=== PATIENT | female | born 2000 | race Caucasian/White ===

== ENCOUNTER 2022-03-08 14:44 | Outpatient (REF) | payer MEDICAID, SELFPAY ==
[2022-03-09 09:47] LABS: BV Int Neg Control Negative (Negative); BV Int Pos Control Positive (Positive)
== END 2022-03-08 14:45 | disposition home or self-care (01) ==
LOC: HO.LNP 14:44
PROVIDERS: Visit Provider Advanced Practice Midwife
DX: N89.8 Other specified noninflammatory disorders of vagina (principal)
CPT/HCPCS: 87480; 87510; 87660; 99212

== ENCOUNTER 2023-09-11 14:01 | Outpatient (REF) | payer OTHER, SELFPAY ==
--- NOTE | ~2023-09-11 | US_ITS ---
EXAMINATION: US THYROID CLINICAL INFORMATION: Incidental thyroid nodule. COMPARISON: None available. TECHNIQUE: Linear transducer casanova-scale and color Doppler examination with attention to the region of the thyroid. FINDINGS: SIZE: Measurements of the thyroid lobes and nodules are given in sagittal, anteroposterior and transverse dimensions respectively. Right Thyroid Lobe: 3.8 x 1.3 x 1.3 cm, volume 3.1 mL. Parenchyma: The gland echotexture is homogeneous. Thyroid vascularity is normal. Left Thyroid Lobe: 4.9 x 2.4 x 2.7 cm, volume 15.5 mL. Parenchyma: The gland echotexture is heterogeneous. Thyroid vascularity is normal. Isthmus: 0.3 cm in maximum AP dimension. Estimated total number of nodules greater than or equal to 1 cm: 1. 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 Location: Left mid. Size: 3.2 x 2.3 x 2.7 cm, volume 10.4 mL. Nodule characteristics: Composition: Solid (2). Echogenicity: Hypoechoic (2). Shape: Not taller than wide (0). Margins: Smooth (0). Echogenic Foci: None (0). ACR TI-RADS total points: 4. ACR TI-RADS category: 4. NODES: 1.0 x 0.2 x 0.7 cm right cervical node with echogenic hilum. 1.6 x 0.3 x 0.6 cm left cervical node with echogenic hilum and mild prominence of the cortex. US/US thyroid IMPRESSION: 3.2 cm left TR4 thyroid nodule meets criteria for biopsy. Fine-needle aspiration recommended. This study was presented today 09/16/2023 for interpretation. PSA staff will provide results to referring provider at this time. ACR TI-RADS RECOMMENDATION REFERENCE: Ultrasound-guided fine-needle aspiration, followup ultrasound, no further follow up. * TR1 (0 point) and TR2 (2 points): No FNA or follow up. * TR3 (3 points): FNA if more than or equal to 2.5 cm in maximum dimension, followup ultrasound in 1, 3 and 5 years if 1.5 to 2.4 cm in maximum dimension. * TR4 (4-6 points): FNA if more than or equal to 1.5 cm in maximum dimension, followup ultrasound in 1, 2, 3 and 5 years if 1 to 1.4 cm in maximum dimension. * TR5 (more than or equal to 7 points): FNA if more than or equal to 1 cm in maximum dimension, followup ultrasound every year for 5 years if 0.5 to 0.9 cm in maximum dimension. * TR3, TR4 or TR5 nodules that are below the size threshold for followup receive no follow up.
== END 2023-09-11 14:02 | disposition home or self-care (01) ==
LOC: HO.US 14:01
PROVIDERS: PCP Pediatrics; Visit Provider Pediatrics
DX: E04.1 Nontoxic single thyroid nodule (principal)
CPT/HCPCS: 76536

== ENCOUNTER 2023-09-24 13:27 | Outpatient (REF) | payer OTHER, SELFPAY ==
--- NOTE | ~2023-09-24 | US_ITS ---
Ultrasound-guided thyroid nodule fine needle aspiration Indication: Left lobe thyroid nodule Procedure: Informed consent was obtained from the patient prior to the procedure. During this process, the procedure and potential alternatives were explained, along with the intended outcome and benefits. The risks of the procedure, as well as the risks of not doing the procedure, were discussed. The patient was given the opportunity to ask questions regarding the procedure and appeared competent to make medical decisions. A signed consent form which documents this discussion was placed in the medical record. A timeout was performed in the room. The patient was placed in a supine position with the neck extended. The left side of the neck and chest was prepped and draped in routine sterile fashion. 1% lidocaine was used as anesthetic. Under real-time ultrasound guidance, a 25-gauge needle was placed into the nodule and aspiration was performed. A total of 3 aspirations were performed. The specimens were placed in CytoLyt and and the Affirma bottle. Postprocedure images showed no hematoma. A Band-Aid was applied to the access site. The patient tolerated the procedure well with no immediate complications. Permanent ultrasound images were archived to the procedure. US/US guided fine needle asp Impression: Left thyroid nodule fine-needle aspiration This procedure was performed by Elvin Santana PA-C, and directly supervised by Dr. Vanessa
[2023-09-24] MEDS: Lidocaine HCl 1 % MPF 5 ML VIAL SUBCUT (14:28)
== END 2023-09-24 13:28 | disposition home or self-care (01) ==
LOC: HO.US 13:27
PROVIDERS: PCP Pediatrics; Visit Provider Pediatrics
DX: E04.1 Nontoxic single thyroid nodule (principal)
CPT/HCPCS: 10005; 88173; 88305; 88341; 88342

== ENCOUNTER → 2023-09-24 13:30 | Outpatient (BNV) | payer OTHER, SELFPAY | PROVIDERS: PCP Pediatrics; Visit Provider Physician Assistant Surgical | DX: E04.1 Nontoxic single thyroid nodule (principal) | CPT/HCPCS: 10005 ==

== ENCOUNTER 2023-11-06 09:35 | Outpatient (AMB) | payer OTHER, SELFPAY ==
--- NOTE | 2023-11-06 09:36 | A.OFFVIS_ITS ---
Vital Signs 11/06/23 09:37 Height 5 ft 3 in Weight 191 lb 5.78 oz BMI 33.9 BP 96/60 Blood Pressure Location Lt brachial Position Sitting Pulse 62 Pulse Source Pulse Oximeter Intake Visit Reasons: Thyroid Nodule-lvm Intake Note: Patient present today for Thyroid nodule follow up visit Handle Maker Required: No Accompanied by: Mother Allergies No Known Allergies Allergy (Verified 11/06/23 09:41) HPI Comments Details: 22 YO F with PMHx [] who is seen in consultation for thyroid nodule at the request of PCP. Was initially diagnosed with nodule thyroid in [] with thyroid US revealing Right Thyroid Lobe: 3.8 x 1.3 x 1.3 cm, volume 3.1 mL. Parenchyma: The gland echotexture is homogeneous. Thyroid vascularity. Incidental finding on CT brain is normal. Left Thyroid Lobe: 4.9 x 2.4 x 2.7 cm, volume 15.5 mL. Parenchyma: The gland echotexture is heterogeneous. Thyroid vascularity is normal. Isthmus: 0.3 cm in maximum AP dimension. Estimated total number of nodules greater than or equal to 1 cm: 1. 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 Location: Left mid. Size: 3.2 x 2.3 x 2.7 cm, volume 10.4 mL. Nodule characteristics: Composition: Solid (2). Echogenicity: Hypoechoic (2). Shape: Not taller than wide (0). Margins: Smooth (0). Echogenic Foci: None (0). ACR TI-RADS total points: 4. ACR TI-RADS category: 4. NODES: 1.0 x 0.2 x 0.7 cm right cervical node with echogenic hilum. 1.6 x 0.3 x 0.6 cm left cervical node with echogenic hilum and mild prominence of the cortex. She underwent an FNA of the nodule which showed AUS. Affirma was suspicious Currently [denies] any dysphagia or hoarseness of voice. [Denies] sensation of swelling in the neck or difficulty breathing while lying flat. [Denies] any tenderness in the neck. Denies any palpitations, tremors, weight loss, frequent bowel movements. Denies any ocular complaints, blurred or double vision. Denies hair loss, dry skin, heat or cold intolerance, weight gain, confusion. Denies any history of head or neck irradiation. Denies any family history of thyroid cancer. [ Thyroid US: Labs: COUNT INCLUDES THE [facility] Medical History (Updated 11/06/23 @ 09:43 by Ebenezer Alonso MD) Thyroid nodule Surgical History (Updated 03/08/22 @ 14:11 by MARINA Sánchez) H/O bilateral breast reduction surgery Family History Paternal Aunt Breast cancer Social History (Updated 03/08/22 @ 14:13 by MARINA Sánchez) Alcohol intake: current Alcohol intake frequency: holidays/special occasions only Female Reproductive History Menstrual Age of Menarche: 13 Physical Exam HEENT reveals absence of lid lag , stare or proptosis or eyebrow loss. Thyroid gland measure gms . No nodules or tenderness palpated. There is no cervical adenopathy palpated. Lungs CTA. Heart S1, S2 Reg R/R -M/R/G. Abdominal exam benign. Skin exam reveals absence of dryness or thyroid dermopathy or vitiligo. Nail exam reveals absence of thyroid acropachy or oncholysis. Neurologic exam reveals 2+ reflexes . Muscle Strength is 5/5 proximally. There are no tremors in upper extremities. Assessment & Plan Assessment & Plan (1) Thyroid nodule: Code(s): E04.1 - Nontoxic single thyroid nodule Category: Medical Plan: This is a 22-year-old white female with a history of left mid thyroid nodule with FNA with cytology of AUS and Affirma suspicious. She appears to be clinically euthyroid Plan is to check a TSH and free T4 as well as a thyroglobulin. Will send to Dr. Mendoza for possible total thyroidectomy. Orders: Orders Free T4 (Free Thyroxine) Today E04.1 - Nontoxic single thyroid nodule Thyroid Stimulating Hormone Today E04.1 - Nontoxic single thyroid nodule Thyroglobulin Tumor Marker Today E04.1 - Nontoxic single thyroid nodule Referrals General Surgery Referral E04.1 - Nontoxic single thyroid nodule Coding Level of Care Code New Pt Level 4 (18074) Diagnoses Thyroid nodule E04.1
[2023-11-06 09:37] VITALS: BP 96/60; PULSE 62; BMI 33.9
== END 2023-11-06 10:22 | disposition home or self-care (01) ==
PROVIDERS: PCP Pediatrics; Visit Provider Internal Medicine Endocrinology, Diabetes & Metabolism
DX: E04.1 Nontoxic single thyroid nodule (principal)
CPT/HCPCS: 99204

== ENCOUNTER → 2023-11-06 09:35 | Outpatient (BNVA) | payer OTHER, SELFPAY | PROVIDERS: PCP Pediatrics; Visit Provider Internal Medicine Endocrinology, Diabetes & Metabolism ==

== ENCOUNTER 2023-11-06 10:25 | Outpatient (REF) | payer OTHER, SELFPAY ==
[2023-11-06 11:52] LABS: Free T4 (Free Thyroxine) 0.99 ng/dL (0.71-1.85)
[2023-11-09 05:04] LABS: Thyroglobulin Antibody <1 IU/mL (<=1); Thyroglobulin Level 68.9 ng/mL
== END 2023-11-06 10:26 | disposition home or self-care (01) ==
LOC: HO.10HDL 10:25
PROVIDERS: Visit Provider Internal Medicine Endocrinology, Diabetes & Metabolism
DX: E04.1 Nontoxic single thyroid nodule (principal)
CPT/HCPCS: 36415; 84432; 84439; 84443; 86800

== ENCOUNTER → 2024-01-21 15:09 | Outpatient (BNVA) | payer MEDICAID, SELFPAY | PROVIDERS: PCP Pediatrics; Visit Provider Internal Medicine Endocrinology, Diabetes & Metabolism | DX: C73 Malignant neoplasm of thyroid gland (principal); E89.0 Postprocedural hypothyroidism | CPT/HCPCS: 99212 ==

== ENCOUNTER 2024-01-28 13:01 | Outpatient (AMB) | payer MEDICAID, SELFPAY ==
[2024-01-28 13:05] VITALS: BP 102/54; PULSE 77; BMI 34.3
--- NOTE | 2024-01-28 13:05 | A.OFFVIS_ITS ---
Vital Signs 3 01/28/24 13:05 Height 5 ft 3 in Weight 193 lb 9.054 oz BMI 34.3 BP 102/54 L Blood Pressure Location Lt brachial Position Sitting Pulse 77 Pulse Source Pulse Oximeter Intake Visit Reasons: Papillary thyroid cancer, Thyroid nodule/CONFIRMED Intake Note: Patient present today for Thyroid nodule office visit. 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 Accompanied by: Mother Allergies No Known Allergies Allergy (Verified 01/28/24 13:10) Medication List - Last Reconciled 01/28/24 by Marva Jurado MD levothyroxine 100 mcg PO DAILY sertraline 25 mg PO DAILY HPI Comments Details: 23 YO F with PMHx of anxiety and depression who is status post left lobectomy and prelaryngeal lymph node excision 12/17/23 with diagnosis of papillary thyroid cancer with follicular features , AJCC stage 1 ([id number]), with pathology showing high-grade features with high Ki67 index of 20 % and angioinvasion, concerning for KETTY high-risk for recurrence PTC, who is coming in today to establish care with me. Patient was previously being seen by Dr. Alonso. First visit with me today. HPI Initially diagnosed with thyroid nodule in August of 2023 a thyroid ultrasound revealing Estimated total number of nodules greater than or equal to 1 cm: 1. 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 Location: Left mid. Size: 3.2 x 2.3 x 2.7 cm, volume 10.4 mL. Nodule characteristics: Composition: Solid (2). Echogenicity: Hypoechoic (2). Shape: Not taller than wide (0). Margins: Smooth (0). Echogenic Foci: None (0). ACR TI-RADS total points: 4. ACR TI-RADS category: 4. NODES: 1.0 x 0.2 x 0.7 cm right cervical node with echogenic hilum. 1.6 x 0.3 x 0.6 cm left cervical node with echogenic hilum and mild prominence of the cortex. FNA of the nodule 09/25/2023 which showed AUS. Affirma was suspicious Subsequently underwent left thyroid lobectomy in prelaryngeal lymph node excision on 12/17/[address] Javid Mendoza Pathology : Subsequently patient was tried on levothyroxine 100 mcg daily from 01/16/2024. Patient endorses this was started in the hospital. Currently denies any symptoms of palpitations, tremors, increased anxiety. She feels she is putting on weight. Especially after the surgery. She is complaining of excessive tiredness. No recent labs. Denies any history of head or neck irradiation. Maternal aunts both had thyroid surgery with benign results Maternal uncle had thyroid cancer Paternal aunts x2 have throid disease PFSH Medical History (Updated 01/28/24 @ 17:00 by Marva Jurado MD) Thyroid cancer Thyroid nodule Surgical History H/O bilateral breast reduction surgery Family History Paternal Aunt Breast cancer Social History Alcohol intake: current Alcohol intake frequency: holidays/special occasions only Female Reproductive History Menstrual Age of Menarche: 13 Review of Systems Const Details: Constitutional: sleep disturbed and brain fog HEENT: no changes in vision Cardiac: No chest pain, discomfort or palpitations. Pulmonary: No SOB GI:No abdominal pain, no nausea or vomiting, no anorexia, no blood in stool : no burning micturition, dysuria or increase in urinary frequency Neurologic: No dizziness, no weakness in extremities MSK: no back pain or joint stiffness Eyes Details: General: sitting comfortably in bed in no acute distress HEENT: normocephalic/atraumatic, EOM intact, moist oral mucosa Neck: supple, symmetrical, no thyromegaly , no dorsocervical or supraclavicular fat pads Cardiac: normal heart sounds Pulm: normal breath sounds B/L, no added breath sounds Abd: not distended, no tenderness Extremities: no edema, no signs of myxedema Neuro: AAO x3, Speech: normal, no facial droop, moving all 4 extremities Skin: no rash Physical Exam Vital Signs: Last Vital Signs Pulse 77 01/28/24 13:05 BP 102/54 L 01/28/24 13:05 BMI result Body Mass Index 34.3 Const Other: General: sitting comfortably in bed in no acute distress HEENT: normocephalic/atraumatic, EOM intact, moist oral mucosa Neck: Lobectomy scar healing well, no palpable masses Cardiac: normal heart sounds Pulm: normal breath sounds B/L, no added breath sounds Abd: not distended, no tenderness Extremities: no edema, no signs of myxedema Neuro: AAO x3, Speech: normal, no facial droop, moving all 4 extremities Skin: no rash Results Reviewed Results Reviewed: Laboratory Tests 11/06/23 10:27 TSH 2.70 Free T4 0.99 Thyroglobulin 68.9 H Assessment & Plan Assessment & Plan (1) Thyroid cancer: Comment: 23 YO F who was recently diagnosed with left sided thyroid nodule on thyroid ultrasound in August 2023, but subsequent FNA in 10/05/2023 showing AUS with suspicious Afirma, status post left lobectomy and prelaryngeal lymph node excision 12/17/23 with diagnosis of papillary thyroid cancer with follicular features , AJCC stage 1 ([id number]), with pathology showing high-grade features with high Ki67 index of 20 % and angioinvasion, concerning for KETTY intermediate to high-risk for recurrence PTC with no recurrence risk of around 15-30%. Discussed with the patient not agree with plan for a completion thyroidectomy which she is being planned for in about 8-10 weeks from her initial lobectomy to allow for inflammation to settle down in the thyroid bed. She does not have a date for surgery right now. I have asked patient to get in touch with the surgical team and let us know about the date. I will also get in touch with Dr. Mendoza. Discussed with her that once we have the results final pathology and then based on thyroglobulin levels 6 weeks after her completion thyroidectomy we can determine the dose of radioactive iodine ablation, however given her intermediate to high risk of reoccurrence, she definitely would need radioactive iodine ablation. Explained to the patient not radioactive iodine scan is administered in 2 ways. Most commonly we use Thyrogen-stimulated TSH. Thyrogen injections are given on Saturday and Saturday followed by labs and radioactive iodine pill on Saturday. Then sometime around next week usually on Saturday of the following week the patient returns for a skin. Explained to patient that there will be need for test during this treatment as well. Also discussed need of isolation during treatment. Discussed that sometimes we use thyroid hormone withdrawal method for every hold levothyroxine for about 3-4 weeks before treatment instead of injecting Thyrogen. Discussed side effects of sialadenitis, excess risk of secondary malignancies (however data is heterogenous inequality of evidence is generally low, the magnitude of risk of secondary malignancies that is absolute risk appears to be small. In an analysis of 36,000 patient has been well differentiated thyroid cancer the 20 year cumulative incidence of a 2nd solid malignancy was 5.6% for radioiodine treated patients compared with 5% for those not treated with radioiodine and at 30 years increased to 12.5 versus 10.2%. The 5 year cumulative incidence rate of 2nd hematologic malignancies was 0.1% for radioiodine treated patient's versus 0.05% for the was not treated with radioiodine in 20 years increased to 0.6% versus 0.37%.), transient decrease in ovarian function. She started levothyroxine 100 mcg daily just about 2 weeks ago, she does not have any recent TFTs. While she is waiting for completion thyroidectomy, we will repeat her TSH and free T4 next week so it has at least been 3 weeks since she has been on the medicine. Nightly levothyroxine was started in the goal of TSH suppression. Given intermediate to high risk of recurrence our goal TSH would be less than 0.1. She is tolerating it well. Times we have the results of her testing we will see if she needs dose adjustment. I will see her back after her surgery when we will obtain postoperative thyroglobulin levels and discuss pathology results to decide on RA does and further steps. Patient verbalized understanding and agreeable with the plan. Code(s): C73 - Malignant neoplasm of thyroid gland Category: Medical Plan: See below Plan -Repeat TSH and free T4 in 1 week -completion thyroidectomy with Dr. Javid Mendoza -postoperative follow up in the at which time we will obtain thyroglobulin levels 6 week post surgery and discuss pathology to decide on MCQUEEN does. Orders: Orders 2 TSH reflex Free T4 Today C73 - Malignant neoplasm of thyroid gland Free T4 (Free Thyroxine) Today C73 - Malignant neoplasm of thyroid gland Patient Instructions: Please do labs in 1-2 weeks No fasting needed Call Dr. Mendoza's office to confirm surgery date My next appointment with you should be after your surgery within 3 to 4 weeks or so Continue levothyroxine as it is for now We might adjust the dose based on your lab results Coding Level of Care Code Est Pt Level 4 (03970) Diagnoses Thyroid cancer C73
== END 2024-01-28 14:00 | disposition home or self-care (01) ==
PROVIDERS: PCP Pediatrics; Visit Provider Student in an Organized Health Care Education/Training Program
DX: C73 Malignant neoplasm of thyroid gland (principal)
CPT/HCPCS: 99215

== ENCOUNTER → 2024-01-28 13:01 | Outpatient (BNVA) | payer MEDICAID, SELFPAY | PROVIDERS: PCP Pediatrics; Visit Provider Student in an Organized Health Care Education/Training Program | DX: C73 Malignant neoplasm of thyroid gland (principal) | CPT/HCPCS: 99212 ==

== ENCOUNTER 2024-03-23 13:56 | Outpatient (REF) | payer MEDICAID, SELFPAY ==
[2024-03-23 15:34] LABS: Free T4 (Free Thyroxine) 1.21 ng/dL (0.71-1.85)
== END 2024-03-23 13:57 | disposition home or self-care (01) ==
LOC: HO.LAB 13:56
PROVIDERS: PCP Pediatrics; Visit Provider Student in an Organized Health Care Education/Training Program
DX: C73 Malignant neoplasm of thyroid gland (principal)
CPT/HCPCS: 36415; 84439; 84443

== ENCOUNTER 2024-03-26 12:59 | Outpatient (AMB) | payer MEDICAID, SELFPAY ==
[2024-03-26 13:02] VITALS: BP 110/62; PULSE 72
--- NOTE | 2024-03-26 13:02 | A.OFFVIS_ITS ---
Vital Signs 3 03/26/24 13:02 Height 5 ft 3 in BP 110/62 Blood Pressure Location Lt brachial Position Sitting Pulse 72 Pulse Source Pulse Oximeter Intake Visit Reasons: Thyroid Nod-lvm Intake Note: Patient present today for Thyroid Nodule follow up visit. Director Of Retail Analytics Required: No Accompanied by: Self / Same As Patient Allergies No Known Allergies Allergy (Verified 03/26/24 13:06) HPI Comments Details: 23 YO F with PMHx of anxiety and depression who is status post left lobectomy and prelaryngeal lymph node excision 12/17/23 with diagnosis of papillary thyroid cancer with follicular features , AJCC stage 1 ([id number]), with pathology showing high-grade features with high Ki67 index of 20 % and angioinvasion, concerning for KETTY high-risk for recurrence PTC, who is here for follow up . HPI Initially diagnosed with thyroid nodule in August of 2023 a thyroid ultrasound revealing Estimated total number of nodules greater than or equal to 1 cm: 1. Residential Substance Abuse Counselor nodules are described as follows: 1. Location: Left mid. Size: 3.2 x 2.3 x 2.7 cm, volume 10.4 mL. Nodule characteristics: Composition: Solid (2). Echogenicity: Hypoechoic (2). Shape: Not taller than wide (0). Margins: Smooth (0). Echogenic Foci: None (0). ACR TI-RADS total points: 4. ACR TI-RADS category: 4. NODES: 1.0 x 0.2 x 0.7 cm right cervical node with echogenic hilum. 1.6 x 0.3 x 0.6 cm left cervical node with echogenic hilum and mild prominence of the cortex. FNA of the nodule 09/25/2023 which showed AUS. Affirma was suspicious Subsequently underwent left thyroid lobectomy in prelaryngeal lymph node excision on 12/17/[address] Javid Mendoza Pathology : Subsequently patient was tried on levothyroxine 100 mcg daily from 01/16/2024. Patient endorses this was started in the hospital. Scheduled for completion thyroidectomy surgery 03/31. Reports cold intolerance and brain fog. Currently denies any symptoms of palpitations, tremors, increased anxiety. She feels she is putting on weight. Especially after the surgery. She is complaining of excessive tiredness. Denies any history of head or neck irradiation. Laboratory Tests 03/23/24 14:11 TSH 1.10 Free T4 1.21 Maternal aunts both had thyroid surgery with benign results Maternal uncle had thyroid cancer Paternal aunts x2 have throid disease Physical exam General: sitting comfortably in no acute distress HEENT: normocephalic/atraumatic, moist oral mucosa Neck: supple, well-healed surgical scar, no dorsocervical or supraclavicular fat pads Cardiac: normal heart sounds Pulm: normal breath sounds B/L, no added breath sounds Abd: not distended, no tenderness Extremities: no edema, no signs of myxedema PFSH Medical History (Updated 03/26/24 @ 13:48 by Marva Jurado MD) Thyroid cancer Thyroid nodule Surgical History (Updated 03/26/24 @ 13:08 by MARINA Zimmerman) History of thyroid surgery H/O bilateral breast reduction surgery Family History Paternal Aunt Breast cancer Social History Alcohol intake: current Alcohol intake frequency: holidays/special occasions only Female Reproductive History Menstrual Age of Menarche: 13 Physical Exam Vital Signs: Last Vital Signs Pulse 72 03/26/24 13:02 BP 110/62 03/26/24 13:02 Results Reviewed Results Reviewed: Laboratory Tests 11/06/23 03/23/24 10:27 14:11 TSH 2.70 1.10 Free T4 0.99 1.21 Thyroglobulin 68.9 H Thyroglobulin Antibody <1 Assessment & Plan Assessment & Plan (1) Thyroid cancer: Code(s): C73 - Malignant neoplasm of thyroid gland Category: Medical Plan: 23 YO F who was recently diagnosed with left sided thyroid nodule on thyroid ultrasound in August 2023, but subsequent FNA in 10/05/2023 showing AUS with suspicious Afirma, status post left lobectomy and prelaryngeal lymph node excision 12/17/23 with diagnosis of papillary thyroid cancer with follicular features , AJCC stage 1 ([id number]), with pathology showing high-grade features with high Ki67 index of 20 % and angioinvasion, concerning for KETTY intermediate to high-risk for recurrence PTC with recurrence risk of around 15-30%. Discussed with the patient not agree with plan for a completion thyroidectomy which she is being planned for 03/31/[address] Mendoza. Discussed with her that once we have the results final pathology and then based on thyroglobulin levels 6 weeks after her completion thyroidectomy we can determine the dose of radioactive iodine ablation, however given her intermediate to high risk of reoccurrence, she definitely would need radioactive iodine ablation. Explained to the patient not radioactive iodine scan is administered in 2 ways. Most commonly we use Thyrogen-stimulated TSH. Thyrogen injections are given on Saturday and Saturday followed by labs and radioactive iodine pill on Saturday. Then sometime around next week usually on Saturday of the following week the patient returns for a skin. Explained to patient that there will be need for test during this treatment as well. Also discussed need of isolation during treatment. Discussed that sometimes we use thyroid hormone withdrawal method for every hold levothyroxine for about 3-4 weeks before treatment instead of injecting Thyrogen. Discussed side effects of sialadenitis, excess risk of secondary malignancies (however data is heterogenous inequality of evidence is generally low, the magnitude of risk of secondary malignancies that is absolute risk appears to be small. In an analysis of 36,000 patient has been well differentiated thyroid cancer the 20 year cumulative incidence of a 2nd solid malignancy was 5.6% for radioiodine treated patients compared with 5% for those not treated with radioiodine and at 30 years increased to 12.5 versus 10.2%. The 5 year cumulative incidence rate of 2nd hematologic malignancies was 0.1% for radioiodine treated patient's versus 0.05% for the was not treated with radioiodine in 20 years increased to 0.6% versus 0.37%.), transient decrease in ovarian function. She started levothyroxine 100 mcg daily in december 2023. levothyroxine was started in the goal of TSH suppression. Given intermediate to high risk of recurrence our goal TSH would be less than 0.1. While the role of TSH suppression is mostly postoperatively, and her dose will need to be adjusted once she is done with her completion thyroidectomy, for now her TSH is 1.10, in recent we would like to keep TSH suppressed I will increase her levothyroxine to 112 mcg daily. I will see her back after her surgery when we will obtain postoperative thyroglobulin levels and discuss pathology results to decide on MCQUEEN dose and further steps. Patient verbalized understanding and agreeable with the plan. Plan: -completion thyroidectomy on 03/31/[address] Javid Mendoza -postoperative visit with me 4 weeks after surgery with repeat labs with TSH, free T4, thyroglobulin tumor markers -increase levothyroxine to 112 mcg for now, however have discussed with her that she will need dose adjustment post surgery to keep her TSH suppressed Plan I spent 30 minutes in reviewing the record, seeing the patient and documenting in the medical record. Orders: Orders 2 Free T4 (Free Thyroxine) 4 Weeks C73 - Malignant neoplasm of thyroid gland Thyroglobulin Tumor Marker 4 Weeks C73 - Malignant neoplasm of thyroid gland Thyroid Stimulating Hormone 4 Weeks C73 - Malignant neoplasm of thyroid gland Thyroglobulin Antibodies 4 Weeks C73 - Malignant neoplasm of thyroid gland Thyroglobulin 4 Weeks C73 - Malignant neoplasm of thyroid gland Medications: New 2 levothyroxine 112 mcg PO DAILY 30 caps 3RF Patient Instructions: Do blood work 3 to 4 days prior to your next appointment with me which would be in 4 weeks post op Please sign up on the portal for quick communication Increase levothyroxine to 112 mcg daily , your dose will be adjusted after your surgery in the hospital Coding Level of Care Code Est Pt Level 4 (61757) Complex EM visit Add On G2211 Diagnoses Thyroid cancer C73 Time Spent (min) 30
== END 2024-03-26 13:39 | disposition home or self-care (01) ==
PROVIDERS: PCP Pediatrics; Visit Provider Student in an Organized Health Care Education/Training Program
DX: C73 Malignant neoplasm of thyroid gland (principal)
CPT/HCPCS: 99214

== ENCOUNTER → 2024-03-26 12:59 | Outpatient (BNVA) | payer MEDICAID, SELFPAY | PROVIDERS: PCP Pediatrics; Visit Provider Student in an Organized Health Care Education/Training Program | DX: C73 Malignant neoplasm of thyroid gland (principal) | CPT/HCPCS: 99212 ==

== ENCOUNTER 2024-04-22 11:56 | Outpatient (REF) | payer MEDICAID, SELFPAY ==
[2024-04-22 14:46] LABS: Free T4 (Free Thyroxine) 1.52 ng/dL (0.71-1.85); Thyroid Stimulating Hormone 0.24 uIU/mL (0.32-4.0)
[2024-04-23 11:29] LABS: Thyroglobulin 0.3 ng/mL; Thyroglobulin Antibodies <1 IU/mL (< or = 1)
[2024-04-26 04:54] LABS: Thyroglobulin Antibody <1 IU/mL (<=1); Thyroglobulin Level 0.3 ng/mL
== END 2024-04-22 11:57 | disposition home or self-care (01) ==
LOC: HO.LAB 11:56
PROVIDERS: PCP Pediatrics; Visit Provider Student in an Organized Health Care Education/Training Program
DX: C73 Malignant neoplasm of thyroid gland (principal)
CPT/HCPCS: 36415; 84432; 84439; 84443; 86800

== ENCOUNTER 2024-04-28 13:36 | Outpatient (AMB) | payer MEDICAID, SELFPAY ==
--- NOTE | 2024-04-28 13:40 | MHC.OFFVIS ---
Vital Signs 04/28/24 13:41 Height 5 ft 3 in Weight 182 lb 15.739 oz BMI 32.4 BP 114/76 Blood Pressure Location Rt brachial Position Sitting Pulse 90 Pulse Source Pulse Oximeter Intake Visit Reasons: Thyroid nod-lvm Intake Note: Patient present today for a follow-up on post-op Thyroidectomy: Crop Nutrition Scientist Required: No Accompanied by: Mother Allergies No Known Allergies Allergy (Verified 03/26/24 13:06) HPI Comments Details: 23 YO F with PMHx of anxiety and depression who is status post left lobectomy and prelaryngeal lymph node excision 12/17/23 with diagnosis of papillary thyroid cancer with follicular features , AJCC stage 1 ([id number]), with pathology showing high-grade features with high Ki67 index of 20 % and angioinvasion, concerning for KETTY high-risk for recurrence PTC, who is here for follow up . HPI Initially diagnosed with thyroid nodule in August of 2023 a thyroid ultrasound revealing Estimated total number of nodules greater than or equal to 1 cm: 1. Market Intelligence Consultant nodules are described as follows: 1. Location: Left mid. Size: 3.2 x 2.3 x 2.7 cm, volume 10.4 mL. Nodule characteristics: Composition: Solid (2). Echogenicity: Hypoechoic (2). Shape: Not taller than wide (0). Margins: Smooth (0). Echogenic Foci: None (0). ACR TI-RADS total points: 4. ACR TI-RADS category: 4. NODES: 1.0 x 0.2 x 0.7 cm right cervical node with echogenic hilum. 1.6 x 0.3 x 0.6 cm left cervical node with echogenic hilum and mild prominence of the cortex. FNA of the nodule 09/25/2023 which showed AUS. Affirma was suspicious Subsequently underwent left thyroid lobectomy in prelaryngeal lymph node excision on 12/17/[address] Javid Mendoza Pathology : Subsequently patient was tried on levothyroxine 100 mcg daily from 01/16/2024. Patient endorses this was started in the hospital. Laboratory Tests 03/23/24 14:11 TSH 1.10 Free T4 1.21 Interval history Underwent completion thyroidectomy 03/31/24, with benign right thyroid lobe pathology Still reporting excessive fatigue Currenlty on levothyroxine 150 mcg daily started postoperatively , taking it appropriately Reports cold intolerance and brain fog. Currently denies any symptoms of palpitations, tremors, increased anxiety. She feels she is putting on weight. Especially after the surgery. She is complaining of excessive tiredness. Denies any history of head or neck irradiation. no recent contrast exposure Laboratory Tests 04/22/24 13:06 TSH 0.24 L Free T4 1.52 Thyroglobulin 0.3 H Thyroglobulin Antibody <1 Maternal aunts both had thyroid surgery with benign results Maternal uncle had thyroid cancer Paternal aunts x2 have throid disease 2 maternal grandmothers (grandmothers isters) have breats Ca 3 paternal aunts have breast Cancer Physical exam General: sitting comfortably in no acute distress HEENT: normocephalic/atraumatic, moist oral mucosa Neck: supple, well-healed surgical scar, no dorsocervical or supraclavicular fat pads Cardiac: normal heart sounds Pulm: normal breath sounds B/L, no added breath sounds Abd: not distended, no tenderness Extremities: no edema, no signs of myxedema Labs Laboratory Tests 11/06/23 03/23/24 04/22/24 10:27 14:11 13:06 TSH 2.70 1.10 0.24 L Free T4 0.99 1.21 1.52 Thyroglobulin 68.9 H 0.3 H Thyroglobulin Antibody <1 <1 [facility] Medical History (Updated 04/28/24 @ 14:51 by Marva Jurado MD) Hypothyroidism Thyroid cancer Thyroid nodule Surgical History (Updated 04/28/24 @ 13:51 by MARINA Stringer) History of lobectomy of thyroid Hx of total thyroidectomy H/O bilateral breast reduction surgery Family History Paternal Aunt Breast cancer Mother No problems noted. Father No problems noted. Social History Alcohol intake: current Alcohol intake frequency: holidays/special occasions only Female Reproductive History Menstrual Age of Menarche: 13 Physical Exam Vital Signs: Last Vital Signs Pulse 90 04/28/24 13:41 BP 114/76 04/28/24 13:41 BMI result Body Mass Index 32.4 Assessment & Plan Assessment & Plan (1) Thyroid cancer: Code(s): C73 - Malignant neoplasm of thyroid gland Category: Medical Plan: 23 YO F who was recently diagnosed with left sided thyroid nodule on thyroid ultrasound in August 2023, but subsequent FNA in 10/05/2023 showing AUS with suspicious Afirma, status post left lobectomy and prelaryngeal lymph node excision 12/17/23 with diagnosis of papillary thyroid cancer with follicular features , AJCC stage 1 ([id number]), with pathology showing high-grade features with high Ki67 index of 20 % and angioinvasion (>4 vessels), concerning for KETTY high-risk for recurrence with recurrence risk of around 15-30%. s/p completion thyroidectomy 03/31/[address] Mendoza with benign right lobe pathology. Three weeks postoperative labs from 04/22/24 show TSH of 0.24, TG 0.3, TG antibody undetectable. He usually takes about 4-6 weeks for thyroglobulin reach its alexis level will have her repeat labs in 2 weeks. Given low levels of TG postoperatively, this is a favorable factor in her prognosis. I will plan to give her adjuvant treatment with 100 mCi of I 131 radioactive iodine. Explained to the patient radioactive iodine scan is administered in 2 ways. Most commonly we use Thyrogen-stimulated TSH. And we will be using Thyrogen protocol with her. Thyrogen injections are given on Saturday and Saturday followed by labs and radioactive iodine pill on Saturday. Then sometime around next week usually on Saturday or Saturday of the following week the patient returns for a scan. Explained to patient that there will be need for test during this treatment as well. LMP: 2 weeks ago, she is not sexullay active, not on contraceptives. Also discussed need of isolation during treatment. Discussed side effects of sialadenitis, excess risk of secondary malignancies (however data is heterogenous inequality of evidence is generally low, the magnitude of risk of secondary malignancies that is absolute risk appears to be small. In an analysis of 36,000 patient has been well differentiated thyroid cancer the 20 year cumulative incidence of a 2nd solid malignancy was 5.6% for radioiodine treated patients compared with 5% for those not treated with radioiodine and at 30 years increased to 12.5 versus 10.2%. The 5 year cumulative incidence rate of 2nd hematologic malignancies was 0.1% for radioiodine treated patient's versus 0.05% for the was not treated with radioiodine in 20 years increased to 0.6% versus 0.37%.), transient decrease in ovarian function. Discussed with patient that we wait at least 2 months post surgery before administrating radioactive iodine to allow for adequate healing. Discussed low iodine diet that needs to be started 2 weeks prior to radioactive iodine treatment and continuing until 3-4 days after her scan. Gave her resources in print for low iodine diet. She is on levothyroxine 150 mcg daily started on 03/31/24. TSH from 04/22/2024 at 0.24. . Given high risk of recurrence our goal TSH would be less than 0.1. We will increase levothyroxine to 175 mcg daily. Patient verbalized understanding and agreeable with the plan. Plan: -initiate process for radioactive iodine administration for 100 mci I 131 adjuvant treatment with Thyrogen -increase levothyroxine to 175 mcg daily, goal TSH <0.1 -repeat labs ordered for 2 weeks for TG tumor markers, TSH, free T4, we will plan to repeat another set of labs in 6 weeks -Education provided on low iodine diet, radiation safety considerations, thyrogen protocol -Fup in 2 months (2) Hypothyroidism: Code(s): E03.9 - Hypothyroidism, unspecified Category: Medical Qualifiers: Hypothyroidism type: postoperative Qualified Code(s): E89.0 - Postprocedural hypothyroidism Plan: She is on levothyroxine 150 mcg daily started on 03/31/24. TSH from 04/22/2024 at 0.24. . Given high risk of recurrence our goal TSH would be less than 0.1. We will increase levothyroxine to 175 mcg daily. Plan: -increase levothyroxine to 175 mcg daily -repeat labs ordered for 2 weeks for TG tumor markers, TSH, free T4, we will plan to repeat another set of labs in 6 weeks Plan I spent 60 minutes in reviewing the record, seeing the patient and documenting in the medical record. Orders: Orders Thyroid Stimulating Hormone 2 Weeks C73 - Malignant neoplasm of thyroid gland Thyroglobulin 2 Weeks C73 - Malignant neoplasm of thyroid gland Free T4 (Free Thyroxine) 2 Weeks C73 - Malignant neoplasm of thyroid gland NM bone scan whole body 4 Weeks C73 - Malignant neoplasm of thyroid gland Thyroglobulin Antibodies 2 Weeks C73 - Malignant neoplasm of thyroid gland Thyroglobulin Tumor Marker 2 Weeks C73 - Malignant neoplasm of thyroid gland Medications: New levothyroxine 175 mcg PO DAILY 30 tabs 5RF Discontinued levothyroxine Discontinued Reason: Patient Completed Course 112 mcg PO DAILY 30 caps 3RF Patient Instructions: Increase levothyroxine to 175 mcg daily Do blood work in 2 weeks We are initiating the process of radioactive iodine treatment Roughly your process will look like this Saturday: Thyrogen injection at [facility] Saturday: Thyrogen injection at [facility] plus labs Saturday: Labs in gun number at [facility] and then radioactive iodine pill at [facility] Saturday: Labs at [facility] The week after usually 4-7 days after the radioactive pill you get a scan at [facility] Radiation safety instructions: ? Your therapeutic procedure poses no significant safety hazard to anyone in your vicinity, but as a prudent precaution, the following [facility] radiation safety measures should be followed. ?It should particularly minimize close personal contact (i.e. hugging, kissing except) and avoid contract with individuals. ? Avoid prolonged intimate contact including sex for minimum of 21 days Avoid crowded public modes of transportation for extended periods for at least 5 days Avoid close and/or prolonged contact with toddlers and small children for at least 3 days Avoid hot tubs/pools or any common water gathering for a minimum of 3 days If you are in close proximity to other persons, delay returning to work or school for at least 3 days ? Do not allow others to drink from your drink container or use your eating utensils without washing them first. ? If possible, use a separate toilet. ?Male patient should sit on the toilet. ?There is avoid splashing of urine onto the season bathroom floor. ?Wipe up any spill urine with a tissue in place it inside the toilet. ? If you use a urine collection device, take advised on its use from your doctor. ?Be aware of avoiding spills and accidental drips of urine onto floor, bed etc. ?Grams collection device if reusable twice, putting insulation carefully without splashing into the toilet. ? Wash your hands thoroughly after visiting the bathroom. ? Immediately wash any linen on clothes, which you suspect may have become soiled with your urine, feces or blood. ?These items should be segregated and wash separately from other items, wash twice and rinsed well. ?Standard automatic washer will do nicely for cleansing the soiled items ? You should not have any blood taken for lab work until 3 days have passed from today. ? If you should cut yourself, wash away any spilled blood with tissue. ?Apply a dressing. ?Place tissue and toilet and flush twice. ?Wash hands thoroughly with warm water and mild soap. ? Significant potentially contaminated trash, placed in separate bag and dispose and regular trash container. Safety for the general public and household members???Treated patients should be given patient-specific advice on the necessary precautions to reduce radiation exposure . The treated patient should remain >=.8 m (6 feet) away from family members, caregivers, and the general public as much as possible for approximately 24 hours after treatment. Adult caregivers may be closer than 1 m (3 feet) for brief intervals. In general, the treated patient should be instructed to avoid public transportation and extended time in public places and should not stay overnight in a hotel or motel within 24 hours of 131-I treatment. To protect household members from radiation exposure, the treated patient should avoid the following during the restricted period: ?Sleeping in the same bed with another adult, woman, , or child ?Sexual contact ?Kissing ?Sharing cups, utensils, towels, razors, toothbrushes The duration of the restricted period depends upon the dose received, amount of thyroid tissue, and rate of clearance. The restricted period is calculated individually for each treated patient Personal hygiene???131-I is renally excreted, and excretion is maximal during the first 48 hours after treatment. Patients should stay well hydrated (3 to 4 L of fluid daily) and void frequently. To avoid personal or caregiver contamination, patients should be meticulous in their personal hygiene, wiping any surfaces that may become contaminated with urine, stool, vomitus, blood, or perspiration for 48 hours after treatment . For 48 hours after therapy, men should sit when urinating. Exercise equipment should be wiped with flushable or disposable wipes. Exercise and bed clothes can be laundered in a washing machine. Dishes and utensils can be washed by hand or in a invasive cardiovascular technologist. Flushable waste can be flushed down the toilet. Non-flushable waste (ie, incontinence pads) should be disposed of in a plastic trash bag devoted to radiation waste. Caregivers should wear disposable plastic gloves during clean-up. Radiation waste bags can be returned to the nuclear medicine facility one to two weeks after treatment or stored in the household (6 feet away from people or animals) for 80 days. After 80 days, radiation-related trash can be disposed of with regular household trash. International travel???Low levels of 131-I activity )can be picked up by radiation detection systems at airports or international borders. Treated patients may trigger alarms for as long as 95 days posttherapy Future ???, should generally be delayed for at least six months after radioiodine therapy Coding Level of Care Code Est Pt Level 5 (28594) Complex EM visit Add On G2211 Diagnoses Thyroid cancer C73 Postoperative hypothyroidism E89.0 Hypothyroidism type: postoperative Time Spent (min) 60
[2024-04-28 13:41] VITALS: BP 114/76; PULSE 90; BMI 32.4
== END 2024-04-28 14:30 | disposition home or self-care (01) ==
PROVIDERS: PCP Pediatrics; Visit Provider Student in an Organized Health Care Education/Training Program
DX: C73 Malignant neoplasm of thyroid gland (principal); E89.0 Postprocedural hypothyroidism
CPT/HCPCS: 99215

== ENCOUNTER → 2024-04-28 13:36 | Outpatient (BNVA) | payer MEDICAID, SELFPAY | PROVIDERS: PCP Pediatrics; Visit Provider Student in an Organized Health Care Education/Training Program | DX: C73 Malignant neoplasm of thyroid gland (principal); E89.0 Postprocedural hypothyroidism | CPT/HCPCS: 99212 ==

== ENCOUNTER 2024-05-19 13:38 | Outpatient (REF) | payer MEDICAID, SELFPAY ==
[2024-05-19 18:19] LABS: Thyroid Stimulating Hormone 0.01 uIU/mL (0.32-4.0)
[2024-05-19 20:07] LABS: Free T4 (Free Thyroxine) 1.83 ng/dL (0.71-1.85); HCG Quantitative < 2 mIU/mL
[2024-05-20 18:17] LABS: Thyroglobulin Antibodies <1 IU/mL (< or = 1)
[2024-05-21 01:43] LABS: Thyroglobulin <0.1 ng/mL
[2024-05-22 22:44] LABS: Thyroglobulin Antibody <1 IU/mL (<=1); Thyroglobulin Level <0.1 ng/mL
== END 2024-05-19 13:39 | disposition home or self-care (01) ==
LOC: HO.LAB 13:38
PROVIDERS: Internal Medicine Endocrinology, Diabetes & Metabolism; Visit Provider Student in an Organized Health Care Education/Training Program
DX: E89.0 Postprocedural hypothyroidism (principal); C73 Malignant neoplasm of thyroid gland
CPT/HCPCS: 36415; 84432; 84439; 84443; 84702; 86800

== ENCOUNTER 2024-06-01 09:02 | Outpatient (AMB) | payer MEDICAID, SELFPAY ==
--- NOTE | 2024-06-01 10:25 | AM.OFFVISNUR ---
Intake Visit Reasons: Thyrogen injection 1 out of 2 Allergies No Known Allergies Allergy (Verified 03/26/24 13:06) Nursing Note Consent form signed by patient. Thyrogen 0.9mg/vial (lot: [id number] exp: 06/15/2026) reconstituted with 1.2ml of sterile water (Lot: [id number] exp: 02/15/2026) and given in right buttock. Pt observed 20 minutes following injection without any signs of symptoms of adverse reaction. Pt tolerated injection well. Hand out given to patient for scheduled this week. Pt advised to continue low iodine diet until after whole body scan. Pt portal set up with patient. All questions were answered and pt is aware to come tomorrow for second injection of Thyrogen.
== END 2024-06-01 10:00 | disposition home or self-care (01) ==
PROVIDERS: PCP Pediatrics
DX: C73 Malignant neoplasm of thyroid gland (principal)

== ENCOUNTER → 2024-06-01 09:02 | Outpatient (BNVA) | payer MEDICAID, SELFPAY | PROVIDERS: PCP Pediatrics | DX: C73 Malignant neoplasm of thyroid gland (principal) | CPT/HCPCS: 96372; J3240 ==

== ENCOUNTER 2024-06-02 09:01 | Outpatient (AMB) | payer MEDICAID, SELFPAY ==
--- NOTE | 2024-06-02 09:21 | AM.OFFVISNUR ---
Intake Visit Reasons: Thyrogen injection 2 out of 2 Allergies No Known Allergies Allergy (Verified 03/26/24 13:06) Office Meds thyrotropin juancho 0.9 mg intramuscular solution Performing Provider: Marva Jurado MD Performing Location: [facility] [place] Endocrinology Administered by: Vanna Carmichael RN on 06/02/24 09:21 Dose Route Admin Location Dispensed Lot Number Expiration Date [facility] Oil Expeller Operator 0.9 mg IM left buttock 1 mL [id number] 06/15/26 [address]-6 [facility] Comments: Diluted with 1.2ml of Sterile Water Lot: [id number] Exp: 02/15/2026. Pt tolerated injection well and denies any adverse reactions from injection yesterday besides feeling more tired. Discussed with Dr. Jurado. Pt walked to lab in [address] for blood work that is needed. Assessment & Plan Assessment & Plan Orders: Orders AMB Thyrotropin Juancho Injection Patient Supplied Today C73 - Malignant neoplasm of thyroid gland Medications: New thyrotropin juancho 0.9 mg IM ONCE 1 mL 0RF C73 - Malignant neoplasm of thyroid gland
== END 2024-06-02 09:20 | disposition home or self-care (01) ==
PROVIDERS: PCP Pediatrics
DX: C73 Malignant neoplasm of thyroid gland (principal)

== ENCOUNTER → 2024-06-02 09:01 | Outpatient (BNVA) | payer MEDICAID, SELFPAY | PROVIDERS: PCP Pediatrics | DX: C73 Malignant neoplasm of thyroid gland (principal) | CPT/HCPCS: 96372 ==

== ENCOUNTER 2024-06-02 09:31 | Outpatient (REF) | payer MEDICAID, SELFPAY ==
[2024-06-02 11:17] LABS: HCG Quantitative < 2 mIU/mL
== END 2024-06-02 09:32 | disposition home or self-care (01) ==
LOC: HO.10HDL 09:31
PROVIDERS: Visit Provider Student in an Organized Health Care Education/Training Program
DX: C73 Malignant neoplasm of thyroid gland (principal)
CPT/HCPCS: 36415; 84702

== ENCOUNTER 2024-06-03 09:45 | Outpatient (REF) | payer MEDICAID, SELFPAY ==
[2024-06-03 11:11] LABS: Free T4 (Free Thyroxine) 1.46 ng/dL (0.71-1.85); Thyroid Stimulating Hormone 61.24 uIU/mL (0.32-4.0)
[2024-06-05 03:44] LABS: Thyroglobulin Antibodies <1 IU/mL (< or = 1)
[2024-06-05 08:43] LABS: Thyroglobulin 0.2 ng/mL
[2024-06-11 22:19] LABS: Thyroglobulin Antibody <1 IU/mL (<=1); Thyroglobulin Level 0.2 ng/mL
== END 2024-06-03 09:46 | disposition home or self-care (01) ==
LOC: HO.10HDL 09:45
PROVIDERS: Visit Provider Student in an Organized Health Care Education/Training Program
DX: E89.0 Postprocedural hypothyroidism (principal); C73 Malignant neoplasm of thyroid gland
CPT/HCPCS: 36415; 84432; 84439; 84443; 86800

== ENCOUNTER 2024-06-05 09:54 | Outpatient (REF) | payer MEDICAID, SELFPAY ==
[2024-06-05 12:13] LABS: Free T4 (Free Thyroxine) 1.74 ng/dL (0.71-1.85); Thyroid Stimulating Hormone 8.61 uIU/mL (0.32-4.0)
[2024-06-08 13:04] LABS: Thyroglobulin 0.6 ng/mL; Thyroglobulin Antibodies <1 IU/mL (< or = 1)
[2024-06-11 22:19] LABS: Thyroglobulin Antibody <1 IU/mL (<=1); Thyroglobulin Level 0.6 ng/mL
== END 2024-06-05 09:55 | disposition home or self-care (01) ==
LOC: HO.LAB 09:54
PROVIDERS: PCP Pediatrics; Visit Provider Student in an Organized Health Care Education/Training Program
DX: C73 Malignant neoplasm of thyroid gland (principal)
CPT/HCPCS: 36415; 84432; 84439; 84443; 86800

== ENCOUNTER 2024-06-29 14:55 | Outpatient (AMB) | payer MEDICAID, SELFPAY ==
--- NOTE | 2024-06-29 15:00 | A.OFFVIS_ITS ---
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: No Accompanied by: Mother Allergies No Known Allergies Allergy (Verified 06/29/24 15:01) Medication List - Last Reconciled 06/29/24 by Marva Jurado MD bupropion HCl XL 300 mg PO QAM clonidine HCl 0.1 mg PO BID levothyroxine 175 mcg PO DAILY melatonin 5 mg PO BEDTIME HPI Comments Details: 23 YO F with PMHx of anxiety and depression who is status post left lobectomy and prelaryngeal lymph node excision 12/17/23 with diagnosis of papillary thyroid cancer with follicular features , AJCC stage 1 ([id number]), with pathology showing high-grade features with high Ki67 index of 20 % and angioinvasion, concerning for KETTY high-risk for recurrence PTC,Underwent completion thyroidectomy 03/31/24, with benign right thyroid lobe pathology , status post radioactive iodine treatment on 06/03/2024 with 101 mCi I 131 who is here for follow up HPI Initially diagnosed with thyroid nodule in August of 2023 a thyroid ultrasound revealing Estimated total number of nodules greater than or equal to 1 cm: 1. Liberal Arts Dean nodules are described as follows: 1. Location: Left mid. Size: 3.2 x 2.3 x 2.7 cm, volume 10.4 mL. Nodule characteristics: Composition: Solid (2). Echogenicity: Hypoechoic (2). Shape: Not taller than wide (0). Margins: Smooth (0). Echogenic Foci: None (0). ACR TI-RADS total points: 4. ACR TI-RADS category: 4. NODES: 1.0 x 0.2 x 0.7 cm right cervical node with echogenic hilum. 1.6 x 0.3 x 0.6 cm left cervical node with echogenic hilum and mild prominence of the cortex. FNA of the nodule 09/25/2023 which showed AUS. Affirma was suspicious Subsequently underwent left thyroid lobectomy in prelaryngeal lymph node excision on 12/17/[address] Javid Mendoza Pathology : Showed a unifocal left lobe 3 cm high-grade differentiated thyroid carcinoma with a 20% Ki-67 index, angioinvasion with greater than 4 vessels, no lymphatic invasion or perineural invasion. No extrathyroidal extension. 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 AJCC stage I (pT2 N0 a) Underwent completion thyroidectomy 03/31/24, with benign right thyroid lobe pathology on levothyroxine 150 mcg daily started postoperatively , 04/22/2024: Labs showed TSH of 0.24, free T4 of 1.52, TG 0.3, TG antibody less than 1 Interval history 04/28/24: levotyorxine increased to 175 mcg daily , taking it with proper administration 06/03/2024: Underwent radioactive iodine treatment with 101 mCi of I 131. 06/03/2024: Labs showed TSH of 61.24, free T4 1.46, TG 0.2, TG antibody less than 1 06/12/2024: Whole-body scan shows expected uptake in the thyroid bed with no metastatic uptake. Still reporting tiredness, brain fog Currently denies any symptoms of palpitations, tremors, . She feels she is putting on weight. Especially after the surgery. She is complaining of excessive tiredness. Reports increased anxiety, very overwhleed with overall diagnosis and seeing therapist GAined 14 lbs since Apr 2024 Laboratory Tests 04/22/24 13:06 TSH 0.24 L Free T4 1.52 Thyroglobulin 0.3 H Thyroglobulin Antibody <1 Maternal aunts both had thyroid surgery with benign results Maternal uncle had thyroid cancer Paternal aunts x2 have throid disease 2 maternal grandmothers (grandmothers isters) have breats Ca 3 paternal aunts have breast Cancer Physical exam General: sitting comfortably in no acute distress HEENT: normocephalic/atraumatic, moist oral mucosa Neck: supple, well-healed surgical scar, palpable 1.5 cm firm lymph node in the left submandibular region Cardiac: normal heart sounds Pulm: normal breath sounds B/L, no added breath sounds Abd: not distended, no tenderness Extremities: no edema, no signs of myxedema Labs Laboratory Tests 11/06/23 03/23/24 04/22/24 10:27 14:11 13:06 TSH 2.70 1.10 0.24 L Free T4 0.99 1.21 1.52 Thyroglobulin 68.9 H 0.3 H Thyroglobulin Antibody <1 <1 Laboratory Tests 04/22/24 05/19/24 06/02/24 13:06 13:52 09:39 TSH 0.24 L 0.01 L Free T4 1.52 1.83 Thyroglobulin 0.3 H <0.1 Beta HCG, Quant < 2 < 2 Thyroglobulin Antibody <1 06/03/24 06/05/24 09:50 10:03 TSH 61.24 H 8.61 H Free T4 1.46 1.74 Thyroglobulin 0.2 H 0.6 H Beta HCG, Quant Thyroglobulin Antibody <1 <1 PFSH Medical History (Updated 04/28/24 @ 14:51 by Marva Jurado MD) Hypothyroidism Thyroid cancer Thyroid nodule Surgical History (Updated 04/28/24 @ 13:51 by MARINA Stringer) History of lobectomy of thyroid Hx of total thyroidectomy H/O bilateral breast reduction surgery Family History (Updated 04/28/24 @ 13:51 by MARINA tSringer) Paternal Aunt Breast cancer Mother No problems noted. Father No problems noted. Social History Alcohol intake: current Alcohol intake frequency: holidays/special occasions only Female Reproductive History Menstrual Age of Menarche: 13 Physical Exam Vital Signs: Last Vital Signs Pulse 93 06/29/24 15:01 BP 120/66 06/29/24 15:01 BMI result Body Mass Index 34.8 Assessment & Plan Assessment & Plan (1) Thyroid cancer: Code(s): C73 - Malignant neoplasm of thyroid gland Category: Medical Plan: 23 YO F who was recently diagnosed with left sided thyroid nodule on thyroid ultrasound in August 2023, but subsequent FNA in 10/05/2023 showing AUS with suspicious Afirma, status post left lobectomy and prelaryngeal lymph node excision 12/17/23 with diagnosis of papillary thyroid cancer with follicular features , AJCC stage 1 ([id number]), with pathology showing high-grade features with high Ki67 index of 20 % and angioinvasion (>4 vessels), concerning for KETTY high-risk for recurrence with recurrence risk of around 15-30%. s/p completion thyroidectomy 03/31/[address] Mendoza with benign right lobe pathology. status post radioactive iodine treatment on 06/03/2024 with 101 mCi I 131 who is here for follow up Three weeks postoperative labs from 04/22/24 show TSH of 0.24, TG 0.3, TG antibody undetectable. He usually takes about 4-6 weeks for thyroglobulin reach its alexis level will have her repeat labs in 2 weeks. Given low levels of TG postoperatively, this is a favorable factor in her prognosis. Status post 101 mCi of I 131 on 06/03/2024 with a whole-body scan on showing in no metastatic disease, only expected uptake in the thyroid bed. She did have some soreness in her neck and throbbing in her lymph nodes. On my exam today I do feel a 1.5 cm palpable firm submandibular gland, however she is only about 3 weeks out her radioactive iodine treatment. We will keep an eye on this. Her stimulated TG levels TG 0.2, TG antibody less than 1 from 06/03/2024 also reassuring. Plan: - continue levothyroxine to 175 mcg daily, goal TSH <0.1 -repeat labs ordered for 2 weeks for TSH, free T4, we will plan to repeat another set of labs in 3 months prior to her next visit -ultrasound neck in 3 months around September 2024 which would be 6 months from her surgery in March 2024. -Fup in 3 months in October 2024 (2) Hypothyroidism: Code(s): E03.9 - Hypothyroidism, unspecified Category: Medical Qualifiers: Hypothyroidism type: postoperative Qualified Code(s): E89.0 - Postprocedural hypothyroidism Plan: She is on levothyroxine 175 mcg daily . TSH from 04/22/2024 at 0.24. . Labs from 05/19/2024 prior to treatment with Thyrogen and radioactive iodine showed TSH of 0.01 with free T4 of 1.83, TG level less than 0.1, TG antibody less than 1. Given high risk of recurrence our goal TSH would be less than 0.1. Plan: -continue levothyroxine to 175 mcg daily -repeat another set of TSH and free T4 in 2 weeks which would be end of June 2024. Plan I spent 30 minutes in reviewing the record, seeing the patient and documenting in the medical record. Orders: Orders 2 Thyroid Stimulating Hormone 2 Weeks C73 - Malignant neoplasm of thyroid gland, E89.0 - Postprocedural hypothyroidism Free T4 (Free Thyroxine) 2 Weeks C73 - Malignant neoplasm of thyroid gland, E89.0 - Postprocedural hypothyroidism US soft tiss head and/or neck 3 Months C73 - Malignant neoplasm of thyroid gland, E89.0 - Postprocedural hypothyroidism Patient Instructions: Do blood work end of June 2024 Continue levothyroxine 175 mcg daily We will reach out with results on the portal to let you know if dose needs adjustment after your blood work Do US neck in 3 months , someone will call you to schedule this Coding Level of Care Code Est Pt Level 4 (00248) Complex EM visit Add On G2211 Diagnoses Thyroid cancer C73 Postoperative hypothyroidism E89.0 Hypothyroidism type: postoperative Time Spent (min) 30
[2024-06-29 15:01] VITALS: BP 120/66; PULSE 93; BMI 34.8
== END 2024-06-29 15:49 | disposition home or self-care (01) ==
PROVIDERS: PCP Pediatrics; Visit Provider Student in an Organized Health Care Education/Training Program
DX: C73 Malignant neoplasm of thyroid gland (principal); E89.0 Postprocedural hypothyroidism
CPT/HCPCS: 99214

== ENCOUNTER → 2024-06-29 14:55 | Outpatient (BNVA) | payer MEDICAID, SELFPAY | PROVIDERS: PCP Pediatrics; Visit Provider Student in an Organized Health Care Education/Training Program | DX: C73 Malignant neoplasm of thyroid gland (principal); E89.0 Postprocedural hypothyroidism | CPT/HCPCS: 99212 ==

== ENCOUNTER 2024-07-13 12:35 | Outpatient (AMB) | payer MEDICAID, SELFPAY ==
[2024-07-13 12:38] VITALS: BP 82/48; PULSE 63; BMI 34.0
--- NOTE | 2024-07-13 12:38 | MHC.OFFVIS ---
Vital Signs 07/13/24 12:38 Height 5 ft 3 in Weight 191 lb 12.835 oz BMI 34.0 BP 82/48 L Blood Pressure Location Lt brachial Position Sitting Pulse 63 Pulse Source Pulse Oximeter Intake Visit Reasons: Lump eval Intake Note: Patient present today for lump evaluation. 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: No Accompanied by: Mother Allergies No Known Allergies Allergy (Verified 07/13/24 12:41) HPI Comments Details: 23 YO F with PMHx of anxiety and depression who is status post left lobectomy and prelaryngeal lymph node excision 12/17/23 with diagnosis of papillary thyroid cancer with follicular features , AJCC stage 1 ([id number]), with pathology showing high-grade features with high Ki67 index of 20 % and angioinvasion, concerning for KETTY high-risk for recurrence PTC,Underwent completion thyroidectomy 03/31/24, with benign right thyroid lobe pathology , status post radioactive iodine treatment on 06/03/2024 with 101 mCi I 131 who is here for follow up HPI Initially diagnosed with thyroid nodule in August of 2023 a thyroid ultrasound revealing Estimated total number of nodules greater than or equal to 1 cm: 1. 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 Location: Left mid. Size: 3.2 x 2.3 x 2.7 cm, volume 10.4 mL. Nodule characteristics: Composition: Solid (2). Echogenicity: Hypoechoic (2). Shape: Not taller than wide (0). Margins: Smooth (0). Echogenic Foci: None (0). ACR TI-RADS total points: 4. ACR TI-RADS category: 4. NODES: 1.0 x 0.2 x 0.7 cm right cervical node with echogenic hilum. 1.6 x 0.3 x 0.6 cm left cervical node with echogenic hilum and mild prominence of the cortex. FNA of the nodule 09/25/2023 which showed AUS. Affirma was suspicious Subsequently underwent left thyroid lobectomy in prelaryngeal lymph node excision on 12/17/[address] Javid Mendoza Pathology : Showed a unifocal left lobe 3 cm high-grade differentiated thyroid carcinoma with a 20% Ki-67 index, angioinvasion with greater than 4 vessels, no lymphatic invasion or perineural invasion. No extrathyroidal extension. 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 AJCC stage I (pT2 N0 a) Underwent completion thyroidectomy 03/31/24, with benign right thyroid lobe pathology on levothyroxine 150 mcg daily started postoperatively , 04/22/2024: Labs showed TSH of 0.24, free T4 of 1.52, TG 0.3, TG antibody less than 1 04/28/24: levotyorxine increased to 175 mcg daily 06/03/2024: Underwent radioactive iodine treatment with 101 mCi of I 131. 06/03/2024: Labs showed TSH of 61.24, free T4 1.46, TG 0.2, TG antibody less than 1 06/12/2024: Whole-body scan shows expected uptake in the thyroid bed with no metastatic uptake. Interval history Last visit 06/29/2024 I had palpated a left submandibular swelling, patient subsequently reported some tenderness in the swelling and we did 3 days' course of ibuprofen b.i.d. followed by 3 days course of dexamethasone 4 mg, Still reporting tiredness, brain fog, depression is worse. Currently denies any symptoms of palpitations, tremors, . She feels she is putting on weight. Especially after the surgery. She is complaining of excessive tiredness. Reports increased anxiety, very overwhleed with overall diagnosis and seeing therapist Gained 14 lbs since Apr 2024 Laboratory Tests 04/22/24 13:06 TSH 0.24 L Free T4 1.52 Thyroglobulin 0.3 H Thyroglobulin Antibody <1 Maternal aunts both had thyroid surgery with benign results Maternal uncle had thyroid cancer Paternal aunts x2 have throid disease 2 maternal grandmothers (grandmothers isters) have breats Ca 3 paternal aunts have breast Cancer Physical exam General: sitting comfortably in no acute distress HEENT: normocephalic/atraumatic, moist oral mucosa Neck: supple, well-healed surgical scar, submandibular lymph node not palpable anymore, Cardiac: normal heart sounds Pulm: normal breath sounds B/L, no added breath sounds Abd: not distended, no tenderness Extremities: no edema, no signs of myxedema Labs Laboratory Tests 11/06/23 03/23/24 04/22/24 10:27 14:11 13:06 TSH 2.70 1.10 0.24 L Free T4 0.99 1.21 1.52 Thyroglobulin 68.9 H 0.3 H Thyroglobulin Antibody <1 <1 Laboratory Tests 04/22/24 05/19/24 06/02/24 13:06 13:52 09:39 TSH 0.24 L 0.01 L Free T4 1.52 1.83 Thyroglobulin 0.3 H <0.1 Beta HCG, Quant < 2 < 2 Thyroglobulin Antibody <1 06/03/24 06/05/24 09:50 10:03 TSH 61.24 H 8.61 H Free T4 1.46 1.74 Thyroglobulin 0.2 H 0.6 H Beta HCG, Quant Thyroglobulin Antibody <1 <1 PFSH Medical History (Updated 04/28/24 @ 14:51 by Marva Jurado MD) Hypothyroidism Thyroid cancer Thyroid nodule Surgical History (Updated 04/28/24 @ 13:51 by MARINA Stringer) History of lobectomy of thyroid Hx of total thyroidectomy H/O bilateral breast reduction surgery Family History (Updated 04/28/24 @ 13:51 by MARINA Stringer) Paternal Aunt Breast cancer Mother No problems noted. Father No problems noted. Social History Alcohol intake: current Alcohol intake frequency: holidays/special occasions only Female Reproductive History Menstrual Age of Menarche: 13 Assessment & Plan Assessment & Plan (1) Thyroid cancer: Code(s): C73 - Malignant neoplasm of thyroid gland Category: Medical Plan: 23 YO F who was recently diagnosed with left sided thyroid nodule on thyroid ultrasound in August 2023, but subsequent FNA in 10/05/2023 showing AUS with suspicious Afirma, status post left lobectomy and prelaryngeal lymph node excision 12/17/23 with diagnosis of papillary thyroid cancer with follicular features , AJCC stage 1 ([id number]), with pathology showing high-grade features with high Ki67 index of 20 % and angioinvasion (>4 vessels), concerning for KETTY high-risk for recurrence with recurrence risk of around 15-30%. s/p completion thyroidectomy 03/31/[address] Mendoza with benign right lobe pathology. status post radioactive iodine treatment on 06/03/2024 with 101 mCi I 131 who is here for follow up Three weeks postoperative labs from 04/22/24 show TSH of 0.24, TG 0.3, TG antibody undetectable. usually takes about 4-6 weeks for thyroglobulin reach its alexis level will have her repeat labs in 2 weeks. Given low levels of TG postoperatively, this is a favorable factor in her prognosis. Status post 101 mCi of I 131 on 06/03/2024 with a whole-body scan on showing in no metastatic disease, only expected uptake in the thyroid bed. She did have some soreness in her neck and throbbing in her lymph nodes. On my exam today I do feel a 1.5 cm palpable firm submandibular gland, however she is only about 3 weeks out her radioactive iodine treatment. We will keep an eye on this. Her stimulated TG levels TG 0.2, TG antibody less than 1 from 06/03/2024 also reassuring. Last visit 06/29/2024 I had palpated a left submandibular swelling, patient subsequently reported some tenderness in the swelling and we did 3 days' course of ibuprofen b.i.d. followed by 3 days course of dexamethasone 4 mg, we brought her in today to re-examine her. While I do not feel the submandibular lymph node anymore, we will repeat an ultrasound sooner. Plan: - continue levothyroxine to 175 mcg daily, goal TSH <0.1 -repeat labs ordered today s for TSH, free T4, we will plan to repeat another set of labs in 3 months prior to her next visit -ultrasound neck ordered now which would be 4 months from her surgery in March 2024 -Fup in October 2024 (2) Hypothyroidism: Code(s): E03.9 - Hypothyroidism, unspecified Category: Medical Qualifiers: Hypothyroidism type: postoperative Qualified Code(s): E89.0 - Postprocedural hypothyroidism Plan: She is on levothyroxine 175 mcg daily . TSH from 04/22/2024 at 0.24. . Labs from 05/19/2024 prior to treatment with Thyrogen and radioactive iodine showed TSH of 0.01 with free T4 of 1.83, TG level less than 0.1, TG antibody less than 1. Given high risk of recurrence our goal TSH would be less than 0.1. Plan: -continue levothyroxine to 175 mcg daily -repeat another set of TSH and free T4 today. Plan see above Orders: Orders US soft tiss head and/or neck Today C73 - Malignant neoplasm of thyroid gland, E89.0 - Postprocedural hypothyroidism Coding Level of Care Code Est Pt Level 3 (17665) Diagnoses Thyroid cancer C73 Postoperative hypothyroidism E89.0 Hypothyroidism type: postoperative
--- OUTSIDE RECORDS SUMMARY | 2024-07-13 17:18 | XMS_ITS | Encounter Summary ---
Author Organization [employer] Address [address] [place] [address] Care Team Providers Care Cigarette Machine Filler Name Role Phone Shonda Greer MD Primary Care Provider [phone] Shonda Greer MD Primary Care Provider [phone] Reason for Visit * Reason Onset Date Comments Call Back Request 11/25/2023 Encounter Details Date Type Department Care Team ([facility] st Contact Info) Description 11/25/2023 Telephone [facility] [address] [place] [address] Shonda Greer MD [address] [place] [address] Call Back Request Social History Tobacco Use Types Packs/Day Years Used Date Smoking Tobacco: Never Passive Smoke Exposure: Never Smokeless Tobacco: Never Alcohol Use Standard Drinks/Week Comments Defer 0 (1 standard drink = 0.6 oz pur e alcohol) Depression Answer Date Recorded Patient Health Questionnaire-9 Score 20 11/02/2022 Depression Answer Date Recorded Patient Health Questionnaire-2 Score 6 11/02/2022 Comments Unknown Sex and Gender Information Value Date Recorded Sex Assigned at Female 04/16/2022 10:17 AM EDT Legal Sex Female 10:17 AM EDT Gender Identity Female 04/16/2022 10:17 AM EDT Sexual Orientation Straight 04/16/2022 10 :17 AM EDT documented as of this encounter Miscellaneous Notes * Telephone Encounter - Xiomy Cadena RN - 11/26/2023 8:46 AM EDT FYI, XR confirmed fifth metatarsal fx. call center specialist provider spoke with pt and informed and verified Ortho referral was placed during last visit. * Telephone Encounter - Jonel Gaspar - 11/25/2023 4:16 PM EDT Tc from [place] with [facility] requesting call back to discuss positive xray results. Kenzie also informed she faxed results over. Please contact Kenzie at [phone]. documented in this encounter Plan of Treatment Not on file documented as of this encounter Visit Diagnoses Not on filedocumented in this encounter Additional Health Concerns Assessment Noted Time PHQ-9 Depression Total Score: 20 023 2:07 PM EDT documented as of this encounter Care Teams Cigarette Machine Filler Relationship Specialty Start Date End Date Shonda Greer MD [address] [place] [address] PCP - General Family Medicine 07/16/13 01/09/24 Shonda Greer MD [address] [place] [address] PCP - General Internal Medicine 01/10/24 Radha Garza Apartment Property Manager 02/07/24 05/11/24 documented as of this encounter
--- OUTSIDE RECORDS SUMMARY | 2024-07-13 17:18 | XMS_ITS | Clinical Summary ---
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 ibuprofen 600 MG tablet Take 1 tablet by mouth every 8 (eight) hours. 2 Active butalbital-acetam inophen-caffeine (Fioricet) 50-300-40 MG capsule TAKE 1 CAPSULE BY MOUTH EVERY 6 HOURS NEEDED FOR HEADACHE 4 Active amoxicillin (Amoxil) 500 MG capsule TAKE 1 CAPSULE (500 MG) BY MOUTH EVERY 8 HOURS FOR 7 DAYS 21 capsule 4 Active clindamycin (Cleocin T) 1 % lotion 1 applic by topical route daily 9 Active celecoxib (CeleBREX) 200 MG capsule Take 1 capsule (200 mg) by mouth 2 times daily. 60 capsule 4 Active acetaminophen-cod eine (Tylenol w/ Codeine #4) 300-60 MG tabletIndications :Closed nondisplaced fracture of fifth metatarsal bone of right foot, initial encounter Take 1 tablet by mouth every 8 (eight) hours if needed for moderate pain. 10 tablet 4 Active sertraline (Zoloft) 50 MG tablet Take half tablet of sertraline daily for 1 week, then 1 full tablet daily 30 tablet 2 4 Active busPIRone (Buspar) 10 MG tablet Take 1 tab orally bid prn anxiety 60 tablet 3 4 Active Active Problems Problem Noted Date Diagnosed Date Adjustment disorder with mixed anxiety and depre ssed mood 01/14/2024 Assessment & Plan (03/18/2024 1:48 PM EDT): During IBH Consult Arnulfo presenting with depressed mood, Tearful, crying spells , hopelessness, irritable mood, sense of isolation/loneliness , isolating, change in appetite or weight reduce appetite, changes in sleep sleeping too much, psychomotor retardation, fatigue/loss of energy, worthlessness, difficulty concentrating, indecisiveness and excessive worry/anxiety, difficulty controlling worry, and anxiety/worry associated to restlessness and/or feeling keyed-up/On edge , easily fatigued , difficulty concentrating and/or mind going blank , and sleep disturbance sleeping too much; for a period of 6-12 mo, for most or all symptoms in the context of illness or family illness. During today's consult Arnulfo endorsed depressive and anxiety sxs associated with her medical conditions. She felt overwhelmed today due to being late and missing appointment with PCP. This triggered underneath symptoms. Arnulfo reached out to [facility] in [place]. She was told that agency has internal wait list and her status was pending. clinician recommended pt to contact [facility] in [facility] for same-day appointment. Arnulfo said she will try to go today and request intake session. Arnulfo was engaged with active, reflective listening and validation of emotions. She was provided with a safe space to share concerns and express her feelings. Reviewed and assessed for risk factors, current stressors and protective factors using open-ended questions. Provided [facility] number in a need of crisis intervention. clinician will provide follow-up per patient's request. Assessment & Plan (03/12/2024 10:10 AM EDT): During IBH Consult Arnulfo presenting with depressed mood, crying spells , hopelessness, loss of interests/pleasure , sense of isolation/loneliness , isolating, changes in sleep difficulty falling asleep, psychomotor agitation, fatigue/loss of energy, inappropriate/excessive guilt , difficulty concentrating, indecisiveness and excessive worry/anxiety, difficulty controlling worry, and anxiety/worry associated to restlessness and/or feeling keyed-up/On edge , easily fatigued , difficulty concentrating and/or mind going blank , and sleep disturbance difficulty falling asleep; for a period of 0-6 mo, for most or all symptoms in the context of illness or family illness. Anrulfo has been recently diagnosed with abnormal thyroid nodule and she's going through different medical procedures. This unexpected event is leading to a significant increase of anxiety and depression. Not having control around this outcome and the unknown uncertainty is becoming difficult to manage for Arnulfo. PCP prescribed meds to manage symptoms. Pt reports strong side effect with medication and not currently taking them. Arnulfo receives positive support from her family and friends, however, it's difficult for her to share emotions. Pt will discuss with PCP regarding FMLA due to having a surgery coming up and needing time for her recovery process. Assessment & Plan (01/20/2024 10:43 AM EDT): During IBH Consult Arnulfo presenting with depressed mood, loss of interests/pleasure , changes in sleep difficulty falling asleep, change in appetite or weight overeating, psychomotor retardation, trouble concentrating, thoughts of worthlessness or guilt, fatigue/loss of energy, inappropriate guilt , hopelessness, worthlessness , difficulty concentrating and excessive worry/anxiety, difficulty controlling worry, restless/keyed up/On edge, easily fatigued, difficulty concentrating/Mind going blank , irritability, and sleep disturbance difficulty falling asleep; for a period of 0-6 mo, for all symptoms in the context of illness or family illness. Arnulfo has been recently diagnosed with abnormal thyroid nodule and she's going through different medical procedures. This unexpected event is leading to a significant increase of anxiety and depression. Not having control around this outcome and the unknown uncertainty is becoming difficult to manage for Arnulfo. PCP prescribed meds to manage symptoms. Arnulfo receives positive support from her family and friends, however, it's difficult for her to share emotions. Arnulfo was engaged with active, reflective listening and validation of emotions. She was provided with a safe space to share concerns and express her feelings. Reviewed and assessed for risk factors, current stressors and protective factors using open-ended questions. Provided [facility] number in a need of crisis intervention. Pt prefers to wait for external referrals and follow-up with clinician in the meantime. PLAN: (check all that apply) New/Additional Services needed On-site non-integrated services Off-site services for Behavioral Health Integration Plan Internal Follow up with I External OP therapy referral Patient Self Plan Patient to utilize skills provided in intervention , Patient to reach out to [facility] team as needed, Comply with medication , Patient to engage in OP therapy , and Patient to reach out to [facility] as needed Thyroid carcinoma 01/10/2024 Overview (01/10/2024): Recent dx,needs more surgery.Has Endo with on 01/20.Not on replacement thyroid hormones yet. Closed nondisplaced fracture of fifth right meta tarsal bone 11/25/2023 Assessment & Plan (11/25/2023 2:36 PM EDT): Discussed current medication and refills as needed. Referral to Orthopaedic Surgery for further treatment. Ordering XR of the right foot for continued monitoring of fracture. Relevant Medication Celecoxib (Celebrex) 200 MG Capsule History of tooth extraction 10/29/2023 Class 1 obesity without seri ous comorbidity with body mass index (BMI) of 34.0 to 34.9 in adult 09/04/2023 Anxiety 09/04/2023 Overview (09/04/2023): [facility] Encounters Date Type Department Care Team Description 07/13/2024 Orders Only GENERIC EXTERNAL DATA DEPARTMENT Provider, Generic External Data 06/05/2024 Orders Only GENERIC EXTERNAL DATA DEPARTMENT Provider, Generic External Data 06/05/2024 Telephone [facility] [address] [place] [phone] Radha Garza, RN Care Management ([facility] Graduation) 05/26/2024 Telephone [facility] [address] [place] [address] Radha Garza, CHRIS Care Management ([facility] TC #3-lvm) 05/21/2024 Telephone [facility] [address] [place] [address] Shonda Greer MD No Show 05/12/[address] [address] Radha Garza, RN Care Management (C3 TC #2-unable to lvm) 05/11/2024 Patient Outreach [facility] [address] [place] [address] Shonda Greer MD Care Coordination (Outreach) 05/07/2024 Patient Outreach [facility] [address] [place] [address] Shonda Greer MD Pre-visit Planning (SDOH unable to reach LVM) 04/29/2024 Patient Outreach [facility] [address] [place] [address] Shonda Greer MD Care Coordination (Outreach) 04/29/2024 Telephone [facility] [address] [place] [address] Radha Garza, CHRIS Care Management (C3 TC #1-lvm) 04/22/2024 Orders Only GENERIC EXTERNAL DATA DEPARTMENT Provider, Generic External Data 04/21/2024 Patient Outreach [facility] [address] [place] [address] Shonda Greer MD Care Coordination (Outreach) from Last 3 Months Immunizations Name Administration Dates Next Due DTaP 01/29/2008, 4,07/16/2003,06/09,02/25/2003 HPV 9-Valent 03/09/2016,11/10/2015,09/07/2015 Hep A, ped/adol, 2 dose 09/07/2015,12/30/2012 Hep B, Adolescent or Pediatric 12/22/2003,2002,2002 Hib (HbOC) 03/08/2004, 4,06/09/2003,03/04 IPV 02/02/2008, 4,06/09/2003,02/25 Influenza injectable quadriv alent IIV4 with preservative 09/07/2015 Influenza injectable quadriv alent preservative free 07/23/2014 MMR 01/29/2008,01/10/2004 Meningococcal MCV4P [id number]-135 02/16/2020,07/23/19 15 Pfizer Covid-19 Vaccine 12+ 12/12/2020, Pneumococcal Conjugate PCV 7 03/08/2004, 07/16/2003,06/09/2003,03/04 Tdap 07/23/2014 Varicella 01/29/2008,01/10/2004 Social History Tobacco Use Types Packs/Day Years Used Date Smoking Tobacco: Never Passive Smoke Exposure: Never Smokeless Tobacco: Never Tobacco Cessation:Counseling Given: Not Answered Alcohol Use Standard Drinks/Week Comments Defer 0 (1 standard drink = 0.6 oz pur e alcohol) Depression Answer Date Recorded Patient Health Questionnaire-9 Score 20 03/18/2024 Patient Health Questionnaire-9 Score 20 03/18/2024 Last PHQ-9: Questionnaire Data Not on file 1 Housing Stability Answer Date Recorded What is your housing situation today? I have arya kilpatrick 01/31/[address] you li ve. Do you have problems with any of the following? None of the above 01/31/2024 Food Insecurity Answer Date Recorded Within the past 12 months, y ou worried that your food would run out before you got money to buy more: Never True 01/31/2024 Within the past 12 months,th e food you bought just didn't last and you didn't have enough money to get more: Never True Transportation Answer Date Recorded In the past 12 months, has l ack of transportation kept you from medical appts, meetings, work or from getting things needed for daily living? No 01/31/2024 Utilities Answer Date Recorded In the past 12 months, has t he electric, gas, oil or water company threatened to shut off services in your home? No 01/31/2024 Depression Answer Date Recorded Patient Health Questionnaire-2 Score 6 03/18/2024 Comments Unknown Sex and Gender Information Value Date Recorded Sex Assigned at Female 04/16/2022 10:17 AM EDT Legal Sex Female 10:17 AM EDT Gender Identity Female 04/16/2022 10:17 AM EDT Sexual Orientation Straight 04/16/2022 10 :17 AM EDT Last Filed Vital Signs Vital Sign Reading Time Taken Comments Blood Pressure 124/76 12/13/2023 11:40 AM EDT Pulse 70 12/13/2023 11:40 AM EDT Temperature 36.2 ??C (97.1 ??F) 12/13/2023 11:40 AM E DT Respiratory Rate 20 12/13/2023 11:40 AM EDT Oxygen Saturation 99% 12/13/2023 11:40 AM EDT Inhaled Oxygen Concentration - - Weight 85.3 kg (188 lb) 12/13/2023 11:40 AM EDT Height 160 cm (5' 3 ) 12/13/2023 11:40 AM EDT Body Mass Index 33.3 12/13/2023 11:40 AM EDT Plan of Treatment Health Maintenance Due Date Last Done Comments Dental Oral Exam 2002 Dental Prophylaxis 2002 Dental X-Ray: Bitewings 2002 Lipid Panel 2002 SDOH Screening 2002 Alcohol/Substance Use Screening 2014 Family Planning (PISQ) 2017 Chlamydia and Gonorrhea Screening 12/23/2021 12/23/2020 Pap Smear 12/04/2023 COVID-19 Vaccine ( season) 2024 12/12/2020, 11/07/2020 Influenza Vaccine (#1) 2024 09/07/2015, 2014 DTaP/Tdap/Td Vaccines (7 - Td or Tdap) 07/23/2024 07/23/2014, 01/29/2008, 03/08/2004, Additional history exists Depression Monitoring (PHQ-9) 09/16/2024 03/18/2024, 03/18/2024 Tobacco Screening 11/24/2024 11/25/2023 Depression Screening 03/18/2025 03/18/2024, 03/18/20 Dental X-Ray: Full Mouth 10/29/2026 10/29/2023, 08/15 Zoster Vaccines (1 of 2) 2052 RSV Patients and Patients Aged 60 years or older (1 - 1-dose 75+ series) 2077 Hepatitis B Vaccines Completed 12/22/2003, 01/02/2003, 2002 HIB Vaccines Completed 03/08/2004, 02/2004, 06/09/2003, Additional history exists Pneumococcal Vaccine: Pediatrics (0 to 5 Years) and At-Risk Patients (6 to 64 Years) Aged Out 03/08/2004, 07/16/2003, 06/09/2003, Additional history exists No longer eligible based on patient's age to complete this topic IPV Vaccines Completed 02/02/2008, 12/16, 06/09/2003, Additional history exists Hepatitis A Vaccines Completed 09/07/2015, 12/31/19 13 HPV Vaccines Completed 03/09/2016, 10/16, 09/07/2015 Meningococcal Vaccine Completed 02/16/2020, 015 HIV Screening Completed 12/30/2020 Hepatitis C Screening Completed 12/30/2020 RSV under 20 months Aged Out No longe r eligible based on patient's age to complete this topic Rotavirus Vaccines Aged Out No longer eligible based on patient's age to complete this topic Procedures Procedure Name Priority Date/Time Associated Diagnosis Comments TSH Routine 07/13/2024 1:10 PM EST T4, FREE Routine 07/13/2024 1:10 PM EST THYROGLOBULIN, TUMOR MARKER W/REFLEX Routine 06/05/2024 10:03 AM EST THYROGLOBULIN ANTIBODIES Routine 06/05/2024 10:03 AM EST THYROGLOBULIN, LC/MS/MS Routine 06/05/2024 10:03 AM EST TSH Routine 06/05/2024 10:03 AM EST T4, FREE Routine 06/05/2024 10:03 AM EST THYROGLOBULIN, TUMOR MARKER W/REFLEX Routine 04/22/2024 1:06 PM EST THYROID PEROXIDASE AND THYROGLOBULIN ANTIBODIES Routine 04/22/2024 1:06 PM EST THYROGLOBULIN, LC/MS/MS Routine 04/22/2024 1:06 PM EST TSH Routine 04/22/2024 1:06 PM EST T4, FREE Routine 04/22/2024 1:06 PM EST PANORAMIC RADIOGRAPHIC IMAGE Routine 10/29/2023 11:30 AM EDT ZZZ HISTORICAL HEPATITIS PANEL, ACUTE W/REFLEX TO CONFIRMATION Routine 12/30/2020 1:31 PM EDT HIV 1/2 ANTIGEN/ANTIBODY, FOURTH GENERATION W/RFL Routine 12/30/2020 1:31 PM EDT ZZZ HISTORICAL SURESWAB(R), VAGINOSIS/VAGINITIS PLUS Routine 12/23/2020 11:06 AM EDT from Last 3 Months or Most Recently Relevant to Health Maintenance Results * (ABNORMAL) TSH (07/13/2024 1:10 PM EST) Only the most recent of3 resultswithin the time period is included. Thyroid Stimulating Hormone 0.04(L) 0.32 - 4.0 uIU/mL [facility] Comment:TSH 3rd Generation ( [facility]) 07/13/2024 1:10 PM EST 07/13/2024 1:14 PM EST us Generic External Data Provider LAB BLOOD ORDERAB LES Final Result Performing Organization Address [facility] Co de Phone Number [facility] [address] [place] [address] [phone] * T4, Free (07/13/2024 1:10 PM EST) Only the most recent of3 resultswithin the time period is included. Free T4 (Free Thyroxine) 1.76 0.71 - 1.85 ng/dL [facility] 07/13/2024 1:10 PM EST 07/13/2024 1:14 PM EST Generic External Data Provider LAB BLOOD ORDERAB LES Final Result Performing Organization Address City/[facility]/ZIP Co de Phone Number [facility] [address] [place] [address] [phone] * (ABNORMAL) Thyroglobulin, LC/MS/MS (06/05/2024 10:03 AM EST) Only the most recent of2 resultswithin the time period is included. Thyroglobulin, LC/MS/MS 0.6(A) ng/mL [facility] Comment:Reference Range: Int act Thyroid 2.8-40.9 Athyrotic <0.1 Note: Abnormal flagging is based on the reference interval for patients with intact thyroid.This test was performed using the CMP Therapeuticschemiluminescent method. Values obtained fromdifferent assay methods cannot be usedinterchangeably. Thyroglobulin levels, regardlessof value, should not be interpreted as absoluteevidence of the presence or absence of disease. Thyroglobulin Comment See Below [facility] Comment:Thyroglobulin antibo dies (TGAB) interfere withthyroglobulin (TG) assays; therefore, TGAB assayshould always be performed in conjunction with aTG assay.For additional information, please refer tohttp://education.[employer]/faq/LQE509(This link is being provided for informational/educational purposes only.)THIS TEST WAS PERFORMED AT:[facility] [place] [id number] SMITH MD 06/05/2024 10:0 3 AM EST 06/05/2024 10:03 AM EST us Generic External Data Provider LAB BLOOD ORDERAB LES Final Result Performing Organization Address [facility]/ZIP Co de Phone Number [facility] [address] [place] [address] [phone] * (ABNORMAL) Thyroblobulin, Tumor Marker w/Reflex (06/05/2024 10:03 AM EST) Only the most recent of2 resultswithin the time period is included. Thyroglobulin Antibody <1 <=1 IU/mL [facility] Comment:This Thyroglobulin a ntibody test was performedusing the [employer] Chemiluminescent method.Values obtained from different assay methods cannot beused interchangeably. Thyroglobulin antibody levels,regardless of value, should not be interpreted asabsolute evidence of the presence or absence ofdisease. Thyroglobulin, LC/MS/MS TNP [facility] Thyroglobulin Level 0.6(A) ng/mL [facility] Comment:Reference Range: Ath yrotic: <0.1 ng/mLReference range applies to differentiated thyroidcancer patients following treatment. The presence ofmeasurable thyroglobulin indicates the presence ofthyroglobulin-producing thyroid tissue. Clinicalcorrelation is advised.This Thyroglobulin test was performed using theC[employer]rapeutics Chemiluminescent method. Valuesobtained from different assay methods cannot beused interchangeably. Thyroglobulin levels, regardlessof value, should not be interpreted as absoluteevidence of the presence or absence of disease.THIS TEST WAS PERFORMED AT:[id number] [place] [id number] BRENNAN MD,PHD 06/05/2024 10:0 3 AM EST 06/05/2024 10:03 AM EST Generic External Data Provider LAB BLOOD ORDERAB LES Final Result Performing Organization Address [facility] de Phone Number [facility] [address] [place] [phone] * Thyroglobulin Antibodies (06/05/2024 10:03 AM EST) Thyroglobulin Antibodies <1 < or = 1 IU/mL [facility] Comment:THIS TEST WAS PERFOR MED AT:[facility] [address] [id number] SMITH MD 06/05/2024 10:0 3 AM EST 06/05/2024 10:03 AM EST Generic External Data Provider LAB BLOOD ORDERAB LES Final Result Performing Organization Address [facility]/ZIP Co de Phone Number [facility] [address] [place] [phone] * Thyroid Peroxidase And Thyroglobulin Antibodies (04/22/2024 1:06 PM EST) Thyroglobulin Antibodies <1 < or = 1 IU/mL [facility] Comment:THIS TEST WAS PERFOR MED AT:[facility] [place] [id number] SMITH MD 04/22/2024 1:06 PM EST 04/22/2024 1:06 PM EST us Generic External Data Provider LAB BLOOD ORDERAB LES Final Result [facility] [address] [place] [phone] * HEPATITIS PANEL, ACUTE W/REFLEX TO CONFIRMATION (12/30/2020 1:31 PM EDT) Pathologist [facility] HEPATITIS A IGM NON-REACT [facility] NON-REACT [facility] Comment: ?? For additional information, please refer to ?? http://[employer]/faq/NHD461 ?? (This link is being provided for informational/ educational purposes only.) ?? HEPATITIS B CORE ANTIBODY (IGM) NON-REACT [facility] NON-REACT [facility] HEPATITIS B SURFACE ANTIGEN NON-REACT [facility] NON-REACT [facility] HEPATITIS C ANTIBODY NON-REACT [facility] NON-REACT [facility] INDEX 0.01 <1.00 [facility] Comment: ?? HCV antibody was non-reactive. There is no laboratory ?? evidence of HCV infection. ?? In most cases, no further action is required. However, if recent HCV exposure is suspected, a test for HCV RNA (test code 22482) is suggested. ?? For additional information please refer to http://[employer]/faq/ZHF30a4 (This link is being provided for informational/ educational purposes only.) ?? 12/30/2020 1:31 PM EDT us Keiko Garza MD HISTORICAL/NON ORDERABLE LABS Final Result Performing Organization Address [facility] Co de Phone Number [facility] [address] [place] [address], * HIV 1/2 ANTIGEN/ANTIBODY,FOURTH GENERATION W/RFL (12/30/2020 1:31 PM EDT) HIV-1/2 ANTIGEN AND ANTIBODIES, 4TH GENERATION W/ REFLEX NON-REACT [facility] NON-REACT [facility] Comment: HIV-1 antigen and HIV-1/HIV-2 antibodies were not detected. There is no laboratory evidence of HIV infection. ?? PLEASE NOTE: This information has been disclosed to you from records whose confidentiality may be protected by state law. ??If your state requires such protection, then the state law prohibits you from making any further disclosure of the information without the specific written consent of the person to whom it pertains, or as otherwise permitted by law. A general authorization for the release of medical or other information is NOT sufficient for this purpose. ? For additional information please refer to http://education.[employer]/faq/ICM949 (This link is being provided for informational/ educational purposes only.) ? The performance of this assay has not been clinically validated in patients less than 2 years old. ?? 12/30/2020 1:31 PM EDT Keiko Garza MD LAB BLOOD ORDERABLES Final Re sult Performing Organization Address [facility] Co de Phone Number [facility] [address] [place] [address], * SURESWAB(R), VAGINOSIS/VAGINITIS PLUS (12/23/2020 11:06 AM EDT) ATOPOBIUM VAGINAE Not Detected Log cells/mL [facility] BV CATEGORY: NOT SUPPORTIVE NOT SUPPORTIV [facility] Comment: NOT SUPPORTIVE OF BV: The pattern of results is not supportive of a diagnosis of BV: 1)Presence of Lactobacillus spp., G. vaginalis levels less than 6.0 log cells/mL, and absence of A. vaginae and Megasphaera spp; or 2)Absence of all targeted organisms; or 3)Absence of Lactobacillus spp. ??plus G. vaginalis detected at levels less than 6.0 log cells/mL and absence of A. vaginae and Megasphaera spp. ?? EQUIVOCAL FOR BV: The pattern of results is neither supportive nor not supportive of a diagnosis of BV. The patient may be in transition into or out of BV: Presence of Lactobacillus spp. plus G. vaginalis (greater or equal to 6.0 log cells/mL) and/or one of the other BV-associated pathogens. ?? SUPPORTIVE OF BV: The pattern of results is supportive of a diagnosis of BV: Absence of Lactobacillus spp. and presence of G. vaginalis greater than or equal to 6.0 log cells/mL and/or one or both of the other BV-associated pathogens. ?? Concentration for Lactobacilli (L. acidophilus/ crispatus, L. jensenii) are collectively reported under the term Lactobacillus spp. , as these species are among the peroxide producing Lactobacilli thought to be protective against bacterial vaginosis. Atopobium vaginae, Megasphaera spp., and Gardnerella (greater than 6.0 log cells/mL) have been associated with vaginosis when present in the absence of peroxide producing Lactobacilli. ? Methodology: Real-Time PCR ?? This test was developed and its analytical performance characteristics have been determined by [facility] [place] It has not been cleared or approved by the FDA. This assay has been validated pursuant to the CLIA regulations and is used for clinical purposes. ?? C. ALBICANS, DNA Not Detected Not Detected [facility] Comment: C. GLABRATA, DNA Not Detected Not Detected [facility] C. PARAPSILOSIS, DNA Not Detected Not Detected [facility] Comment: This test was developed and its analytical performance characteristics have been determined by [facility] [place] It has not been cleared or approved by the FDA. This assay has been validated pursuant to the CLIA regulations and is used for clinical purposes. ?? C. TROPICALIS, DNA Not Detected Not Detected [facility] Chlamydia trachomatis RNA, TMA, Urogenital Not Detected Not Detected [facility] Comment: GARDNERELLA VAGINALIS Not Detected Log cells/mL [facility] Comment: LACTOBACILLUS SPECIES 7.3 Log (cells/mL) [facility] MEGASPHAERA SPECIES Not Detected Log cells/mL [facility] Neisseria gonorrhoeae RNA, TMA, Urogenital Not Detected Not Detected [facility] Comment: Methodology: Bicycle Repairer Mediated Amplification(TMA) ?to detect RNA. ? The analytical performance characteristics of this assay, when used to test SurePath specimens have been determined by [facility]. The modifications have not been cleared or approved by the FDA. This assay has been validated pursuant to the CLIA regulations and is used for clinical purposes. ? For additional information, please refer to https://[employer]/faq/EDH366 (This link is being provided for ??information/educational purposes only). ?? TRICHOMONAS VAGINALIS RNA, QL TMA Not Detected Not Detected [facility] Comment: Methodology: Bicycle Repairer Mediated Amplification(TMA) ? For additional information, please refer to http://[employer]/faq/ Trichomonastma (This link is being provided for information/educational purposes only). ?? 12/23/2020 11:0 6 AM EDT us Keiko Garza MD HISTORICAL/NON ORDERABLE LABS Final Result Performing Organization Address City/State/[facility] Co de Phone Number [facility] [address] from Last 3 Months or Most Recently Relevant to Health Maintenance Insurance [facility] C3 HSN FULL DENTAL-[facility] MEDICAID STAND CHILD Care Teams Docking Saw Operator Relationship Specialty Start Date End Date Shonda Greer MD [address] [place] [id number] PCP - General Internal Medicine 01/10/24
--- OUTSIDE RECORDS SUMMARY | 2024-07-13 17:18 | XMS_ITS | Encounter Summary ---
Author Organization [employer] Address [address] [facility] 7 [place] [address] Care Team Providers Care Paper Reeler Name Role Phone Shonda Greer MD Primary Care Provider [phone] Shonda Greer MD Primary Care Provider [phone] Reason for Visit * Reason Onset Date Comments Appointment Request 12/20/2023 Encounter Details Date Type Department Care Team ([facility] st Contact Info) Description 12/20/2023 Telephone [facility] MEDICINE [address] [place] [address] Shonda Greer MD [address] [place] [address] Appointment Request Social History Tobacco Use Types Packs/Day [...] encounter Miscellaneous Notes * Telephone Encounter - Paula Luis Antonio - 12/20/2023 10:02 AM EDT Tc from mom requesting a follow up appt after surgery. documented in this encounter Plan of Treatment Not on file documented as of this encounter Visit Diagnoses Not on filedocumented in this encounter Additional Health Concerns Assessment Noted Time PHQ-9 Depression Total Score: 20 023 2:07 PM EDT documented as of this encounter Care Teams Paper Reeler Relationship Specialty Start Date End Date Shonda Greer MD [address] [place] [address] PCP - General Family Medicine 07/16/13 01/09/24 Shonda Greer MD [address] [place] [address] PCP - General Internal Medicine 01/10/24 Radha Garza Director Of Email Marketing 02/07/24 05/11/24 documented as of this encounter
--- OUTSIDE RECORDS SUMMARY | 2024-07-13 17:18 | XMS_ITS | Encounter Summary ---
Author Organization [facility] Address 75 [facility] 7 [place] [address] Care Team Providers Care Hand Assembler Name Role Phone Shonda Greer MD Primary Care Provider [phone] Shonda Greer MD Primary Care Provider [phone] Reason for Visit * Reason Onset Date Comments Referral 10/28/2023 Encounter Details Date Type Department Care Team (Late st Contact Info) Description 10/28/2023 Telephone [facility] MEDICINE [address] [place] [address] Shonda Greer MD [address] [place] [address] Referral Social History Tobacco Use Types Packs/Day Years [...] Telephone Encounter - Xiomy Cadena RN - 11/14/2023 3:14 PM EDT Placed call to [facility] Endo regarding message below. They stated they are referring pt to [facility] Endo to Dr Mendoza at [facility] but with pt insurance they needed a insurance referral. [facility] endo stated they faxed over needed paperwork. Informed them we did send today the completed for. [facility] Endo office looked and found fax for today. Pt will be all set and they will call mom to inform of next steps. * Telephone Encounter - Rex Briones - 11/14/2023 2:30 PM EDT Tc from pt mother requesting a call in regards to pt's surgery that is trying to be schedule, pt mother states they are requiring some documentation to be sent to the insurance for insurance to approve the surgery, this was advised by the High Pressure Operator office but mom is very confused on what kindof Documentation needs to be sent . * Telephone Encounter - Rex Briones - 10/31/2023 3:20 PM EDT TC from pt mother returning phone call. * Telephone Encounter - Dolly Warren - 10/31/2023 3:06 PM EDT VM left for a call back. * Telephone Encounter - Paula Salmon - 10/30/2023 2:25 PM EDT Tc from mom requesting a call back in regards below message, please contact at [phone] * Telephone Encounter - Dolly Warren - 10/29/2023 12:28 PM EDT VM left for patient regarding request for endo at [facility]. Patient was referred to Dr. Too wodo [facility] not accepting patient insurance. * Telephone Encounter - Jonel Gaspar - 10/28/2023 1:58 PM EDT TC from pt requesting new referral: Address: [facility] [address] Facility Name: [facility] Type of Specialist: High Pressure Operator Pt is requesting to change location of original endocrinology referral, stated she gave a form witha sticky note with al necessary information of referral to [place] so they can hand it to the pcp in which [place] stated they will. Pt has not gotten any update since and states it's been 2 weeks since then. If any questions you can contact pt at [phone]. documented in this encounter Plan of Treatment Not on file documented as of this encounter Visit Diagnoses Not on filedocumented in this encounter Additional Health Concerns Assessment Noted Time PHQ-9 Depression Total Score: 20 023 2:07 PM EDT documented as of this encounter Care Teams Hand Assembler Relationship Specialty Start Date End Date Shonda Greer MD [address] [place] [address] PCP - General Family Medicine 07/16/13 01/09/24 Shonda Greer MD [address] [place] [address] PCP - General Internal Medicine 01/10/24 Radha Garza Production Engine Repairer 02/07/24 05/11/24 documented as of this encounter
--- OUTSIDE RECORDS SUMMARY | 2024-07-13 17:18 | XMS_ITS | Encounter Summary ---
Author Organization [employer] [facility] Address 75 [facility] 7t [place] [address] Care Team Providers Care Thoracic Medicine Physician Name Role Phone Shonda Greer MD Primary Care Provider [phone] Encounter Details Date Type Department Care Team ([facility] st Contact Info) Description 01/13/2024 Orders Only [facility] CHC MED & PEDS [address] [place], [place] [phone] Provider, Historical, Social History Tobacco Use Types Packs/Day Years [...] AM EDT documented as of this encounter Plan of Treatment Not on file documented as of this encounter Procedures Procedure Name Priority Date/Time Associated Diagnosis Comments SURGICAL PATHOLOGY Routine 12/17/2023 9:31 AM EDT documented in this encounter Results * Surgical Pathology (12/17/2023 9:31 AM EDT) Historical Provider LAB PATHOLOGY ORDERABLES Final Result documented in this encounter Visit Diagnoses Not on filedocumented in this encounter Additional Health Concerns Assessment Noted Time PHQ-9 Depression Total Score: 20 023 2:07 PM EDT documented as of this encounter Care Teams Thoracic Medicine Physician Relationship Specialty Start Date End Date Shonda Greer MD [address] [place] [address] PCP - General Internal Medicine 01/10/24 Radha Garza Chinese Teacher 02/07/24 05/11/24 documented as of this encounter
--- OUTSIDE RECORDS SUMMARY | 2024-07-13 17:18 | XMS_ITS | Clinical Summary ---
Author Organization [place] [address] Care Team Providers Care Clinical Nutrition Manager Name Role Phone Unavailable Primary Care Provider Unavailabl e Social History Tobacco Use Types Packs/Day Years Used Date Smoking Tobacco: Never Assessed Sex and Gender Information Value Date Recorded Sex Assigned at Not on file Gender Identity Not on file Sexual Orientation Not on file Plan of Treatment Health Maintenance Due Date Last Done Comments Gonorrhea/Chlamydia Screening 2002 HPV Vaccines (1 - 3-dose series) 2017 DTaP,Tdap,and Td Vaccines (1 - Tdap) 2021 Hepatitis B Vaccines (1 of 3 - 19+ 3-dose series) 2021 Cervical Cancer Screening: P ap Smear 12/04/2023 Annual Well Child Visit (3-2 1 years old) 01/08/2024 Depression Screening 01/08/2024 HIV Screening 01/08/2024 Hepatitis C Screening 01/08/2024 Social Influencers of Health Screening 01/08/2024 COVID-19 Vaccine (1 - 2023-2 5 season) 2024 Influenza Vaccine (#1) 2024 HIB Vaccines Aged Out No longer eligi ble based on patient's age to complete this topic Hepatitis A Vaccines Aged Out No long er eligible based on patient's age to complete this topic IPV Vaccines Aged Out No longer eligi ble based on patient's age to complete this topic MMR Vaccines Aged Out No longer eligi ble based on patient's age to complete this topic Meningococcal ACWY Vaccine Aged Out N o longer eligible based on patient's age to complete this topic Pneumococcal Vaccine: Pediat rics (0 to 5 Years) and At-Risk Patients (6 to 64 Years) Aged Out No longer eligible b ased on patient's age to complete this topic RSV Immunization Patients Un sidney 20 months Aged Out No longer eligible b ased on patient's age to complete this topic Varicella Vaccines Aged Out No longer eligible based on patient's age to complete this topic
--- OUTSIDE RECORDS SUMMARY | 2024-07-13 17:18 | XMS_ITS | Encounter Summary ---
Author Organization [employer] Address [address] [facility] [address] 7[address] [place] [address] Care Team Providers Care Porcelain Finish Sprayer Name Role Phone Shonda Greer MD Primary Care Provider [phone] Encounter Details Date Type Department Care Team (Late st Contact Info) Description 07/13/2024 Orders Only GENERIC EXTERNAL DATA DEPARTMENT Provider, Generic External Data Social History Tobacco Use Types Packs/Day Years [...] T4, FREE Routine 07/13/2024 1:10 PM EST documented in this encounter Results * (ABNORMAL) TSH (07/13/2024 1:10 PM EST) Thyroid Stimulating Hormone 0.04(L) 0.32 - 4.0 uIU/mL [facility] Comment:TSH 3rd Generation ( [facility]) 07/13/2024 1:10 PM EST 07/13/2024 1:14 PM EST us Generic External Data Provider LAB BLOOD ORDERAB LES Final Result Performing Organization Address [facility] Co de Phone Number [facility] [address] [place] [phone] * T4, Free (07/13/2024 1:10 PM EST) Free T4 (Free Thyroxine) 1.76 0.71 - 1.85 ng/dL [facility] 07/13/2024 1:10 PM EST 07/13/2024 1:14 PM EST us Generic External Data Provider LAB BLOOD ORDERAB LES Final Result Performing Organization Address [facility] Co de Phone Number [facility] [address] [place] [phone] documented in this encounter Visit Diagnoses Not on filedocumented in this encounter Additional Health Concerns Assessment Noted Time PHQ-9 Depression Total Score: 20 024 1:04 PM EDT documented as of this encounter Care Teams Porcelain Finish Sprayer Relationship Specialty Start Date End Date Shonda Greer MD [address] [place] [address] PCP - General Internal Medicine 01/10/24 documented as of this encounter
--- OUTSIDE RECORDS SUMMARY | 2024-07-13 17:18 | XMS_ITS | Encounter Summary ---
Author Organization [employer] Address 75 [facility] 7 [place] [address] Care Team Providers Care Grey Iron Molder Name Role Phone Shonda Greer MD Primary Care Provider [phone] Shonda Greer MD Primary Care Provider [phone] Reason for Visit * Reason Onset Date Comments triage 10/31/2022 Encounter Details Date Type Department Care Team (Late st Contact Info) Description 10/31/2022 Telephone [facility] MEDICINE [address] [place] [address] Shonda Greer MD [address] [place], [place] [phone] triage Social History Tobacco Use Types Packs/Day Years Used Date Smoking Tobacco: Never Assessed Depression Answer Date Recorded Patient Health Questionnaire-9 [...] Orientation Straight 04/16/2022 10 :17 AM EDT COVID-19 Exposure Response Date Recorded In the last 10 days, have yo u been in contact with someone who was confirmed or suspected to have Coronavirus/COVID-19? No / Unsure 11/01/2022 2:10 PM EDT documented as of this encounter Miscellaneous Notes * Telephone Encounter - Mary Valencia RN - 10/31/2022 3:56 PM EDT Triage call Pt reports anxiety. Pt has been in [employer] for 41/2 months just returned last week 10/24.While in [employer] Pt was seen by MD and prescribed prozac which Pt reports has been very effective and was taken by Pt for 3 months. Pt main symptom is unable to get to sleep, but, once asleep doesn't want to get up and get going. Also over eating. Pt reports that prozac did help these symptoms. Pt has stopped taking this 3 weeks ago because Pt ran out of medication. Apt in [facility] 11/01 @ 200pm. Pt agrees with disposition and home care reviewed. Protocol Used: Anxiety and Panic Attack (Adult) Protocol-Based Disposition: See in Office or Video Visit within 3 Days Video visit not offered Positive Triage Questions: * Symptoms interfere with work or school * Started on anti-anxiety medication and no relief * Patient wants to be seen * All higher-acuity triage questions were negative Care Advice Discussed: * Note to Triager - Anxiety Symptoms * Note to Triager - Panic Attack * Reassurance and Education - Anxiety * Healthy Living Basics * Avoid Triggers of Anxiety * Avoid Caffeine * Stress Reduction * Reasons To Call Back - Anxiety or panic attacks continue - You feel like harming yourself - You become worse * Telephone Encounter - Aileen Torres - 10/31/2022 3:31 PM EDT Symptom: Anxiety or Panic Attack Outcome: Schedule an urgent appointment (within 4 hours) or talk to a nurse or provider soon Reason: over weight. The caller accepted this outcome Please contact at [phone] documented in this encounter Plan of Treatment Not on file documented as of this encounter Visit Diagnoses Not on filedocumented in this encounter Care Teams Grey Iron Molder Relationship Specialty Start Date End Date Shonda Greer MD [address] [place] [address] PCP - General Family Medicine 07/16/13 01/09/24 Shonda Greer MD [address] [place] [address] PCP - General Internal Medicine 01/10/24 Radha Garza Fork Truck Operator 02/07/24 05/11/24 documented as of this encounter
--- OUTSIDE RECORDS SUMMARY | 2024-07-13 17:18 | XMS_ITS | Encounter Summary ---
Author Organization [employer] Address [address] [place] [address] [address], [place] [address] Care Team Providers Care Shine Worker Name Role Phone Shonda Greer MD Primary Care Provider [phone] Shonda Greer MD Primary Care Provider [phone] Reason for Referral * Imaging (Urgent) - Closed Specialty Diagnoses / Procedures Referred By Contac t Referred To Contact Interventional Radiology Diagnoses Left thyroid nodule Procedures IR Fine Needle Aspiration Thyroid Shonda Greer MD [address] [place] [address] Phone: tel: fax: [address] Phone: tel: fax: Referral ID Status Reason Start Date Expiration Date Visits Re quested Visits Authorized [id number] Closed 09/16/2023 09/15/2024 1 1 Encounter Details Date Type Department Care Team (Late st Contact Info) Description 09/16/2023 Orders Only [facility] CHC MED & PEDS [address] [place] [address] Shonda Greer MD [address] [place] [address] Left thyroid nodule (Primary Dx) Social History Tobacco Use Types Packs/Day Years Used Date Smoking Tobacco: Never Smokeless Tobacco: Never Alcohol Use Standard [...] as of this encounter Plan of Treatment Scheduled Orders Name Type Priority Associated Diagnoses Orde r Schedule IR Fine Needle Aspiration Thyroid Imaging Urgent Left thyroid nodule Expected: 09/16/2023, Expires: 09/15/2024 documented as of this encounter Visit Diagnoses Diagnosis Left thyroid nodule- Primary documented in this encounter Additional Health Concerns Assessment Noted Time PHQ-9 Depression Total Score: 20 023 2:07 PM EDT documented as of this encounter Care Teams Shine Worker Relationship Specialty Start Date End Date Shonda Greer MD [address] [place] [address] PCP - General Family Medicine 07/16/13 01/09/24 Shonda Greer MD [address] [place] [address] PCP - General Internal Medicine 01/10/24 Radha Garza Information Security Officer 02/07/24 05/11/24 documented as of this encounter
--- OUTSIDE RECORDS SUMMARY | 2024-07-13 17:18 | XMS_ITS | Encounter Summary ---
Author Organization [employer] Address 75 [facility] 7t [place] [address] Care Team Providers Care Weigher And Mixer Name Role Phone Shonda Greer MD Primary Care Provider [phone] Shonda Greer MD Primary Care Provider [phone] Reason for Visit * Reason Comments Med Change Request Encounter Details Date Type Department Care Team ([facility] Contact Info) Description 10/23/2023 Refill [facility] CHC ADULT DENTAL [address] [place] [address] Breann Art, DDS [address] [place] [address] Social History Tobacco Use Types Packs/Day Years [...] encounter Miscellaneous Notes * Telephone Encounter - Isabelle Buenrostro - 10/28/2023 12:06 PM EDT Patient in a lot of pain can u send something for pain and infection please . * Telephone Encounter - Brenan Art DDS - 10/28/2023 9:14 AM EDT Approving, but needs appt for additional refills. documented in this encounter Plan of Treatment Not on file documented as of this encounter Visit Diagnoses Not on filedocumented in this encounter Additional Health Concerns Assessment Noted Time PHQ-9 Depression Total Score: 20 023 2:07 PM EDT documented as of this encounter Care Teams Weigher And Mixer Relationship Specialty Start Date End Date Shonda Greer MD [address] [place] [address] PCP - General Family Medicine 07/16/13 01/09/24 Shonda Greer MD [address] [place] [address] PCP - General Internal Medicine 01/10/24 Radha Garza Diet Supervisor 02/07/24 05/11/24 documented as of this encounter
== END 2024-07-13 12:58 | disposition home or self-care (01) ==
PROVIDERS: PCP Pediatrics; Visit Provider Student in an Organized Health Care Education/Training Program
DX: C73 Malignant neoplasm of thyroid gland (principal); E89.0 Postprocedural hypothyroidism
CPT/HCPCS: 99213

== ENCOUNTER 2024-07-13 12:35 | Outpatient (REF) | payer MEDICAID, SELFPAY ==
[2024-07-13 14:42] LABS: Free T4 (Free Thyroxine) 1.76 ng/dL (0.71-1.85); Thyroid Stimulating Hormone 0.04 uIU/mL (0.32-4.0)
--- OUTSIDE RECORDS SUMMARY | 2024-07-13 17:43 | XMS_ITS | Encounter Summary ---
Author Organization [employer] Address [address] [place] [address] [address] [address] Care Team Providers Care Route Deliverer Name Role Phone Shonda Greer MD Primary Care Provider [phone] Shonda Greer MD Primary Care Provider [phone] Reason for Referral * Imaging (Urgent) - Closed Specialty Diagnoses / Procedures Referred By Contac t Referred To Contact Interventional Radiology Diagnoses Left thyroid nodule Procedures IR Fine Needle Aspiration Thyroid Shonda Greer MD [address] [place] [address] Phone: tel: fax: [address] Phone: tel: fax: Referral ID Status Reason Start Date Expiration Date Visits Re quested Visits Authorized [id number] Closed 09/16/2023 09/15/2024 1 1 Encounter Details Date Type Department Care Team (Late st Contact Info) Description 09/16/2023 Orders Only [facility] CHC MED & PEDS [address] [place] [address] Shonda Greer MD [address] [place] [address] Left thyroid nodule (Primary Dx) Social History [...] documented as of this encounter Care Teams Route Deliverer Relationship Specialty Start Date End Date Shonda Greer MD [address] [place] [address] PCP - General Family Medicine 07/16/13 01/09/24 Shonda Greer MD [address] [place] [address] PCP - General Internal Medicine 01/10/24 Radha Garza Blue Split Trimmer 02/07/24 05/11/24 documented as of this encounter
--- OUTSIDE RECORDS SUMMARY | 2024-07-13 17:43 | XMS_ITS | Encounter Summary ---
Author Organization [employer] Address 75 [facility] 7t [place] [address] Care Team Providers Care Assistant Corporate Controller Name Role Phone Shonda Greer MD Primary Care Provider [phone] Encounter Details Date Type Department Care Team ([facility] st Contact Info) Description 01/13/2024 Orders Only [facility] CHC MED & PEDS [address] [place], [place] [phone] Provider, Historical, Social History Tobacco Use Types [...] documented as of this encounter Care Teams Assistant Corporate Controller Relationship Specialty Start Date End Date Shonda Greer MD [address] [place] [address] PCP - General Internal Medicine 01/10/24 Radha Garza Log Cooker 02/07/24 05/11/24 documented as of this encounter
--- OUTSIDE RECORDS SUMMARY | 2024-07-13 17:43 | XMS_ITS | Encounter Summary ---
Author Organization [employer] Address 75 [facility] 7 [place] [address] Care Team Providers Care Retail Solar Advisor Name Role Phone Shonda Greer MD Primary Care Provider [phone] Shonda Greer MD Primary Care Provider [phone] Reason for Visit * Reason Onset Date Comments triage 10/31/2022 Encounter Details Date Type Department Care Team (Late st Contact Info) Description 10/31/2022 Telephone [facility] MEDICINE [address] [place] [address] Shonda Greer MD [address] [place], [place] [phone] triage Social History Tobacco Use Types Packs/Day [...] Pt reports anxiety. Pt has been in [place] for 41/2 months just returned last week 10/24.While in [place] Pt was seen by MD and prescribed [...] Pt ran out of medication. Apt in [facility] 11/01 @ 200pm. Pt agrees with [...] caller accepted this outcome Please contact at [phone] documented in this encounter Plan of Treatment Not on file documented as of this encounter Visit Diagnoses Not on filedocumented in this encounter Care Teams Retail Solar Advisor Relationship Specialty Start Date End Date Shonda Greer MD [address] [place] [address] PCP - General Family Medicine 07/16/13 01/09/24 Shonda Greer MD [address] [place] [address] PCP - General Internal Medicine 01/10/24 Radha Garza Fur Repair Inspector 02/07/24 05/11/24 documented as of this encounter
--- OUTSIDE RECORDS SUMMARY | 2024-07-13 17:44 | XMS_ITS | Clinical Summary ---
Author Organization [employer] Address [address] [facility] 7t [place] [address] Care Team Providers Care Agricultural Engineering Technicians Name Role Phone Shonda Greer MD Primary Care Provider [phone] Allergies No known active allergies Medications * [...] triggered underneath symptoms. Arnulfo reached out to [employer] in [place]. She was told that agency has internal wait list and her status was pending. clinician recommended pt to contact [facility] in [facility] for same-day appointment. Arnulfo said she [...] intervention , Patient to reach out to [facility] team as needed, Comply with medication , [...] referral done for [place] [place]. Encounters Date Type Department Care Team Description 07/13/2024 Orders Only GENERIC EXTERNAL DATA DEPARTMENT Provider, Generic External Data 06/05/2024 Orders Only GENERIC EXTERNAL DATA DEPARTMENT Provider, Generic External Data 06/05/2024 Telephone [facility] [address] [place] [phone] Radha Garza, RN Care Management ([facility] Graduation) 05/26/2024 Telephone [facility] [address] [place] [address] Radha Garza, CHRIS Care Management ([facility] TC #3-lvm) 05/21/2024 Telephone [facility] [address] [place] [address] Shonda Greer MD No Show 05/12/[address] [address] Radha Garza, RN Care Management (C3 TC #2-unable to lvm) 05/11/2024 Patient Outreach [facility] [address] [place] [address] Shonda Greer MD Care Coordination (Outreach) 05/07/2024 Patient Outreach [facility] [address] [place] [address] Shonda Greer MD Pre-visit Planning (SDOH unable to reach LVM) 04/29/2024 Patient Outreach [facility] [address] [place] [address] Shonda Greer MD Care Coordination (Outreach) 04/29/2024 Telephone [facility] [address] [place] [address] Radha Garza, CHRIS Care Management (C3 TC #1-lvm) 04/22/2024 Orders Only GENERIC EXTERNAL DATA DEPARTMENT Provider, Generic External Data 04/21/2024 Patient Outreach [facility] [address] [place] [address] Shonda Greer MD Care Coordination (Outreach) from [...] Stimulating Hormone 0.04(L) 0.32 - 4.0 uIU/mL [facility] Comment:TSH 3rd Generation ( [facility]) 07/13/2024 1:10 PM EST 07/13/2024 1:14 PM EST us Generic External Data Provider LAB BLOOD ORDERAB LES Final Result Performing Organization Address [facility] Co de Phone Number [facility] [address] [place] [address] [phone] * T4, Free (07/13/2024 1:10 PM EST) Only the most recent of3 resultswithin the time period is included. Free T4 (Free Thyroxine) 1.76 0.71 - 1.85 ng/dL [facility] 07/13/2024 1:10 PM EST 07/13/2024 1:14 PM EST Generic External Data Provider LAB BLOOD ORDERAB LES Final Result Performing Organization Address City/[facility]/ZIP Co de Phone Number [facility] [address] [place] [phone] [phone] * (ABNORMAL) Thyroglobulin, LC/MS/MS (06/05/2024 10:03 AM EST) Only the most recent of2 resultswithin the time period is included. Thyroglobulin, LC/MS/MS 0.6(A) ng/mL [facility] Comment:Reference Range: Int act Thyroid 2.8-40.9 Athyrotic <0.1 Note: Abnormal flagging is based on the reference interval for patients with intact thyroid.This test was performed using the theRightAPIchemiluminescent method. Values obtained fromdifferent assay methods cannot be usedinterchangeably. Thyroglobulin levels, regardlessof value, should not be interpreted as absoluteevidence of the presence or absence of disease. Thyroglobulin Comment See Below [facility] Comment:Thyroglobulin antibo dies (TGAB) interfere withthyroglobulin (TG) assays; therefore, TGAB assayshould always be performed in conjunction with aTG assay.For additional information, please refer tohttp://education.Sunnyloft/faq/MMW947(This link is being provided for informational/educational purposes only.)THIS TEST WAS PERFORMED AT:[facility] [place] [id number] SMITH MD 06/05/2024 10:0 3 AM EST 06/05/2024 10:03 AM EST us Generic External Data Provider LAB BLOOD ORDERAB LES Final Result Performing Organization Address [facility]/ZIP Co de Phone Number [facility] [address] [place] [address] [phone] * (ABNORMAL) Thyroblobulin, Tumor Marker w/Reflex (06/05/2024 10:03 AM EST) Only the most recent of2 resultswithin the time period is included. Thyroglobulin Antibody <1 <=1 IU/mL [facility] Comment:This Thyroglobulin a ntibody test was performedusing the theRightAPI Chemiluminescent method.Values obtained from different assay methods cannot beused interchangeably. Thyroglobulin antibody levels,regardless of value, should not be interpreted asabsolute evidence of the presence or absence ofdisease. Thyroglobulin, LC/MS/MS TNP [facility] Thyroglobulin Level 0.6(A) ng/mL [facility] Comment:Reference Range: Ath yrotic: <0.1 ng/mLReference range applies to differentiated thyroidcancer patients following treatment. The presence ofmeasurable thyroglobulin indicates the presence ofthyroglobulin-producing thyroid tissue. Clinicalcorrelation is advised.This Thyroglobulin test was performed using thetheRightAPI Chemiluminescent method. Valuesobtained from different assay methods cannot beused interchangeably. Thyroglobulin levels, regardlessof value, should not be interpreted as absoluteevidence of the presence or absence of disease.THIS TEST WAS PERFORMED AT:[facility] [address] [place] [address]WSMRUUEROSSY BRENNAN MD,PHD 06/05/2024 10:0 3 AM EST 06/05/2024 10:03 AM EST Generic External Data Provider LAB BLOOD ORDERAB LES Final Result Performing Organization Address [facility] de Phone Number [facility] [address] [place] [phone] * Thyroglobulin Antibodies (06/05/2024 10:03 AM EST) Thyroglobulin Antibodies <1 < or = 1 IU/mL [facility] Comment:THIS TEST WAS PERFOR MED AT:[facility] [address] [id number] SMITH MD 06/05/2024 10:0 3 AM EST 06/05/2024 10:03 AM EST Generic External Data Provider LAB BLOOD ORDERAB LES Final Result Performing Organization Address [facility]/ZIP Co de Phone Number [facility] [address] [place] [phone] * Thyroid Peroxidase And Thyroglobulin Antibodies (04/22/2024 1:06 PM EST) Thyroglobulin Antibodies <1 < or = 1 IU/mL [facility] Comment:THIS TEST WAS PERFOR MED AT:[facility] [place] [id number] SMITH MD 04/22/2024 1:06 PM EST 04/22/2024 1:06 PM EST us Generic External Data Provider LAB BLOOD ORDERAB LES Final Result [facility] [address] [place] [phone] * HEPATITIS PANEL, ACUTE W/REFLEX TO CONFIRMATION (12/30/2020 1:31 PM EDT) Pathologist [facility] HEPATITIS A IGM NON-REACT [facility] NON-REACT [facility] Comment: ?? For additional information, please refer to ?? http://Skycross/faq/BAL653 ?? (This link is being provided for [...] a test for HCV RNA (test code 89154) is suggested. ?? For additional information please refer to http://Dropost.it.Sunnyloft/faq/RVS37p0 (This link is being provided for informational/ educational purposes only.) ?? 12/30/2020 1:31 PM EDT us Keiko Garza MD HISTORICAL/NON ORDERABLE LABS Final Result Performing Organization Address [facility] Co de Phone Number [facility] [address] [place] [address], * HIV 1/2 ANTIGEN/ANTIBODY,FOURTH GENERATION W/RFL (12/30/2020 1:31 PM EDT) HIV-1/2 ANTIGEN AND ANTIBODIES, 4TH GENERATION W/ REFLEX NON-REACT [facility] NON-REACT [facility] Comment: HIV-1 antigen and HIV-1/HIV-2 [...] ? For additional information please refer to http://education.Sunnyloft/faq/AMM479 (This link is being provided for informational/ educational purposes only.) ? The performance of this assay has not been clinically validated in patients less than 2 years old. ?? 12/30/2020 1:31 PM EDT Keiko Garza MD LAB BLOOD ORDERABLES Final Re sult Performing Organization Address [facility] Co de Phone Number [facility] [address] [place] [address], * SURESWAB(R), VAGINOSIS/VAGINITIS PLUS (12/23/2020 11:06 AM EDT) ATOPOBIUM VAGINAE Not Detected Log cells/mL [facility] BV CATEGORY: NOT SUPPORTIVE NOT SUPPORTIV [facility] Comment: NOT SUPPORTIVE OF BV: [...] analytical performance characteristics have been determined by [facility]. It has not been cleared or [...] analytical performance characteristics have been determined by [facility]. It has not been cleared or [...] Not Detected [facility] Comment: Methodology: Rollway Worker Mediated Amplification(TMA) ?to detect RNA. ? The analytical performance characteristics of this assay, when used to test SurePath specimens have been determined by [employer]. The modifications have not been cleared or approved by the FDA. This assay has been validated pursuant to the CLIA regulations and is used for clinical purposes. ? For additional information, please refer to https://Dropost.it.Sunnyloft/faq/EGR416 (This link is being provided for ??information/educational purposes only). ?? TRICHOMONAS VAGINALIS RNA, QL TMA Not Detected Not Detected [facility] Comment: Methodology: Rollway Worker Mediated Amplification(TMA) ? For additional information, please refer to http://Dropost.it.Sunnyloft/faq/ Trichomonastma (This link is being provided for information/educational purposes only). ?? 12/23/2020 11:0 6 AM EDT us Keiko Garza MD HISTORICAL/NON ORDERABLE LABS Final Result Performing Organization Address City/State/[facility] Co de Phone Number [facility] [address] from Last 3 Months or Most Recently Relevant to Health Maintenance Insurance [facility] C3 HSN FULL DENTAL-[facility] MEDICAID STAND CHILD Care Teams Agricultural Engineering Technicians Relationship Specialty Start Date End Date Shonda Greer MD [address] [place] [phone] PCP - General Internal Medicine 01/10/24
--- OUTSIDE RECORDS SUMMARY | 2024-07-13 17:44 | XMS_ITS | Encounter Summary ---
Author Organization [employer] Address [address] [facility] 7 [place] [address] Care Team Providers Care Passenger Relations Representative Name Role Phone Shonda Grere MD Primary Care Provider [phone] Shonda Greer MD Primary Care Provider [phone] Reason for Visit * Reason Onset Date Comments Call Back Request 11/25/2023 Encounter Details Date Type Department Care Team ([facility] st Contact Info) Description 11/25/2023 Telephone [facility] MEDICINE [address] [place] [address] Shonda Greer MD [address] [place] [address] Call Back Request Social History Tobacco Use [...] XR confirmed fifth metatarsal fx. call center nurse provider spoke with pt and informed and verified Ortho referral was placed during last visit. * Telephone Encounter - Jonel Gaspar - 11/25/2023 4:16 PM EDT Tc from Kenzie with [facility] Radiology requesting call back to discuss positive xray results. Kenzie also informed she faxed results over. Please contact Kenzie at [phone]. documented in this encounter Plan of Treatment Not on file documented as of this encounter Visit Diagnoses Not on filedocumented in this encounter Additional Health Concerns Assessment Noted Time PHQ-9 Depression Total Score: 20 023 2:07 PM EDT documented as of this encounter Care Teams Passenger Relations Representative Relationship Specialty Start Date End Date Shonda Greer MD [address] [place] [address] PCP - General Family Medicine 07/16/13 01/09/24 Shonda Greer MD [address] [place] [address] PCP - General Internal Medicine 01/10/24 Radha Garza Wet Pour Supervisor 02/07/24 05/11/24 documented as of this encounter
--- OUTSIDE RECORDS SUMMARY | 2024-07-13 17:44 | XMS_ITS | Encounter Summary ---
Author Organization [employer] Address [address] [facility] 7t [place] [address] Care Team Providers Care Pharmacy Delivery Driver Name Role Phone Shonda Greer MD Primary Care Provider [phone] Shonda Greer MD Primary Care Provider [phone] Reason for Visit * Reason Comments Med Change Request Encounter Details Date Type Department Care Team ([facility] Contact Info) Description 10/23/2023 Refill [facility] ADULT DENTAL [address] [place] [address] Breann Art, DDS [address] [place] [address] Social History Tobacco Use Types Packs/Day Years [...] infection please . * Telephone Encounter - Breann Art DDS - 10/28/2023 9:14 AM EDT Approving, but needs appt for additional refills. documented in this encounter Plan of Treatment Not on file documented as of this encounter Visit Diagnoses Not on filedocumented in this encounter Additional Health Concerns Assessment Noted Time PHQ-9 Depression Total Score: 20 023 2:07 PM EDT documented as of this encounter Care Teams Pharmacy Delivery Driver Relationship Specialty Start Date End Date Shonda Greer MD [address] [place] [address] PCP - General Family Medicine 07/16/13 01/09/24 Shonda Greer MD [address] [place] [address] PCP - General Internal Medicine 01/10/24 Radha Garza Transportation Officer 02/07/24 05/11/24 documented as of this encounter
--- OUTSIDE RECORDS SUMMARY | 2024-07-13 17:44 | XMS_ITS | Encounter Summary ---
Author Organization [employer] Address [address] [facility] 7 [place] [address] Care Team Providers Care Sdv Pilot/Navigator/Dds Operator Name Role Phone Shonda Greer MD Primary Care Provider [phone] Shonda Greer MD Primary Care Provider [phone] Reason for Visit * Reason Onset Date Comments Referral 10/28/2023 Encounter Details Date Type Department Care Team (Late st Contact Info) Description 10/28/2023 Telephone [facility] MEDICINE [address] [place] [address] Shonda Greer MD [address] [place] [address] Referral Social History Tobacco Use Types Packs/Day [...] 11/14/2023 3:14 PM EDT Placed call to [facility] regarding message below. They stated they are referring pt to [facility] Endo to Dr Mendoza at [facility] but with pt insurance they needed a insurance referral. [facility] endo stated they faxed over needed paperwork. Informed them we did send today the completed for. [facility] office looked and [...] the surgery, this was advised by the Neurology Manager office but mom is very confused on [...] in regards below message, please contact at [phone] * Telephone Encounter - Dolly Warren - 10/29/2023 12:28 PM EDT VM left for patient regarding request for endo at [facility]. Patient was referred to Dr. Too wood [facility] not accepting patient insurance. * Telephone Encounter - Jonel Gaspar - 10/28/2023 1:58 PM EDT TC from pt requesting new referral: Address: [facility] [address] Facility Name: [facility] Type of Specialist: Neurology Manager Pt is requesting to change location of original endocrinology referral, stated she gave a form witha sticky note with al necessary information of referral to [place] so they can hand it to the pcp in which [place] stated they will. Pt has not gotten any update since and states it's been 2 weeks since then. If any questions you can contact pt at [phone]. documented in this encounter Plan of Treatment Not on file documented as of this encounter Visit Diagnoses Not on filedocumented in this encounter Additional Health Concerns Assessment Noted Time PHQ-9 Depression Total Score: 20 023 2:07 PM EDT documented as of this encounter Care Teams Sdv Pilot/Navigator/Dds Operator Relationship Specialty Start Date End Date Shonda Greer MD [address] [place] [address] PCP - General Family Medicine 07/16/13 01/09/24 Shonda Greer MD [address] [place] [address] PCP - General Internal Medicine 01/10/24 Radha Garza Cushion Installer 02/07/24 05/11/24 documented as of this encounter
--- OUTSIDE RECORDS SUMMARY | 2024-07-13 17:44 | XMS_ITS | Encounter Summary ---
Author Organization [employer] Address [address] [facility] [address] 7[address] [place] [address] Care Team Providers Care Counseling Specialist Name Role Phone Shonda Greer MD Primary Care Provider [phone] Encounter Details Date Type Department Care Team [...] Stimulating Hormone 0.04(L) 0.32 - 4.0 uIU/mL [facility] Comment:TSH 3rd Generation ( [facility]) 07/13/2024 1:10 PM EST 07/13/2024 1:14 PM EST us Generic External Data Provider LAB BLOOD ORDERAB LES Final Result Performing Organization Address [facility] Co de Phone Number [facility] [address] [place] [phone] * T4, Free (07/13/2024 1:10 PM EST) Free T4 (Free Thyroxine) 1.76 0.71 - 1.85 ng/dL [facility] 07/13/2024 1:10 PM EST 07/13/2024 1:14 PM EST us Generic External Data Provider LAB BLOOD ORDERAB LES Final Result Performing Organization Address [facility] Co de Phone Number [facility] [address] [place] [phone] documented in this encounter Visit Diagnoses Not on filedocumented in this encounter Additional Health Concerns Assessment Noted Time PHQ-9 Depression Total Score: 20 024 1:04 PM EDT documented as of this encounter Care Teams Counseling Specialist Relationship Specialty Start Date End Date Shonda Greer MD [address] [place] [address] PCP - General Internal Medicine 01/10/24 documented as of this encounter
--- OUTSIDE RECORDS SUMMARY | 2024-07-13 17:44 | XMS_ITS | Clinical Summary ---
Author Organization [facility] [place] [address] Care Team Providers Care Optical Manager Name Role Phone Unavailable Primary Care [...]
--- OUTSIDE RECORDS SUMMARY | 2024-07-13 17:44 | XMS_ITS | Encounter Summary ---
Author Organization [employer] Address [address] [facility] 7 [place] [address] Care Team Providers Care Stripper Shovel Operator Name Role Phone Shonda Greer MD Primary Care Provider [phone] Shonda Greer MD Primary Care Provider [phone] Reason for Visit * Reason Onset Date Comments Appointment Request 12/20/2023 Encounter Details Date Type Department Care Team ([facility] st Contact Info) Description 12/20/2023 Telephone [facility] MEDICINE [address] [place] [address] Shonda Greer MD [address] [place] [address] Appointment Request Social History Tobacco Use Types [...] documented as of this encounter Care Teams Stripper Shovel Operator Relationship Specialty Start Date End Date Shonda Greer MD [address] [place] [address] PCP - General Family Medicine 07/16/13 01/09/24 Shonda Greer MD [address] [place] [address] PCP - General Internal Medicine 01/10/24 Radha Garza Director Of Patient Safety 02/07/24 05/11/24 documented as of this encounter
== END 2024-07-13 12:36 | disposition home or self-care (01) ==
LOC: HO.LAB 12:35
PROVIDERS: PCP Pediatrics; Visit Provider Student in an Organized Health Care Education/Training Program
DX: E89.0 Postprocedural hypothyroidism (principal); C73 Malignant neoplasm of thyroid gland
CPT/HCPCS: 36415; 84439; 84443; 99212

== ENCOUNTER 2024-07-16 15:45 | Outpatient (REF) | payer MEDICAID, SELFPAY ==
--- NOTE | ~2024-07-16 | US_ITS ---
EXAMINATION: US HEAD NECK SOFT TISSUE HISTORY: E89.0 - Postprocedural hypothyroidism COMPARISON: Correlation is made with a thyroid ultrasound dated 09/11/2023. FINDINGS: Sonographic examination of the thyroid bed was performed. The patient is status post thyroidectomy. No residual thyroid tissue is noted. Multiple lymph nodes are seen in the neck bilaterally. On the right, there is a single abnormal appearing level II node measuring 2.0 x 0.6 x 1.9 cm which demonstrates a slitlike hilum and cortical thickening. On the left, there are multiple level II and III lymph nodes which demonstrate absent cb, measuring up to 2.5 x 0.5 x 2.2 cm. US/US soft tiss head and/or neck IMPRESSION: No residual thyroid tissue is identified. There are multiple abnormal appearing lymph nodes in the neck bilaterally as described. These are amenable to ultrasound-guided fine-needle aspiration if desired. Electronically signed by: Ebenezer Venegas MD 07/17/2024 09:40 AM ANDREA
--- OUTSIDE RECORDS SUMMARY | 2024-07-16 19:23 | XMS_ITS | Encounter Summary ---
Author Organization [employer] Address [address] [facility] 7 [place] [address] Care Team Providers Care Cellophane Casting Machine Repairer Name Role Phone Shonda Greer MD Primary Care Provider Shonda Greer MD Primary Care Provider [phone] Reason for Visit * Reason Onset Date Comments Referral 10/28/2023 Encounter Details Date Type Department Care Team (Late st Contact Info) Description 10/28/2023 Telephone [facility] MEDICINE [address] [place] [address] Shonda Greer MD [address] [place] [address] Referral Social History Tobacco Use Types Packs/Day [...] 11/14/2023 3:14 PM EDT Placed call to [facility] Endo regarding message below. They stated they are referring pt to [facility] Endo to Dr Mendoza at [facility] but with pt insurance they needed a insurance referral. [facility] endo stated they faxed over needed paperwork. Informed them we did send today the completed for. [facility] Endo office looked and found fax for [...] the surgery, this was advised by the Psychological Operations Specialist office but mom is very confused on [...] in regards below message, please contact at [phone] * Telephone Encounter - Dolly Warren - 10/29/2023 12:28 PM EDT VM left for patient regarding request for endo at [facility]. Patient was referred to Dr. Too wood [facility] not accepting patient insurance. * Telephone Encounter - Jonel Gaspar - 10/28/2023 1:58 PM EDT TC from pt requesting new referral: Address: [facility] [address] Facility Name: [facility] Type of Specialist: Psychological Operations Specialist Pt is requesting to change location of original endocrinology referral, stated she gave a form witha sticky note with al necessary information of referral to [place] so they can hand it to the pcp in which [place] stated they will. Pt has not gotten any update since and states it's been 2 weeks since then. If any questions you can contact pt at [phone]. documented in this encounter Plan of Treatment Not on file documented as of this encounter Visit Diagnoses Not on filedocumented in this encounter Additional Health Concerns Assessment Noted Time PHQ-9 Depression Total Score: 20 023 2:07 PM EDT documented as of this encounter Care Teams Cellophane Casting Machine Repairer Relationship Specialty Start Date End Date Shonda Greer MD [address] [place] [address] PCP - General Family Medicine 07/16/13 01/09/24 Shonda Greer MD [address] [place] [address] PCP - General Internal Medicine 01/10/24 Radha Garza Oil Fire Specialist 02/07/24 05/11/24 documented as of this encounter
--- OUTSIDE RECORDS SUMMARY | 2024-07-16 19:23 | XMS_ITS | Encounter Summary ---
Author Organization [id number] Address [address] [facility] 7t [place] [address] Care Team Providers Care Physiological Chemist Name Role Phone Shonda Greer MD Primary Care Provider [phone] Shonda Greer MD Primary Care Provider [phone] Reason for Visit * Reason Comments Med Change Request Encounter Details Date Type Department Care Team ([facility] Contact Info) Description 10/23/[address] [facility] CHC ADULT DENTAL [address] [place] [address] Breann Art, DDS [address] [place] [address] Social History Tobacco Use Types Packs/Day Years [...] documented as of this encounter Care Teams Physiological Chemist Relationship Specialty Start Date End Date Shonda Greer MD [address] [place] [address] PCP - General Family Medicine 07/16/13 01/09/24 Shonda Greer MD [address] [place] [address] PCP - General Internal Medicine 01/10/24 Radha Garza Software Client Architect 02/07/24 05/11/24 documented as of this encounter
--- OUTSIDE RECORDS SUMMARY | 2024-07-16 19:23 | XMS_ITS | Encounter Summary ---
Author Organization [employer] Address [address] [facility] [address] [place] [address] Care Team Providers Care Hris Administrator Name Role Phone Shonda Greer MD Primary Care Provider [phone] Encounter Details Date Type Department Care Team [...] Stimulating Hormone 0.04(L) 0.32 - 4.0 uIU/mL [facility] Comment:TSH 3rd Generation ( [facility]) 07/13/2024 1:10 PM EST 07/13/2024 1:14 PM EST us Generic External Data Provider LAB BLOOD ORDERAB LES Final Result Performing Organization Address [facility] Co de Phone Number [facility] [address] [place] [phone] * T4, Free (07/13/2024 1:10 PM EST) Free T4 (Free Thyroxine) 1.76 0.71 - 1.85 ng/dL [facility] 07/13/2024 1:10 PM EST 07/13/2024 1:14 PM EST us Generic External Data Provider LAB BLOOD ORDERAB LES Final Result Performing Organization Address [facility] Co de Phone Number [facility] [address] [place] [phone] documented in this encounter Visit Diagnoses Not on filedocumented in this encounter Additional Health Concerns Assessment Noted Time PHQ-9 Depression Total Score: 20 024 1:04 PM EDT documented as of this encounter Care Teams Hris Administrator Relationship Specialty Start Date End Date Shonda Greer MD [address] [place] [address] PCP - General Internal Medicine 01/10/24 documented as of this encounter
--- OUTSIDE RECORDS SUMMARY | 2024-07-16 19:23 | XMS_ITS | Clinical Summary ---
Author Organization [employer] Address [address] [facility] 7t [place] [address] Care Team Providers Care Stave Log Cut Off Saw Operator Name Role Phone Shonda Greer MD Primary Care Provider [phone] Allergies No known active allergies Medications * [...] triggered underneath symptoms. Arnulfo reached out to [facility] in [place]. She was told that agency has internal wait list and her status was pending. clinician recommended pt to contact [facility] for same-day appointment. Arnulfo said she [...] intervention , Patient to reach out to [facility] team as needed, Comply with [...] [facility]. Encounters * This document contains information received from the source organization and may not represent a complete record from that organization. Date Type Department Care Team Description 07/13/2024 Orders Only GENERIC EXTERNAL DATA DEPARTMENT Provider, Generic External Data 06/05/2024 Orders Only GENERIC EXTERNAL DATA DEPARTMENT Provider, Generic External Data 06/05/2024 Telephone [facility] [address] [place] [phone] Radha Garza, RN Care Management ([facility] Graduation) 05/26/2024 Telephone [facility] [address] [place] [address] Radha Garza, RN Care Management ([facility] TC #3-lvm) 05/21/2024 Telephone [facility] [address] [place] [address] Shonda Greer MD No Show 05/12/2024 Telephone [facility] [address] [place] [address] Radha Garza RN Care Management (C3 TC #2-unable to lvm) 05/11/2024 Patient Outreach [facility] [address] [place] [address] Shonda Greer MD Care Coordination (Outreach) 05/07/2024 Patient Outreach [facility] [address] [place] [address] Shonda Greer MD Pre-visit Planning (SDOH unable to reach LVM) 04/29/2024 Patient Outreach [facility] [address] [place] [address] Shonda Greer MD Care Coordination (Outreach) 04/29/2024 Telephone [facility] [address] [place] [address] Radha Garza RN Care Management (C3 TC #1-lvm) 04/22/2024 Orders Only GENERIC EXTERNAL DATA DEPARTMENT Provider, Generic External Data 04/21/2024 Patient Outreach [facility] [address] [place] [address] Shonda Greer MD Care Coordination (Outreach) from [...] 12/22/2003, 01/02/2003, 2002 HIB Vaccines Completed 03/08/2004, 07/0 02/2004, 06/09/2003, Additional history exists Pneumococcal Vaccine: Pediatrics (0 to 5 Years) and At-Risk Patients (6 to 49) Years) Aged Out 03/08/2004, 07/16/2003, 06/09/2003, Additional [...] Stimulating Hormone 0.04(L) 0.32 - 4.0 uIU/mL [facility] Comment:TSH 3rd Generation ( [facility]) 07/13/2024 1:10 PM EST 07/13/2024 1:14 PM EST us Generic External Data Provider LAB BLOOD ORDERAB LES Final Result [facility] [address] [place] [phone] * T4, Free (07/13/2024 1:10 PM EST) Only the most recent of3 resultswithin the time period is included. Free T4 (Free Thyroxine) 1.76 0.71 - 1.85 ng/dL [facility] 07/13/2024 1:10 PM EST 07/13/2024 1:14 PM EST us Generic External Data Provider LAB BLOOD ORDERAB LES Final Result Performing Organization Address City/[facility]/ZIP Co de Phone Number [facility] [address] [place] [phone] * (ABNORMAL) Thyroglobulin, LC/MS/MS (06/05/2024 10:03 AM EST) Only the most recent of2 resultswithin the time period is included. [facility] Thyroglobulin, LC/MS/MS 0.6(A) ng/mL [facility] Comment:Reference Range: Int act Thyroid 2.8-40.9 Athyrotic <0.1 Note: Abnormal flagging is based on the reference interval for patients with intact thyroid.This test was performed using the [employer] Coulterchemiluminescent method. Values obtained fromdifferent assay methods cannot be usedinterchangeably. Thyroglobulin levels, regardlessof value, should not be interpreted as absoluteevidence of the presence or absence of disease. Thyroglobulin Comment See Below [facility] Comment:Thyroglobulin antibo dies (TGAB) interfere withthyroglobulin (TG) assays; therefore, TGAB assayshould always be performed in conjunction with aTG assay.For additional information, please refer tohttp://education.Acumentrics/faq/VUA194(This link is being provided for informational/educational purposes only.)THIS TEST WAS PERFORMED AT:[employer] [place] [id number] SMITH MD 06/05/2024 10:0 3 AM EST 06/05/2024 10:03 AM EST us Generic External Data Provider LAB BLOOD ORDERAB LES Final Result Performing Organization Address [facility]/ZIP Co de Phone Number [facility] [address] [place] [phone] * (ABNORMAL) Thyroblobulin, Tumor Marker w/Reflex (06/05/2024 10:03 AM EST) Only the most recent of2 resultswithin the time period is included. [facility] Thyroglobulin Antibody <1 <=1 IU/mL [facility] Comment:This Thyroglobulin a ntibody test was performedusing the [employer] [place] Chemiluminescent method.Values obtained from different assay methods cannot beused interchangeably. Thyroglobulin antibody levels,regardless of value, should not be interpreted asabsolute evidence of the presence or absence ofdisease. Thyroglobulin, LC/MS/MS TNP [facility] Thyroglobulin Level 0.6(A) ng/mL [facility] Comment:Reference Range: Ath yrotic: <0.1 ng/mLReference range applies to differentiated thyroidcancer patients following treatment. The presence ofmeasurable thyroglobulin indicates the presence ofthyroglobulin-producing thyroid tissue. Clinicalcorrelation is advised.This Thyroglobulin test was performed using the[employer] Chemiluminescent method. Valuesobtained from different assay methods cannot beused interchangeably. Thyroglobulin levels, regardlessof value, should not be interpreted as absoluteevidence of the presence or absence of disease.THIS TEST WAS PERFORMED AT:[employer] [id number] [place] [address]JJSXIPVROSSY BRENNAN MD,PHD 06/05/2024 10:0 3 AM EST 06/05/2024 10:03 AM EST Generic External Data Provider LAB BLOOD ORDERAB LES Final Result Performing Organization Address [facility]/ZIP Co de Phone Number [facility] [address] [place] [phone] * Thyroglobulin Antibodies (06/05/2024 10:03 AM EST) Thyroglobulin Antibodies <1 < or = 1 IU/mL [facility] Comment:THIS TEST WAS PERFOR MED AT:[employer] [address] [id number] SMITH MD 06/05/2024 10:0 3 AM EST 06/05/2024 10:03 AM EST us Generic External Data Provider LAB BLOOD ORDERAB LES Final Result Performing Organization Address City/[facility] Co de Phone Number [facility] [address] [place] [phone] * Thyroid Peroxidase And Thyroglobulin Antibodies (04/22/2024 1:06 PM EST) Thyroglobulin Antibodies <1 < or = 1 IU/mL [facility] Comment:THIS TEST WAS PERFOR MED AT:[employer] [place] [id number] SMITH MD 04/22/2024 1:06 PM EST 04/22/2024 1:06 PM EST us Generic External Data Provider LAB BLOOD ORDERAB LES Final Result Performing Organization Address [facility] Co de Phone Number [facility] [address] [place] [phone] * HEPATITIS PANEL, ACUTE W/REFLEX TO CONFIRMATION (12/30/2020 1:31 PM EDT) HEPATITIS A IGM NON-REACT [facility] NON-REACT [facility] Comment: ?? For additional information, please refer to ?? http://[employer]/faq/YZB852 ?? (This link is being provided for [...] a test for HCV RNA (test code 86486) is suggested. ?? For additional information please refer to http://Metro[employer].Acumentrics/faq/BWZ23s1 (This link is being provided for informational/ educational purposes only.) ?? 12/30/2020 1:31 PM EDT Keiko Garza MD HISTORICAL/NON ORDERABLE LABS Final Result Performing Organization Address [facility] Co de Phone Number [facility] [address] [place] [address], * HIV 1/2 ANTIGEN/ANTIBODY,FOURTH GENERATION W/RFL (12/30/2020 [...] ? For additional information please refer to http://education.Acumentrics/faq/MSG438 (This link is being provided for informational/ educational purposes only.) ? The performance of this assay has not been clinically validated in patients less than 2 years old. ?? 12/30/2020 1:31 PM EDT Keiko Garza MD LAB BLOOD ORDERABLES Final Re sult Performing Organization Address [facility] Co de Phone Number [facility] [address] [place] [address], * SURESWAB(R), VAGINOSIS/VAGINITIS PLUS (12/23/2020 11:06 AM EDT) Pathologist [facility] ATOPOBIUM VAGINAE Not Detected Log cells/mL [facility] BV CATEGORY: NOT SUPPORTIVE NOT SUPPORTIV [facility] Comment: NOT SUPPORTIVE OF BV: [...] analytical performance characteristics have been determined by [facility] [place]. It has not been cleared or approved by the FDA. This assay has been validated pursuant to the CLIA regulations and is used for clinical purposes. ?? C. ALBICANS, DNA Not Detected Not Detected [facility] Comment: C. GLABRATA, DNA Not Detected Not Detected [facility] C. PARAPSILOSIS, DNA Not Detected Not Detected [facility] Comment: This test was developed and its analytical performance characteristics have been determined by [facility] [place]. It has not been cleared or approved by the FDA. This assay has been validated pursuant to the CLIA regulations and is used for clinical purposes. ?? C. TROPICALIS, DNA Not Detected Not Detected [facility] Chlamydia trachomatis RNA, TMA, Urogenital Not Detected Not Detected [facility] Comment: GARDNERELLA VAGINALIS Not Detected Log cells/mL [facility] Comment: LACTOBACILLUS SPECIES 7.3 Log (cells/mL) [facility] MEGASPHAERA SPECIES Not Detected Log cells/mL [facility] Neisseria gonorrhoeae RNA, TMA, Urogenital Not Detected Not Detected [facility] Comment: Methodology: Claim Service Representative Mediated Amplification(TMA) ?to detect RNA. ? The analytical performance characteristics of this assay, when used to test [employer] specimens have been determined by [employer]. The modifications have not been cleared or approved by the FDA. This assay has been validated pursuant to the CLIA regulations and is used for clinical purposes. ? For additional information, please refer to https://MetroLinked.Acumentrics/faq/ICZ034 (This link is being provided for ??information/educational purposes only). ?? TRICHOMONAS VAGINALIS RNA, QL TMA Not Detected Not Detected [facility] Comment: Methodology: Claim Service Representative Mediated Amplification(TMA) ? For additional information, please refer to http://MetroLinked.Acumentrics/faq/ Trichomonastma (This link is being provided for information/educational purposes only). ?? 12/23/2020 11:0 6 AM EDT us Keiko Garza MD HISTORICAL/NON ORDERABLE LABS Final Result [facility] [address] from Last 3 Months or Most Recently Relevant to Health Maintenance [place] [address] [address] C3 HSN [facility] MEDICAID STAND CHILD Care Teams Stave Log Cut Off Saw Operator Relationship Specialty Start Date End Date Shonda Greer MD [address] [place] [address] J[place] [address] PCP - General Internal Medicine 01/10/24
--- OUTSIDE RECORDS SUMMARY | 2024-07-16 19:23 | XMS_ITS | Clinical Summary ---
Author Organization [facility] [place] [address] Care Team Providers Care Delivery Rn Name Role Phone Unavailable Primary Care Provider [...]
--- OUTSIDE RECORDS SUMMARY | 2024-07-16 19:23 | XMS_ITS | Encounter Summary ---
Author Organization [employer] Address [address] [facility] 7 [place] [address] Care Team Providers Care Gathering Machine Setter Name Role Phone Shonda Greer MD Primary Care Provider [phone] Shonda Greer MD Primary Care Provider [phone] Reason for Visit * Reason Onset Date Comments Call Back Request 11/25/2023 Encounter Details Date Type Department Care Team ([facility] st Contact Info) Description 11/25/2023 Telephone [facility] MEDICINE [address] [place] [address] Shonda Greer MD [address] [place] [address] Call Back Request Social History Tobacco Use [...] EDT FYI, XR confirmed fifth metatarsal fx. hanger provider spoke with pt and informed and verified Ortho referral was placed during last visit. * Telephone Encounter - Jonel Gaspar - 11/25/2023 4:16 PM EDT Tc from Kenzie with [facility] requesting call back to discuss positive xray results. Kenzie also informed she faxed results over. Please contact Kenzie at [phone]. documented in this encounter Plan of Treatment Not on file documented as of this encounter Visit Diagnoses Not on filedocumented in this encounter Additional Health Concerns Assessment Noted Time PHQ-9 Depression Total Score: 20 023 2:07 PM EDT documented as of this encounter Care Teams Gathering Machine Setter Relationship Specialty Start Date End Date Shonda Greer MD [address] [place] [address] PCP - General Family Medicine 07/16/13 01/09/24 Shonda Greer MD [address] [place] [address] PCP - General Internal Medicine 01/10/24 Radha Garza Showcase Trimmer 02/07/24 05/11/24 documented as of this encounter
--- OUTSIDE RECORDS SUMMARY | 2024-07-16 19:23 | XMS_ITS | Encounter Summary ---
Author Organization [employer] Address [address] [facility] 7t [place] [address] Care Team Providers Care Wildland Fire Fighter Specialist Name Role Phone Shonda Greer MD Primary Care Provider [phone] Encounter Details Date Type Department Care Team ([facility] st Contact Info) Description 01/13/2024 Orders Only [facility] CHC MED & PEDS [address] [place], [place] [phone] Provider, Historical, Social History Tobacco Use Types [...] documented as of this encounter Care Teams Wildland Fire Fighter Specialist Relationship Specialty Start Date End Date Shonda Greer MD [address] [place] [address] PCP - General Internal Medicine 01/10/24 Radha Garza Pattern Marking Supervisor 02/07/24 05/11/24 documented as of this encounter
--- OUTSIDE RECORDS SUMMARY | 2024-07-16 19:23 | XMS_ITS | Encounter Summary ---
Author Organization [employer] Address [address] [facility] 7 [place] [address] Care Team Providers Care Note Keeper Name Role Phone Shonda Greer MD Primary Care Provider [phone] Shonda Greer MD Primary Care Provider [phone] Reason for Visit * Reason Onset Date Comments triage 10/31/2022 Encounter Details Date Type Department Care Team (Late st Contact Info) Description 10/31/2022 Telephone [facility] MED[facility] [address] [place] [address] Shonda Greer MD [address] [place], [place] [phone] triage Social History Tobacco Use Types Packs/Day [...] Pt reports anxiety. Pt has been in [place] for [place]2 months just returned last week 10/24.While in [place] Pt was seen by MD and prescribed [...] Pt ran out of medication. Apt in [facility] 11/01 @ 200pm. Pt agrees with [...] caller accepted this outcome Please contact at [phone] documented in this encounter Plan of Treatment Not on file documented as of this encounter Visit Diagnoses Not on filedocumented in this encounter Care Teams Note Keeper Relationship Specialty Start Date End Date Shonda Greer MD [address] [place] [address] PCP - General Family Medicine 07/16/13 01/09/24 Shonda Greer MD [address] [place] [address] PCP - General Internal Medicine 01/10/24 Radha Garza Sales Representative [employer] 02/07/24 05/11/24 documented as of this encounter
--- OUTSIDE RECORDS SUMMARY | 2024-07-16 19:23 | XMS_ITS | Encounter Summary ---
Author Organization [employer] Address [address] [facility] 7 [place] [address] Care Team Providers Care Dry Cleaning Counter Clerk Name Role Phone Shonda Greer MD Primary Care Provider [phone] Shonda Greer MD Primary Care Provider [phone] Reason for Visit * Reason Onset Date Comments Appointment Request 12/20/2023 Encounter Details Date Type Department Care Team ([facility] st Contact Info) Description 12/20/2023 Telephone [facility] MED[facility] [address] [place] [address] Shonda Greer MD [address] [place] [address] Appointment Request Social History Tobacco Use Types [...] documented as of this encounter Care Teams Dry Cleaning Counter Clerk Relationship Specialty Start Date End Date Shonda Greer MD [address] [place] [address] PCP - General Family Medicine 07/16/13 01/09/24 Shonda Greer MD [address] [place] [address] PCP - General Internal Medicine 01/10/24 Radha Garza Medical Affairs Director 02/07/24 05/11/24 documented as of this encounter
--- OUTSIDE RECORDS SUMMARY | 2024-07-16 19:23 | XMS_ITS | Encounter Summary ---
Author Organization [employer] Address [address] [place] [address] [address], [place] [address] Care Team Providers Care Senior Product Development Engineer Name Role Phone Shonda Greer MD Primary Care Provider [phone] Shonda Gerer MD Primary Care Provider [phone] Reason for Referral * Imaging (Urgent) - Closed Specialty Diagnoses / Procedures Referred By Contac t Referred To Contact Interventional Radiology Diagnoses Left thyroid nodule Procedures IR Fine Needle Aspiration Thyroid Shonda Greer MD [address] [place] [address] Phone: tel: fax: [address] Phone: tel: fax: Referral ID Status Reason Start Date Expiration Date Visits Re quested Visits Authorized [id number] Closed 09/16/2023 09/15/2024 1 1 Encounter Details Date Type Department Care Team (Late st Contact Info) Description 09/16/2023 Orders Only [facility] CHC MED & PEDS [address] [place] [address] Shonda Greer MD [address] [place] [address] Left thyroid nodule (Primary Dx) Social History [...] documented as of this encounter Care Teams Senior Product Development Engineer Relationship Specialty Start Date End Date Shonda Greer MD [address] [place] [address] PCP - General Family Medicine 07/16/13 01/09/24 Shonda Greer MD [address] [place] [address] PCP - General Internal Medicine 01/10/24 Radha Garza Graphic Manager 02/07/24 05/11/24 documented as of this encounter
== END 2024-07-16 15:46 | disposition home or self-care (01) ==
LOC: HO.HMGCX 15:45
PROVIDERS: PCP Pediatrics; Visit Provider Student in an Organized Health Care Education/Training Program
DX: E89.0 Postprocedural hypothyroidism (principal); C73 Malignant neoplasm of thyroid gland
CPT/HCPCS: 76536

== ENCOUNTER → 2024-07-16 15:49 | Outpatient (BNV) | payer MEDICAID, SELFPAY | PROVIDERS: PCP Pediatrics; Visit Provider Radiology Diagnostic Radiology | DX: E89.0 Postprocedural hypothyroidism (principal) | CPT/HCPCS: 76536 ==

== ENCOUNTER 2024-08-13 11:30 | Outpatient (REF) | payer MEDICAID, SELFPAY ==
[2024-08-13 11:43] LABS: MANUAL DIFF FLAG NO
[2024-08-13 12:27] LABS: Basophils Percent Auto 0.2 % (0-2); Eosinophils Absolute Auto 0.1 X10*3/uL (0.0-0.4); Eosinophils Percent Auto 1.2 % (0-4); Hematocrit 42.3 % (37.0-47.0); Hemoglobin 13.6 g/dl (12.0-16.0); Imm Gran Abs Auto 0.01 X10*3/uL (0.00-0.03); Imm Gran Pct Auto 0.2 % (0.0-0.4); Lymphocytes Absolute Auto 1.3 X10*3/uL (1.2-4.9); Lymphocytes Percent Auto 29.6 % (20-40); Mean Corpuscular HGB Conc 32.2 g/dl (31.0-35.0); Mean Corpuscular Hemoglobin 26.8 pg (27.0-33.0); Mean Corpuscular Volume 83.3 fL (80.0-98.0); Mean Platelet Volume 10.6 fL (9.4-12.3); Monocytes Absolute Auto 0.4 X10*3/uL (0.1-1.2); Monocytes Percent Auto 8.2 % (2-11); Neutrophils Absolute Auto 2.6 x10*3/uL (2.0-8.3); Neutrophils Percent Auto 60.6 % (45-73); Platelet Count 249 X10*3/uL (160-400); Red Blood Count 5.08 X10*6/uL (4.20-5.50); Red Cell Distribution Width 12.6 % (11.0-16.0); White Blood Count 4.3 X10*3/uL (4.8-10.8)
[2024-08-13 13:21] LABS: TSH reflex Free T4 < 0.01 uIU/mL (0.32-4.0); Vitamin D 25-OH Total 35.1 ng/mL (>30)
[2024-08-13 13:36] LABS: Folate 9.9 ng/mL (> or = 4.0); Vitamin B12 721 pg/mL (200-900)
--- OUTSIDE RECORDS SUMMARY | 2024-08-13 14:00 | XMS_ITS | Clinical Summary ---
Author Organization [facility] it Address [address] [place] [address] Care Team Providers Care Barrel Waterer Name Role Phone Unavailable Primary Care Provider Unavailabl e Social History Tobacco Use Types Packs/Day Years Used Date Smoking Tobacco: Never Assessed Comments Unknown Sex and Gender Information Value Date Recorded Sex Assigned at Not on file Legal Sex Female 1:38 PM EDT Gender Identity Not on file Sexual Orientation Not on file Plan of Treatment Health Maintenance Due Date Last Done Comments Gonorrhea/Chlamydia Screening 2002 HPV Vaccines (1 - 3-dose series) 2017 Meningococcal B Vacine (1 of 2 - Standard) 2018 DTaP,Tdap,and Td Vaccines (1 - Tdap) 2021 Hepatitis B Vaccines (1 of 3 - 19+ 3-dose series) 2021 Cervical Cancer Screening: P ap Smear 12/04/2023 Annual Well Child Visit (3-2 1 years old) 01/08/2024 Depression Screening 01/08/2024 HIV Screening 01/08/2024 Hepatitis C Screening 01/08/2024 Social Influencers of Health Screening 01/08/2024 COVID-19 Vaccine ( - 2023-2 5 season) 2024 Influenza Vaccine [...]
--- OUTSIDE RECORDS SUMMARY | 2024-08-13 14:00 | XMS_ITS | Encounter Summary ---
Author Organization [employer] Address [address] [facility] 7 [place] [address] Care Team Providers Care Stick Roller Name Role Phone Shonda Greer MD Primary Care Provider [phone] Reason for Visit * Reason Comments Pre-visit Planning SDOH screening negat chery and Tobacco screening negative Encounter Details Date Type Department Care Team ([facility] st Contact Info) Description 07/29/2024 Patient Outreach [facility] [address] [place] [address] Shonda Greer MD [address] [place] [address] Pre-visit Planning (SDOH screening negative and Tobacco screening negative) Social History Tobacco Use Types Packs/Day Years [...] Recorded Patient Health Questionnaire-2 Score 6 03/18/2024 Internet Access Answer Date Recorded Internet Access Q1 Yes 07/29/2024 Internet Access Q2 Not on file 07/29/2024 Comments Unknown Sex and Gender Information Value Date Recorded Sex Assigned at Female 04/16/2022 10:17 AM EDT Legal Sex Female 10:17 AM EDT Gender Identity Female 04/16/2022 10:17 AM EDT Sexual Orientation Straight 04/16/2022 10 :17 AM EDT documented as of this encounter Progress Notes * Aileen Torres - 07/29/2024 10:29 AM EST MATT Daly placed successful outbound call to patient for pre-visit planning. Patient name and confirmed. Patient confirms appt date and time, and has transportation arrangements. Biggest concern for appointment at this time is patient is currently under cancer treatments and feels weakness. Patient would like to have a full lab work for vitamins level. Patient is also requesting a referralfor telephone information clerk for abdominal discomfort/pain/constipation. Patient educated on extended clinic hours on Mondays and Wednesdays, and Walk-In Urgent Care Located in [facility] of [facility]. Patient provided with after-hours line for [facility], , which offer night time triage service and option to transfer to plant protection supervisor provider if needed. Patient advised to bring to appointment a photo id and insurance card. Appropriate screenings completed in anticipation of appointment. documented in this encounter Plan of Treatment Upcoming Encounters Date Type Department Care Team ([facility] st Contact Info) Description 10/08/2024 1:15 PM EDT Office Visit [facility] [address] [place] [address] Shonda Greer MD [address] [place] [address] documented as of this encounter Visit Diagnoses Not on filedocumented in this encounter Additional Health Concerns Assessment Noted Time PHQ-9 Depression Total Score: 20 024 1:04 PM EDT documented as of this encounter Care Teams Stick Roller Relationship Specialty Start Date End Date Shonda Greer MD [address] [place] [address] PCP - General Internal Medicine 01/10/24 documented as of this encounter
--- OUTSIDE RECORDS SUMMARY | 2024-08-13 14:00 | XMS_ITS | Encounter Summary ---
Author Organization [employer] Address [address] [facility] 7 [place] [address] Care Team Providers Care Sharepoint Admin Name Role Phone Shonda Greer MD Primary Care Provider [phone] Shonda Greer MD Primary Care Provider [phone] Reason for Visit * Reason Onset Date Comments Appointment Request 12/20/2023 Encounter Details Date Type Department Care Team ([facility] st Contact Info) Description 12/20/2023 Telephone [facility] [address] [place], [place] [phone] Shonda Greer MD [address] [place], [place] [phone] Appointment Request Social History Tobacco Use Types [...] Miscellaneous Notes * Telephone Encounter - Paula Salmon - 12/20/2023 10:02 AM EDT Tc from mom requesting a follow up appt after surgery. documented in this encounter Plan of Treatment Upcoming Encounters Date Type Department Care Team (Late st Contact Info) Description 10/08/2024 1:15 PM EDT Office Visit [facility] MED & PEDS [address] [place] [address] Shonda Greer MD [address] [place] [address] documented as of this encounter Visit Diagnoses Not on filedocumented in this encounter Additional Health Concerns Assessment Noted Time PHQ-9 Depression Total Score: 20 023 2:07 PM EDT documented as of this encounter Care Teams Sharepoint Admin Relationship Specialty Start Date End Date Shonda Greer MD [address] [place] [address] PCP - General Family Medicine 07/16/13 01/09/24 Shonda Greer MD [address] [place] [address] PCP - General Internal Medicine 01/10/24 Radha Garza Business Services Coordinator 02/07/24 05/11/24 documented as of this encounter
--- OUTSIDE RECORDS SUMMARY | 2024-08-13 14:00 | XMS_ITS | Encounter Summary ---
Author Organization [employer] Address [address] [facility] [address] [address] 7[address] [place] [address] Care Team Providers Care Communication Skills Instructor Name Role Phone Shonda Greer MD Primary Care Provider [phone] Encounter Details Date Type Department Care Team ([facility] st Contact Info) Description 08/13/2024 Telephone [facility] [address] [place], [place] [phone] Shonda Greer MD [address] [place], [place] [phone] Social History Tobacco Use Types Packs/Day Years [...] encounter Miscellaneous Notes * Telephone Encounter - Lady Mcgee RN - 08/13/2024 10:06 AM EST T/C to [facility] General Surgery per PCP request. Advised Basilia that pcp would like to know if Dr. Mendoza has received results of US ordered by Endo and would like to discuss recommendation. Basilia states that the nurse will return call to PCP's phone by 5 pm today. US faxed to [phone]. documented in this encounter Plan of Treatment Upcoming Encounters Date Type Department Care Team ([facility] st Contact Info) Description 10/08/2024 1:15 PM EDT Office Visit [facility] MED & PEDS [address] [place] [address] Shonda Greer MD [address] [place] [address] documented as of this encounter Visit Diagnoses Not on filedocumented in this encounter Additional Health Concerns Assessment Noted Time PHQ-9 Depression Total Score: 20 024 1:04 PM EDT documented as of this encounter Care Teams Communication Skills Instructor Relationship Specialty Start Date End Date Shonda Greer MD [address] [place] [address] PCP - General Internal Medicine 01/10/24 documented as of this encounter
--- OUTSIDE RECORDS SUMMARY | 2024-08-13 14:00 | XMS_ITS | Encounter Summary ---
Author Organization [employer] Address [address] [place] [address] 7 [place] [address] Care Team Providers Care Metal Tube Cutter Name Role Phone Shonda Greer MD Primary Care Provider [phone] Encounter Details Date Type Department Care Team ([facility] Contact Info) Description 08/12/2024 11:00 AM EST Office Visit [facility]EDS [address] [place], [place] [phone] Shonda Greer MD [address] [place] [address] Thyroid carcinoma (CMS/HCC) (Primary Dx); Epigastric abdominal pain; Weight loss; Anxiety Social History Tobacco Use Types Packs/Day Years [...] AM EDT documented as of this encounter Last Filed Vital Signs Vital Sign Reading Time Taken Comments Blood Pressure 147/76 08/12/2024 12:48 PM EST Pulse 77 08/12/2024 12:48 PM EST Temperature 37.3 ??C (99.2 ??F) 08/12/2024 12:[address] Respiratory Rate 20 08/12/2024 12:48 PM EST Oxygen Saturation 97% 08/12/2024 12:48 PM EST Inhaled Oxygen Concentration - - Weight 80.7 kg (178 lb) 08/12/2024 12:48 PM EST Height 160 cm (5' 3 ) 08/12/2024 12:48 PM EST Body Mass Index 31.53 08/12/2024 12:48 PM EST documented in this encounter Progress Notes * Shonda Greer MD - 08/12/2024 11:00 AM EST Subjective Patient ID: Arnulfo Sánchezgayathri Martinilm is a 23 y.o. female who presents for follow up. Arnulfo is a 23-year-old female patient of mine with mom with concerns regarding her thyroid carcinomarecently treated by Dr. Jurado at [facility] who is her fountain clerk and Dr. Solorio who did her thyroid surgery and removed her thyroid gland. Patient has completed treatment including radioactive iodine. Her dose of levothyroxine was increased to 175 mcg daily by endocrinology at the end of June. A neck ultrasound was done on July 16 due to discomfort and palpable lump. Ultrasound revealed multiple left adenopathies that are available to be biopsied by fine-needle aspiration per radiologist. Patient states was told that they will repeat her ultrasound in the month of October to see if lymph nodes have changed or not but patient is scared of waiting that long. Her weight today is 178 pounds and per mom she is not eating at all despite her depression and anxiety being much better controlled since seeing therapist and psychiatrist and taking Wellbutrin 300 mg daily and trazodone 50 mg nightly for insomnia. Her weight was 191 pounds on July 13 at her fountain clerk office. Patient complains of stomach pain every time she eats anything. Denies vomiting or nausea or diarrhea. Review of Systems Constitutional: Positive for unexpected weight change. Negative for activity change, chills and fever. Respiratory: Negative for cough, shortness of breath and wheezing. Cardiovascular: Negative for chest pain, palpitations and leg swelling. Gastrointestinal: Negative for abdominal distention, blood in stool, diarrhea, nausea and vomiting. Endocrine: Negative for polydipsia and polyuria. Genitourinary: Negative for decreased urine volume, difficulty urinating, dysuria and hematuria. Musculoskeletal: Negative for arthralgias and gait problem. Skin: Negative for color change and rash. Neurological: Negative for dizziness and headaches. Hematological: Negative for adenopathy. Psychiatric/Behavioral: Negative for dysphoric mood, hallucinations, sleep disturbance and suicidalideas. The patient is not nervous/anxious. Objective BP (!) 147/76 (BP Location: Left arm, Patient Position: Sitting, BP Cuff Size: Adult) Pulse 77 Temp 99.2 ??F (37.3 ??C) (Oral) Resp 20 Ht 5' 3 (1.6 m) Wt 178 lb (80.7 kg) SpO2 97% BMI 31.53 kg/m?? Physical Exam Vitals reviewed. Constitutional: General: She is not in acute distress. Appearance: Normal appearance. She is not ill-appearing. HENT: Head: Normocephalic. Right Ear: Tympanic membrane and ear canal normal. Left Ear: Tympanic membrane and ear canal normal. Nose: Nose normal. Mouth/Throat: Mouth: Mucous membranes are moist. Pharynx: No oropharyngeal exudate or posterior oropharyngeal erythema. Eyes: Extraocular Movements: Extraocular movements intact. Conjunctiva/sclera: Conjunctivae normal. Pupils: Pupils are equal, round, and reactive to light. Cardiovascular: Rate and Rhythm: Normal rate and regular rhythm. Pulses: Normal pulses. Heart sounds: Normal heart sounds. Pulmonary: Effort: Pulmonary effort is normal. No respiratory distress. Breath sounds: Normal breath sounds. Abdominal: Palpations: Abdomen is soft. Musculoskeletal: General: Normal range of motion. Cervical back: Normal range of motion. Skin: General: Skin is warm. Capillary Refill: Capillary refill takes less than 2 seconds. Neurological: General: No focal deficit present. Mental Status: She is alert and oriented to person, place, and time. Psychiatric: Mood and Affect: Mood normal. Behavior: Behavior normal. Thought Content: Thought content normal. Judgment: Judgment normal. Assessment/Plan Diagnoses and all orders for this visit: Thyroid carcinoma (CMS/HCC) Comments: Treated by surgery as well as radioactive iodine. Will contact Dr. Jurado from [facility] at [facility] to notify of new findings and see if wants to change plans or see patient sooner then May. Orders: - TSH W/Reflex to FT4; Future - Vitamin B12/Folate, Serum Panel; Future - Vitamin B6; Future - Vitamin B1; Future - Vitamin D, 25-Hydroxy, Total, Immunoassay; Future - CBC auto differential; Future - Thyroglobulin Antibodies; Future Epigastric abdominal pain Comments: Seems like gastritis to me. Prescription of pantoprazole started today. Advised patient to message me to see if improving in a few days , also advised to start bland diet since hasn't eaten in days. Weight loss Comments: Probably from not eating much at all but also worried that recent high-dose levothyroxine could be causing this as well. Recheck thyroid function test tomorrow and thyroglobulin AB . Anxiety Comments: Better controlled since seeing therapist and psychiatrist Meds reconciled today. Follow-up with behavior team as planned and with me as well in 2 months. Other orders - pantoprazole (ProtoNix) 40 MG EC tablet; Take 1 tablet (40 mg) by mouth before breakfast. Do not crush, chew, or split. documented in this encounter Plan of Treatment Upcoming Encounters Date Type Department Care Team (Late st Contact Info) Description 10/08/2024 1:15 PM EDT Office Visit [facility]EDS [address] [place] [address] Shonda Greer MD [address] [place] [address] Scheduled Orders Name Type Priority Associated Diagnoses Orde r Schedule Vitamin B6 Lab Routine Thyroid carcinoma (CMS/HCC) Expected: 08/12/2024, Expires: 08/12/2025 Vitamin B1 Lab Routine Thyroid carcinoma (CMS/HCC) Expected: 08/12/2024 (Approximate), Expires: 08/12/2025 Thyroglobulin Antibodies Lab Routine Thyroid carcinoma (CMS/HCC) Expected: 08/12/2024 (Approximate), Expires: 08/12/2025 documented as of this encounter Procedures Procedure Name Priority Date/Time Associated Diagnosis Comments VITAMIN D,25-OH,TOTAL,IA Routine 08/13/2024 11:41 AM EST Thyroid carcinoma (CMS/HCC) VITAMIN B12/FOLATE, SERUM PANEL Routine 08/13/2024 11:41 AM EST Thyroid carcinoma (CMS/HCC) TSH W/REFLEX TO FT4 Routine 08/13/2024 1 1:41 AM EST Thyroid carcinoma (CMS/HCC) CBC WITH AUTO DIFFERENTIAL Routine 08/13/2024 11:41 AM EST Thyroid carcinoma (CMS/HCC) documented in this encounter Results * (ABNORMAL) CBC auto differential (08/13/2024 11:41 AM EST) White Blood Count 4.3(L) 4.8 - 10.8 X10*3/uL [facility] Red Blood Count 5.08 4.20 - 5.50 X10*6/uL [facility] Hemoglobin 13.6 12.0 - 16.0 g/dl [facility] Hematocrit 42.3 37.0 - 47.0 % [facility] Mean Corpuscular Volume 83.3 80.0 - 98.0 fL [facility] Mean Corpuscular Hemoglobin 26.8(L) 27.0 - 33.0 pg [facility] Mean Corpuscular HGB Conc 32.2 31.0 - 35.0 g/dl [facility] Red Cell Distribution Width 12.6 11.0 - 16.0 % [facility] Platelet Count 249 160 - 400 X10*3/uL [facility] Mean Platelet Volume 10.6 9.4 - 12.3 fL [facility] Neutrophils Percent Auto 60.6 45 - 73 % [facility] Imm Gran Pct Auto 0.2 0.0 - 0.4 % [facility] Lymphocytes Percent Auto 29.6 20 - 40 % [facility] Monocytes Percent Auto 8.2 2 - 11 % [facility] Eosinophils Percent Auto 1.2 0 - 4 % [facility] Basophils Percent Auto 0.2 0 - 2 % [facility] NRBC Pct Auto 0.0 0.0 - 0.2 /100WBC [facility] Neutrophils Absolute Auto 2.6 2.0 - 8.3 x10*3/uL [facility] Imm Gran Abs Auto 0.01 0.00 - 0.03 X10*3/uL [facility] Lymphocytes Absolute Auto 1.3 1.2 - 4.9 X10*3/uL [facility] Monocytes Absolute Auto 0.4 0.1 - 1.2 X10*3/uL [facility] Eosinophils Absolute Auto 0.1 0.0 - 0.4 X10*3/uL [facility] Basophils Absolute Auto 0.0 0.0 - 0.2 X10*3/uL [facility] NRBC Abs Auto 0.000 0.0 - 0.012 X10*3/uL [facility] Blood Venous blood specimen / Unknown 08/13/2024 11:41 AM EST 08/13/2024 11:41 AM EST us Shonda Greer MD LAB BLOOD ORDERABLES Final Re sult [facility] [address] [place] [address] [phone] * Vitamin D, 25-Hydroxy, Total, Immunoassay (08/13/2024 11:41 AM EST) Vitamin D 25-OH Total 35.1 >30 ng/mL [facility] Comment:Health Based Referen ce Values*< 20 ng/mL [id number] ng/mL Insufficient> 30 ng/mL Sufficient*Neena RUSSELL. N Engl J Med. 2007;357:266-280Care must be taken in interpreting Vitamin D results fromdifferent laboratories and methodologies. Published datademonstrated that results from patients undergoinghemodialysis may show a negative bias when tested withvarious automated 25-OH vitamin D assays when compared toLC-MS/MS.When testing samples from patients whose predominant form ofVitamin D is Vitamin D2, such as patients receiving VitaminD2 supplementation, results that are subtherapeutic shouldbe confirmed with another method such as LC-MS/MS. Blood Venous blood specimen / Unknown 08/13/2024 11:41 AM EST 08/13/2024 11:41 AM EST us Shonda Greer MD LAB BLOOD ORDERABLES Final Rose lemus Performing Organization Address [facility]/ZIP Co de Phone Number [facility] [address] [place] [address] [phone] * Vitamin B12/Folate, Serum Panel (08/13/2024 11:41 AM EST) Vitamin B12 721 200 - 900 pg/mL [facility] Comment:NORMAL 200-900 PG/ML INDETERMINATE 160-199 PG/ML DEFICIENT < 160 PG/ML Folate 9.9 > or = 4.0 ng/mL [facility] Comment:Reference Values:> o r = 4.0 ng/mL< 4.0 ng/mL suggests folate deficiency Methotrexate, aminopterin and folinic acid(leucovorin) are chemotherapeutic agents whose molecularstructures are similar to folate; therefore, the Architectfolate assay cannot be used for patients using these drugs. Blood Venous blood specimen / Unknown 08/13/2024 11:41 AM EST 08/13/2024 11:41 AM EST Shonda Greer MD LAB BLOOD ORDERABLES Final Re sult Performing Organization Address [facility] Co de Phone Number [facility] [address] [place] [address] [phone] * (ABNORMAL) TSH W/Reflex to FT4 (08/13/2024 11:41 AM EST) TSH reflex Free T4 <0.01(L) 0.32 - 4.0 uIU/mL [facility] Blood Venous blood specimen / Unknown 08/13/2024 11:41 AM EST 08/13/2024 11:41 AM EST Shonda Greer MD LAB BLOOD ORDERABLES Final Re sult Performing Organization Address [facility] Co de Phone Number [facility] [address] [place] [phone] documented in this encounter Visit Diagnoses Diagnosis Thyroid carcinoma (CMS/HCC)- Primary Malignant neoplasm of thyroid gland Epigastric abdominal pain Abdominal pain, epigastric Weight loss Loss of weight Anxiety Anxiety state, unspecified documented in this encounter Additional Health Concerns Assessment Noted Time PHQ-9 Depression Total Score: 20 024 1:04 PM EDT documented as of this encounter Care Teams Metal Tube Cutter Relationship Specialty Start Date End Date Shonda Greer MD [address] [place] [phone] PCP - General Internal Medicine 01/10/24 documented as of this encounter
--- OUTSIDE RECORDS SUMMARY | 2024-08-13 14:00 | XMS_ITS | Encounter Summary ---
Author Organization [employer] Address [address] [facility] [address] [place] [address] Care Team Providers Care Trust Officer Name Role Phone Shonda Greer MD Primary Care Provider [phone] Encounter Details Date Type Department Care Team (Latest Contact Info) Description 08/12/2024 Travel Social History Tobacco Use Types Packs/Day Years [...] as of this encounter Plan of Treatment Upcoming Encounters Date Type Department Care Team (Late st Contact Info) Description 10/08/2024 1:15 PM EDT Office Visit [facility] & PEDS [address] [place] [address] Shonda Greer MD [address] [place] [address] documented as of this encounter Visit Diagnoses Not on filedocumented in this encounter Additional Health Concerns Assessment Noted Time PHQ-9 Depression Total Score: 20 024 1:04 PM EDT documented as of this encounter Care Teams Trust Officer Relationship Specialty Start Date End Date Shonda Greer MD [address] [place] [address] PCP - General Internal Medicine 01/10/24 documented as of this encounter
--- OUTSIDE RECORDS SUMMARY | 2024-08-13 14:00 | XMS_ITS | Encounter Summary ---
Author Organization [employer] [facility] Address [address] [place] [address] [address] [address] Care Team Providers Care Manager Wind Name Role Phone Shonda Greer MD Primary Care Provider Encounter Details Date Type Department Care Team (Late Contact Info) Description 01/13/2024 Orders Only [facility] [address] [place], [place] [phone] ProviderLuz MD Social History Tobacco Use Types Packs/Day Years [...] Description 10/08/2024 1:15 PM EDT Office Visit [facility] [address] [place], [place] [phone] Shonda Greer MD [address] [place] [address] documented as of this encounter Procedures Procedure Name Priority Date/Time Associated Diagnosis Comments SURGICAL PATHOLOGY Routine 12/17/2023 9:31 AM EDT documented in this encounter Results * Surgical Pathology (12/17/2023 9:31 AM EDT) us Historical Provider LAB PATHOLOGY ORDERABLES Final Result documented in this encounter Visit Diagnoses Not on filedocumented in this encounter Additional Health Concerns Assessment Noted Time PHQ-9 Depression Total Score: 20 023 2:07 PM EDT documented as of this encounter Care Teams Manager Wind Relationship Specialty Start Date End Date Shonda Greer MD [address] [place] [phone] PCP - General Internal Medicine 01/10/24 Radha Garza Mastic Worker 02/07/24 05/11/24 documented as of this encounter
--- OUTSIDE RECORDS SUMMARY | 2024-08-13 14:00 | XMS_ITS | Encounter Summary ---
Author Organization [employer] Address [address] [place] [address] [facility] [place] [address] Care Team Providers Care Clinical Nursing Director Name Role Phone Shonda Greer MD Primary Care Provider [phone] Shonda Greer MD Primary Care Provider [phone] Reason for Referral * Imaging (Urgent) - Closed Specialty Diagnoses / Procedures Referred By Ray green Referred To Contact Interventional Radiology Diagnoses Left thyroid nodule Procedures IR Fine Needle Aspiration Thyroid Shonda Greer MD [address] [place] [address] Phone: tel: fax: [address] Phone: tel: fax: Referral ID Status Reason Start Date Expiration Date Visits Re quested Visits Authorized [id number] Closed 09/16/2023 09/15/2024 1 1 Encounter Details Date Type Department Care Team (Late st Contact Info) Description 09/16/2023 Orders Only [facility] MED & PEDS [address] [place] [address] Shonda Greer MD [address] [place] [address] Left thyroid nodule (Primary Dx) Social History [...] Description 10/08/2024 1:15 PM EDT Office Visit [facility] PED[facility] [address] [place] [address] Shonda Greer MD [address] [place] [address] Scheduled Orders Name Type Priority Associated Diagnoses Orde r Schedule IR Fine Needle Aspiration Thyroid Imaging Urgent Left thyroid nodule Expected: 09/16/2023, Expires: 09/15/2024 documented as of this encounter Visit Diagnoses Diagnosis Left thyroid nodule- Primary documented in this encounter Additional Health Concerns Assessment Noted Time PHQ-9 Depression Total Score: 20 023 2:07 PM EDT documented as of this encounter Care Teams Clinical Nursing Director Relationship Specialty Start Date End Date Shonda Greer MD [address] [place] [address] PCP - General Family Medicine 07/16/13 01/09/24 Shonda Greer MD [address] [place] [address] PCP - General Internal Medicine 01/10/24 Radha Garza Material Movers 02/07/24 05/11/24 documented as of this encounter
--- OUTSIDE RECORDS SUMMARY | 2024-08-13 14:00 | XMS_ITS | Encounter Summary ---
Author Organization [employer] Address [address] [facility] 7 [place] [address] Care Team Providers Care Restaurant Associate Name Role Phone Shonda Greer MD Primary Care Provider [phone] Shonda Greer MD Primary Care Provider [phone] Reason for Visit * Reason Onset Date Comments Call Back Request 11/25/2023 Encounter Details Date Type Department Care Team ([facility] st Contact Info) Description 11/25/2023 Telephone [facility] MEDICINE [address] [place] [address] Shonda Greer MD [address] [place] [address] Call Back Request Social History Tobacco Use [...] EDT FYI, XR confirmed fifth metatarsal fx. resolution manager provider spoke with pt and informed and verified Ortho referral was placed during last visit. * Telephone Encounter - Jonel Gaspar - 11/25/2023 4:16 PM EDT Tc from Kenzie with [facility] Radiology requesting call back to discuss positive xray results. Kenzie also informed she faxed results over. Please contact Kenzie at [phone]. documented in this encounter Plan of Treatment Upcoming Encounters Date Type Department Care Team ([facility] st Contact Info) Description 10/08/2024 1:15 PM EDT Office Visit [facility] MED & PEDS [address] [place] [address] Shonda Greer MD [address] [place] [address] documented as of this encounter Visit Diagnoses Not on filedocumented in this encounter Additional Health Concerns Assessment Noted Time PHQ-9 Depression Total Score: 20 023 2:07 PM EDT documented as of this encounter Care Teams Restaurant Associate Relationship Specialty Start Date End Date Shonda Greer MD [address] [place] [address] PCP - General Family Medicine 07/16/13 01/09/24 Shonda Greer MD [address] [place] [address] PCP - General Internal Medicine 01/10/24 Radha Garza Manager N[place] 02/07/24 05/11/24 documented as of this encounter
--- OUTSIDE RECORDS SUMMARY | 2024-08-13 14:01 | XMS_ITS | Encounter Summary ---
Author Organization [employer] Address [address] [place] [address] Care Team Providers Care Daytime Babysitter Name Role Phone Shonda Greer MD Primary Care Provider [phone] Shonda Greer MD Primary Care Provider [phone] Reason for Visit * Reason Comments Med Change Request Encounter Details Date Type Department Care Team ([facility] st Contact Info) Description 10/23/2023 Refill [facility] CH[facility] ADULT DENTAL [address] [place] [address] Breann Art, DDS [address] [place] [address] Social History Tobacco Use Types Packs/Day Years [...] Description 10/08/2024 1:15 PM EDT Office Visit [facility] MED & PEDS [address] [place] [address] Shonda Greer MD [address] [place] [address] documented as of this encounter Visit Diagnoses Not on filedocumented in this encounter Additional Health Concerns Assessment Noted Time PHQ-9 Depression Total Score: 20 023 2:07 PM EDT documented as of this encounter Care Teams Daytime Babysitter Relationship Specialty Start Date End Date Shonda Greer MD [address] [place] [address] PCP - General Family Medicine 07/16/13 01/09/24 Shonda Greer MD [address] [place] [address] PCP - General Internal Medicine 01/10/24 Radha Garza Risk Control Director 02/07/24 05/11/24 documented as of this encounter
--- OUTSIDE RECORDS SUMMARY | 2024-08-13 14:01 | XMS_ITS | Encounter Summary ---
Author Organization [employer] Address [address] [facility] 7 [place] [address] Care Team Providers Care Dairy Clerk Name Role Phone Shonda Greer MD Primary Care Provider [phone] Shonda Greer MD Primary Care Provider [phone] Reason for Visit * Reason Onset Date Comments Referral 10/28/2023 Encounter Details Date Type Department Care Team ([facility] st Contact Info) Description 10/28/2023 Telephone [facility] MEDICINE [address] [place], [place] [phone] Shonda Greer MD [address] [place], [place] [phone] Referral Social History Tobacco Use Types Packs/Day [...] They stated they are referring pt to [facility] Endo to Dr Mendoza at [facility] but with pt [...] the surgery, this was advised by the Rn Licensed Practical office but mom is very confused on [...] in regards below message, please contact at [phone] * Telephone Encounter - Dolly Warren - 10/29/2023 12:28 PM EDT VM left for patient regarding request for endo at [facility]. Patient was referred to Dr. Too wood [facility] not accepting patient insurance. * Telephone Encounter - Jonel Gaspar - 10/28/2023 1:58 PM EDT TC from pt requesting new referral: Address: [address] [place] [address] Facility Name: [facility] Type of Specialist: Rn Licensed Practical Pt is requesting to change location of original endocrinology referral, stated she gave a form witha sticky note with al necessary information of referral to [place] so they can hand it to the pcp in which [place] stated they will. Pt has not gotten any update since and states it's been 2 weeks since then. If any questions you can contact pt at [phone]. documented in this encounter Plan of Treatment Upcoming Encounters Date Type Department Care Team ([facility] st Contact Info) Description 10/08/2024 1:15 PM EDT Office Visit [facility] MED & PEDS [address] [place] [address] Shonda Greer MD [address] [place] [address] documented as of this encounter Visit Diagnoses Not on filedocumented in this encounter Additional Health Concerns Assessment Noted Time PHQ-9 Depression Total Score: 20 023 2:07 PM EDT documented as of this encounter Care Teams Dairy Clerk Relationship Specialty Start Date End Date Shonda Greer MD [address] [place] [address] PCP - General Family Medicine 07/16/13 01/09/24 Shonda Greer MD [address] [place] [address] PCP - General Internal Medicine 01/10/24 Radha Garza [employer] Wiring Technician 02/07/24 05/11/24 documented as of this encounter
--- OUTSIDE RECORDS SUMMARY | 2024-08-13 14:01 | XMS_ITS | Clinical Summary ---
Author Organization [employer] Address [address] [place] [address] Care Team Providers Care Ash Collector Name Role Phone Shonda Greer MD Primary Care Provider [phone] Allergies No known active allergies Medications * This document contains information received from the source organization and may not represent a complete record from that organization. clindamycin (Cleocin T) 1 % lotion 1 applic by topical route daily 10/08/19 19 Active buPROPion XL (Wellbutrin XL) 300 MG 24 hr tablet Take 1 tablet by mouth Once per day. 07/15/19 25 Active levothyroxine (Synthroid, Levoxyl) 175 MCG tablet Take 1 tablet by mouth Once per day. 07/25/19 25 Active traZODone (Desyrel) 50 MG tablet Take 50 mg by mouth if needed at bedtime. 07/27/19 25 Active pantoprazole (ProtoNix) 40 MG EC tablet Take 1 tablet (40 mg) by mouth before breakfast. Do not crush, chew, or split. 30 tablet 3 08/12/19 25 026 Active ibuprofen 600 MG tablet Take 1 tablet by mouth every 8 (eight) hours. 10/27/19 22 025 Discontinued(T herapy completed) butalbital-acet aminophen-caffe ine (Fioricet) 50-300-40 MG capsule TAKE 1 CAPSULE BY MOUTH EVERY 6 HOURS NEEDED FOR HEADACHE 08/22/19 24 025 Discontinued(T herapy completed) amoxicillin (Amoxil) 500 MG capsule TAKE 1 CAPSULE (500 MG) BY MOUTH EVERY 8 HOURS FOR 7 DAYS 21 capsule 10/28/19 24 025 Discontinued(T herapy completed) celecoxib (CeleBREX) 200 MG capsule Take 1 capsule (200 mg) by mouth 2 times daily. 60 capsule 11/25/19 24 025 Discontinued(T herapy completed) acetaminophen-c odeine (Tylenol w/ Codeine #4) 300-60 MG tabletIndicatio ns:Closed nondisplaced fracture of fifth metatarsal bone of right foot, initial encounter Take 1 tablet by mouth every 8 (eight) hours if needed for moderate pain. 10 tablet 11/27/19 24 025 Discontinued sertraline (Zoloft) 50 MG tablet Take half tablet of sertraline daily for 1 week, then 1 full tablet daily 30 tablet 2 12/13/19 24 025 Discontinued(S dl effects) busPIRone (Buspar) 10 MG tablet Take 1 tab orally bid prn anxiety 60 tablet 3 01/04/20 24 025 Discontinued(T herapy completed) Active Problems Problem Noted Date Diagnosed Date [...] triggered underneath symptoms. Arnulfo reached out to [facility] in [place]. She was told that agency has internal wait list and her status was pending. clinician recommended pt to contact [facility] in [place] / [facility] for same-day appointment. Arnulfo said she will [...] intervention , Patient to reach out to [facility] team as needed, Comply with medication , [...] referral done for her to have an outpateint therapist. Encounters * This document contains information received from the source organization and may not represent a complete record from that organization. Date Type Department Care Team Description 08/13/[address] [address] Shonda Greer MD 08/12/2024 11:00 AM EST Office Visit [facility] [address] [place], [place] [phone] Shonda Greer MD Thyroid carcinoma (CMS/HCC) (Primary Dx); Epigastric abdominal pain; Weight loss; Anxiety 08/12/2024 Travel 07/29/2024 Patient Outreach [address] [address] Shonda Greer MD Pre-visit Planning (SDOH screening negative and Tobacco screening negative) 07/13/2024 Orders Only GENERIC EXTERNAL DATA DEPARTMENT Provider, Generic External Data 06/05/2024 Orders Only GENERIC EXTERNAL DATA DEPARTMENT Provider, Generic External Data 06/05/[address] [address] Radha Garza, RN Care Management ([facility] Graduation) 05/26/[address] [address] Radha Garza, RN Care Management ([facility] TC #[id number]) 05/21/2024 Telephone [facility] [address] [place], [place] [phone] Shonda Greer MD No Show from Last 3 Months Immunizations Name Administration Dates Next Due DTaP 01/29/2008, 4,07/16/2003,06/09,02/25/2003 HPV 9-Valent 03/09/2016,11/10/2015,09/07/2015 Hep A, ped/adol, 2 dose 09/07/2015,12/30/2012 Hep B, Adolescent or Pediatric 12/22/2003,2002,2002 Hib (HbOC) 03/08/2004, 4,06/09/2003,03/04 IPV 02/02/2008, 4,06/09/2003,02/25 Influenza injectable quadriv alent IIV4 with preservative 09/07/2015 Influenza injectable quadriv alent preservative free 07/23/2014 MMR 01/29/2008,01/10/2004 Meningococcal MCV4P ACYW-135 02/16/2020,07/23/19 15 Pfizer Covid-19 Vaccine 12+ 12/12/2020, 1 Pneumococcal Conjugate PCV 7 03/08/2004, 07/16/2003,06/09/2003,03/04 Tdap [...] Mass Index 31.53 08/12/2024 12:48 PM EST Plan of Treatment Upcoming Encounters Date Type Department Care Team (Late st Contact Info) Description 10/08/2024 1:15 PM EDT Office Visit [facility] [address] [place] [address] Shonda Greer MD [address] [place] [address] Health Maintenance Due Date Last Done Comments Dental Oral Exam 2002 Dental Prophylaxis 2002 Dental X-Ray: Bitewings 2002 Lipid Panel 2002 Alcohol/Substance Use Screening 2014 Family Planning (PISQ) 2017 Chlamydia and Gonorrhea Screening 12/23/2021 12/23/2020 Pap Smear 12/04/2023 COVID-19 Vaccine ( season) 2024 12/12/2020, 11/07/2020 Influenza Vaccine (#1) 2024 09/07/2015, 2014 DTaP/Tdap/Td Vaccines (7 - Td or Tdap) 07/23/2024 07/23/2014, 01/29/2008, 03/08/2004, Additional history exists Depression Monitoring (PHQ-9) 09/16/2024 03/18/2024, 03/18/2024 Tobacco Screening 11/24/2024 11/25/2023 Depression Screening 03/18/2025 03/18/2024, 03/18/20 24 SDOH Screening 07/29/2025 07/29/2024 Dental X-Ray: Full Mouth 10/29/2026 10/29/2023, 08/15 [...] Procedure Name Priority Date/Time Associated Diagnosis Comments CBC WITH AUTO DIFFERENTIAL Routine 08/13/2024 11:41 AM EST Thyroid carcinoma (CMS/HCC) VITAMIN D,25-OH,TOTAL,IA Routine 08/13/2024 11:41 AM EST Thyroid carcinoma (CMS/HCC) VITAMIN B12/FOLATE, SERUM PANEL Routine 08/13/2024 11:41 AM EST Thyroid carcinoma (CMS/HCC) TSH W/REFLEX TO FT4 Routine 08/13/2024 1 1:41 AM EST Thyroid carcinoma (CMS/HCC) US HEAD NECK SOFT TISSUE Routine 07/16/2024 3:53 PM EST TSH Routine 07/13/2024 1:10 PM EST T4, FREE Routine 07/13/2024 1:10 PM EST THYROGLOBULIN, TUMOR MARKER W/REFLEX Routine 06/05/2024 10:03 AM EST THYROGLOBULIN ANTIBODIES Routine 06/05/2024 10:03 AM EST THYROGLOBULIN, LC/MS/MS Routine 06/05/2024 10:03 AM EST TSH Routine 06/05/2024 10:03 AM EST T4, FREE Routine 06/05/2024 10:03 AM EST PANORAMIC RADIOGRAPHIC IMAGE Routine 10/29/2023 11:30 AM EDT Z HISTORICAL HEPATITIS PANEL, ACUTE W/REFLEX TO CONFIRMATION Routine 12/30/2020 1:31 PM EDT HIV 1/2 ANTIGEN/ANTIBODY, FOURTH GENERATION W/RFL Routine 12/30/2020 1:31 PM EDT ZZZ HISTORICAL SURESWAB(R), VAGINOSIS/VAGINITIS PLUS Routine 12/23/2020 11:06 AM EDT from Last 3 Months or Most Recently Relevant to Health Maintenance Results * Vitamin D, 25-Hydroxy, Total, Immunoassay (08/13/2024 11:41 AM EST) Vitamin D 25-OH Total 35.1 >30 ng/mL [facility] Comment:Health Based Referen ce Values*< 20 ng/mL Tjynjfuqk57-63 ng/mL Insufficient> 30 ng/mL Sufficient*Neena RUSSELL. N [...] ORDERABLES Final Re sult Performing Organization Address [facility] de Phone Number [facility] [address] [place] [phone] * Vitamin B12/Folate, Serum Panel (08/13/2024 11:41 AM EST) Vitamin B12 721 200 - 900 pg/mL [facility] Comment:NORMAL 200-900 PG/ML INDETERMINATE 160-199 PG/ML DEFICIENT < 160 PG/ML Folate 9.9 > or = 4.0 ng/mL [facility] Comment:Reference Values:> o r = 4.0 [...] ORDERABLES Final Re sult Performing Organization Address [facility] de Phone Number [facility] [address] [place] [phone] * (ABNORMAL) TSH W/Reflex to FT4 (08/13/2024 11:41 AM EST) Pathologist [facility] TSH reflex Free T4 <0.01(L) 0.32 - 4.0 uIU/mL [facility] Blood Venous blood specimen / Unknown 08/13/2024 11:41 AM EST 08/13/2024 11:41 AM EST us Shonda Greer MD LAB BLOOD ORDERABLES Final Re sult [facility] [address] [place] [phone] * (ABNORMAL) CBC auto differential (08/13/2024 11:41 AM EST) Pathologist [facility] White Blood Count 4.3(L) 4.8 - 10.8 X10*3/uL [facility] Red Blood Count 5.08 4.20 - 5.50 X10*6/uL [facility] Hemoglobin 13.6 12.0 - 16.0 g/dl [facility] Hematocrit 42.3 37.0 - 47.0 % [facility] Mean Corpuscular Volume 83.3 80.0 - 98.0 fL [facility] Mean Corpuscular Hemoglobin 26.8(L) 27.0 - 33.0 pg [facility] Mean Corpuscular HGB Conc 32.2 31.0 - 35.0 g/dl [facility] Red Cell Distribution Width 12.6 11.0 - 16.0 % [facility] Platelet Count 249 160 - 400 X10*3/uL [facility] Mean Platelet Volume 10.6 9.4 - 12.3 fL [facility] Neutrophils Percent Auto 60.6 45 - 73 % [facility] Imm Gran Pct Auto 0.2 0.0 - 0.4 % [facility] Lymphocytes Percent Auto 29.6 20 - 40 % [facility] Monocytes Percent Auto 8.2 2 - 11 % [facility] Eosinophils Percent Auto 1.2 0 - 4 % [facility] Basophils Percent Auto 0.2 0 - 2 % [facility] NRBC Pct Auto 0.0 0.0 - 0.2 /100WBC [facility] Neutrophils Absolute Auto 2.6 2.0 - 8.3 x10*3/uL [facility] Imm Gran Abs Auto 0.01 0.00 - 0.03 X10*3/uL [facility] Lymphocytes Absolute Auto 1.3 1.2 - 4.9 X10*3/uL [facility] Monocytes Absolute Auto 0.4 0.1 - 1.2 X10*3/uL [facility] Eosinophils Absolute Auto 0.1 0.0 - 0.4 X10*3/uL [facility] Basophils Absolute Auto 0.0 0.0 - 0.2 X10*3/uL [facility] NRBC Abs Auto 0.000 0.0 - 0.012 X10*3/uL [facility] Blood Venous blood specimen / Unknown 08/13/2024 11:41 AM EST 08/13/2024 11:41 AM EST us Shonda Greer MD LAB BLOOD ORDERABLES Final Re sult [facility] [address] [place] [phone] * US Head Neck Soft Tissue (07/16/2024 3:53 PM EST) Anatomical Region Laterality Modality Head, Neck Ultrasound 07/16/2024 3:53 PM EST Narrative 07/17/2024 9:43 AM EST ? [facility] ?[address] ? [place] [address] ? Ultrasound Report ? Signed ? Patient: Delfina Murillo,Arnulfo K ?MR#: M ?? [id number] ? : 2000 ?Acct:[id number] ? Age/Sex: 23 / F ?ADM Date: /30/25 ? Loc: HO.[facility]GCX ? Attending Dr: Marva Jurado MD ? Ordering Physician: Marva Jurado MD ?? Date of Service: 07/16/24 ?? Procedure(s): US soft tiss head and/or neck ?? Accession Number(s): [id number] ? cc: Shonda Greer MD; Marva Jurado MD ? EXAMINATION: ??US HEAD NECK SOFT TISSUE ? HISTORY: E89.0 - Postprocedural hypothyroidism ? COMPARISON: Correlation is made with a thyroid ultrasound dated ?? 09/11/2023. ? FINDINGS: ??Sonographic examination of the thyroid bed was performed. ?? The patient is status post thyroidectomy. No residual thyroid tissue is ?? noted. Multiple lymph nodes are seen in the neck bilaterally. On the ?? right, there is a single abnormal appearing level II node measuring 2.0 ?? x 0.6 x 1.9 cm which demonstrates a slitlike hilum and cortical ?? thickening. On the left, there are multiple level II and III lymph ?? nodes which demonstrate absent cb, measuring up to 2.5 x 0.5 x 2.2 cm. ? US/US soft tiss head and/or neck ?? IMPRESSION: ?? No residual thyroid tissue is identified. There are multiple abnormal ?? appearing lymph nodes in the neck bilaterally as described. These are ?? amenable to ultrasound-guided fine-needle aspiration if desired. ? Electronically signed by: ??Ebenezer Venegas MD ??07/17/2024 09:40 AM EST ?? RP ? Dictated By: ?Ebenezer Venegas MD ? Signed By: ?<Electronically signed by Ebenezer Venegas MD in OV> ?07/17/24 0940 ? DD/ 1553 ? TD/TT: 07/16/24 1611 ? Staple Cutter: ? Procedure Note Deloris, Image - 07/17/2024 [facility] [facility] [address] [place], [place] [address] Ultrasound Report Signed Patient: Arnulfo Nagy KMR#: M [id number] : 2000Acct:[id number] Age/Sex: 23 / FADM Date: 07/16/24 [facility] Att[facility] Dr: Marva Jurado MD Ordering Physician: Marva Jurado MD Date of Service: 07/16/24 Procedure(s): US soft tiss head and/or neck Accession Number(s): [id number] cc: Shonda Greer MD; Marva Jurado MD EXAMINATION: US HEAD NECK SOFT TISSUE HISTORY: E89.0 - Postprocedural hypothyroidism COMPARISON: Correlation is made with a thyroid ultrasound dated 09/11/2023. FINDINGS: Sonographic examination of the thyroid bed was performed. The patient is status post thyroidectomy. No residual thyroid tissue is noted. Multiple lymph nodes are seen in the neck bilaterally. On the right, there is a single abnormal appearing level II node measuring 2.0 x 0.6 x 1.9 cm which demonstrates a slitlike hilum and cortical thickening. On the left, there are multiple level II and III lymph nodes which demonstrate absent cb, measuring up to 2.5 x 0.5 x 2.2 cm. US/US soft tiss head and/or neck IMPRESSION: No residual thyroid tissue is identified. There are multiple abnormal appearing lymph nodes in the neck bilaterally as described. These are amenable to ultrasound-guided fine-needle aspiration if desired. Electronically signed by: Ebenezer Venegas MD 07/17/2024 09:40 AM EST Dictated By: Ebenezer Venegas MD Signed By: <Electronically signed by Ebenezer Venegas MD in OV> 07/17/24 0940 DD/ 1553 TD/TT: 07/16/24 1611 Staple Cutter: us [facility] External Provider IMG US PROCEDURES Final Result * (ABNORMAL) TSH (07/13/2024 1:10 PM EST) Only the most recent of2 resultswithin the time period is included. Thyroid Stimulating Hormone 0.04(L) 0.32 - 4.0 uIU/mL [facility] Comment:TSH 3rd Generation ( [facility]) 07/13/2024 1:10 PM EST 07/13/2024 1:14 PM EST Generic External Data Provider LAB BLOOD ORDERAB LES Final Result Performing Organization Address City/[facility]/ZIP Co de Phone Number [facility] [address] [place] [phone] * T4, Free (07/13/2024 1:10 PM EST) Only the most recent of2 resultswithin the time period is included. Free T4 (Free Thyroxine) 1.76 0.71 - 1.85 ng/dL [facility] 07/13/2024 1:10 PM EST 07/13/2024 1:14 PM EST Generic External Data Provider LAB BLOOD ORDERAB LES Final Result Performing Organization Address [facility] Co de Phone Number [facility] [address] [place] [phone] * (ABNORMAL) Thyroglobulin, LC/MS/MS (06/05/2024 10:03 AM EST) Thyroglobulin, LC/MS/MS 0.6(A) ng/mL [facility] Comment:Reference Range: Int act Thyroid 2.8-40.9 Athyrotic <0.1 Note: Abnormal flagging is based on the reference interval for patients with intact thyroid.This test was performed using the Silva Coulterchemiluminescent method. Values obtained fromdifferent assay methods cannot be usedinterchangeably. Thyroglobulin levels, regardlessof value, should not be interpreted as absoluteevidence of the presence or absence of disease. Thyroglobulin Comment See Below [facility] Comment:Thyroglobulin antibo dies (TGAB) interfere withthyroglobulin (TG) assays; therefore, TGAB assayshould always be performed in conjunction with aTG assay.For additional information, please refer tohttp://education.[employer] (1BOG)/faq/IJS594(This link is being provided for informational/educational purposes only.)THIS TEST WAS PERFORMED AT:[facility] [place] [phone] SMITH MD 06/05/2024 10:0 3 AM EST 06/05/2024 10:03 AM EST us Generic External Data Provider LAB BLOOD ORDERAB LES Final Result Performing Organization Address [facility]/ZIP Co de Phone Number [facility] [address] [place] [phone] * (ABNORMAL) Thyroblobulin, Tumor Marker w/Reflex (06/05/2024 10:03 AM EST) Thyroglobulin Antibody <1 <=1 IU/mL [facility] Comment:This Thyroglobulin a ntibody test was performedusing the Bring Light Chemiluminescent method.Values obtained from different assay methods cannot beused interchangeably. Thyroglobulin antibody levels,regardless of value, should not be interpreted asabsolute evidence of the presence or absence ofdisease. Thyroglobulin, LC/MS/MS TNP [facility] Thyroglobulin Level 0.6(A) ng/mL [facility] Comment:Reference Range: Ath yrotic: <0.1 ng/mLReference range applies to differentiated thyroidcancer patients following treatment. The presence ofmeasurable thyroglobulin indicates the presence ofthyroglobulin-producing thyroid tissue. Clinicalcorrelation is advised.This Thyroglobulin test was performed using theBring Light Chemiluminescent method. Valuesobtained from different assay methods cannot beused interchangeably. Thyroglobulin levels, regardlessof value, should not be interpreted as absoluteevidence of the presence or absence of disease.THIS TEST WAS PERFORMED AT:[id number] [place] [phone] BRENNAN MD,PHD 06/05/2024 10:0 3 AM EST 06/05/2024 10:03 AM EST Generic External Data Provider LAB BLOOD ORDERAB LES Final Result Performing Organization Address [facility]/ZIP Co de Phone Number [facility] [address] [place] [phone] * Thyroglobulin Antibodies (06/05/2024 10:03 AM EST) Thyroglobulin Antibodies <1 < or = 1 IU/mL [facility] Comment:THIS TEST WAS PERFOR MED AT:[facility] [place] [id number] SMITH MD 06/05/2024 10:0 3 AM EST 06/05/2024 10:03 AM EST us Generic External Data Provider LAB BLOOD ORDERAB LES Final Result Performing Organization Address [facility]/ZIP Co de Phone Number [facility] [address] [place] [address] [phone] * HEPATITIS PANEL, ACUTE W/REFLEX TO CONFIRMATION (12/30/2020 1:31 PM EDT) HEPATITIS A IGM NON-REACT [facility] NON-REACT [facility] Comment: ?? For additional information, please refer to ?? http://[employer]/faq/XOW585 ?? (This link is being provided for [...] a test for HCV RNA (test code 76776) is suggested. ?? For additional information please refer to http://[employer].One [employer] the [employer] (1BOG)/faq/PZZ08u7 (This link is being provided for informational/ educational purposes only.) ?? 12/30/2020 1:31 PM EDT us Keiko Garza MD HISTORICAL/NON ORDERABLE LABS Final Result [facility] [address] [place] [address], * HIV 1/2 ANTIGEN/ANTIBODY,FOURTH GENERATION W/RFL (12/30/2020 1:31 PM EDT) HIV-1/2 ANTIGEN AND ANTIBODIES, 4TH GENERATION W/ REFLEX NON-REACT [facility] NON-REACT [facility] Comment: HIV-1 antigen and HIV-1/HIV-2 [...] ? For additional information please refer to http://education.One Block [employer] the Grid (1BOG)/faq/FAV122 (This link is being provided for informational/ educational purposes only.) ? The performance of this assay has not been clinically validated in patients less than 2 years old. ?? 12/30/2020 1:31 PM EDT us Keiko Garza MD LAB BLOOD ORDERABLES Final Re sult Performing Organization Address [facility] de Phone Number [facility] [address] [place] [address], * SURESWAB(R), VAGINOSIS/VAGINITIS PLUS (12/23/2020 11:06 AM EDT) ATOPOBIUM VAGINAE Not Detected Log cells/mL [facility] CATEGORY: NOT SUPPORTIVE NOT [...] analytical performance characteristics have been determined by [place] [place]. It has not been cleared or [...] analytical performance characteristics have been determined by [place]. It has not been cleared or [...] Not Detected [facility] Comment: Methodology: Vacuum Caster Mediated Amplification(TMA) ?to detect RNA. ? The analytical performance characteristics of this assay, when used to test SurePath specimens have been determined by [employer]. The modifications have not been cleared or approved by the FDA. This assay has been validated pursuant to the CLIA regulations and is used for clinical purposes. ? For additional information, please refer to https://[employer].One [employer] the [employer] (1BOG)/faq/SWY694 (This link is being provided for ??information/educational purposes only). ?? TRICHOMONAS VAGINALIS RNA, QL TMA Not Detected Not Detected [facility] Comment: Methodology: Vacuum Caster Mediated Amplification(TMA) ? For additional information, please refer to http://[employer].One [employer] the [employer] (1BOG)/faq/ Trichomonastma (This link is being provided for information/educational purposes only). ?? 12/23/2020 11:0 6 AM EDT us Keiko Garza MD HISTORICAL/NON ORDERABLE LABS Final Result [facility] [address] from Last 3 Months or Most Recently Relevant to Health Maintenance Insurance [facility] [address] [facility] Care Teams Ash Collector Relationship Specialty Start Date End Date Shonda Greer MD [address] [facility] [place] [address] PCP - General Internal Medicine 01/10/24
[2024-08-13 14:02] LABS: Free T4 (Free Thyroxine) 1.65 ng/dL (0.71-1.85)
[2024-08-14 20:22] LABS: Thyroglobulin Antibodies <1 IU/mL (< or = 1)
[2024-08-21 00:33] LABS: Vitamin B1 8 nmol/L (8-30)
== END 2024-08-13 11:31 | disposition home or self-care (01) ==
LOC: HO.LAB 11:30
PROVIDERS: PCP Pediatrics; Visit Provider Pediatrics
DX: C73 Malignant neoplasm of thyroid gland (principal)
CPT/HCPCS: 36415; 82306; 82607; 82746; 84207; 84425; 84439; 84443; 85025; 86800

== ENCOUNTER 2024-09-28 13:04 | Outpatient (REF) | payer MEDICAID, SELFPAY ==
--- NOTE | ~2024-09-28 | US_ITS ---
CLINICAL HISTORY: C73 - Malignant neoplasm of thyroid gland US head and neck, non thyroid Comparison: None Findings: Status post thyroidectomy. There are multiple bilateral nonenlarged and morphologically normal lymph nodes. Impression: 1. Status post thyroidectomy without residual thyroid parenchyma in the thyroid bed. Bilateral nonenlarged morphologically normal lymph nodes. [employer] TI-RADS Categories TR1 and TR2 nodules do not have follow-up recommendations TR3 (FNA >= 2.5cm, F/U >= 1.5cm at 1, 3, and 5 yrs) TR4 (FNA >= 1.5cm, F/U >= 1cm at 1, 2, 3, and 5 yrs) TR5 (FNA >= 1cm, F/U >= 0.5cm annually for up to 5 yrs) This document has been electronically signed by: Sarah Wu MD on 09/30/2024 09:12:27
--- OUTSIDE RECORDS SUMMARY | 2024-09-28 14:59 | XMS_ITS | Clinical Summary ---
Author Organization [facility] it Address [address] [place] [address] Care Team Providers Care Router Operator Name Role Phone Unavailable Primary Care Provider [...] (1 - 3-dose series) 2017 Meningococcal B Vaccine (1 o f 2 - Standard) 2018 DTaP,Tdap,and Td Vaccines [...] - 2023-2 5 season) 2024 Influenza Vaccine (Season Ended) 2025 HIB Vaccines Aged Out No longer eligi [...]
--- OUTSIDE RECORDS SUMMARY | 2024-09-28 14:59 | XMS_ITS | Encounter Summary ---
Author Organization [employer] Address [address] [facility] 7 [place] [address] Care Team Providers Care X Ray Operator Name Role Phone Shonda Greer MD Primary Care Provider [phone] Shonda Greer MD Primary Care Provider [phone] Reason for Visit * Reason Onset Date Comments Call Back Request 11/25/2023 Encounter Details Date Type Department Care Team ([facility] st Contact Info) Description 11/25/2023 Telephone [facility] MEDICINE [address] [place] [address] Shonda Greer MD [address] [place] [address] Call Back Request Social History Tobacco Use [...] XR confirmed fifth metatarsal fx. call center rn provider spoke with pt and informed and verified Ortho referral was placed during last visit. * Telephone Encounter - Jonel Gaspar - 11/25/2023 4:16 PM EDT Tc from [place] with [facility] Radiology requesting call back to discuss positive xray results. Kenzie also informed she faxed results over. Please contact Kenzie at [phone]. documented in this encounter Plan of Treatment Upcoming Encounters Date Type Department Care Team ([facility] st Contact Info) Description 10/08/2024 1:15 PM EDT Office Visit [facility] MED & PEDS [address] [place] [address] Shonda Greer MD [address] [place] [address] documented as of this encounter Visit Diagnoses Not on filedocumented in this encounter Additional Health Concerns Assessment Noted Time PHQ-9 Depression Total Score: 20 023 2:07 PM EDT documented as of this encounter Care Teams X Ray Operator Relationship Specialty Start Date End Date Shonda Greer MD [address] [place] [address] PCP - General Family Medicine 07/16/13 01/09/24 Shonda Greer MD [address] [place] [address] PCP - General Internal Medicine 01/10/24 Radha Garza Electrical Prospecting Operator 02/07/24 05/11/24 documented as of this encounter
--- OUTSIDE RECORDS SUMMARY | 2024-09-28 14:59 | XMS_ITS | Encounter Summary ---
Author Organization [employer] Address [address] [place] [address] 7 [place] [address] Care Team Providers Care Learning Consultant Name Role Phone Shonda Greer MD Primary Care Provider [phone] Shonda Greer MD Primary Care Provider [phone] Reason for Referral * Imaging (Urgent) - Closed Specialty Diagnoses / Procedures Referred By Contac t Referred To Contact Interventional Radiology Diagnoses Left thyroid nodule Procedures IR Fine Needle Aspiration Thyroid Shonda Greer MD [address] [place] [address] Phone: tel: fax: [address] Phone: tel: fax: Referral ID Status Reason Start Date Expiration Date Visits Re quested Visits Authorized [id number] Closed 09/16/2023 09/15/2024 1 1 Encounter Details Date Type Department Care Team (Late st Contact Info) Description 09/16/2023 Orders Only [facility] MED & PEDS [address] [place] [address] Shonda Greer MD [address] [place] [address] Left thyroid nodule (Primary Dx) Social History [...] Upcoming Encounters Date Type Department Care Team ([facility] st Contact Info) Description 10/08/2024 1:15 PM EDT Office Visit [facility] MED & PEDS [address] [place] [address] Shonda Greer MD [address] [place] [address] Scheduled Orders Name Type Priority Associated Diagnoses Orde r Schedule IR Fine Needle Aspiration Thyroid Imaging Urgent Left thyroid nodule Expected: 09/16/2023, Expires: 09/15/2024 documented as of this encounter Visit Diagnoses Diagnosis Left thyroid nodule- Primary documented in this encounter Additional Health Concerns Assessment Noted Time PHQ-9 Depression Total Score: 20 023 2:07 PM EDT documented as of this encounter Care Teams Learning Consultant Relationship Specialty Start Date End Date Shonda Greer MD [address] [place] [address] PCP - General Family Medicine 07/16/13 01/09/24 Shonda Greer MD [address] [place] [address] PCP - General Internal Medicine 01/10/24 Radha Garza [place] 02/07/24 05/11/24 documented as of this encounter
--- OUTSIDE RECORDS SUMMARY | 2024-09-28 14:59 | XMS_ITS | Encounter Summary ---
Author Organization [employer] Address [address] [facility] 7 [place] [address] Care Team Providers Care Power Wheelchair Mechanic Name Role Phone Shonda Greer MD Primary Care Provider [phone] Shonda Greer MD Primary Care Provider Reason for Visit * Reason Onset Date Comments Appointment Request 12/20/2023 Encounter Details Date Type Department Care Team ([facility] st Contact Info) Description 12/20/2023 Telephone [facility] MEDICINE [address] [place] [address] Shonda Greer MD [address] [place] [address] Appointment Request Social History Tobacco Use Types [...] 1:15 PM EDT Office Visit [facility] MED & PEDS [address] [facility] [place] [address] Shonda Greer MD [address] [place] [address] documented as of this encounter Visit Diagnoses Not on filedocumented in this encounter Additional Health Concerns Assessment Noted Time PHQ-9 Depression Total Score: 20 023 2:07 PM EDT documented as of this encounter Care Teams Power Wheelchair Mechanic Relationship Specialty Start Date End Date Shonda Greer MD [address] [place] [address] PCP - General Family Medicine 07/16/13 01/09/24 Shonda Greer MD [address] [place] [address] PCP - General Internal Medicine 01/10/24 Radha Garza Software Team Leader 02/07/24 05/11/24 documented as of this encounter
--- OUTSIDE RECORDS SUMMARY | 2024-09-28 14:59 | XMS_ITS | Encounter Summary ---
Author Organization [employer] [facility] Address [address] [place] [address] [address] [place] [address] Care Team Providers Care Automatic Head Sawyer Name Role Phone Shonda Greer MD Primary Care Provider Encounter Details Date Type Department Care Team (Late Contact Info) Description 01/13/2024 Orders Only [facility] MED & PEDS [address] [place], [place] [phone] ProviderLuz MD Social History Tobacco Use Types [...] Description 10/08/2024 1:15 PM EDT Office Visit [facility] MED & PEDS [address] [place], [place] [phone] Shonda rGeer MD [address] [place] [address] documented as of this encounter Procedures Procedure [...] documented as of this encounter Care Teams Automatic Head Sawyer Relationship Specialty Start Date End Date Shonda Greer MD [address] [place] [address] PCP - General Internal Medicine 01/10/24 Radha Garza Insert Molding Operator 02/07/24 05/11/24 documented as of this encounter
--- OUTSIDE RECORDS SUMMARY | 2024-09-28 15:00 | XMS_ITS | Clinical Summary ---
Author Organization [employer] Address 75 [facility] 7[address] [place] [address] Care Team Providers Care Fertilizer Supervisor Name Role Phone Shonda Greer MD Primary Care Provider Allergies No known active allergies Medications * This document contains information received from the source organization and may not represent a complete record from that organization. clindamycin (Cleocin T) 1 % lotion 1 applic by topical route daily 9 Active buPROPion XL (Wellbutrin XL) 300 MG 24 hr tablet Take 1 tablet by mouth Once per day. 5 Active levothyroxine (Synthroid, Levoxyl) 175 MCG tablet Take 1 tablet by mouth Once per day. 5 Active traZODone (Desyrel) 50 MG tablet Take 50 mg by mouth if needed at bedtime. 5 Active pantoprazole (ProtoNix) 40 MG EC tablet Take 1 tablet (40 mg) by mouth before breakfast. Do not crush, chew, or split. 30 tablet 3 5 08/12/19 26 Active chlorhexidine (Peridex) 0.12 % solution Swish 15 mL morning and night for 1 minute. Spit, do not swallow. Do not eat or drink for 30 minutes following use. 473 mL 5 Active Active Problems Problem Noted Date Diagnosed [...] triggered underneath symptoms. Arnulfo reached out to [facility] in [place]. She was told that agency has internal wait list and her status was pending. clinician recommended pt to contact [facility] in [facility] for same-day appointment. Arnulfo said she [...] & Plan (03/12/2024 10:10 AM EDT): During [facility] Consult Arnulfo presenting with depressed mood, crying [...] intervention , Patient to reach out to [facility] team as needed, Comply with [...] [facility]. Encounters * This document contains information received from the source organization and may not represent a complete record from that organization. Date Type Department Care Team Description 08/28/2024 Population Health Risk Score Community [facility] (C3) Department [address] [phone] Provider, Population Health Generic 08/25/2024 3:30 PM EDT Office Visit [facility] [address] [place] [address] Antonia Laguna 08/25/2024 Travel 08/14/2024 Telephone [facility] [address] [place] [address] Shonda Greer MD 08/13/2024 Orders Only [facility] [address] [place] [address] Shonda Greer MD 08/13/2024 Telephone [facility] [address] [place] [address] Shonda Greer MD 08/12/2024 11:00 AM EST Office Visit [facility] [address] [place] [address] Shonda Greer MD Thyroid carcinoma (CMS/HCC) (Primary Dx); Epigastric abdominal pain; Weight loss; Anxiety 08/12/2024 Travel 07/29/2024 Patient Outreach [facility] [address] [place] [phone] Shonda Greer MD Pre-visit Planning (SDOH screening negative and Tobacco screening negative) 07/13/2024 Orders Only GENERIC EXTERNAL DATA DEPARTMENT Provider, Generic External Data from Last 3 Months Immunizations Name Administration [...] Description 10/08/2024 1:15 PM EDT Office Visit [facility] [address] [place] [address] Shonda Greer MD [address] [place] [address] Health Maintenance Due Date Last Done Comments [...] 01/29/2008, 03/08/2004, Additional history exists Depression Monitoring 09/16/2024 03/18/2024, 024 Depression Screening 03/18/2025 03/18/2024, 03/18/20 24 SDOH Screening 07/29/2025 07/29/2024 Tobacco Screening 08/25/2025 08/25/2024 Dental X-Ray: Full Mouth 08/27/2027 025, 10/29/2023, 08/28/2023 Zoster Vaccines (1 of 2) 2052 RSV [...] Procedure Name Priority Date/Time Associated Diagnosis Comments CASE PRESENTATION, DETAILED AND EXTENSIVE TREATMENT PLANNING Routine 08/25/2024 3:30 PM EDT PANORAMIC RADIOGRAPHIC IMAGE Routine 08/25/2024 3:30 PM EDT LIMITED ORAL EVALUATION - PROBLEM FOCUSED Routine 08/25/2024 3:30 PM EDT T4, FREE Routine 08/13/2024 11:41 AM EST THYROGLOBULIN ANTIBODIES Routine 08/13/2024 11:41 AM EST Thyroid carcinoma (CMS/HCC) CBC WITH AUTO DIFFERENTIAL Routine 08/13/2024 11:41 AM EST Thyroid carcinoma (CMS/HCC) VITAMIN D,25-OH,TOTAL,IA Routine 08/13/2024 11:41 AM EST Thyroid carcinoma (CMS/HCC) VITAMIN B1 Routine 08/13/2024 11:41 AM EST Thyroid carcinoma (CMS/HCC) VITAMIN B6 Routine 08/13/2024 11:41 AM EST Thyroid carcinoma (CMS/HCC) VITAMIN B12/FOLATE, SERUM PANEL Routine 08/13/2024 11:41 AM EST Thyroid carcinoma (CMS/HCC) TSH W/REFLEX TO FT4 Routine 08/13/2024 1 1:41 AM EST Thyroid carcinoma (CMS/HCC) US HEAD NECK SOFT TISSUE Routine 07/16/2024 3:53 PM EST TSH Routine 07/13/2024 1:10 PM EST T4, FREE Routine 07/13/2024 1:10 PM EST [facility] HISTORICAL HEPATITIS PANEL, ACUTE W/REFLEX TO CONFIRMATION Routine 12/30/2020 1:31 PM EDT HIV 1/2 ANTIGEN/ANTIBODY, FOURTH GENERATION W/RFL Routine 12/30/2020 1:31 PM EDT [facility] HISTORICAL SURESWAB(R), VAGINOSIS/VAGINITIS PLUS Routine 12/23/2020 11:06 AM EDT from Last 3 Months or Most Recently Relevant to Health Maintenance Results * Vitamin D, 25-Hydroxy, Total, Immunoassay (08/13/2024 11:41 AM EST) Vitamin D 25-OH Total 35.1 >30 ng/mL [facility] Comment:Health Based Referen ce Values*< 20 ng/mL Piffsdaic74-22 ng/mL Insufficient> 30 ng/mL Sufficient*Neena RUSSELL. N [...] MD LAB BLOOD ORDERABLES Final Re sult [facility] [address] [place] [phone] * Vitamin B12/Folate, Serum Panel (08/13/2024 11:41 AM EST) Pathologist [facility] Vitamin B12 721 200 - 900 pg/mL [facility] Comment:NORMAL 200-900 PG/ML INDETERMINATE 160-199 PG/ML DEFICIENT < 160 PG/ML Folate 9.9 > or = 4.0 ng/mL [facility] Comment:Reference Values:> o r = 4.0 ng/mL< 4.0 ng/mL suggests folate deficiency Methotrexate, aminopterin and folinic acid(leucovorin) are chemotherapeutic agents whose molecularstructures are similar to folate; therefore, the Architectfolate assay cannot be used for patients using these drugs. Blood Venous blood specimen / Unknown 08/13/2024 11:41 AM EST 08/13/2024 11:41 AM EST Shonda Greer MD LAB BLOOD ORDERABLES Final Re sult [facility] [address] [place] [phone] * (ABNORMAL) TSH W/Reflex to FT4 (08/13/2024 11:41 AM EST) [facility] TSH reflex Free T4 <0.01(L) 0.32 - 4.0 uIU/mL [facility] Blood Venous blood specimen / Unknown 08/13/2024 11:41 AM EST 08/13/2024 11:41 AM EST us Shonda Greer MD LAB BLOOD ORDERABLES Final Re sult [facility] [address] [place] [phone] * (ABNORMAL) CBC auto differential (08/13/2024 11:41 AM EST) [facility] White Blood Count 4.3(L) 4.8 - 10.8 X10*3/uL [facility] Red Blood Count 5.08 4.20 - 5.50 X10*6/uL [facility] Hemoglobin 13.6 12.0 - 16.0 g/dl [facility] Hematocrit 42.3 37.0 - 47.0 % [facility] Mean Corpuscular Volume 83.3 80.0 - 98.0 fL [facility] Mean Corpuscular Hemoglobin 26.8(L) 27.0 - 33.0 pg [facility] Mean Corpuscular HGB Conc 32.2 31.0 - 35.0 g/dl [facility] Red Cell Distribution Width 12.6 11.0 - 16.0 % [facility] Platelet Count 249 160 - 400 X10*3/uL [facility] Mean Platelet Volume 10.6 9.4 - 12.3 fL [facility] Neutrophils Percent Auto 60.6 45 - 73 % [facility] Imm Gran Pct Auto 0.2 0.0 - 0.4 % [facility] Lymphocytes Percent Auto 29.6 20 - 40 % [facility] Monocytes Percent Auto 8.2 2 - 11 % [facility] Eosinophils Percent Auto 1.2 0 - 4 % [facility] Basophils Percent Auto 0.2 0 - 2 % [facility] NRBC Pct Auto 0.0 0.0 - 0.2 /100WBC [facility] Neutrophils Absolute Auto 2.6 2.0 - 8.3 x10*3/uL [facility] Imm Gran Abs Auto 0.01 0.00 - 0.03 X10*3/uL [facility] Lymphocytes Absolute Auto 1.3 1.2 - 4.9 X10*3/uL [facility] Monocytes Absolute Auto 0.4 0.1 - 1.2 X10*3/uL [facility] Eosinophils Absolute Auto 0.1 0.0 - 0.4 X10*3/uL [facility] Basophils Absolute Auto 0.0 0.0 - 0.2 X10*3/uL [facility] NRBC Abs Auto 0.000 0.0 - 0.012 X10*3/uL [facility] Blood Venous blood specimen / Unknown 08/13/2024 11:41 AM EST 08/13/2024 11:41 AM EST Shonda Greer MD LAB BLOOD ORDERABLES Final Re sult Performing Organization Address [facility] de Phone Number [facility] [address] [place] [phone] * Thyroglobulin Antibodies (08/13/2024 11:41 AM EST) Thyroglobulin Antibodies <1 < or = 1 IU/mL [facility] Comment:THIS TEST WAS PERFOR MED AT:[employer] [place] [phone] SMITH MD Blood Venous blood specimen / Unknown 08/13/2024 11:41 AM EST 08/13/2024 11:41 AM EST Shonda Greer MD LAB BLOOD ORDERABLES Final Re sult Performing Organization Address [facility] [address] [place] [phone] * T4, Free (08/13/2024 11:41 AM EST) Only the most recent of2 resultswithin the time period is included. Free T4 (Free Thyroxine) 1.65 0.71 - 1.85 ng/dL [facility] 08/13/2024 11:4 1 AM EST 08/13/2024 11:41 AM EST Shonda Greer MD LAB BLOOD ORDERABLES Final Re sult Performing Organization Address [facility] de Phone Number [facility] [address] [place] [phone] * Vitamin B1 (08/13/2024 11:41 AM EST) Vitamin B1 8 8 - 30 nmol/L [facility] Comment:Vitamin supplementat ion within 24 hours prior toblood draw may affect the accuracy of the results.This test was developed and its analytical performancecharacteristics have been determined by [facility] [place]. It hasnot been cleared or approved by the U.S. Food and DrugAdministration. This assay has been validated pursuantto the CLIA regulations and is used for clinicalpurposes.THIS TEST WAS PERFORMED AT:[employer] [id number] [place] [phone] BRENNAN MD,PHD Blood Venous blood specimen / Unknown 08/13/2024 11:41 AM EST 08/13/2024 11:41 AM EST Shonda Greer MD LAB BLOOD ORDERABLES Final Re sult [facility] [address] [place] [phone] * Vitamin B6 (08/13/2024 11:41 AM EST) Pathologist [facility] Vitamin B6 10.0 2.1 - 21.7 ng/mL [facility] Comment:Vitamin supplementat ion within 24 hours prior toblood draw may affect the accuracy of the results.This test was developed and its analytical performancecharacteristics have been determined by [facility] [place] [place]. It hasnot been cleared or approved by the U.S. Food and DrugAdministration. This assay has been validated pursuantto the CLIA regulations and is used for clinicalpurposes.THIS TEST WAS PERFORMED AT:[id number] [place] [id number] BRENNAN MD,PHD Blood Venous blood specimen / Unknown 08/13/2024 11:41 AM EST 08/13/2024 11:41 AM EST us Shonda Greer MD LAB BLOOD ORDERABLES Final Re sult [facility] [address] [place] [phone] * US Head Neck Soft Tissue (07/16/2024 3:53 PM EST) Anatomical Region Laterality Modality Head, Neck Ultrasound 07/16/2024 3:53 PM EST Narrative 07/17/2024 9:43 AM EST ? [facility] ?[address] ? [place] [address] ? Ultrasound Report ? Signed ? Patient: Arnulfo Nagy ?MR#: M ?? [id number] ? : 2000 ?Acct:[id number] ? Age/Sex: 23 / F ?ADM Date: 07/16/24 ? Loc: HO.[facility] ? Attending Dr: Marva Jurado MD ? Ordering Physician: Marva Jurado MD ?? Date of Service: 07/16/24 ?? Procedure(s): US soft tiss head and/or neck ?? Accession Number(s): [id number] ? cc: Shonda Greer MD; Marva Jurado [...] ??Ebenezer Venegas MD ??07/17/2024 09:40 AM EST ? Dictated By: ?Ebenezer Venegas MD ? Signed By: ?<Electronically signed by Ebenezer Venegas MD in OV> ?07/17/24 0940 ? DD/ 1553 ? TD/TT: 07/16/24 1611 ? Orthopedic Surgeon: ? Procedure Note Donotaidainterpreter, Image - 07/17/2024 [facility] [address] [place] [address] [place] [address] Ultrasound Report Signed Patient: Arnulfo Nagy KMR#: [id number] : 2000Acct:[id number] Age/Sex: 23 FADM Date: 07/16/24 [facility]: Marva Jurado MD Ordering Physician: Marva Jurado MD Date of Service: 07/16/24 Procedure(s): US soft tiss head and/or neck Accession Number(s): [id number] cc: Shonda Greer MD; Marva Jurado MD [...] Ebenezer Venegas MD 07/17/2024 09:40 AM EST RP Dictated By: Ebenezer Venegas MD Signed By: <Electronically signed by Ebenezer Venegas MD in OV> 07/17/24 0940 DD/ 1553 TD/TT: 07/16/24 1611 Orthopedic Surgeon: us [facility] External Provider IMG US PROCEDURES Final Result * (ABNORMAL) TSH (07/13/2024 1:10 PM EST) Thyroid Stimulating Hormone 0.04(L) 0.32 - 4.0 uIU/mL [facility] Comment:TSH 3rd Generation ( [facility]) 07/13/2024 1:10 PM EST 07/13/2024 1:14 PM EST us Generic External Data Provider LAB BLOOD ORDERAB LES Final Result Performing Organization Address City/State/[facility] Co de Phone Number [facility] [address] [place] [phone] * HEPATITIS PANEL, ACUTE W/REFLEX TO CONFIRMATION (12/30/2020 1:31 PM EDT) HEPATITIS A IGM NON-REACT [facility] NON-REACT [facility] Comment: ?? For additional information, please refer to ?? http://[employer].Legend[employer]D/faq/BNY994 ?? (This link is being provided for [...] a test for HCV RNA (test code 91270) is suggested. ?? For additional information please refer to http://[employer][email or web address]/faq/FYX46z5 (This link is being provided for informational/ educational purposes only.) ?? 12/30/2020 1:31 PM EDT Keiko Garza MD HISTORICAL/NON ORDERABLE LABS Final Result Performing Organization Address [facility] Co de Phone Number [facility] [address] [place] [address], * HIV 1/2 ANTIGEN/ANTIBODY,FOURTH GENERATION W/RFL (12/30/2020 1:31 PM EDT) HIV-1/2 ANTIGEN AND ANTIBODIES, 4TH GENERATION W/ REFLEX NON-REACT [facility] NON-REACT [facility] Comment: HIV-1 antigen and HIV-1/HIV-2 [...] ? For additional information please refer to http://TextD[employer].Legend3D/faq/PVB644 (This link is being provided for informational/ educational purposes only.) ? The performance of this assay has not been clinically validated in patients less than 2 years old. ?? 12/30/2020 1:31 PM EDT Keiko Garza MD LAB BLOOD ORDERABLES Final Re sult Performing Organization Address [facility] Co de Phone Number [facility] [address] [place] [address], * SURESWAB(R), VAGINOSIS/VAGINITIS PLUS (12/23/2020 11:06 AM EDT) ATOPOBIUM VAGINAE Not Detected Log cells/mL [facility] CATEGORY: NOT SUPPORTIVE NOT [...] analytical performance characteristics have been determined by [facility] [place]. It has not been cleared or approved by the FDA. This assay has been validated pursuant to the CLIA regulations and is used for clinical purposes. ?? C. ALBICANS, DNA Not Detected Not Detected [facility] Comment: C. GLABRATA, DNA Not Detected Not Detected [facility] C. PARAPSILOSIS, DNA Not Detected Not Detected [facility] Comment: This test was developed and its analytical performance characteristics have been determined by [facility] [place]. It has not been cleared or [...] Not Detected [facility] Comment: Methodology: Controls Engineer Mediated Amplification(TMA) ?to detect RNA. ? The analytical performance characteristics of this assay, when used to test SurePath specimens have been determined by [employer]. The modifications have not been cleared or approved by the FDA. This assay has been validated pursuant to the CLIA regulations and is used for clinical purposes. ? For additional information, please refer to https://TextDigger.Legend3D/faq/QNU955 (This link is being provided for ??information/educational purposes only). ?? TRICHOMONAS VAGINALIS RNA, QL TMA Not Detected Not Detected [facility] Comment: Methodology: Controls Engineer Mediated Amplification(TMA) ? For additional information, please refer to http://[email or web address]/faq/ Trichomonastma (This link is being provided for information/educational purposes only). ?? 12/23/2020 11:0 6 AM EDT us Keiko Garza MD HISTORICAL/NON ORDERABLE LABS Final Result [facility] [address] from Last 3 Months or Most Recently Relevant to Health Maintenance [place] [address] [address] [address] [facility] [place] [facility] MEDICAID STAND CHILD * Guarantor: Arnulfo Nagy Account Type Relation to Patient Date of Phone Billing Address [facility] [place] [address] Care Teams Fertilizer Supervisor Relationship Specialty Start Date End Date Shonda Greer MD [address] [place] [address] PCP - General Internal Medicine 01/10/24
--- OUTSIDE RECORDS SUMMARY | 2024-09-28 15:00 | XMS_ITS | Encounter Summary ---
Author Organization [employer] Address [address] [facility] [address]t [place] [address] Care Team Providers Care Biomedical Manager Name Role Phone Shonda Greer MD Primary Care Provider Shonda Greer MD Primary Care Provider [phone] Reason for Visit * Reason Comments Med Change Request Encounter Details Date Type Department Care Team ([facility] st Contact Info) Description 10/23/2023 Refill [facility] [address] [place] [address] Breann Art, DDS [address] [place] [address] Social History Tobacco Use Types Packs/Day Years [...] please . * Telephone Encounter - Breann rAt DDS - 10/28/2023 9:14 AM EDT Approving, but needs appt for additional refills. documented in this encounter Plan of Treatment Upcoming Encounters Date Type Department Care Team (Late st Contact Info) Description 10/08/2024 1:15 PM EDT Office Visit [facility] [address] [place] [address] Shonda Greer MD [address] [place] [address] documented as of this encounter Visit Diagnoses Not on filedocumented in this encounter Additional Health Concerns Assessment Noted Time PHQ-9 Depression Total Score: 20 023 2:07 PM EDT documented as of this encounter Care Teams Biomedical Manager Relationship Specialty Start Date End Date Shonda Greer MD [address] [place] [address] PCP - General Family Medicine 07/16/13 01/09/24 Shonda Greer MD [address] [place] [address] PCP - General Internal Medicine 01/10/24 Radha Garza Epic Director 02/07/24 05/11/24 documented as of this encounter
--- OUTSIDE RECORDS SUMMARY | 2024-09-28 15:00 | XMS_ITS | Encounter Summary ---
Author Organization [employer] Address [address] [facility] 7 [place] [address] Care Team Providers Care Wrapper Stripper Name Role Phone Shonda Greer MD Primary Care Provider [phone] Shonda Greer MD Primary Care Provider [phone] Reason for Visit * Reason Onset Date Comments Referral 10/28/2023 Encounter Details Date Type Department Care Team ([facility] st Contact Info) Description 10/28/2023 Telephone [facility] [address] [place] [address] Shonda Greer MD [address] [place], [place] [phone] Referral Social History Tobacco Use Types Packs/Day [...] 11/14/2023 3:14 PM EDT Placed call to [facility] End[facility] regarding message below. They stated they are referring pt to [facility] Endo to Dr Mendoza at [facility] but with pt insurance they needed a insurance referral. [facility] endo stated they faxed over needed paperwork. Informed them we did send today the completed for. [facility] Endo office looked and found fax for [...] the surgery, this was advised by the Road Engineer [employer] office but mom is very confused on [...] in regards below message, please contact at [phone] * Telephone Encounter - Dolly Warren - 10/29/2023 12:28 PM EDT VM left for patient regarding request for endo at [facility]. Patient was referred to Dr. Too wood [facility] not accepting patient insurance. * Telephone Encounter - Jonel Gaspar - 10/28/2023 1:58 PM EDT TC from pt requesting new referral: Address: [address] [facility] [address] [facility] Type [facility] Specialist: [employer] Pt is requesting to change location of original endocrinology referral, stated she gave a form witha sticky note with al necessary information of referral to [place] so they can hand it to the pcp in which [place] stated they will. Pt has not gotten any update since and states it's been 2 weeks since then. If any questions you can contact pt at [phone]. documented in this encounter Plan of Treatment Upcoming Encounters Date Type Department Care Team (Late st Contact Info) Description 10/08/2024 1:15 PM EDT Office Visit [facility] [address] [place] [address] Shonda Greer MD [address] [place] [address] documented as of this encounter Visit Diagnoses Not on filedocumented in this encounter Additional Health Concerns Assessment Noted Time PHQ-9 Depression Total Score: 20 023 2:07 PM EDT documented as of this encounter Care Teams Wrapper Stripper Relationship Specialty Start Date End Date Shonda Greer MD [address] [place] [address] PCP - General Family Medicine 07/16/13 01/09/24 Shonda Greer MD [address] [place] [address] PCP - General Internal Medicine 01/10/24 Radha Garza Flat Sheet Maker 02/07/24 05/11/24 documented as of this encounter
== END 2024-09-28 13:05 | disposition home or self-care (01) ==
LOC: HO.HMGCX 13:04
PROVIDERS: PCP Pediatrics; Visit Provider Student in an Organized Health Care Education/Training Program
DX: E89.0 Postprocedural hypothyroidism (principal); C73 Malignant neoplasm of thyroid gland
CPT/HCPCS: 76536

== ENCOUNTER → 2024-09-28 13:08 | Outpatient (BNV) | payer MEDICAID, SELFPAY | PROVIDERS: PCP Pediatrics; Visit Provider Radiology Diagnostic Radiology | DX: C73 Malignant neoplasm of thyroid gland (principal) | CPT/HCPCS: 76536 ==

== ENCOUNTER 2024-10-01 14:46 | Outpatient (REF) | payer MEDICAID, SELFPAY ==
[2024-10-01 16:42] LABS: Free T4 (Free Thyroxine) 1.24 ng/dL (0.71-1.85); Thyroid Stimulating Hormone 0.02 uIU/mL (0.32-4.0)
--- OUTSIDE RECORDS SUMMARY | 2024-10-01 17:38 | XMS_ITS | Encounter Summary ---
Author Organization [facility] Address [address] [place] [address] Care Team Providers Care Chart Writer Name Role Phone Shonda Greer MD Primary Care Provider [phone] Encounter Details Date Type Department Care Team (Late st Contact Info) Description 10/01/2024 Orders Only GENERIC EXTERNAL DATA DEPARTMENT Provider, [...] Upcoming Encounters Date Type Department Care Team ([facility] st Contact Info) Description 10/08/2024 1:15 PM EDT Office Visit [facility] [address] [place], [place] [phone] Shonda Greer MD [address] [place], [place] [phone] documented as of this encounter Procedures Procedure Name Priority Date/Time Associated Diagnosis Comments TSH Routine 10/01/2024 2:53 PM EDT T4, FREE Routine 10/01/2024 2:53 PM EDT documented in this encounter Results * (ABNORMAL) TSH (10/01/2024 2:53 PM EDT) Thyroid Stimulating Hormone 0.02(L) 0.32 - 4.0 uIU/mL [facility] Comment:TSH 3rd Generation ( [facility]) 10/01/2024 2:53 PM EDT 10/01/2024 2:53 PM EDT us Generic External Data Provider LAB BLOOD ORDERAB LES Final Result [facility] [address] [place] [address] [phone] * T4, Free (10/01/2024 2:53 PM EDT) Free T4 (Free Thyroxine) 1.24 0.71 - 1.85 ng/dL [facility] 10/01/2024 2:53 PM EDT 10/01/2024 2:53 PM EDT us Generic External Data Provider LAB BLOOD ORDERAB LES Final Result Performing Organization Address City/State/[facility] Co de Phone Number [facility] [address] [place] [address] [phone] documented in this encounter Visit Diagnoses Not on filedocumented in this encounter Additional Health Concerns Assessment Noted Time PHQ-9 Depression Total Score: 20 024 1:04 PM EDT documented as of this encounter Care Teams Chart Writer Relationship Specialty Start Date End Date Shonda Greer MD [address] [place] [address] PCP - General Internal Medicine 01/10/24 documented as of this encounter
--- OUTSIDE RECORDS SUMMARY | 2024-10-01 17:38 | XMS_ITS | Encounter Summary ---
Author Organization [employer] Address [address] [place] [address] [address] [place] [address] Care Team Providers Care Salvage Engineer Name Role Phone Shonda Greer MD Primary Care Provider [phone] Shonda Greer MD Primary Care Provider [phone] Reason for Referral * Imaging (Urgent) - Closed Specialty Diagnoses / Procedures Referred By Contac t Referred To Contact Interventional Radiology Diagnoses Left thyroid nodule Procedures IR Fine Needle Aspiration Thyroid Shonda Greer MD [address] [place] [address] Phone: tel: fax: [address] Phone: tel: fax: Referral ID Status Reason Start Date Expiration Date Visits Re quested Visits Authorized [id number] Closed 09/16/2023 09/15/2024 1 1 Encounter Details Date Type Department Care Team (Late st Contact Info) Description 09/16/2023 Orders Only [facility] [address] [place] [address] Shonda Greer MD [address] [place] [address] Left thyroid nodule (Primary Dx) Social History [...] Upcoming Encounters Date Type Department Care Team ([facility] st Contact Info) Description 10/08/2024 1:15 PM EDT Office Visit [facility] [address] [place] [address] Shonda Greer MD [address] [place] [address] Scheduled Orders Name Type Priority Associated Diagnoses Orde r Schedule IR Fine Needle Aspiration Thyroid Imaging Urgent Left thyroid nodule Expected: 09/16/2023, Expires: 09/15/2024 documented as of this encounter Visit Diagnoses Diagnosis Left thyroid nodule- Primary documented in this encounter Additional Health Concerns Assessment Noted Time PHQ-9 Depression Total Score: 20 023 2:07 PM EDT documented as of this encounter Care Teams Salvage Engineer Relationship Specialty Start Date End Date Shonda Greer MD [address] [place] [address] PCP - General Family Medicine 07/16/13 01/09/24 Shonda Greer MD [address] [place] [address] PCP - General Internal Medicine 01/10/24 Radha Garza Knit Goods Mender 02/07/24 05/11/24 documented as of this encounter
--- OUTSIDE RECORDS SUMMARY | 2024-10-01 17:38 | XMS_ITS | Encounter Summary ---
Author Organization [employer] Address [address] [place] [address] Care Team Providers Care Blindmaker Name Role Phone Shonda Greer MD Primary Care Provider [phone] Encounter Details Date Type Department Care Team (Late st Contact Info) Description 09/28/2024 Orders Only [facility] External Provider, [facility] Social History Tobacco Use Types Packs/Day Years [...] Upcoming Encounters Date Type Department Care Team ([facility] st Contact Info) Description 10/08/2024 1:15 PM EDT Office Visit [facility] [address] [facility] [address] Shonda Greer MD [address] [place] [address] documented as of this encounter Procedures Procedure Name Priority Date/Time Associated Diagnosis Comments US HEAD NECK SOFT TISSUE Routine 09/30/2024 9:12 AM EDT documented in this encounter Results * US Head Neck Soft Tissue (09/30/2024 9:12 AM EDT) Anatomical Region Laterality Modality Head, Neck Ultrasound 09/30/2024 9:12 AM EDT Narrative 09/30/2024 9:13 AM EDT ? [facility] ?[address] ? [place] [address] ? Ultrasound Report ? Signed ? Patient: Delfina Martinis,Arnulfo K ?MR#: M ?? [id number] ? : 2000 ?Acct:[id number] ? Age/Sex: 23 / F ?ADM Date: 04/14/25 ? Loc: HO.HMGCX ? Attending Dr: Marva Jurado MD ? Ordering Physician: Marva Jurado MD ?? Date of Service: 09/28/24 ?? Procedure(s): US soft tiss head and/or neck ?? Accession Number(s): [id number] ? cc: Shonda Greer MD; Marva Jurado MD ? CLINICAL HISTORY: C73 - Malignant neoplasm of thyroid gland ? US head and neck, non thyroid ? Comparison: None ? Findings: ?? Status post thyroidectomy. There are multiple bilateral nonenlarged and ?? morphologically normal lymph nodes. ? Impression: ?? 1. Status post thyroidectomy without residual thyroid parenchyma in the ?? thyroid bed. Bilateral nonenlarged morphologically normal lymph nodes. ? [employer] TI-RADS Categories ?? TR1 and TR2 nodules do not have follow-up recommendations ?? TR3 (FNA >= 2.5cm, F/U >= 1.5cm at 1, 3, and 5 yrs) ?? TR4 (FNA >= 1.5cm, F/U >= 1cm at 1, 2, 3, and 5 yrs) ?? TR5 (FNA >= 1cm, F/U >= 0.5cm annually for up to 5 yrs) ? This document has been electronically signed by: Sarah Wu MD on ?? 09/30/2024 09:12:27 ? Dictated By: ?Sarah Wu MD ? Signed By: ?<Electronically signed by Sarah Wu MD in OV> ?09/30/2412 ? DD/ 1 ? TD/TT: 09/30/24911 ? Landscape Contractor: ? Procedure Note Charostephani, Image - 09/30/2024 [facility] [place] [address] [address] Ultrasound Report Signed Patient: Arnulfo Nagy KMR#: M [id number] : 2000Acct:[id number] Age/Sex: 23 / FADM Date: 09/28/24 Loc: HO.HMGCX Attending Dr: Marva Jurado MD Ordering Physician: Marva Jurado MD Date of Service: 09/28/24 Procedure(s): US soft tiss head and/or neck Accession Number(s): [id number] cc: Shonda Greer MD; Marva Jurado MD CLINICAL HISTORY: C73 - Malignant neoplasm of thyroid gland US head and neck, non thyroid Comparison: None Findings: Status post thyroidectomy. There are multiple bilateral nonenlarged and morphologically normal lymph nodes. Impression: 1. Status post thyroidectomy without residual thyroid parenchyma in the thyroid bed. Bilateral nonenlarged morphologically normal lymph nodes. [employer] TI-RADS Categories TR1 and TR2 nodules do not have follow-up recommendations TR3 (FNA >= 2.5cm, F/U >= 1.5cm at 1, 3, and 5 yrs) TR4 (FNA >= 1.5cm, F/U >= 1cm at 1, 2, 3, and 5 yrs) TR5 (FNA >= 1cm, F/U >= 0.5cm annually for up to 5 yrs) This document has been electronically signed by: Sarah Wu MD on 09/30/2024 09:12:27 Dictated By: Sarah Wu MD Signed By: <Electronically signed by Sarah Wu MD in OV> 09/30/24911 DD/ 1 TD/TT: 09/30/24911 Landscape Contractor: us [facility] External Provider IMG US PROCEDURES Final Result documented in this encounter Visit Diagnoses Not on filedocumented in this encounter Additional Health Concerns Assessment Noted Time PHQ-9 Depression Total Score: 20 024 1:04 PM EDT documented as of this encounter Care Teams Blindmaker Relationship Specialty Start Date End Date Shonda Greer MD [address] [place] [phone] PCP - General Internal Medicine 01/10/24 documented as of this encounter
--- OUTSIDE RECORDS SUMMARY | 2024-10-01 17:38 | XMS_ITS | Encounter Summary ---
Author Organization [facility] Address [address] [place] [address] [address] [place] [address] Care Team Providers Care Special Crimes Investigator Name Role Phone Shonda Greer MD Primary Care Provider [phone] Encounter Details Date Type Department Care Team (Late Contact Info) Description 01/13/2024 Orders Only [facility] [address] [place], [place] [phone] ProviderLuz MD Social History Tobacco Use Types [...] PM EDT Office Visit [facility] [address] [place], [place] [phone] Shonda Greer MD [address] [place] [address] documented as of this encounter Procedures Procedure [...] documented as of this encounter Care Teams Special Crimes Investigator Relationship Specialty Start Date End Date Shonda Greer MD [address] [place] [address] PCP - General Internal Medicine 01/10/24 Radha Garza Central Office Worker 02/07/24 05/11/24 documented as of this encounter
--- OUTSIDE RECORDS SUMMARY | 2024-10-01 17:38 | XMS_ITS | Clinical Summary ---
Author Organization [employer] Address [address] [facility] [address] [place] [address] Care Team Providers Care Site Acquisition Specialist Name Role Phone Shonda Greer MD Primary Care Provider [phone] Allergies No known active allergies Medications * [...] triggered underneath symptoms. Arnulfo reached out to [facility] in [place]. She was told that agency has internal wait list and her status was pending. clinician recommended pt to contact [facility] in [facility] for same-day appointment. Arnulfo said she [...] & Plan (03/12/2024 10:10 AM EDT): During [facility] Consult Arnulfo presenting with depressed mood, crying [...] intervention , Patient to reach out to [facility] team as needed, Comply with [...] [facility]. Encounters * This document contains information received from the source organization and may not represent a complete record from that organization. Date Type Department Care Team Description 10/01/2024 Orders Only GENERIC EXTERNAL DATA DEPARTMENT Provider, Generic External Data 09/28/2024 Orders Only [facility] External Provider, [facility] 08/28/2024 Population Health Risk Score Community Care [facility] (C3) Department [address] [place] [phone] Provider, Population Health Generic 08/25/2024 3:30 PM EDT Office Visit [facility] ADULT DENTAL [address] [place] [address] Antonia Laguna 08/25/2024 Travel 08/14/[address] [facility] MED & PEDS [address] [place] [address] Shonda Greer MD 08/13/[address] [facility]S [address] [place] [address] Shonda Greer MD 08/13/2024 Telephone [facility] MEDICINE [address] [facility] [place] [address] Shonda Greer MD 08/12/2024 11:00 AM EST Office Visit [facility] MED & PEDS [address] [place] [address] Shonda Greer MD Thyroid carcinoma (CMS/HCC) (Primary Dx); Epigastric abdominal pain; Weight loss; Anxiety 08/12/2024 Travel 07/29/2024 Patient Outreach [facility] MEDICINE [address] [place] [address] Shonda Greer MD Pre-visit Planning (SDOH screening negative and Tobacco screening negative) 07/13/2024 Orders Only GENERIC EXTERNAL DATA DEPARTMENT Provider, Generic External Data from Last 3 Months Immunizations Name Administration Dates Next Due DTaP 01/29/2008, 4,07/16/2003,06/09,02/25/2003 HPV 9-Valent 03/09/2016,11/10/2015,09/07/2015 Hep A, ped/adol, 2 dose 09/07/2015,12/30/2012 Hep B, Adolescent or Pediatric 12/22/2003,2002,2002 Hib ([facility]) 03/08/2004, 4,06/09/2003,03/04 IPV 02/02/2008, 4,06/09/2003,02/25 Influenza injectable [...] Upcoming Encounters Date Type Department Care Team ([facility] st Contact Info) Description 10/08/2024 1:15 PM EDT Office Visit [facility] MED & PEDS [address] [place] [address] Shonda Greer MD [address] [place] [address] Health Maintenance Due Date Last Done Comments [...] T4, FREE Routine 10/01/2024 2:53 PM EDT US HEAD NECK SOFT TISSUE Routine 09/30/2024 9:12 AM EDT CASE PRESENTATION, DETAILED AND EXTENSIVE TREATMENT PLANNING [...] to Health Maintenance Results * (ABNORMAL) TSH (10/01/2024 2:53 PM EDT) Only the most recent of2 resultswithin the time period is included. Thyroid Stimulating Hormone 0.02(L) 0.32 - 4.0 uIU/mL [facility] Comment:TSH 3rd Generation ( [facility]) 10/01/2024 2:53 PM EDT 10/01/2024 2:53 PM EDT us Generic External Data Provider LAB BLOOD ORDERAB LES Final Result [facility] [address] [place] [phone] * T4, Free (10/01/2024 2:53 PM EDT) Only the most recent of3 resultswithin the time period is included. Free T4 (Free Thyroxine) 1.24 0.71 - 1.85 ng/dL [facility] 10/01/2024 2:53 PM EDT 10/01/2024 2:53 PM EDT us Generic External Data Provider LAB BLOOD ORDERAB LES Final Result [facility] [address] [place] [address] [phone] * US Head Neck Soft Tissue (09/30/2024 9:12 AM EDT) Only the most recent of2 resultswithin the time period is included. Anatomical Region Laterality Modality Head, Neck Ultrasound 09/30/2024 9:12 AM EDT Narrative 09/30/2024 9:13 AM EDT ? [facility] ?[address] [facility] [address] . ? [place] [address] ? Ultrasound Report ? Signed ? Patient: Arnulfo Nagy ?MR#: [id number] ?? [id number] ? : 2000 ?Acct:[id number] ? Age/Sex: 23 / F ?ADM Date: 09/28/24 ? Loc: HO.HMGCX ? Attending Dr: Marva Jurado MD ? Ordering Physician: Marva Jurado MD ?? Date of Service: 09/28/24 ?? Procedure(s): US soft tiss head and/or neck ?? Accession Number(s): [id number] ? cc: Shonda Greer MD; Marva Jurado [...] Bilateral nonenlarged morphologically normal lymph nodes. ? [employer] TI-RADS Categories ?? TR1 [...] signed by Sarah Wu MD in OV> ?09/30/24 0912 ? DD/ 1 ? TD/TT: 09/30/24911 ? Bread Dough Mixer: ? Procedure Note Mikaela Puentes - 09/30/2024 [facility] [address] [place] [address] [place] [address] Ultrasound Report Signed Patient: Arnulfo Nagy R#: [id number] : 2000Acct:[id number] Age/Sex: 23 / FADM Date: 09/28/24 Loc: HO.HMGCX Attending Dr: Marva Jurado MD Ordering Physician: Marva Jurado MD Date of Service: 09/28/24 Procedure(s): US soft tiss head and/or neck Accession Number(s): [id number] cc: Shonda Greer MD; Marva Jurado MD CLINICAL HISTORY: C73 - Malignant neoplasm of thyroid gland US head and neck, non thyroid Comparison: None Findings: Status post thyroidectomy. There are multiple bilateral nonenlarged and morphologically normal lymph nodes. Impression: 1. Status post thyroidectomy without residual thyroid parenchyma in the thyroid bed. Bilateral nonenlarged morphologically normal lymph nodes. [employer] TI-RADS Categories TR1 and [...] in OV> 09/30/24911 DD/ 1 TD/TT: 09/30/24911 Bread Dough Mixer: [facility] External Provider IMG US PROCEDURES Final Result * Vitamin D, 25-Hydroxy, Total, Immunoassay (08/13/2024 11:41 AM EST) Vitamin D 25-OH Total 35.1 >30 ng/mL [facility] Comment:Health Based Referen ce Values*< 20 ng/mL [id number] ng/mL Insufficient> 30 ng/mL Sufficient*Neena RUSSELL. N [...] MD LAB BLOOD ORDERABLES Final Re sult [facility] [address] [place] [phone] * Vitamin B12/Folate, Serum Panel (08/13/2024 11:41 AM EST) Pathologist [facility] Vitamin B12 721 200 - 900 pg/mL [facility] Comment:NORMAL 200-900 PG/ML INDETERMINATE 160-199 PG/ML DEFICIENT < 160 PG/ML Folate 9.9 > or = 4.0 ng/mL [facility] Comment:Reference Values:> o r = 4.0 ng/mL< 4.0 ng/mL suggests folate deficiency Methotrexate, aminopterin and folinic acid(leucovorin) are chemotherapeutic agents whose molecularstructures are similar to folate; therefore, the Architectfolate assay cannot be used for patients using these drugs. Blood Venous blood specimen / Unknown 08/13/2024 11:41 AM EST 08/13/2024 11:41 AM EST Shonda Greer MD LAB BLOOD ORDERABLES Final Re sult [facility] [address] [place] [phone] * (ABNORMAL) TSH W/Reflex to FT4 (08/13/2024 11:41 AM EST) [facility] TSH reflex Free T4 <0.01(L) 0.32 - 4.0 uIU/mL [facility] Blood Venous blood specimen / Unknown 08/13/2024 11:41 AM EST 08/13/2024 11:41 AM EST Shonda Greer MD LAB BLOOD ORDERABLES Final Re sult [facility] [address] [place] [phone] * (ABNORMAL) CBC auto differential (08/13/2024 11:41 AM EST) [facility] White Blood Count 4.3(L) 4.8 - 10.8 X10*3/uL [facility] Red Blood Count 5.08 4.20 - 5.50 X10*6/uL [facility] Hemoglobin 13.6 12.0 - 16.0 g/dl [facility] Hematocrit 42.3 37.0 - 47.0 % [facility] Mean Corpuscular Volume 83.3 80.0 - 98.0 fL [facility] Mean Corpuscular Hemoglobin 26.8(L) 27.0 - 33.0 pg [facility] Mean Corpuscular HGB Conc 32.2 31.0 - 35.0 g/dl [facility] Red Cell Distribution Width 12.6 11.0 - 16.0 % [facility] Platelet Count 249 160 - 400 X10*3/uL [facility] Mean Platelet Volume 10.6 9.4 - 12.3 fL [facility] Neutrophils Percent Auto 60.6 45 - 73 % [facility] Imm Gran Pct Auto 0.2 0.0 - 0.4 % [facility] Lymphocytes Percent Auto 29.6 20 - 40 % [facility] Monocytes Percent Auto 8.2 2 - 11 % [facility] Eosinophils Percent Auto 1.2 0 - 4 % [facility] Basophils Percent Auto 0.2 0 - 2 % [facility] NRBC Pct Auto 0.0 0.0 - 0.2 /100WBC [facility] Neutrophils Absolute Auto 2.6 2.0 - 8.3 x10*3/uL [facility] Imm Gran Abs Auto 0.01 0.00 - 0.03 X10*3/uL [facility] Lymphocytes Absolute Auto 1.3 1.2 - 4.9 X10*3/uL [facility] Monocytes Absolute Auto 0.4 0.1 - 1.2 X10*3/uL [facility] Eosinophils Absolute Auto 0.1 0.0 - 0.4 X10*3/uL [facility] Basophils Absolute Auto 0.0 0.0 - 0.2 X10*3/uL [facility] NRBC Abs Auto 0.000 0.0 - 0.012 X10*3/uL [facility] Blood Venous blood specimen / Unknown 08/13/2024 11:41 AM EST 08/13/2024 11:41 AM EST Shonda Greer MD LAB BLOOD ORDERABLES Final Re sult Performing Organization Address [facility]/ZIP Co de Phone Number [facility] [address] [place] [phone] * Thyroglobulin Antibodies (08/13/2024 11:41 AM EST) Thyroglobulin Antibodies <1 < or = 1 IU/mL [facility] Comment:THIS TEST WAS PERFOR MED AT:[facility] [address] [phone] SMITH MD Blood Venous blood specimen / Unknown 08/13/2024 11:41 AM EST 08/13/2024 11:41 AM EST Shonda Greer MD LAB BLOOD ORDERABLES Final Re sult Performing Organization Address [facility] Number [facility] [address] [place] [phone] * Vitamin B1 (08/13/2024 11:41 AM EST) Vitamin B1 8 8 - 30 nmol/L [facility] Comment:Vitamin supplementat ion within 24 hours prior toblood draw may affect the accuracy of the results.This test was developed and its analytical performancecharacteristics have been determined by [facility] [place], [place]. It hasnot been cleared or approved by the U.S. Food and DrugAdministration. This assay has been validated pursuantto the CLIA regulations and is used for clinicalpurposes.THIS TEST WAS PERFORMED AT:[facility] [place] [address]LAHWLPQROSSY BRENNAN MD,PHD Blood Venous blood specimen / Unknown 08/13/2024 11:41 AM EST 08/13/2024 11:41 AM EST Shonda Greer MD LAB BLOOD ORDERABLES Final Re sult Performing Organization Address [facility] Co de Phone Number [facility] [address] [place] [phone] * Vitamin B6 (08/13/2024 11:41 AM EST) [facility] Vitamin B6 10.0 2.1 - 21.7 ng/mL [facility] Comment:Vitamin supplementat ion within 24 hours prior toblood draw may affect the accuracy of the results.This test was developed and its analytical performancecharacteristics have been determined by [facility] [place], [place]. It hasnot been cleared or approved by the U.S. Food and DrugAdministration. This assay has been validated pursuantto the CLIA regulations and is used for clinicalpurposes.THIS TEST WAS PERFORMED AT:[facility] [place] [address]LCBHNJEROSSY BRENNAN MD,PHD Blood Venous blood specimen / Unknown 08/13/2024 11:41 AM EST 08/13/2024 11:41 AM EST Shonda Greer MD LAB BLOOD ORDERABLES Final Re sult Performing Organization Address [facility] de Phone Number [facility] [address] [place] [phone] * HEPATITIS PANEL, ACUTE W/REFLEX TO CONFIRMATION (12/30/2020 1:31 PM EDT) [facility] HEPATITIS A IGM NON-REACT [facility] NON-REACT [facility] Comment: ?? For additional information, please refer to ?? http://education.Firefly Media/faq/TLD358 ?? (This link is being provided for informational/ educational purposes only.) ?? HEPATITIS B CORE ANTIBODY (IGM) NON-REACT [facility] NON-REACT [facility] HEPATITIS B SURFACE ANTIGEN NON-REACT [facility] NON-REACT [facility] HEPATITIS C ANTIBODY NON-REACT [facility] NON-REACT [facility] INDEX 0.01 <1.00 [facility] Comment: ?? HCV antibody was non-reactive. There is no laboratory ?? evidence of HCV infection. ?? In most cases, no further action is required. However, if recent HCV exposure is suspected, a test for HCV RNA (test code 44013) is suggested. ?? For additional information please refer to http://[employer]/faq/AIP67d0 (This link is being provided for informational/ educational purposes only.) ?? 12/30/2020 1:31 PM EDT Keiko Garza MD HISTORICAL/NON ORDERABLE LABS Final Result [facility] [address] * HIV 1/2 ANTIGEN/ANTIBODY,FOURTH GENERATION W/RFL (12/30/2020 1:31 PM EDT) HIV-1/2 ANTIGEN AND ANTIBODIES, 4TH GENERATION W/ REFLEX NON-REACT [facility] NON-REACT [facility] Comment: HIV-1 antigen and HIV-1/HIV-2 [...] ? For additional information please refer to http://[employer]/faq/QBA173 (This link is being provided for informational/ educational purposes only.) ? The performance of this assay has not been clinically validated in patients less than 2 years old. ?? 12/30/2020 1:31 PM EDT us Keiko Garza MD LAB BLOOD ORDERABLES Final Re sult [facility] [address] [place] [address], * SURESWAB(R), VAGINOSIS/VAGINITIS PLUS (12/23/2020 11:06 AM [...] analytical performance characteristics have been determined by [facility] [place]. It has not been cleared or [...] analytical performance characteristics have been determined by [facility] [place], [place]. It has not been cleared or [...] Not Detected [facility] Comment: Methodology: Jitney Driver Mediated Amplification(TMA) ?to detect RNA. ? The analytical performance characteristics of this assay, when used to test [employer] specimens have been determined by [facility]. The modifications have not been cleared or approved by the FDA. This assay has been validated pursuant to the CLIA regulations and is used for clinical purposes. ? For additional information, please refer to https://[employer].Ensenda.Aktino/faq/PTN467 (This link is being provided for ??information/educational purposes only). ?? TRICHOMONAS VAGINALIS RNA, QL TMA Not Detected Not Detected [facility] Comment: Methodology: Jitney Driver Mediated Amplification(TMA) ? For additional information, please refer to http://[employer]/faq/ Trichomonastma (This link is being provided for information/educational purposes only). ?? 12/23/2020 11:0 6 AM EDT us Keiko Garza MD HISTORICAL/NON ORDERABLE LABS Final Result [facility] [address] from Last 3 Months or Most Recently Relevant to Health Maintenance Insurance [facility] C3 DENTAL-[facility] MEDICAID STAND CHILD * Guarantor: Arnulfo Nagy Account Type Relation to Patient Date of Phone Billing Address Personal/[place] [address] Care Teams Site Acquisition Specialist Relationship Specialty Start Date End Date Shonda Greer MD [address] [place] [phone] PCP - General Internal Medicine 01/10/24
--- OUTSIDE RECORDS SUMMARY | 2024-10-01 17:38 | XMS_ITS | Encounter Summary ---
Author Organization [employer] Address [address] [facility] 7 [place] [address] Care Team Providers Care Policy Writer Typist Name Role Phone Shonda Greer MD Primary Care Provider [phone] Shonda Greer MD Primary Care Provider [phone] Reason for Visit * Reason Onset Date Comments Call Back Request 11/25/2023 Encounter Details Date Type Department Care Team ([facility] st Contact Info) Description 11/25/2023 Telephone [facility] [address] [place] [address] Shonda Greer MD [address] [place] [address] Call Back Request Social History Tobacco Use [...] EDT FYI, XR confirmed fifth metatarsal fx. on call pharmacy technician provider spoke with pt and informed and verified Ortho referral was placed during last visit. * Telephone Encounter - Jonel Gaspar - 11/25/2023 4:16 PM EDT Tc from [place] with [facility] requesting call back to discuss positive xray results. Kenzie also informed she faxed results over. Please contact Kenzie at [phone]. documented in this encounter Plan of Treatment Upcoming Encounters Date Type Department Care Team ([facility] st Contact Info) Description 10/08/2024 1:15 PM EDT Office Visit [facility] [address] [place] [address] Shonda Greer MD [address] [place] [address] documented as of this encounter Visit Diagnoses Not on filedocumented in this encounter Additional Health Concerns Assessment Noted Time PHQ-9 Depression Total Score: 20 023 2:07 PM EDT documented as of this encounter Care Teams Policy Writer Typist Relationship Specialty Start Date End Date Shonda Greer MD [address] [place] [address] PCP - General Family Medicine 07/16/13 01/09/24 Shonda Greer MD [address] [place] [address] PCP - General Internal Medicine 01/10/24 Radha Garza Helicopter Specialist 02/07/24 05/11/24 documented as of this encounter
--- OUTSIDE RECORDS SUMMARY | 2024-10-01 17:38 | XMS_ITS | Encounter Summary ---
Author Organization [employer] Address [address] [facility] 7 [place] [address] Care Team Providers Care Orthotics Prosthetics Technician Name Role Phone Shonda Greer MD Primary Care Provider [phone] Shonda Greer MD Primary Care Provider [phone] Reason for Visit * Reason Onset Date Comments Appointment Request 12/20/2023 Encounter Details Date Type Department Care Team ([facility] st Contact Info) Description 12/20/2023 Telephone [facility] [address] [place] [address] Shonda Greer MD [address] [place] [address] Appointment Request Social History Tobacco Use Types [...] [facility] [address] [place] [place] [address] Shonda Greer MD [address] [place] [address] documented as of this encounter Visit Diagnoses Not on filedocumented in this encounter Additional Health Concerns Assessment Noted Time PHQ-9 Depression Total Score: 20 023 2:07 PM EDT documented as of this encounter Care Teams Orthotics Prosthetics Technician Relationship Specialty Start Date End Date Shonda Greer MD [address] [place] [address] PCP - General Family Medicine 07/16/13 01/09/24 Shonda Greer MD [address] [place] [address] PCP - General Internal Medicine 01/10/24 Radha Garza Guest Services Coordinator 02/07/24 05/11/24 documented as of this encounter
--- OUTSIDE RECORDS SUMMARY | 2024-10-01 17:38 | XMS_ITS | Encounter Summary ---
Author Organization [employer] Address [address] [facility] 7t [place] [address] Care Team Providers Care Outside Sales Advertising Executive Name Role Phone Shonda Greer MD Primary Care Provider [phone] Shonda Greer MD Primary Care Provider [phone] Reason for Visit * Reason Comments Med Change Request Encounter Details Date Type Department Care Team ([facility] st Contact Info) Description 10/23/2023 Refill [facility] [address] [place] [address] Breann Art, DDS [address] [place] [address] Social History Tobacco Use Types Packs/Day Years [...] Description 10/08/2024 1:15 PM EDT Office Visit [facility] [address] [place] [address] Shonda Greer MD [address] [place] [address] documented as of this encounter Visit Diagnoses Not on filedocumented in this encounter Additional Health Concerns Assessment Noted Time PHQ-9 Depression Total Score: 20 023 2:07 PM EDT documented as of this encounter Care Teams Outside Sales Advertising Executive Relationship Specialty Start Date End Date Shonda Greer MD [address] [place] [address] PCP - General Family Medicine 07/16/13 01/09/24 Shonda Greer MD [address] [place] [address] PCP - General Internal Medicine 01/10/24 Radha Garza Search Engine Optimization Manager 02/07/24 05/11/24 documented as of this encounter
--- OUTSIDE RECORDS SUMMARY | 2024-10-01 17:38 | XMS_ITS | Encounter Summary ---
Author Organization [facility] [facility] Address [address] [facility] 7 [place] [address] Care Team Providers Care Economics Department Chair Name Role Phone Shonda Greer MD Primary Care Provider [phone] Shonda Greer MD Primary Care Provider [phone] Reason for Visit * Reason Onset Date Comments Referral 10/28/2023 Encounter Details Date Type Department Care Team ([facility] st Contact Info) Description 10/28/2023 Telephone [facility] MEDICINE [address] [place] [address] Shonda Greer MD [address] [place], [place] [phone] Referral Social History Tobacco Use Types Packs/Day [...] 11/14/2023 3:14 PM EDT Placed call to [facility] regarding message below. They stated they are referring pt to [facility]o to Dr Mendoza at [facility] but with pt insurance they needed a insurance referral. [facility] stated they faxed over needed paperwork. Informed them we did send today the completed for. [facility] office looked and found fax for [...] the surgery, this was advised by the Machine Feller office but mom is very confused on [...] in regards below message, please contact at [phone] * Telephone Encounter - Dolly Warren - 10/29/2023 12:28 PM EDT VM left for patient regarding request for endo at [facility]. Patient was referred to Dr. Too wood [facility] not accepting patient insurance. * Telephone Encounter - Jonel Gaspar - 10/28/2023 1:58 PM EDT TC from pt requesting new referral: Address: [address] [facility] [address] [facility] Type of Specialist: Machine Feller Pt is requesting to change location of original endocrinology referral, stated she gave a form witha sticky note with al necessary information of referral to [place] so they can hand it to the pcp in which [place] stated they will. Pt has not gotten any update since and states it's been 2 weeks since then. If any questions you can contact pt at [phone]. documented in this encounter Plan of Treatment Upcoming Encounters Date Type Department Care Team (Late st Contact Info) Description 10/08/2024 1:15 PM EDT Office Visit [facility] MED & PEDS [address] [place] [address] Shonda Greer MD [address] [place] [address] documented as of this encounter Visit Diagnoses Not on filedocumented in this encounter Additional Health Concerns Assessment Noted Time PHQ-9 Depression Total Score: 20 023 2:07 PM EDT documented as of this encounter Care Teams Economics Department Chair Relationship Specialty Start Date End Date Shonda Greer MD [address] [place] [address] PCP - General Family Medicine 07/16/13 01/09/24 Shonda Greer MD [address] [place] [address] PCP - General Internal Medicine 01/10/24 Radha Garza Parts Cleaner 02/07/24 05/11/24 documented as of this encounter
--- OUTSIDE RECORDS SUMMARY | 2024-10-01 17:38 | XMS_ITS | Clinical Summary ---
Author Organization [facility] it Address [address] [place] [address] Care Team Providers Care Children'S Author Name Role Phone Unavailable Primary Care Provider [...]
[2024-10-02 20:14] LABS: Thyroglobulin <0.1 ng/mL; Thyroglobulin Antibodies <1 IU/mL (< or = 1)
[2024-10-08 15:34] LABS: Thyroglobulin Antibody <1 IU/mL (<=1); Thyroglobulin Level <0.1 ng/mL
== END 2024-10-01 14:47 | disposition home or self-care (01) ==
LOC: HO.LAB 14:46
PROVIDERS: PCP Pediatrics; Visit Provider Student in an Organized Health Care Education/Training Program
DX: C73 Malignant neoplasm of thyroid gland (principal); E89.0 Postprocedural hypothyroidism
CPT/HCPCS: 36415; 84432; 84439; 84443; 86800

== ENCOUNTER 2024-10-13 12:31 | Outpatient (AMB) | payer MEDICAID, SELFPAY ==
--- NOTE | 2024-10-13 12:32 | MHC.OFFVIS ---
Vital Signs 10/13/24 12:34 Height 5 ft 3 in Weight 172 lb 2.896 oz BMI 30.5 BP 90/58 L Blood Pressure Location Rt brachial Position Sitting Pulse 88 Pulse Source Pulse Oximeter Pulse Oximetry (%) 98 Oxygen Delivery Method Room Air Intake Visit Reasons: Thyroid nod Intake Note: Patient present today for Thyroid nodule. Shareholder Required: No Accompanied by: Self / Same As Patient Allergies No Known Allergies Allergy (Verified 10/13/24 12:34) Medication List - Last Reconciled 10/13/24 by Marva Jurado MD bupropion HCl XL 300 mg PO QAM ibuprofen 400 mg PO Q8H 3 days levothyroxine 150 mcg PO DAILY sertraline 50 mg PO DAILY trazodone 150 mg PO DAILY HPI Comments Details: 23 YO F with PMHx of anxiety and depression who is status post left lobectomy and prelaryngeal lymph node excision 12/17/23 with diagnosis of papillary thyroid cancer with follicular features , AJCC stage 1 ([id number]), with pathology showing high-grade features with high Ki67 index of 20 % and angioinvasion, concerning for KETTY high-risk for recurrence PTC,Underwent completion thyroidectomy 03/31/24, with benign right thyroid lobe pathology , status post radioactive iodine treatment on 06/03/2024 with 101 mCi I 131 who is here for follow up HPI Initially diagnosed with thyroid nodule in August of 2023 a thyroid ultrasound revealing Estimated total number of nodules greater than or equal to 1 cm: 1. Collar Band Creaser nodules are described as follows: 1. Location: Left mid. Size: 3.2 x 2.3 x 2.7 cm, volume 10.4 mL. Nodule characteristics: Composition: Solid (2). Echogenicity: Hypoechoic (2). Shape: Not taller than wide (0). Margins: Smooth (0). Echogenic Foci: None (0). ACR TI-RADS total points: 4. ACR TI-RADS category: 4. NODES: 1.0 x 0.2 x 0.7 cm right cervical node with echogenic hilum. 1.6 x 0.3 x 0.6 cm left cervical node with echogenic hilum and mild prominence of the cortex. FNA of the nodule 09/25/2023 which showed AUS. Affirma was suspicious Subsequently underwent left thyroid lobectomy in prelaryngeal lymph node excision on 12/17/[address] Javid Mendoza Pathology : Showed a unifocal left lobe 3 cm high-grade differentiated thyroid carcinoma with a 20% Ki-67 index, angioinvasion with greater than 4 vessels, no lymphatic invasion or perineural invasion. No extrathyroidal extension. 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 AJCC stage I (pT2 N0 a) Underwent completion thyroidectomy 03/31/24, with benign right thyroid lobe pathology on levothyroxine 150 mcg daily started postoperatively , 04/22/2024: Labs showed TSH of 0.24, free T4 of 1.52, TG 0.3, TG antibody less than 1 04/28/24: levotyorxine increased to 175 mcg daily 06/03/2024: Underwent radioactive iodine treatment with 101 mCi of I 131. 06/03/2024: Labs showed TSH of 61.24, free T4 1.46, TG 0.2, TG antibody less than 1 06/12/2024: Whole-body scan shows expected uptake in the thyroid bed with no metastatic uptake. Interval history Continues on levothyroxine 175 mcg daily with good administration and adherence Last visit in June she was complaining about a submandibular lump, tenderness , resolved with ibuprofena and dexamethasone. 07/16/2024: Ultrasound of the head and neck, I reviewed the images myself showed normal evaluating bilateral lymph nodes, some of these were prominent, we decided to keep an eye on these. 08/13/24: TSH < 0.01, free t4 1.65 08/22/24: Levothyroxine reduced to 150 mcg daily 09/30/2024: Repeat ultrasound of the head and neck again shows bilateral normal-appearing lymph nodes, none of these lymph nodes look concerning. 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 Maternal aunts both had thyroid surgery with benign results Maternal uncle had thyroid cancer Paternal aunts x2 have throid disease 2 maternal grandmothers (grandmothers isters) have breats Ca 3 paternal aunts have breast Cancer Physical exam General: sitting comfortably in no acute distress HEENT: normocephalic/atraumatic, moist oral mucosa Neck: supple, well-healed surgical scar, Cardiac: normal heart sounds Pulm: normal breath sounds B/L, no added breath sounds Abd: not distended, no tenderness Extremities: no edema, no signs of myxedema, mild tremor noted Labs Laboratory Tests 11/06/23 03/23/24 04/22/24 10:27 14:11 13:06 TSH 2.70 1.10 0.24 L Free T4 0.99 1.21 1.52 Thyroglobulin 68.9 H 0.3 H Thyroglobulin Antibody <1 <1 Laboratory Tests 04/22/24 05/19/24 06/02/24 13:06 13:52 09:39 TSH 0.24 L 0.01 L Free T4 1.52 1.83 Thyroglobulin 0.3 H <0.1 Beta HCG, Quant < 2 < 2 Thyroglobulin Antibody <1 06/03/24 06/05/24 09:50 10:03 TSH 61.24 H 8.61 H Free T4 1.46 1.74 Thyroglobulin 0.2 H 0.6 H Beta HCG, Quant Thyroglobulin Antibody <1 <1 Laboratory Tests 08/13/24 10/01/24 11:41 14:53 TSH < 0.01 L 0.02 L Free T4 1.65 1.24 Thyroglobulin <0.1 Thyroglobulin Antibody <1 <1 US head and neck, non thyroid 09/30/24 Comparison: None Findings: Status post thyroidectomy. There are multiple bilateral nonenlarged and morphologically normal lymph nodes. Impression: 1. Status post thyroidectomy without residual thyroid parenchyma in the thyroid bed. Bilateral nonenlarged morphologically normal lymph nodes. [employer] TI-RADS Categories TR1 and TR2 nodules do not have follow-up recommendations TR3 (FNA >= 2.5cm, F/U >= 1.5cm at 1, 3, and 5 yrs) TR4 (FNA >= 1.5cm, F/U >= 1cm at 1, 2, 3, and 5 yrs) TR5 (FNA >= 1cm, F/U >= 0.5cm annually for up to 5 yrs) This document has been electronically signed by: Sarah Wu MD on 09/30/2024 09:12:27 EXAMINATION: US HEAD NECK SOFT TISSUE 07/16/24 HISTORY: E89.0 - Postprocedural hypothyroidism COMPARISON: Correlation is made with a thyroid ultrasound dated 09/11/2023. FINDINGS: Sonographic examination of the thyroid bed was performed. The patient is status post thyroidectomy. No residual thyroid tissue is noted. Multiple lymph nodes are seen in the neck bilaterally. On the right, there is a single abnormal appearing level II node measuring 2.0 x 0.6 x 1.9 cm which demonstrates a slitlike hilum and cortical thickening. On the left, there are multiple level II and III lymph nodes which demonstrate absent cb, measuring up to 2.5 x 0.5 x 2.2 cm. US/US soft tiss head and/or neck IMPRESSION: No residual thyroid tissue is identified. There are multiple abnormal appearing lymph nodes in the neck bilaterally as described. These are amenable to ultrasound-guided fine-needle aspiration if desired. Electronically signed by: Ebenezer Venegas MD 07/17/2024 09:40 AM [facility] Medical History (Updated 04/28/24 @ 14:51 by Marva Jurado MD) Hypothyroidism Thyroid cancer Thyroid nodule Surgical History History of lobectomy of thyroid Hx of total thyroidectomy H/O bilateral breast reduction surgery Family History Paternal Aunt Breast cancer Mother No problems noted. Father No problems noted. Social History Alcohol intake: current Alcohol intake frequency: holidays/special occasions only Female Reproductive History Menstrual Age of Menarche: 13 Physical Exam Vital Signs: BMI result Body Mass Index 30.5 Assessment & Plan Assessment & Plan (1) Thyroid cancer: Code(s): C73 - Malignant neoplasm of thyroid gland Category: Medical Plan: 23 YO F who was recently diagnosed with left sided thyroid nodule on thyroid ultrasound in August 2023, but subsequent FNA in 10/05/2023 showing AUS with suspicious Afirma, status post left lobectomy and prelaryngeal lymph node excision 12/17/23 with diagnosis of papillary thyroid cancer with follicular features , AJCC stage 1 ([id number]), with pathology showing high-grade features with high Ki67 index of 20 % and angioinvasion (>4 vessels), concerning for KETTY high-risk for recurrence with recurrence risk of around 15-30%. s/p completion thyroidectomy 03/31/[address] Mendoza with benign right lobe pathology. status post radioactive iodine treatment on 06/03/2024 with 101 mCi I 131 who is here for follow up Three weeks postoperative labs from 04/22/24 show TSH of 0.24, TG 0.3, TG antibody undetectable. usually takes about 4-6 weeks for thyroglobulin reach its alexis level will have her repeat labs in 2 weeks. Given low levels of TG postoperatively, this is a favorable factor in her prognosis. Status post 101 mCi of I 131 on 06/03/2024 with a whole-body scan on showing in no metastatic disease, only expected uptake in the thyroid bed. Her stimulated TG levels TG 0.2, TG antibody less than 1 from 06/03/2024 also reassuring. Most recent ultrasound from September 2024, showed normal-appearing lymph nodes, no signs of recurrence. 10/01/2024: TSH 0.02, free T4 1.24, TG less than 0.1, TG antibody less than 1 Given KETTY initial high-risk of recurrence, her TSH goal is less than 0.1 for the 1st year post surgery. Plan: - continue levothyroxine 150 mcg daily, goal TSH <0.1 -repeat labs ordered for TSH and free T4 to be done in 3 months, we will reach out with the results -next ultrasound of the neck ordered to be done in 6 months sometime around March 2025 prior to her follow up -we will also plan to repeat tumor markers in 6 months prior to her follow up -follow up in 6 months (2) Hypothyroidism: Code(s): E03.9 - Hypothyroidism, unspecified Category: Medical Qualifiers: Hypothyroidism type: postoperative Qualified Code(s): E89.0 - Postprocedural hypothyroidism Plan: She is on levothyroxine 150mcg daily . 10/01/2024: TSH 0.02, free T4 1.24, TG less than 0.1, TG antibody less than 1 Given KETTY initial high-risk of recurrence, her TSH goal is less than 0.1 for the 1st year post surgery. Plan: -continue levothyroxine 150 mcg daily -ordered TSH and free T4 to be done in 3 months, we will reach out with the results Plan see above Orders: Orders Thyroid Stimulating Hormone 3 Months C73 - Malignant neoplasm of thyroid gland, E89.0 - Postprocedural hypothyroidism Free T4 (Free Thyroxine) 3 Months C73 - Malignant neoplasm of thyroid gland, E89.0 - Postprocedural hypothyroidism US soft tiss head and/or neck 6 Months C73 - Malignant neoplasm of thyroid gland, E89.0 - Postprocedural hypothyroidism Medications: Refilled levothyroxine 150 mcg PO DAILY 30 tabs 7RF Patient Instructions: Continue levothyroxine 150 mcg daily Do blood work in 3 months, we will reach out with results Do another set of blood work in 6 months a week prior to your follow up in 6 months Do ultrasound of the neck in 6 months, a few weeks before your next follow up , someone will call you to schedule this Coding Level of Care Code Est Pt Level 4 (31249) Complex EM visit Add On G2211 Diagnoses Thyroid cancer C73 Postoperative hypothyroidism E89.0 Hypothyroidism type: postoperative Time Spent (min) 30
[2024-10-13 12:34] VITALS: BP 90/58; PULSE 88; O2SAT 98; BMI 30.5
--- OUTSIDE RECORDS SUMMARY | 2024-10-13 14:24 | XMS_ITS | Encounter Summary ---
Author Organization [facility] Address [address] [place] [address] [address] [place] [address] Care Team Providers Care Sprinkler Truck Driver Name Role Phone Shonda Greer MD Primary Care Provider Encounter Details Date Type Department Care Team (Late Contact Info) Description 01/13/2024 Orders Only [facility] MED & PEDS [address] [place], [place] [phone] ProviderLuz MD Social History Tobacco Use Types [...] Care Team (Late st Contact Info) Description 01/06/2025 11:30 AM EDT Office Visit [facility] MED & PEDS [address] [place], [place] [phone] Shonda Greer MD [address] [place] [address] documented as of this encounter Procedures Procedure [...] documented as of this encounter Care Teams Sprinkler Truck Driver Relationship Specialty Start Date End Date Shonda Greer MD [address] [place] [address] PCP - General Internal Medicine 01/10/24 Radha Garza Management Nurse Rn 02/07/24 05/11/24 documented as of this encounter
--- OUTSIDE RECORDS SUMMARY | 2024-10-13 14:24 | XMS_ITS | Encounter Summary ---
Author Organization [employer] Address [address] [facility] 7 [place] [address] Care Team Providers Care Director Of Parks And Recreation Name Role Phone Shonda Greer MD Primary Care Provider [phone] Shonda Greer MD Primary Care Provider [phone] Reason for Visit * Reason Onset Date Comments Referral 10/28/2023 Encounter Details Date Type Department Care Team ([facility] st Contact Info) Description 10/28/2023 Telephone [facility] MEDICINE [address] [place] [address] Shonda Greer MD [address] [place], [place] [phone] Referral Social History Tobacco Use Types Packs/Day [...] 11/14/2023 3:14 PM EDT Placed call to [facility] End[facility] regarding message below. They stated they are referring pt to [facility] [place] to Dr Mendoza at [facility] but with pt insurance they needed a insurance referral. [facility] endo stated they faxed over needed paperwork. Informed them we did send today the completed for. [facility] Endo office looked and found fax for [...] the surgery, this was advised by the Neurodiagnostic Technician office but mom is very confused on [...] in regards below message, please contact at [phone] * Telephone Encounter - Dolly Warren - 10/29/2023 12:28 PM EDT VM left for patient regarding request for endo at [facility]. Patient was referred to Dr. Too wood [facility] not accepting patient insurance. * Telephone Encounter - Jonel Gaspar - 10/28/2023 1:58 PM EDT TC from pt requesting new referral: Address: [address] [facility] [address] [facility] Type of Specialist: Neurodiagnostic Technician Pt is requesting to change location of original endocrinology referral, stated she gave a form witha sticky note with al necessary information of referral to [place] so they can hand it to the pcp in which [place] stated they will. Pt has not gotten any update since and states it's been 2 weeks since then. If any questions you can contact pt at [phone]. documented in this encounter Plan of Treatment Upcoming Encounters Date Type Department Care Team (Late st Contact Info) Description 01/06/2025 11:30 AM EDT Office Visit [facility] MED & PEDS [address] [place] [address] Shonda Greer MD [address] [place] [address] documented as of this encounter Visit Diagnoses Not on filedocumented in this encounter Additional Health Concerns Assessment Noted Time PHQ-9 Depression Total Score: 20 023 2:07 PM EDT documented as of this encounter Care Teams Director Of Parks And Recreation Relationship Specialty Start Date End Date Shonda Greer MD [address] [place] [address] PCP - General Family Medicine 07/16/13 01/09/24 Shonda Greer MD [address] [place] [address] PCP - General Internal Medicine 01/10/24 Radha Garza Grommet Machine Operator 02/07/24 05/11/24 documented as of this encounter
--- OUTSIDE RECORDS SUMMARY | 2024-10-13 14:24 | XMS_ITS | Encounter Summary ---
Author Organization [employer] Address [address] [place] [address] [address] [place] [address] Care Team Providers Care Machinist Outside Name Role Phone Shonda Greer MD Primary Care Provider [phone] Shonda Greer MD Primary Care Provider [phone] Reason for Referral * Imaging (Urgent) - Closed Specialty Diagnoses / Procedures Referred By Contac t Referred To Contact Interventional Radiology Diagnoses Left thyroid nodule Procedures IR Fine Needle Aspiration Thyroid Shonda Greer MD [address] [place] [address] Phone: tel: fax: [address] Phone: tel: fax: Referral ID Status Reason Start Date Expiration Date Visits Re quested Visits Authorized [id number] Closed 09/16/2023 09/15/2024 1 1 Encounter Details Date Type Department Care Team (Late st Contact Info) Description 09/16/2023 Orders Only [facility] MED & PEDS [address] [place] [address] Shonda Greer MD [address] [place] [address] Left thyroid nodule (Primary Dx) Social History [...] Upcoming Encounters Date Type Department Care Team ([facility] st Contact Info) Description 01/06/2025 11:30 AM EDT Office Visit [facility] MED & PEDS [address] [place] [address] Shonda Greer MD [address] [place] [address] Scheduled Orders Name Type Priority Associated Diagnoses Orde r Schedule IR Fine Needle Aspiration Thyroid Imaging Urgent Left thyroid nodule Expected: 09/16/2023, Expires: 09/15/2024 documented as of this encounter Visit Diagnoses Diagnosis Left thyroid nodule- Primary documented in this encounter Additional Health Concerns Assessment Noted Time PHQ-9 Depression Total Score: 20 023 2:07 PM EDT documented as of this encounter Care Teams Machinist Outside Relationship Specialty Start Date End Date Shonda Greer MD [address] [place] [address] PCP - General Family Medicine 07/16/13 01/09/24 Shonda Greer MD [address] [place] [address] PCP - General Internal Medicine 01/10/24 Radha Garza Paramedic Instructor 02/07/24 05/11/24 documented as of this encounter
--- OUTSIDE RECORDS SUMMARY | 2024-10-13 14:24 | XMS_ITS | Encounter Summary ---
Author Organization [facility] Address [address] [place] [address] 7 [place] [address] Care Team Providers Care Residential Leasing Manager Name Role Phone Shonda Greer MD Primary Care Provider [phone] Encounter Details Date Type Department Care Team ([facility] st Contact Info) Description 10/08/2024 1:15 PM EDT Office Visit [facility] [address] [place], [place] [id number] Shonda Greer MD [address] [place] [address] Thyroid carcinoma (CMS/HCC) (Primary Dx); Adjustment disorder with mixed anxiety and depressed mood; H/O papilledema Social History Tobacco Use Types Packs/Day Years [...] Sign Reading Time Taken Comments Blood Pressure 103/60 10/08/2024 1:25 PM EDT Pulse 80 10/08/2024 1:25 PM EDT Temperature 36.6 ??C (97.9 ??F) 10/08/2024 1:25 PM ED T Respiratory Rate 16 10/08/2024 1:25 PM EDT Oxygen Saturation - - Inhaled Oxygen Concentration - - Weight 76.7 kg (169 lb) 10/08/2024 1:25 PM EDT Height 160 cm (5' 3 ) 10/08/2024 1:25 PM EDT Body Mass Index 29.94 10/08/2024 1:25 PM EDT documented in this encounter Progress Notes * Shonda Greer MD - 10/08/2024 1:15 PM EDT Subjective Patient ID: Arnulfo Sherrell Murillo is a 23 y.o. female who presents for f/u. Arnulfo is a 23 y/o female patient of mine here for f/u. Since last visit has lost 9 more lbs but doseof levothyroxine has been decreased to 150 mcg daily by . Appetite has improved.Saw GI at [facility], getting a workup. Saw ophthalmology recently, had papilledema and saw neuro ophthalmology at [facility] had LP done. Seeing them for f/u on october 15 for workup of pseudotumor cerebri. Seeing endocrine on 10/13. Plans to return to college in the fall. 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 Seeing psychiatry and therapy as well. Needs a new therapist as hers has been on maternity leave. Taking Wellbutrin and sertraline for her depression and anxiety which seems to have been helpful. Takes trazodone for insomnia as well. Compliant with medications. Lives with parents and siblings. Review of Systems Constitutional: Negative for activity change, chills, fever and unexpected weight change. Respiratory: Negative for cough, shortness of breath and wheezing. Cardiovascular: Negative for chest pain, palpitations and leg swelling. Gastrointestinal: Negative for abdominal pain and blood in stool. Endocrine: Negative for polydipsia and polyuria. Genitourinary: Negative for decreased urine volume, difficulty urinating, dysuria and hematuria. Musculoskeletal: Negative for arthralgias and gait problem. Skin: Negative for color change and rash. Neurological: Negative for dizziness and headaches. Hematological: Negative for adenopathy. Psychiatric/Behavioral: Positive for decreased concentration and sleep disturbance. Negative for dysphoric mood, hallucinations and suicidal ideas. The patient is not nervous/anxious. Objective BP 103/60 (BP Location: Left arm, Patient Position: Sitting, BP Cuff Size: Adult) Pulse80 Temp 97.9 ??F (36.6 ??C) (Oral) Resp 16 Ht 5' 3 (1.6 m) Wt 169 lb (76.7 kg) BMI 29.94 kg/m?? Physical Exam Vitals reviewed. Constitutional: General: [...] time. Psychiatric: Mood and Affect: Mood normal. Mood is not anxious. Affect is tearful. Affect is not flat. Behavior: Behavior normal. Behavior is cooperative. Thought Content: Thought content normal. Judgment: Judgment normal. Assessment/Plan Diagnoses and all orders for this visit: Thyroid carcinoma (CMS/HCC) Comments: Follow-up with bricklayer apprentice on October 13 as scheduled. Recent thyroglobulin antibody and TSH at goal. Levothyroxine as per Endo. Adjustment disorder with mixed anxiety and depressed mood Comments: Follow-up with your psychiatrist and call therapist office to get any therapist assigned as yours is on maternity leave. Continue meds as per psych.F/U in 2mos H/O papilledema Comments: Do not miss my first appointment with neurology at [facility] for follow-up workup of papilledema. Had LP done already. Fax number for [facility] lab given. Other orders - clindamycin (Cleocin T) 1 % lotion; Apply topically 2 times daily. documented in this encounter Plan of Treatment Upcoming Encounters Date Type Department Care Team ([facility] st Contact Info) Description 01/06/2025 11:30 AM EDT Office Visit [facility] [address] [place] [address] Shonda Greer MD [address] [place] [address] documented as of this encounter Visit Diagnoses Diagnosis Thyroid carcinoma (CMS/HCC)- Primary Malignant neoplasm of thyroid gland Adjustment disorder with mixed anxiety and depressed mood H/O papilledema documented in this encounter Additional Health Concerns Assessment Noted Time PHQ-9 Depression Total Score: 20 024 1:04 PM EDT documented as of this encounter Care Teams Residential Leasing Manager Relationship Specialty Start Date End Date Shonda Greer MD [address] [place] [id number] PCP - General Internal Medicine 01/10/24 documented as of this encounter
--- OUTSIDE RECORDS SUMMARY | 2024-10-13 14:24 | XMS_ITS | Encounter Summary ---
Author Organization [employer] Address [address] [facility] [address] [place] [address] Care Team Providers Care Cook Camp Name Role Phone Shonda Greer MD Primary Care Provider [phone] Shonda Greer MD Primary Care Provider [phone] Reason for Visit * Reason Comments Med Change Request Encounter Details Date Type Department Care Team ([facility] st Contact Info) Description 10/23/2023 Refill [facility] [address] [place] [address] Breann Art, DDS [address] [place] [address] Social History Tobacco Use Types Packs/Day Years [...] Description 01/06/2025 11:30 AM EDT Office Visit [facility]ED[facility] [address] [place] [address] Shonda Greer MD [address] [place] [address] documented as of this encounter Visit Diagnoses Not on filedocumented in this encounter Additional Health Concerns Assessment Noted Time PHQ-9 Depression Total Score: 20 023 2:07 PM EDT documented as of this encounter Care Teams Cook Camp Relationship Specialty Start Date End Date Shonda Greer MD [address] [place] [address] PCP - General Family Medicine 07/16/13 01/09/24 Shonda Greer MD [address] [place] [address] PCP - General Internal Medicine 01/10/24 Radha Garza Carbon Paper Coating Machine Setter 02/07/24 05/11/24 documented as of this encounter
--- OUTSIDE RECORDS SUMMARY | 2024-10-13 14:24 | XMS_ITS | Clinical Summary ---
Author Organization [facility] it Address [address] [place] [address] Care Team Providers Care Training Development Director Name Role Phone Unavailable Primary Care Provider [...]
--- OUTSIDE RECORDS SUMMARY | 2024-10-13 14:24 | XMS_ITS | Encounter Summary ---
Author Organization [employer] Address [address] [facility] [address] [place] [address] Care Team Providers Care Popcorn Attendant Name Role Phone Shonda Greer MD Primary Care Provider [phone] Encounter Details Date Type Department Care Team (Latest Contact Info) Description 10/08/2024 Travel Social History Tobacco Use Types Packs/Day [...] Description 01/06/2025 11:30 AM EDT Office Visit [facility] PED[facility] [address] [place] [address] Shonda Greer MD [address] [place] [address] documented as of this encounter Visit Diagnoses Not on filedocumented in this encounter Additional Health Concerns Assessment Noted Time PHQ-9 Depression Total Score: 20 024 1:04 PM EDT documented as of this encounter Care Teams Popcorn Attendant Relationship Specialty Start Date End Date Shonda Greer MD [address] [place] [address] PCP - General Internal Medicine 01/10/24 documented as of this encounter
--- OUTSIDE RECORDS SUMMARY | 2024-10-13 14:24 | XMS_ITS | Encounter Summary ---
Author Organization [employer] Address [address] [facility] 7 [place] [address] Care Team Providers Care Concrete Pouring Supervisor Name Role Phone Shonda Greer MD Primary Care Provider [phone] Shonda Greer MD Primary Care Provider [phone] Reason for Visit * Reason Onset Date Comments Appointment Request 12/20/2023 Encounter Details Date Type Department Care Team ([facility] st Contact Info) Description 12/20/2023 Telephone [facility] [address] [place] [address] Shonda Greer MD [address] [place] [address] Appointment Request Social History Tobacco Use Types [...] Description 01/06/2025 11:30 AM EDT Office Visit [facility] [address] [facility] [place] [address] Shonda Greer MD [address] [place] [address] documented as of this encounter Visit Diagnoses Not on filedocumented in this encounter Additional Health Concerns Assessment Noted Time PHQ-9 Depression Total Score: 20 023 2:07 PM EDT documented as of this encounter Care Teams Concrete Pouring Supervisor Relationship Specialty Start Date End Date Shonda Greer MD [address] [place] [address] PCP - General Family Medicine 07/16/13 01/09/24 Shonda Greer MD [address] [place] [address] PCP - General Internal Medicine 01/10/24 Radha Garza Reclamation Kettle Tender 02/07/24 05/11/24 documented as of this encounter
--- OUTSIDE RECORDS SUMMARY | 2024-10-13 14:24 | XMS_ITS | Encounter Summary ---
Author Organization [employer] Address [address] [facility] 7 [place] [address] Care Team Providers Care General Merchandise Manager Name Role Phone Shonda Greer MD Primary Care Provider [phone] Shonda Greer MD Primary Care Provider [phone] Reason for Visit * Reason Onset Date Comments Call Back Request 11/25/2023 Encounter Details Date Type Department Care Team ([facility] st Contact Info) Description 11/25/2023 Telephone [facility] MED[facility]INE [address] [place] [address] Shonda Greer MD [address] [place] [address] Call Back Request Social History Tobacco Use [...] FYI, XR confirmed fifth metatarsal fx. call or contact centre manager provider spoke with pt and informed and verified Ortho referral was placed during last visit. * Telephone Encounter - Jonel Gaspar - 11/25/2023 4:16 PM EDT Tc from [place] with [facility] requesting call back to discuss positive xray results. Kenzie also informed she faxed results over. Please contact Kenzie at [phone]. documented in this encounter Plan of Treatment Upcoming Encounters Date Type Department Care Team ([facility] st Contact Info) Description 01/06/2025 11:30 AM EDT Office Visit [facility] MED & PEDS [address] [place] [address] Shonda Greer MD [address] [place] [address] documented as of this encounter Visit Diagnoses Not on filedocumented in this encounter Additional Health Concerns Assessment Noted Time PHQ-9 Depression Total Score: 20 023 2:07 PM EDT documented as of this encounter Care Teams General Merchandise Manager Relationship Specialty Start Date End Date Shonda Greer MD [address] [place] [address] PCP - General Family Medicine 07/16/13 01/09/24 Shonda Greer MD [address] [place] [address] PCP - General Internal Medicine 01/10/24 Radha Garza Biosolids Management Technician 02/07/24 05/11/24 documented as of this encounter
--- OUTSIDE RECORDS SUMMARY | 2024-10-13 14:24 | XMS_ITS | Clinical Summary ---
Author Organization [employer] Address [address] [facility] [address] [place] [address] Care Team Providers Care Broom Bundler Name Role Phone Shonda Greer MD Primary Care Provider [phone] Allergies No known active allergies Medications * This document contains information received from the source organization and may not represent a complete record from that organization. buPROPion XL (Wellbutrin XL) 300 MG 24 hr tablet Take 1 tablet by mouth Once per day. 07/15/19 25 Active traZODone (Desyrel) 50 MG tablet Take 50 mg by mouth if needed at bedtime. 07/27/19 25 Active chlorhexidine (Peridex) 0.12 % solution Swish 15 mL morning and night for 1 minute. Spit, do not swallow. Do not eat or drink for 30 minutes following use. 473 mL 08/26/19 25 Active sertraline (Zoloft) 50 MG tablet Take 50 mg by mouth Once per day. Active levothyroxine (Synthroid, Levoxyl) 150 MCG tablet TAKE 1 TAB DAILY ON EMPTY STOMACH 1ST THING IN THE AM ATLEAST 30MIN-1H BEFORE EATING OR OTHER MEDS 08/21/19 25 Active traZODone (Desyrel) 100 MG tablet Take 100 mg by mouth if needed at bedtime. 09/12/19 25 Active clindamycin (Cleocin T) 1 % lotion Apply topically 2 times daily. 60 mL 3 10/09/19 25 Active clindamycin (Cleocin T) 1 % lotion 1 applic by topical route daily 10/08/19 19 025 Discontinued(Re order (will not trigger notification to Pharmacy)) levothyroxine (Synthroid, Levoxyl) 175 MCG tablet Take 1 tablet by mouth Once per day. 07/25/19 25 025 Discontinued(Si de effects) pantoprazole (ProtoNix) 40 MG EC tablet Take 1 tablet (40 mg) by mouth before breakfast. Do not crush, chew, or split. 30 tablet 3 08/12/19 25 025 Discontinued(Th erapy completed) Active Problems Problem Noted Date Diagnosed [...] triggered underneath symptoms. Arnulfo reached out to [facility] in [place]. She was told that agency has internal wait list and her status was pending. clinician recommended pt to contact [facility] in [facility] for same-day appointment. Arnulfo said she [...] Health Integration Plan Internal Follow up with [facility] External OP therapy referral Patient Self Plan [...] [facility] [place] [facility]. Encounters * This document contains information received from the source organization and may not represent a complete record from that organization. Date Type Department Care Team Description 10/08/2024 1:15 PM EDT Office Visit [facility] [address] [place] [address] Shonda Greer MD Thyroid carcinoma (CMS/HCC) (Primary Dx); Adjustment disorder with mixed anxiety and depressed mood; H/O papilledema 10/08/2024 Travel 10/01/2024 Orders Only GENERIC EXTERNAL DATA DEPARTMENT Provider, Generic External Data 09/28/2024 Orders Only [facility] External Provider, [facility] 08/28/2024 Population Health Risk Score [facility] ([facility]) Department [address] [place] [phone] Provider, Population Health Generic 08/25/2024 3:30 PM EDT Office Visit [facility] [address] [place] [address] Luz Elena Kyrierachelle 08/25/2024 Travel 08/14/2024 Telephone [facility] [address] [place] [address] Shonda Greer MD 08/13/2024 Orders Only [facility] [address] [place] [address] Shonda Greer MD 08/13/2024 Telephone [facility] [address] [place] [address] Shonda Greer MD 08/12/2024 11:00 AM EST Office Visit [facility] [address] [place] [address] Shonda Greer MD Thyroid carcinoma (CMS/HCC) (Primary Dx); Epigastric abdominal pain; Weight loss; Anxiety 08/12/2024 Travel 07/29/2024 Patient Outreach [facility] [address] [place] [address] Shonda Greer MD Pre-visit Planning (SDOH screening negative and Tobacco screening negative) from Last 3 Months Immunizations Name Administration [...] 16 10/08/2024 1:25 PM EDT Oxygen Saturation 97% 08/12/2024 12:48 PM EST Inhaled Oxygen Concentration - - Weight 76.7 kg (169 lb) 10/08/2024 1:25 PM EDT Height 160 cm (5' 3 ) 10/08/2024 1:25 PM EDT Body Mass Index 29.94 10/08/2024 1:25 PM EDT Plan of Treatment Upcoming Encounters Date Type Department Care Team (Late st Contact Info) Description 01/06/2025 11:30 AM EDT Office Visit [facility] [address] [place] [address] Shonda Greer MD [address] [place] [address] Health Maintenance Due Date Last Done Comments [...] 07/23/2014, 01/29/2008, 03/08/2004, Additional history exists Depression Screening 03/18/2025 03/18/2024, 03/18/20 SDOH Screening 07/29/2025 07/29/2024 Tobacco Screening 10/08/2025 10/08/2024 Dental X-Ray: Full Mouth 08/27/2027 025, 10/29/2023, [...] Procedure Name Priority Date/Time Associated Diagnosis Comments THYROGLOBULIN, TUMOR MARKER W/REFLEX Routine 10/01/2024 2:53 PM EDT THYROGLOBULIN ANTIBODIES Routine 10/01/2024 2:53 PM EDT THYROGLOBULIN, LC/MS/MS Routine 10/01/2024 2:53 PM EDT TSH Routine 10/01/2024 2:53 PM EDT T4, [...] SOFT TISSUE Routine 07/16/2024 3:53 PM EST [facility] HISTORICAL HEPATITIS PANEL, ACUTE W/REFLEX TO CONFIRMATION Routine 12/30/2020 1:31 PM EDT HIV 1/2 ANTIGEN/ANTIBODY, FOURTH GENERATION W/RFL Routine 12/30/2020 1:31 PM EDT [facility] HISTORICAL SURESWAB(R), VAGINOSIS/VAGINITIS PLUS Routine 12/23/2020 11:06 AM EDT from Last 3 Months or Most Recently Relevant to Health Maintenance Results * (ABNORMAL) Thyroglobulin, LC/MS/MS (10/01/2024 2:53 PM EDT) Thyroglobulin, LC/MS/MS <0.1(A) ng/mL [facility] Comment:Reference Range: Int act Thyroid 2.8-40.9 Athyrotic <0.1 Note: Abnormal flagging is based on the reference interval for patients with intact thyroid.This test was performed using the [employer] Holdingschemiluminescent method. Values obtained fromdifferent assay methods cannot be usedinterchangeably. Thyroglobulin levels, regardlessof value, should not be interpreted as absoluteevidence of the presence or absence of disease. Thyroglobulin Comment See Below [facility] Comment:Thyroglobulin antibo dies (TGAB) interfere withthyroglobulin (TG) assays; therefore, TGAB assayshould always be performed in conjunction with aTG assay.For additional information, please refer tohttp://education.[employer]/faq/KEG815(This link is being provided for informational/educational purposes only.)THIS TEST WAS PERFORMED AT:[facility] [place] [phone] SMITH MD 10/01/2024 2:53 PM EDT 10/01/2024 2:53 PM EDT us Generic External Data Provider LAB BLOOD ORDERAB LES Final Result [facility] [address] [place] [phone] * Thyroblobulin, Tumor Marker w/Reflex (10/01/2024 2:53 PM EDT) Pathologist [facility] Thyroglobulin Antibody <1 <=1 IU/mL [facility] Comment:This Thyroglobulin a ntibody test was performedusing the [employer] [place] Chemiluminescent method.Values obtained from different assay methods cannot beused interchangeably. Thyroglobulin antibody levels,regardless of value, should not be interpreted asabsolute evidence of the presence or absence ofdisease. Thyroglobulin, LC/MS/MS TNP [facility] Thyroglobulin Level <0.1 ng/mL [facility] Comment:Reference Range: Ath yrotic: <0.1 ng/mLReference range applies to differentiated thyroidcancer patients following treatment. The presence ofmeasurable thyroglobulin indicates the presence ofthyroglobulin-producing thyroid tissue. Clinicalcorrelation is advised.This Thyroglobulin test was performed using the[employer]freights[employer] Holdings Chemiluminescent method. Valuesobtained from different assay methods cannot beused interchangeably. Thyroglobulin levels, regardlessof value, should not be interpreted as absoluteevidence of the presence or absence of disease.THIS TEST WAS PERFORMED AT:[id number] [place] [address]JTPVMNVROSSY BRENNAN MD,PHD 10/01/2024 2:53 PM EDT 10/01/2024 2:53 PM EDT Generic External Data Provider LAB BLOOD ORDERAB LES Final Result [facility] [address] [place] [phone] * Thyroglobulin Antibodies (10/01/2024 2:53 PM EDT) Only the most recent of2 resultswithin the time period is included. Thyroglobulin Antibodies <1 < or = 1 IU/mL [facility] Comment:THIS TEST WAS PERFOR MED AT:[facility] [address] [phone] SMITH MD 10/01/2024 2:53 PM EDT 10/01/2024 2:53 PM EDT us Generic External Data Provider LAB BLOOD ORDERAB LES Final Result Performing Organization Address [facility] Co de Phone Number [facility] [address] [place] [phone] * (ABNORMAL) TSH (10/01/2024 2:53 PM EDT) Thyroid Stimulating Hormone 0.02(L) 0.32 - 4.0 uIU/mL [facility] Comment:TSH 3rd Generation ( [facility]) 10/01/2024 2:53 PM EDT 10/01/2024 2:53 PM EDT Generic External Data Provider LAB BLOOD ORDERAB LES Final Result Performing Organization Address [facility] de Phone Number [facility] [address] [place] [phone] * T4, Free (10/01/2024 2:53 PM EDT) Only the most recent of2 resultswithin the time period is included. Free T4 (Free Thyroxine) 1.24 0.71 - 1.85 ng/dL [facility] 10/01/2024 2:53 PM EDT 10/01/2024 2:53 PM EDT Generic External Data Provider LAB BLOOD ORDERAB LES Final Result Performing Organization Address [facility] de Phone Number [facility] [address] [place] [phone] * US Head Neck Soft Tissue (09/30/2024 9:12 AM EDT) Only the most recent of2 resultswithin the time period is included. Anatomical Region Laterality Modality Head, Neck Ultrasound 09/30/2024 9:12 AM EDT Narrative 09/30/2024 9:13 AM EDT ? [facility] ?[address] ? [place] [address] ? Ultrasound Report ? Signed ? Patient: Guarizi Novais,Arnulfo K ?MR#: M ?? [id number] ? : 2000 ?Acct:[id number] ? Age/Sex: 23 / F ?ADM Date: 09/28/24 ? Loc: HO.HMGCX ? Attending Dr: Marva Jurado MD ? Ordering Physician: Marva Jurado MD ?? Date of Service: 09/28/24 ?? Procedure(s): US soft tiss head and/or neck ?? Accession Number(s): [id number] ? cc: Shonda Greer MD; Marva Jurado [...] Bilateral nonenlarged morphologically normal lymph nodes. ? [employer] TI-RADS Categories ?? TR1 [...] MD in OV> ?09/30/24 0912 ? DD/ 0912 ? TD/TT: 09/30/24 0912 ? Accounting Clerk: ? Procedure Note Deloris, Mikaela - 09/30/2024 [facility] [facility] [place] [address] Ultrasound Report Signed Patient: Delfina MurilloArnulfo KMR#: M [id number] : 2000Acct:[id number] Age/Sex: 23 / FADM Date: 09/28/24 Loc: HO.HMGCX Attending Dr: Marva Jurado MD Ordering Physician: Marva Jurado MD Date of Service: 09/28/24 Procedure(s): US soft tiss head and/or neck Accession Number(s): [id number] cc: Shonda Greer MD; Marva Jurado MD CLINICAL HISTORY: C73 - Malignant neoplasm of thyroid gland US head and neck, non thyroid Comparison: None Findings: Status post thyroidectomy. There are multiple bilateral nonenlarged and morphologically normal lymph nodes. Impression: 1. Status post thyroidectomy without residual thyroid parenchyma in the thyroid bed. Bilateral nonenlarged morphologically normal lymph nodes. [employer] TI-RADS Categories TR1 and [...] in OV> 09/30/24911 DD/ 1 TD/TT: 09/30/24911 Accounting Clerk: us [facility] External Provider IMG US PROCEDURES Final Result * Vitamin D, 25-Hydroxy, Total, Immunoassay (08/13/2024 11:41 AM EST) Vitamin D 25-OH Total 35.1 >30 ng/mL [facility] Comment:Health Based Referen ce Values*< 20 ng/mL Zgadqdety32-45 ng/mL Insufficient> 30 ng/mL Sufficient*Neena RUSSELL. N [...] ORDERABLES Final Re sult Performing Organization Address [facility] Co de Phone Number [facility] [address] [place] [phone] * Vitamin B12/Folate, Serum Panel (08/13/2024 11:41 AM EST) Vitamin B12 721 200 - 900 pg/mL [facility] Comment:NORMAL 200-900 PG/ML INDETERMINATE 160-199 PG/ML DEFICIENT < 160 PG/ML Folate 9.9 > or = 4.0 ng/mL [facility] Comment:Reference Values:> o r = [...] ORDERABLES Final Re sult Performing Organization Address [facility] Co de Phone Number [facility] [address] [place] [phone] * (ABNORMAL) TSH W/Reflex to FT4 (08/13/2024 11:41 AM EST) Pathologist [facility] TSH reflex Free T4 <0.01(L) 0.32 - 4.0 uIU/mL [facility] Blood Venous blood specimen / Unknown 08/13/2024 11:41 AM EST 08/13/2024 11:41 AM EST us Shonda Greer MD LAB BLOOD ORDERABLES Final Re sult [facility] [address] [place] [phone] * (ABNORMAL) CBC auto differential (08/13/2024 11:41 AM EST) [facility] White Blood Count 4.3(L) 4.8 - 10.8 X10*3/uL [facility] Red Blood Count 5.08 4.20 - 5.50 X10*6/uL [facility] Hemoglobin 13.6 12.0 - 16.0 g/dl [facility] Hematocrit 42.3 37.0 - 47.0 % [facility] Mean Corpuscular Volume 83.3 80.0 - 98.0 fL [facility] Mean Corpuscular Hemoglobin 26.8(L) 27.0 - 33.0 pg [facility] Mean Corpuscular HGB Conc 32.2 31.0 - 35.0 g/dl [facility] Red Cell Distribution Width 12.6 11.0 - 16.0 % [facility] Platelet Count 249 160 - 400 X10*3/uL [facility] Mean Platelet Volume 10.6 9.4 - 12.3 fL [facility] Neutrophils Percent Auto 60.6 45 - 73 % [facility] Imm Gran Pct Auto 0.2 0.0 - 0.4 % [facility] Lymphocytes Percent Auto 29.6 20 - 40 % [facility] Monocytes Percent Auto 8.2 2 - 11 % [facility] Eosinophils Percent Auto 1.2 0 - 4 % [facility] Basophils Percent Auto 0.2 0 - 2 % [facility] NRBC Pct Auto 0.0 0.0 - 0.2 /100WBC [facility] Neutrophils Absolute Auto 2.6 2.0 - 8.3 x10*3/uL [facility] Imm Gran Abs Auto 0.01 0.00 - 0.03 X10*3/uL [facility] Lymphocytes Absolute Auto 1.3 1.2 - 4.9 X10*3/uL [facility] Monocytes Absolute Auto 0.4 0.1 - 1.2 X10*3/uL [facility] Eosinophils Absolute Auto 0.1 0.0 - 0.4 X10*3/uL [facility] Basophils Absolute Auto 0.0 0.0 - 0.2 X10*3/uL [facility] NRBC Abs Auto 0.000 0.0 - 0.012 X10*3/uL [facility] Blood Venous blood specimen / Unknown 08/13/2024 11:41 AM EST 08/13/2024 11:41 AM EST us Shonda Greer MD LAB BLOOD ORDERABLES Final Re sult [facility] [address] [place] [phone] * Vitamin B1 (08/13/2024 11:41 AM EST) Vitamin B1 8 8 - 30 nmol/L [facility] Comment:Vitamin supplementat ion within 24 hours prior toblood draw may affect the accuracy of the results.This test was developed and its analytical performancecharacteristics have been determined by [employer] [place], [place]. It hasnot been cleared or approved by the U.S. Food and DrugAdministration. This assay has been validated pursuantto the CLIA regulations and is used for clinicalpurposes.THIS TEST WAS PERFORMED AT:[facility] [place] [address]KLQELBTROSSY BRENNAN MD,PHD Blood Venous blood specimen / Unknown 08/13/2024 11:41 AM EST 08/13/2024 11:41 AM EST Shonda Greer MD LAB BLOOD ORDERABLES Final Re sult Performing Organization Address [facility] de Phone Number [facility] [address] [place] [phone] * Vitamin B6 (08/13/2024 11:41 AM EST) Pathologist [facility] Vitamin B6 10.0 2.1 - 21.7 ng/mL [facility] Comment:Vitamin supplementat ion within 24 hours prior toblood draw may affect the accuracy of the results.This test was developed and its analytical performancecharacteristics have been determined by [employer] [place], [place]. It hasnot been cleared or approved by the U.S. Food and DrugAdministration. This assay has been validated pursuantto the CLIA regulations and is used for clinicalpurposes.THIS TEST WAS PERFORMED AT:[facility] [place] [address]YXEZFCSROSSY BRENNAN MD,PHD Blood Venous blood specimen / Unknown 08/13/2024 11:41 AM EST 08/13/2024 11:41 AM EST Shonda Greer MD LAB BLOOD ORDERABLES Final Re sult Performing Organization Address [facility] Co de Phone Number [facility] [address] [place] [phone] * HEPATITIS PANEL, ACUTE W/REFLEX TO CONFIRMATION (12/30/2020 1:31 PM EDT) Pathologist [facility] HEPATITIS A IGM NON-REACT WILBUR NON-REACT WILBUR [facility] Comment: ?? For additional information, please refer to ?? http://education.[employer]/faq/LKO531 ?? (This link is being provided for informational/ educational purposes only.) ?? HEPATITIS B CORE ANTIBODY (IGM) NON-REACT WILBUR NON-REACT W[facility] HEPATITIS B SURFACE ANTIGEN NON-REACT WILBUR NON-REACT WILBUR [facility] HEPATITIS C ANTIBODY NON-REACT WILBUR NON-REACT WILBUR [facility] INDEX 0.01 <1.00 [facility] Comment: ?? HCV antibody was non-reactive. There is no laboratory ?? evidence of HCV infection. ?? In most cases, no further action is required. However, if recent HCV exposure is suspected, a test for HCV RNA (test code 26155) is suggested. ?? For additional information please refer to http://[employer]/faq/MCA13i7 (This link is being provided for informational/ educational purposes only.) ?? 12/30/2020 1:31 PM EDT us Keiko Garza MD HISTORICAL/NON ORDERABLE LABS Final Result [facility] [address] * HIV 1/2 ANTIGEN/ANTIBODY,FOURTH GENERATION W/RFL (12/30/2020 1:31 PM EDT) HIV-1/2 ANTIGEN AND ANTIBODIES, 4TH GENERATION W/ REFLEX NON-REACT WILBUR NON-REACT WILBUR [facility] Comment: HIV-1 antigen and HIV-1/HIV-2 [...] ? For additional information please refer to http://[employer]/faq/LTC358 (This link is being provided for informational/ educational purposes only.) ? The performance of this assay has not been clinically validated in patients less than 2 years old. ?? 12/30/2020 1:31 PM EDT us Keiko Garza MD LAB BLOOD ORDERABLES Final Re sult [facility] [address] [place] [address], * SURESWAB(R), VAGINOSIS/VAGINITIS PLUS (12/23/2020 11:06 AM EDT) ATOPOBIUM VAGINAE Not Detected Log cells/mL [facility] BV CATEGORY: NOT SUPPORTIVE NOT SUPPORTIV [facility] Comment: NOT SUPPORTIVE OF [...] analytical performance characteristics have been determined by [employer] [place], [place]. It has not been cleared or [...] analytical performance characteristics have been determined by [employer] [place], [place]. It has not been cleared or [...] Not Detected [facility] Comment: Methodology: [employer] Mediated Amplification(TMA) ?to detect RNA. ? The analytical performance characteristics of this assay, when used to test [employer] specimens have been determined by [employer]. The modifications have not been cleared or approved by the FDA. This assay has been validated pursuant to the CLIA regulations and is used for clinical purposes. ? For additional information, please refer to https://[employer]/faq/RVB764 (This link is being provided for ??information/educational purposes only). ?? TRICHOMONAS VAGINALIS RNA, QL TMA Not Detected Not Detected [facility] Comment: Methodology: [employer] Mediated Amplification(TMA) ? For additional information, please refer to http://[employer]/faq/ Trichomonastma (This link is being provided for information/educational purposes only). ?? 12/23/2020 11:0 6 AM EDT us Keiko Garza MD HISTORICAL/NON ORDERABLE LABS Final Result [facility] [address] from Last 3 Months or Most Recently Relevant to Health Maintenance Insurance [facility] C3 * Guarantor: Arnulfo Nagy Account Type Relation to Patient Date of Phone Billing Address Personal/[place] [address] Care Teams Broom Bundler Relationship Specialty Start Date End Date Shonda Greer MD [address] [facility] [place] [address] PCP - General Internal Medicine 01/10/24
== END 2024-10-13 12:57 | disposition home or self-care (01) ==
LOC: HO.ENCR 12:31
PROVIDERS: PCP Pediatrics; Visit Provider Student in an Organized Health Care Education/Training Program
DX: C73 Malignant neoplasm of thyroid gland (principal); E89.0 Postprocedural hypothyroidism
CPT/HCPCS: 99214

== ENCOUNTER → 2024-10-13 12:31 | Outpatient (BNVA) | payer MEDICAID, SELFPAY | PROVIDERS: PCP Pediatrics; Visit Provider Student in an Organized Health Care Education/Training Program | DX: C73 Malignant neoplasm of thyroid gland (principal); E89.0 Postprocedural hypothyroidism | CPT/HCPCS: 99212 ==

== ENCOUNTER 2024-12-22 13:59 | Outpatient (AMB) | payer MEDICAID, SELFPAY ==
--- NOTE | 2024-12-22 14:01 | MHC.OFFVIS ---
Vital Signs 12/22/24 14:03 Height 5 ft 3 in Weight 159 lb 9.835 oz BMI 28.3 BP 100/56 L Blood Pressure Location Lt brachial Position Sitting Pulse 82 Pulse Source Pulse Oximeter Pulse Oximetry (%) 98 Oxygen Delivery Method Room Air Intake Visit Reasons: ?'s about Levo. dose with recent weight loss(42lb) Intake Note: Patient present today to discuss Levothyroxine dose with recent weight loss of 42 lb. 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 Accompanied by: Mother Allergies No Known Allergies Allergy (Verified 12/22/24 14:07) HPI Comments Details: 23 YO F with PMHx of anxiety and depression who is status post left lobectomy and prelaryngeal lymph node excision 12/17/23 with diagnosis of papillary thyroid cancer with follicular features , AJCC stage 1 ([id number]), with pathology showing high-grade features with high Ki67 index of 20 % and angioinvasion, concerning for KETTY high-risk for recurrence PTC,Underwent completion thyroidectomy 03/31/24, with benign right thyroid lobe pathology , status post radioactive iodine treatment on 06/03/2024 with 101 mCi I 131 who is here for follow up HPI Initially diagnosed with thyroid nodule in August of 2023 a thyroid ultrasound revealing Estimated total number of nodules greater than or equal to 1 cm: 1. Religious Ritual Slaughterer nodules are described as follows: 1. Location: Left mid. Size: 3.2 x 2.3 x 2.7 cm, volume 10.4 mL. Nodule characteristics: Composition: Solid (2). Echogenicity: Hypoechoic (2). Shape: Not taller than wide (0). Margins: Smooth (0). Echogenic Foci: None (0). ACR TI-RADS total points: 4. ACR TI-RADS category: 4. NODES: 1.0 x 0.2 x 0.7 cm right cervical node with echogenic hilum. 1.6 x 0.3 x 0.6 cm left cervical node with echogenic hilum and mild prominence of the cortex. FNA of the nodule 09/25/2023 which showed AUS. Affirma was suspicious Subsequently underwent left thyroid lobectomy in prelaryngeal lymph node excision on 12/17/[address] Javid Mendoza Pathology : Showed a unifocal left lobe 3 cm high-grade differentiated thyroid carcinoma with a 20% Ki-67 index, angioinvasion with greater than 4 vessels, no lymphatic invasion or perineural invasion. No extrathyroidal extension. 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 AJCC stage I (pT2 N0 a) Underwent completion thyroidectomy 03/31/24, with benign right thyroid lobe pathology on levothyroxine 150 mcg daily started postoperatively , 04/22/2024: Labs showed TSH of 0.24, free T4 of 1.52, TG 0.3, TG antibody less than 1 04/28/24: levotyorxine increased to 175 mcg daily 06/03/2024: Underwent radioactive iodine treatment with 101 mCi of I 131. 06/03/2024: Labs showed TSH of 61.24, free T4 1.46, TG 0.2, TG antibody less than 1 06/12/2024: Whole-body scan shows expected uptake in the thyroid bed with no metastatic uptake. visit in June she was complaining about a submandibular lump, tenderness , resolved with ibuprofena and dexamethasone. 07/16/2024: Ultrasound of the head and neck, I reviewed the images myself showed normal evaluating bilateral lymph nodes, some of these were prominent, we decided to keep an eye on these. 08/13/24: TSH < 0.01, free t4 1.65 08/22/24: Levothyroxine reduced to 150 mcg daily 09/30/2024: Repeat ultrasound of the head and neck again shows bilateral normal-appearing lymph nodes, none of these lymph nodes look concerning.' Interval history 10/01/2024: TSH 0.02, free T4 1.24, TG less than 0.1, TG antibody less than 1 Continues on levothyroxine 150 mcg daily. She has lost around 40 lb of weight with weight management plan with diet, topiramate which was started for idiopathic intracranial hypertension, this is being managed with neurologist at [facility]. Overall she feels her energy is better, says she only has palpitations and some tremors after strenuous activity. She does not look very hyperthyroid. 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 Maternal aunts both had thyroid surgery with benign results Maternal uncle had thyroid cancer Paternal aunts x2 have throid disease 2 maternal grandmothers (grandmothers isters) have breats Ca 3 paternal aunts have breast Cancer Physical exam General: sitting comfortably in no acute distress HEENT: normocephalic/atraumatic, moist oral mucosa Neck: supple, well-healed surgical scar, no palpable lymph nodes or masses. Cardiac: normal heart sounds Pulm: normal breath sounds B/L, no added breath sounds Abd: not distended, no tenderness Extremities: no edema, no signs of myxedema, mild tremor noted Labs Laboratory Tests 11/06/23 03/23/24 04/22/24 10:27 14:11 13:06 TSH 2.70 1.10 0.24 L Free T4 0.99 1.21 1.52 Thyroglobulin 68.9 H 0.3 H Thyroglobulin Antibody <1 <1 Laboratory Tests 04/22/24 05/19/24 06/02/24 13:06 13:52 09:39 TSH 0.24 L 0.01 L Free T4 1.52 1.83 Thyroglobulin 0.3 H <0.1 Beta HCG, Quant < 2 < 2 Thyroglobulin Antibody <1 06/03/24 06/05/24 09:50 10:03 TSH 61.24 H 8.61 H Free T4 1.46 1.74 Thyroglobulin 0.2 H 0.6 H Beta HCG, Quant Thyroglobulin Antibody <1 <1 Laboratory Tests 08/13/24 10/01/24 11:41 14:53 TSH < 0.01 L 0.02 L Free T4 1.65 1.24 Thyroglobulin <0.1 Thyroglobulin Antibody <1 <1 US head and neck, non thyroid 09/30/24 Comparison: None Findings: Status post thyroidectomy. There are multiple bilateral nonenlarged and morphologically normal lymph nodes. Impression: 1. Status post thyroidectomy without residual thyroid parenchyma in the thyroid bed. Bilateral nonenlarged morphologically normal lymph nodes. [employer] TI-RADS Categories TR1 and TR2 nodules do not have follow-up recommendations TR3 (FNA >= 2.5cm, F/U >= 1.5cm at 1, 3, and 5 yrs) TR4 (FNA >= 1.5cm, F/U >= 1cm at 1, 2, 3, and 5 yrs) TR5 (FNA >= 1cm, F/U >= 0.5cm annually for up to 5 yrs) This document has been electronically signed by: Sraah Wu MD on 09/30/2024 09:12:27 EXAMINATION: US HEAD NECK SOFT TISSUE 07/16/24 HISTORY: E89.0 - Postprocedural hypothyroidism COMPARISON: Correlation is made with a thyroid ultrasound dated 09/11/2023. FINDINGS: Sonographic examination of the thyroid bed was performed. The patient is status post thyroidectomy. No residual thyroid tissue is noted. Multiple lymph nodes are seen in the neck bilaterally. On the right, there is a single abnormal appearing level II node measuring 2.0 x 0.6 x 1.9 cm which demonstrates a slitlike hilum and cortical thickening. On the left, there are multiple level II and III lymph nodes which demonstrate absent cb, measuring up to 2.5 x 0.5 x 2.2 cm. US/US soft tiss head and/or neck IMPRESSION: No residual thyroid tissue is identified. There are multiple abnormal appearing lymph nodes in the neck bilaterally as described. These are amenable to ultrasound-guided fine-needle aspiration if desired. Electronically signed by: Ebenezer Venegas MD 07/17/2024 09:40 AM [facility] Medical History (Updated 04/28/24 @ 14:51 by Marva Jurado MD) Hypothyroidism Thyroid cancer Thyroid nodule Surgical History History of lobectomy of thyroid Hx of total thyroidectomy H/O bilateral breast reduction surgery Family History Paternal Aunt Breast cancer Mother No problems noted. Father No problems noted. Social History Alcohol intake: current Alcohol intake frequency: holidays/special occasions only Female Reproductive History Menstrual Age of Menarche: 13 Assessment & Plan Assessment & Plan (1) Thyroid cancer: Code(s): C73 - Malignant neoplasm of thyroid gland Category: Medical Plan: 23 YO F who was recently diagnosed with left sided thyroid nodule on thyroid ultrasound in August 2023, but subsequent FNA in 10/05/2023 showing AUS with suspicious Afirma, status post left lobectomy and prelaryngeal lymph node excision 12/17/23 with diagnosis of papillary thyroid cancer with follicular features , AJCC stage 1 ([id number]), with pathology showing high-grade features with high Ki67 index of 20 % and angioinvasion (>4 vessels), concerning for KETTY high-risk for recurrence with recurrence risk of around 15-30%. s/p completion thyroidectomy 03/31/[address] Mendoza with benign right lobe pathology. status post radioactive iodine treatment on 06/03/2024 with 101 mCi I 131 who is here for follow up Three weeks postoperative labs from 04/22/24 show TSH of 0.24, TG 0.3, TG antibody undetectable. usually takes about 4-6 weeks for thyroglobulin reach its alexis level will have her repeat labs in 2 weeks. Given low levels of TG postoperatively, this is a favorable factor in her prognosis. Status post 101 mCi of I 131 on 06/03/2024 with a whole-body scan on showing in no metastatic disease, only expected uptake in the thyroid bed. Her stimulated TG levels TG 0.2, TG antibody less than 1 from 06/03/2024 also reassuring. Most recent ultrasound from September 2024, showed normal-appearing lymph nodes, no signs of recurrence. 10/01/2024: TSH 0.02, free T4 1.24, TG less than 0.1, TG antibody less than 1 Given KETTY initial high-risk of recurrence, her TSH goal is less than 0.1 for the 1st year post surgery. Which is right about now. At this point we will repeat labs. And determine what her TSH goal should be. Plan: - continue levothyroxine 150 mcg daily, = -repeat labs ordered for TSH and free T4 TG and TG antibody levels -next ultrasound of the neck ordered to be done sometime around March 2025 prior to her follow up -follow up in March 2025 (2) Hypothyroidism: Code(s): E03.9 - Hypothyroidism, unspecified Category: Medical Qualifiers: Hypothyroidism type: postoperative Qualified Code(s): E89.0 - Postprocedural hypothyroidism Plan: She is on levothyroxine 150mcg daily . 10/01/2024: TSH 0.02, free T4 1.24, TG less than 0.1, TG antibody less than 1 Which is right about now. At this point we will repeat labs. And determine what her TSH goal should be. Plan: - continue levothyroxine 150 mcg daily, = -repeat labs ordered for TSH and free T4 TG and TG antibody levels Plan see above Orders: Orders Thyroglobulin Antibodies Today C73 - Malignant neoplasm of thyroid gland, E89.0 - Postprocedural hypothyroidism Thyroid Stimulating Hormone Today C73 - Malignant neoplasm of thyroid gland, E89.0 - Postprocedural hypothyroidism Free T4 (Free Thyroxine) Today C73 - Malignant neoplasm of thyroid gland, E89.0 - Postprocedural hypothyroidism Thyroglobulin Today C73 - Malignant neoplasm of thyroid gland, E89.0 - Postprocedural hypothyroidism Thyroglobulin Tumor Marker Today C73 - Malignant neoplasm of thyroid gland, E89.0 - Postprocedural hypothyroidism Coding Level of Care Code Est Pt Level 3 (28116) Complex EM visit Add On G2211 Diagnoses Thyroid cancer C73 Postoperative hypothyroidism E89.0 Hypothyroidism type: postoperative
[2024-12-22 14:03] VITALS: BP 100/56; PULSE 82; O2SAT 98; BMI 28.3
--- OUTSIDE RECORDS SUMMARY | 2024-12-22 14:50 | XMS_ITS | Encounter Summary ---
Author Organization [employer] Address [address] [facility] [address] [place] [address] Care Team Providers Care Valance Cutter Name Role Phone Shonda Greer MD Primary Care Provider [phone] Shonda Greer MD Primary Care Provider [phone] Reason for Visit * Reason Onset Date Comments Appointment Request 12/20/2023 Encounter Details Date Type Department Care Team ([facility] st Contact Info) Description 12/20/2023 Telephone [facility] MEDICINE [address] [place] [address] Shonda Greer MD [address] [place], [place] [phone] Appointment Request Social History Tobacco Use Types [...] Care Team (Late st Contact Info) Description 12/23/2024 11:30 AM EDT Office Visit [facility] [address] [place] [address] Shonda Greer MD [address] [place] [address] 01/06/2025 11:30 AM EDT Office Visit [facility] [address] [place] [address] Shonda Greer MD [address] [place] [address] documented as of this encounter Visit Diagnoses Not on filedocumented in this encounter Additional Health Concerns Assessment Noted Time PHQ-9 Depression Total Score: 20 023 2:07 PM EDT documented as of this encounter Care Teams Valance Cutter Relationship Specialty Start Date End Date Shonda Greer MD [address] [facility] [place] [address] PCP - General Family Medicine 07/16/13 01/09/24 Shonda Greer MD [address] [place] [address] PCP - General Internal Medicine 01/10/24 Radha Garza Health Consultant 02/07/24 05/11/24 documented as of this encounter
--- OUTSIDE RECORDS SUMMARY | 2024-12-22 14:50 | XMS_ITS | Clinical Summary ---
Author Organization [facility] it Address [address] [place] [address] Care Team Providers Care Assistant [employer] Name Role Phone Unavailable Primary Care Provider [...] Cervical Cancer Screening: P ap Smear 12/04/2023 Depression Screening 01/08/2024 HIV Screening 01/08/2024 Hepatitis [...] 5 Years) and At-Risk Patients (6 to 49 Years) Aged Out No longer eligible b ased on patient's age to complete this topic RSV Immunization Patients Un sidney 20 months Aged Out No longer eligible b ased on patient's age to complete this topic Varicella Vaccines Aged Out No longer eligible based on patient's age to complete this topic
== END 2024-12-22 14:21 | disposition home or self-care (01) ==
LOC: HO.ENCR 14:00
PROVIDERS: PCP Pediatrics; Visit Provider Student in an Organized Health Care Education/Training Program
DX: C73 Malignant neoplasm of thyroid gland (principal); E89.0 Postprocedural hypothyroidism
CPT/HCPCS: 99213

== ENCOUNTER 2024-12-22 13:59 | Outpatient (REF) | payer MEDICAID, SELFPAY ==
[2024-12-22 16:08] LABS: Free T4 (Free Thyroxine) 1.28 ng/dL (0.71-1.85); Thyroid Stimulating Hormone 0.05 uIU/mL (0.32-4.0)
[2024-12-23 19:08] LABS: Thyroglobulin <0.1 ng/mL; Thyroglobulin Antibodies <1 IU/mL (< or = 1)
== END 2024-12-22 14:00 | disposition home or self-care (01) ==
LOC: HO.LAB 13:59
PROVIDERS: PCP Pediatrics; Visit Provider Student in an Organized Health Care Education/Training Program
DX: C73 Malignant neoplasm of thyroid gland (principal); E89.0 Postprocedural hypothyroidism; Z79.899 Other long term (current) drug therapy
CPT/HCPCS: 36415; 84432; 84439; 84443; 86800; 99212

== ENCOUNTER 2025-02-08 18:01 | Emergency (ER) | payer MEDICAID, SELFPAY ==
[2025-02-08 18:08] VITALS: BP 138/63; PULSE 70; RESP 18; TEMP 37.1; O2SAT 98; BMI 28.0
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
[2025-02-08 19:21] LABS: Alanine Aminotransferase 12 U/L (0-31); Aspartate Amino Transferase 17 U/L (5-31); Creatinine Clr Calc Pharmacy 104.6; Estimated Glomerular Filt Rate > 60
[2025-02-08 20:15] LABS: Hematocrit 35.9 % (37.0-47.0); Hemoglobin 12.1 g/dl (12.0-16.0); Imm Gran Abs Auto 0.02 X10*3/uL (0.00-0.03); Imm Gran Pct Auto 0.3 % (0.0-0.4); Lymphocytes Absolute Auto 2.1 X10*3/uL (1.2-4.9); MANUAL DIFF FLAG SCAN; Mean Corpuscular HGB Conc 33.7 g/dl (31.0-35.0); Mean Corpuscular Hemoglobin 28.3 pg (27.0-33.0); Mean Corpuscular Volume 83.9 fL (80.0-98.0); NRBC Abs Auto 0.000 X10*3/uL (0.0-0.012); NRBC Pct Auto 0.0 /100WBC (0.0-0.2); PLT CLUMP 1; Red Blood Count 4.28 X10*6/uL (4.20-5.50); SCAN SMEAR FLAG 1
[2025-02-08 20:16] LABS: Cannabinoid Screen Urine Not Detected (Not Detect)
[2025-02-08 20:17] LABS: White Blood Count 7.0 X10*3/uL (4.8-10.8)
[2025-02-08] MEDS: cefTRIAXone sodium 500 MG, Lidocaine HCl 1 % MPF 1 ML IM (20:17)
[2025-02-08 20:23] LABS: Alanine Aminotransferase 13 U/L (0-31); Albumin Level 3.9 g/dL (3.5-5.0); Alkaline Phosphatase 67 U/L (39-117); Anion Gap 14 (12-20); Aspartate Amino Transferase 19 U/L (5-31); Blood Urea Nitrogen 12 mg/dL (9-16); Calcium 8.3 mg/dL (8.4-10.2); Carbon Dioxide 22 mmol/L (22-29); Chloride 109 mmol/L (96-108); Creatinine Clr Calc Pharmacy 113.1; Estimated Glomerular Filt Rate > 60; Potassium 3.5 mmol/L (3.3-5.1); Sodium 141 mmol/L (135-145); Total Protein 6.4 g/dL (6.5-8.0)
[2025-02-08 20:48] LABS: Platelet Count 186 X10*3/uL (160-400)
--- NOTE | 2025-02-08 20:51 | PC.NURSE ---
Pt declined CT/NG vaginal swab. Requesting to be discharge at this time.
[2025-02-08 20:55] VITALS: BP 118/66; PULSE 61; RESP 16; TEMP 36.8; O2SAT 98
[2025-02-09 04:09] LABS: Syphilis Screen Nonreactive (Nonreactive)
[2025-02-09 04:13] LABS: Bacterial Vaginosis PCR NEGATIVE (Negative); Candida Group PCR NOT DETECTED (Not Detect); Candida glab krusei PCR NOT DETECTED (Not Detect); Trichomonas vaginalis PCR NOT DETECTED (Not Detect)
[2025-02-09 04:28] LABS: HBS Num1 23.29 mIU/mL (0-7.99); HBsAGNum1 0.37 S/CO (0.00-0.99); HIV Num 1 0.05 S/CO (0.00-0.99); Hepatitis B Surface Antigen Negative (Negative); ~HepC Num1 0.08 S/CO (0.00-0.79); ~Hepatitis B Surface Antibody REACTIVE (Nonreactive); ~Hepatitis C Antibody Nonreactive (Nonreactive)
[2025-02-09 04:43] LABS: CT PCR NOT DETECTED (Not Detect.); NG PCR NOT DETECTED (Not Detect.)
== END 2025-02-08 20:57 | disposition home or self-care (01) ==
PROVIDERS: Physician Assistant Medical; Emergency Provider Emergency Medicine; PCP Pediatrics
DX: T76.21XA Adult sexual abuse, suspected, initial encounter (principal); Z51.81 Encounter for therapeutic drug level monitoring; Z20.2 Contact with and (suspected) exposure to infections with a predominantly sexual mode of transmission; Z79.899 Other long term (current) drug therapy
CPT/HCPCS: 36415; 80053; 80307; 81515; 82565; 84450; 84460; 84702; 85025; 86706; 86780; 86803; 87340; 87389; 87491; 87591; 96372; 99284; 99285; J0696; J2003

== ENCOUNTER 2025-02-12 12:40 | Outpatient (REF) | payer MEDICAID, SELFPAY ==
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
--- OUTSIDE RECORDS SUMMARY | 2025-02-12 13:02 | XMS_ITS | Clinical Summary ---
Author Organization [facility] Address [address] [facility] [address] [place] [phone] Phone Care Team Providers Care Cephalometric Tracer Name Role Phone Shonda Greer MD Primary Care Provider [phone] Allergies No known active allergies Medications traZODone (DESYREL) 100 MG tablet Take 100 mg by mouth nightly at bedtime as needed. 08/12/2024 Active pantoprazole (PROTONIX) 40 MG tablet Take 40 mg by mouth. 08/12/2024 Active levothyroxine (SYNTHROID, LEVOTHROID) 150 MCG tablet TAKE 1 TAB DAILY ON EMPTY STOMACH 1ST THING IN THE AM ATLEAST 30MIN-1H BEFORE EATING OR OTHER MEDS 08/20/2024 Active cloNIDine HCL (CATAPRES) 0.2 MG tablet Take 0.2 mg by mouth nightly at bedtime as needed. 07/13/2024 Active buPROPion (WELLBUTRIN XL) 150 MG ER 24 hr tablet Take 1 tablet by mouth every morning. 08/12/2024 Active sertraline (ZOLOFT) 50 MG tablet Take 50 mg by mouth daily. Active topiramate (TOPAMAX) 25 MG tablet Take 1 tablet (25 mg total) by mouth 2 (two) times a day. 180 tablet 3 12/24/2024 Active Encounters Date Type Department Care Team Description 12/24/2024 11:00 AM EDT Office Visit [facility] [address] [facility] 9th [place] [address] Arslan Redman MD Papilledema (Primary Dx) from Last 3 Months Social History Tobacco Use Types Packs/Day Years Used Date Smoking Tobacco: Never Passive Smoke Exposure: Never Smokeless Tobacco: Never Tobacco Cessation:Counseling Given: Not Answered Alcohol Use Standard Drinks/Week Comments Not Currently 0 (1 standard drink = 0.6 oz pur e alcohol) Education Answer Date Recorded Are you interested in more education? Not on rima e 08/28/2024 Are you concerned about learning? Not on file 08/28/2024 No 08/28/2024 No 08/28/2024 Digital Access Answer Date Recorded No 08/28/2024 No 08/28/2024 Reliable internet access at home? Not on file 08/28/2024 Device with a working camera? Not on file Intimate Partner Violence Answer Date R ecorded Are you denied basic needs s uch as food, clothing, or medical care? No 08/28/2024 In the past 12 months have y ou been in a relationship with a person who hurts, threatens, or tries to control you? No 08/28/2024 Are you denied basic needs s uch as food, clothing, or medical care? No 08/28/2024 In the past 12 months have y ou been in a relationship with a person who hurts, threatens, or tries to control you? No 08/28/2024 Comments No Sex and Gender Information Value Date Recorded Sex Assigned at Female 08/28/2024 7:39 PM EDT Legal Sex Female 3:08 PM EDT Gender Identity Female 08/28/2024 7:39 PM EDT Sexual Orientation Straight 08/28/2024 7: 39 PM EDT Last Filed Vital Signs Vital Sign Reading Time Taken Comments Blood Pressure 122/71 09/17/2024 9:13 AM EDT Pulse 87 09/17/2024 9:13 AM EDT Temperature 36.8 C (98.2 F) 09/17/2024 9:13 AM EDT Respiratory Rate 18 08/28/2024 7:23 PM EDT Oxygen Saturation 97% 09/17/2024 9:13 AM EDT Inhaled Oxygen Concentration - - Weight 79.5 kg (175 lb 3.2 oz) 09/17/2024 9:13 A M EDT Height 160 cm (5' 3 ) 08/28/2024 7:23 PM EDT Body Mass Index 31.04 08/28/2024 7:23 PM EDT Plan of Treatment Upcoming Encounters Date Type Department Care Team (Late st Contact Info) Description 05/04/2025 9:00 AM EST Office Visit [facility] [address] [facility], [address] [place] [address] Jacky Bush MD [address] [place] [address] [email or web address] 12/23/2025 1:30 PM EDT Office Visit [facility] [address] [place] [address] Arslan Redman MD [address] [facility] [place] [address] [email or web address] Health Maintenance Due Date Last Done Comments TSH LEVEL 2002 DEPRESSION SCREENING 2014 HPV VACCINES (1 - 3-dose series) 2017 CHLAMYDIA SCREENING 2018 MENINGOCOCCAL VACCINES (B) ( 1 of 2 - Standard) 2018 HEPATITIS C SCREENING 2020 HIV ONE-TIME SCREENING (18-6 5 YEARS) 2020 PAP SMEAR 12/04/2023 COVID-19 VACCINE ( - 2023-2 5 season) 2024 Adult Td,Tdap Booster 07/23/2024 07/23/2014 INFLUENZA VACCINE (#1) 2025 SMOKING Hx and SMOKELESS TOB ACCO SCREENING 09/17/2025 09/17/2024 HEPATITIS A VACCINES Aged Out No long er eligible based on patient's age to complete this topic HIB VACCINES Aged Out No longer eligi ble based on patient's age to complete this topic MENINGOCOCCAL VACCINES (ACWY) Aged Out No longer eligible based on patient's age to complete this topic PNEUMOCOCCAL VACCINES (0-49 years) Aged Out No longer eligible based on patient's age to complete this topic Medical Devices Not on file Procedures Procedure Name Priority Date/Time Associated Diagnosis Comments VENTURA VISUAL FIELD - OU - BOTH EYES Routine 12/24/2024 9:04 PM EDT Papilledema VENTURA VISUAL FIELD - OU - BOTH EYES Routine 11/17/2024 7:07 AM EDT Papilledema from Last 3 Months Results * Ventura Visual Field - OU - Both Eyes (12/24/2024 9:04 PM EDT) Narrative ANTONINA - 12/24/2024 9:04 PM EDT Right Eye Pattern: 24-2. Left Eye Pattern: 24-2. Notes See the medical note for interpretation of the test result and integration of that information into the Formulation of this case. us Arslan Redman MD OPHTHALMOLOGY IMAGING Edited R esult - Final Performing Organization Address [facility]/ZIP Co de Phone Number ANTONINA * Ventura Visual Field - OU - Both Eyes (11/17/2024 7:07 AM EDT) us Arslan Redman MD OPHTHALMOLOGY IMAGING Final Re sult ANTONINA from Last 3 Months Insurance [facility] [employer] Care Teams Cephalometric Tracer Relationship Specialty Start Date End Date Shonda Greer MD [address] [place], [place] [address] [address] PCP - General Internal Medicine 08/25/24 Additional Source Comments The information contained in this document represents components of the legal health record. It is not the complete legal health record.[facility]
--- OUTSIDE RECORDS SUMMARY | 2025-02-12 13:02 | XMS_ITS | Encounter Summary ---
Author Organization [employer] Address [address] [facility] 7 [place] [address] Care Team Providers Care Health Technician Hearing Name Role Phone Shonda Greer MD Primary Care Provider [phone] Reason for Visit * Reason Onset Date Comments Chart Prep 02/11/2025 Encounter Details Date Type Department Care Team ([facility] Contact Info) Description 02/11/2025 Telephone [facility] MED & PEDS [address] [place] [address] Shonda Greer MD [address] [place] [address] Chart Prep Social History Tobacco Use Types Packs/Day Years [...] encounter Miscellaneous Notes * Telephone Encounter - Liberty Gaspar MA - 02/11/2025 2:24 PM EDT Chart Prep Labs: done Images: done Referrals: complete Vaccines due: Tdap Screenings: pap smear, STI screening, and LMP Overdue care gaps: SBIRT, PHQ-9, and Tobacco documented in this encounter Plan of Treatment Not on file documented as of this encounter Visit Diagnoses Not on filedocumented in this encounter Additional Health Concerns Assessment Noted Time PHQ-9 Depression Total Score: 20 024 1:04 PM EDT documented as of this encounter Care Teams Health Technician Hearing Relationship Specialty Start Date End Date Shonda Greer MD [address] [place] [address] PCP - General Internal Medicine 01/10/24 documented as of this encounter
--- OUTSIDE RECORDS SUMMARY | 2025-02-12 13:02 | XMS_ITS | Encounter Summary ---
Author Organization [employer] Address [address] [facility] [address] [place] [address] Care Team Providers Care Qualitative Field Project Manager Name Role Phone Shonda Greer MD Primary Care Provider [phone] Encounter Details Date Type Department Care Team (Latest Contact Info) Description 02/12/2025 Travel Social History Tobacco Use Types Packs/Day [...] documented as of this encounter Care Teams Qualitative Field Project Manager Relationship Specialty Start Date End Date Shonda Greer MD [address] [place] [address] PCP - General Internal Medicine 01/10/24 documented as of this encounter
--- OUTSIDE RECORDS SUMMARY | 2025-02-12 13:02 | XMS_ITS | Clinical Summary ---
Author Organization [facility] it Address [address] [place] [address] Care Team Providers Care Evp Global Product Leadership Name Role Phone Unavailable Primary Care Provider [...] Cervical Cancer Screening: P ap Smear 12/04/2023 HIV Screening 01/08/2024 Hepatitis C Screening 01/08/2024 Social Influencers of Health Screening 01/08/2024 COVID-19 Vaccine (1 - 2023-2 5 season) 2024 Depression Screening 06/17/2024 Influenza Vaccine (#1) 2025 HIB Vaccines Aged Out No longer [...]
--- OUTSIDE RECORDS SUMMARY | 2025-02-12 13:02 | XMS_ITS | Encounter Summary ---
Author Organization [facility] Address [address] [place] [address] Phone Care Team Providers Care Natural Gas Trader Name Role Phone Shonda Greer MD Primary Care Provider [phone] Encounter Details Date Type Department Care Team ([facility] st Contact Info) Description 08/28/2024 Procedure Pass NATHALY Imaging - MRI, [facility] [address] [place] [address] Social History Tobacco Use Types Packs/Day Years Used Date Smoking Tobacco: Never Passive Smoke Exposure: Never Smokeless Tobacco: Never Alcohol Use Standard Drinks/Week Comments Not Currently [...] tries to control you? No 08/28/2024 Comments Unknown Sex and Gender Information Value Date Recorded Sex Assigned at Female 08/28/2024 7:39 PM EDT Legal Sex Female 3:08 PM EDT Gender Identity Female 08/28/2024 7:39 PM EDT Sexual Orientation Straight 08/28/2024 7: 39 PM EDT documented as of this encounter Functional Status * Calculated C-SSRS Risk Score (Lifetime/Recent) Answer Date of Assessment Author No Risk Indicated 08/28/2024 7:19 PM EDT Nakita Gay RN * [place] Suicide Severity Rating Scale (Screener/Recent Self-Report) Question Answer Date of Assessment Author 1. Wish to be (Past 1 Month) No 08/28/2024 7:19 PM EDT Agus Billings RN 2. Non-Specific Active Suicidal Thoughts (Past 1 Month) No 08/28/2024 7:19 PM EDT Agus Billings RN 6. Suicidal Behavior (Lifetime) No 08/28/2024 7:19 PM EDT Agus Billings RN documented as of this encounter Plan of Treatment Upcoming Encounters Date Type Department Care Team (Late st Contact Info) Description 05/04/2025 9:00 AM EST Office Visit [facility] General Neurology [address] [place] [address], [address] [place] [address] Jacky Bush MD [address] [place] [address] [email or web address] 12/23/2025 1:30 PM EDT Office Visit [facility] Neuro Oph [facility] [address] [facility] 9th [place] [address] Arslan Redman MD [address] [place] [address] [place] [address] [email or web address] documented as of this encounter Visit Diagnoses Not on filedocumented in this encounter Care Teams Natural Gas Trader Relationship Specialty Start Date End Date Begolli, Shonda, MD [address] [place] [address] PCP - General Internal Medicine 08/25/24 documented as of this encounter Additional Source Comments The information contained in this document represents components of the legal health record. It is not the complete legal health record.[facility]
--- OUTSIDE RECORDS SUMMARY | 2025-02-12 13:02 | XMS_ITS | Encounter Summary ---
Author Organization [employer] Address [address] 7[address] [place] [address] Care Team Providers Care Jacquard Loom Card Changer Name Role Phone Shonda Greer MD Primary Care Provider [phone] Encounter Details Date Type Department Care Team (Late st Contact Info) Description 01/13/2024 Orders Only [facility] CHC MED & PEDS [address] [place], [place] [phone] Provider, Historical, Social History Tobacco Use Types [...] documented as of this encounter Care Teams Jacquard Loom Card Changer Relationship Specialty Start Date End Date Shonda Greer MD [address] [place] [address] PCP - General Internal Medicine 01/10/24 Radha Garza Still Operator Whiskey 02/07/24 05/11/24 documented as of this encounter
--- OUTSIDE RECORDS SUMMARY | 2025-02-12 13:02 | XMS_ITS | Encounter Summary ---
Author Organization [employer] Address [address] [facility] 7 [place] [address] Care Team Providers Care Technology Coordinator Name Role Phone Shonda Greer MD Primary Care Provider Shonda Greer MD Primary Care Provider [phone] Reason for Visit * Reason Onset Date Comments Appointment Request 12/20/2023 Encounter Details Date Type Department Care Team ([facility] st Contact Info) Description 12/20/2023 Telephone [facility] MEDICINE [address] [place] [address] Shonda Greer MD [address] [place], [place] [phone] Appointment Request Social History Tobacco Use Types [...] documented as of this encounter Care Teams Technology Coordinator Relationship Specialty Start Date End Date Shonda Greer MD [address] [place] [address] PCP - General Family Medicine 07/16/13 01/09/24 Shonda Greer MD [address] [place] [address] PCP - General Internal Medicine 01/10/24 Radha Garza Marine Fire Fighter 02/07/24 05/11/24 documented as of this encounter
--- OUTSIDE RECORDS SUMMARY | 2025-02-12 13:02 | XMS_ITS | Encounter Summary ---
Author Organization [employer] Address [address] [facility] 7 [place] [address] Care Team Providers Care Superintendent Tests Name Role Phone Shonda Greer MD Primary Care Provider [phone] Reason for Visit * Reason Onset Date Comments ER Follow-up 02/10/2025 Encounter Details Date Type Department Care Team ([facility] Contact Info) Description 02/10/2025 Telephone [facility] CHC MED & PEDS [address] [place] [address] Shonda Greer MD [address] [place] [address] ER Follow-up Social History Tobacco Use Types Packs/Day Years [...] Encounter - Ariella Dong RN - 02/10/2025 1:18 PM EDT RN called and spoke with pt already. Pt coming in 02/12 at 11:15 * Telephone Encounter - Jimmy Jackson - 02/10/2025 9:40 AM EDT Patient calling to report ED visit on : Date: 02/08 [place] [facility] [place] Seen for: S/A Symptomatic no *if yes message should go to Triage Patient advised will forward to team nurse for follow up [phone] documented in this encounter Plan of Treatment Not on file documented as of this encounter Visit Diagnoses Not on filedocumented in this encounter Additional Health Concerns Assessment Noted Time PHQ-9 Depression Total Score: 20 024 1:04 PM EDT documented as of this encounter Care Teams Superintendent Tests Relationship Specialty Start Date End Date Shonda Greer MD [address] [place] [address] PCP - General Internal Medicine 01/10/24 documented as of this encounter
--- OUTSIDE RECORDS SUMMARY | 2025-02-12 13:02 | XMS_ITS | Encounter Summary ---
Author Organization [employer] Address [address] [place] [address] 7 [place] [address] Care Team Providers Care Administrative Project Coordinator Name Role Phone Shonda Greer MD Primary Care Provider [phone] Shonda Greer MD Primary Care Provider [phone] Reason for Referral * Imaging (Urgent) - Closed Specialty Diagnoses / Procedures Referred By Contac t Referred To Contact Interventional Radiology Diagnoses Left thyroid nodule Procedures IR Fine Needle Aspiration Thyroid Shonda Greer MD [address] [place] [address] Phone: tel: fax: [address] Phone: tel: fax: Referral ID Status Reason Start Date Expiration Date Visits Re quested Visits Authorized [id number] Closed 09/16/2023 09/15/2024 1 1 Encounter Details Date Type Department Care Team (Late st Contact Info) Description 09/16/2023 Orders Only [facility] CHC MED & PEDS [address] [place] [address] Shonda Greer MD [address] [place] [address] Left thyroid nodule (Primary Dx) Social History [...] documented as of this encounter Care Teams Administrative Project Coordinator Relationship Specialty Start Date End Date Shonda Greer MD [address] [place] [address] PCP - General Family Medicine 07/16/13 01/09/24 Shonda Greer MD [address] [place] [address] PCP - General Internal Medicine 01/10/24 Radha Garza High Wire Artist 02/07/24 05/11/24 documented as of this encounter
--- OUTSIDE RECORDS SUMMARY | 2025-02-12 13:02 | XMS_ITS | Encounter Summary ---
Author Organization [employer] Address [address] [place] [address] Care Team Providers Care Flush Tester Name Role Phone Shonda Greer MD Primary Care Provider [phone] Encounter Details Date Type Department Care Team (Latest Contact Info) Description 02/08/2025 Travel Social History Tobacco Use Types Packs/Day [...] documented as of this encounter Care Teams Flush Tester Relationship Specialty Start Date End Date Shonda Greer MD [address] [place] [address] PCP - General Internal Medicine 01/10/24 documented as of this encounter
--- OUTSIDE RECORDS SUMMARY | 2025-02-12 13:03 | XMS_ITS | Encounter Summary ---
Author Organization [employer] Address [address] [facility] 7 [place] [address] Care Team Providers Care Clearance Cutter Name Role Phone Shonda Greer MD Primary Care Provider [phone] Shonda Greer MD Primary Care Provider [phone] Reason for Visit * Reason Onset Date Comments Referral 10/28/2023 Encounter Details Date Type Department Care Team ([facility] st Contact Info) Description 10/28/2023 Telephone [facility] MEDICINE [address] [place] [address] Shonda Greer MD [address] [place], [place] [phone] Referral Social History Tobacco Use Types Packs/Day [...] 11/14/2023 3:14 PM EDT Placed call to [facility] Endo regarding message below. They stated they are referring pt to [facility] Endo to Dr Mendoza at [facility] [place] but with pt insurance they needed a insurance referral. [facility] endo stated they faxed over needed paperwork. Informed them we did send today the completed for. [facility] Endo office looked and found fax for [...] the surgery, this was advised by the Merchandise Associate office but mom is very confused on [...] in regards below message, please contact at [phone] * Telephone Encounter - Dolly Warren - 10/29/2023 12:28 PM EDT VM left for patient regarding request for endo at [facility]. Patient was referred to Dr. Too wood [facility] not accepting patient insurance. * Telephone Encounter - Jonel Hubert - 10/28/2023 1:58 PM EDT TC from pt requesting new referral: Address: [address] [place] [address] Facility Name: [facility] Type of Specialist: Merchandise Associate Pt is requesting to change location of original endocrinology referral, stated she gave a form witha sticky note with al necessary information of referral to [place] so they can hand it to the pcp in which [place] stated they will. Pt has not gotten any update since and states it's been 2 weeks since then. If any questions you can contact pt at [phone]. documented in this encounter Plan of Treatment Not on file documented as of this encounter Visit Diagnoses Not on filedocumented in this encounter Additional Health Concerns Assessment Noted Time PHQ-9 Depression Total Score: 20 023 2:07 PM EDT documented as of this encounter Care Teams Clearance Cutter Relationship Specialty Start Date End Date Shonda Greer MD [address] [place] [address] PCP - General Family Medicine 07/16/13 01/09/24 Shonda Greer MD [address] [place] [address] PCP - General Internal Medicine 01/10/24 Radha Garza Designer Writer 02/07/24 05/11/24 documented as of this encounter
--- OUTSIDE RECORDS SUMMARY | 2025-02-12 13:03 | XMS_ITS | Encounter Summary ---
Author Organization [employer] Address [address] 7[address] [place] [address] Care Team Providers Care Licensing Director Name Role Phone Shonda Greer MD Primary Care Provider [phone] Shonda Greer MD Primary Care Provider [phone] Reason for Visit * Reason Comments Med Change Request Encounter Details Date Type Department Care Team ([facility] st Contact Info) Description 10/23/2023 Refill [facility] CHC ADULT DENTAL [address] [place] [address] Breann Art DDS Social History Tobacco Use Types Packs/Day Years [...] documented as of this encounter Care Teams Licensing Director Relationship Specialty Start Date End Date Shonda Greer MD [address] [place] [address] PCP - General Family Medicine 07/16/13 01/09/24 Shonda Greer MD [address] [place] [address] PCP - General Internal Medicine 01/10/24 Radha Garza Valve Inserter 02/07/24 05/11/24 documented as of this encounter
--- OUTSIDE RECORDS SUMMARY | 2025-02-12 13:03 | XMS_ITS | Encounter Summary ---
Author Organization [facility] Address [address] [place] [address] Phone Care Team Providers Care Disability Representative Name Role Phone Shonda Greer MD Primary Care Provider [phone] Encounter Details Date Type Department Care Team ([facility] st Contact Info) Description 08/28/2024 Procedure Pass NATHALY Imaging - MRI, [facility] [address] [place] [address] Social History Tobacco Use Types Packs/Day Years [...] 7:19 PM EDT Nakita Gay RN * [place] Suicide Severity Rating Scale (Screener/Recent Self-Report) Question [...] Description 05/04/2025 9:00 AM EST Office Visit [facility] General Neurology [address] [place] [address], [address] [place] [address] Jacky Bush MD [address] [place] [address] [email or web address] 12/23/2025 1:30 PM EDT Office Visit [facility] Neuro Oph [facility] [address] [facility] 9th [place] [address] Arslan Redman MD [address] [place] [address] [place] [address] [email or web address] documented as of this encounter Visit Diagnoses Not on filedocumented in this encounter Care Teams Disability Representative Relationship Specialty Start Date End Date Begolli, Shonda, MD [address] [place] [address] PCP - General Internal Medicine 08/25/24 documented as of this encounter Additional Source Comments The information contained in this document represents components of the legal health record. It is not the complete legal health record.[facility]
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
--- OUTSIDE RECORDS SUMMARY | 2025-02-12 13:03 | XMS_ITS | Encounter Summary ---
Author Organization [facility] Address [address] [place] [phone] Phone Care Team Providers Care Manufacturing Assembler Name Role Phone Shonda Greer MD Primary Care Provider [phone] Encounter Details Date Type Department Care Team ([facility] st Contact Info) Description 08/28/2024 Procedure Pass [facility] - MRI, [facility] [address] [place] [address] Social History Tobacco Use Types Packs/Day Years [...] 7:19 PM EDT Nakita Gay RN * [place] Suicide Severity Rating Scale (Screener/Recent Self-Report) Question [...] Description 05/04/2025 9:00 AM EST Office Visit [facility] General Neurology [address] [place] [address], [address] [place] [address] Jacky Bush MD [address] [place] [phone] [email or web address] 12/23/2025 1:30 PM EDT Office Visit [facility] Neuro Oph [facility] [address] [facility] 9th [place] [address] Arslan Redman MD [address] [place] [address] [place] [address] [email or web address] documented as of this encounter Visit Diagnoses Not on filedocumented in this encounter Care Teams Manufacturing Assembler Relationship Specialty Start Date End Date Begolli, Shonda, MD [address] [place] [phone] PCP - General Internal Medicine 08/25/24 documented as of this encounter Additional Source Comments The information contained in this document represents components of the legal health record. It is not the complete legal health record.[facility]
--- OUTSIDE RECORDS SUMMARY | 2025-02-12 13:03 | XMS_ITS | Encounter Summary ---
Author Organization [facility] Address [address] [place] [phone] Phone Care Team Providers Care Rubber Calender Helper Name Role Phone Shonda Greer MD Primary Care Provider [phone] Encounter Details Date Type Department Care Team ([facility] st Contact Info) Description 08/28/2024 Ophth Exam [facility] [place] Emergency Department [address] [place] [address] Sarah Ward MD [address] [place] [address] [email or web address]. U Social History Tobacco Use Types Packs/Day Years [...] 7:19 PM EDT Nakita Gay RN * [place] Suicide Severity Rating Scale (Screener/Recent Self-Report) Question [...] Description 05/04/2025 9:00 AM EST Office Visit [facility] General Neurology [address] [place] [address], [address] [place] [address] Jacky Bush MD [address] [place] [phone] [email or web address] 12/23/2025 1:30 PM EDT Office Visit [facility] Neuro Oph [facility] [address] [facility] 9th [place] [address] Arslan Redman MD [address] [place] [address] [place] [address] [email or web address] documented as of this encounter Visit Diagnoses Not on filedocumented in this encounter Care Teams Rubber Calender Helper Relationship Specialty Start Date End Date Shonda Greer MD [address] [place] [address] PCP - General Internal Medicine 08/25/24 documented as of this encounter Additional Source Comments The information contained in this document represents components of the legal health record. It is not the complete legal health record.[facility]
[2025-02-12 16:48] LABS: Bacterial Vaginosis PCR NEGATIVE (Negative); Candida Group PCR NOT DETECTED (Not Detect); Candida glab krusei PCR NOT DETECTED (Not Detect); Trichomonas vaginalis PCR NOT DETECTED (Not Detect)
[2025-02-12 17:16] LABS: CT PCR Urine NOT DETECTED (Not Detect.); NG PCR Urine NOT DETECTED (Not Detect.)
[2025-02-13 03:27] LABS: Syphilis Screen Nonreactive (Nonreactive)
[2025-02-13 04:05] LABS: HBS Num1 24.18 mIU/mL (0-7.99); HBc Num1 0.03 S/CO (0.00-0.79); HBsAGNum1 0.58 S/CO (0.00-0.99); HIV Num 1 0.05 S/CO (0.00-0.99); Hepatitis B Surface Antigen Negative (Negative); ~HepC Num1 0.08 S/CO (0.00-0.79); ~Hepatitis B Surface Antibody REACTIVE (Nonreactive); ~Hepatitis C Antibody Nonreactive (Nonreactive)
== END 2025-02-12 12:41 | disposition home or self-care (01) ==
LOC: HO.CHCLDS 12:40
PROVIDERS: Visit Provider Pediatrics
DX: Z01.84 Encounter for antibody response examination (principal); T74.21XA Adult sexual abuse, confirmed, initial encounter; Z11.59 Encounter for screening for other viral diseases; Z11.3 Encounter for screening for infections with a predominantly sexual mode of transmission; Z11.8 Encounter for screening for other infectious and parasitic diseases
CPT/HCPCS: 36415; 81515; 86704; 86706; 86780; 86803; 87340; 87389; 87491; 87591; 87661

== ENCOUNTER 2025-02-26 16:22 | Outpatient (REF) | payer MEDICAID, SELFPAY ==
[2025-02-26 17:49] LABS: Free T4 (Free Thyroxine) 1.22 ng/dL (0.71-1.85); Thyroid Stimulating Hormone 0.71 uIU/mL (0.32-4.0)
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
--- OUTSIDE RECORDS SUMMARY | 2025-02-26 17:55 | XMS_ITS | Encounter Summary ---
Author Organization [employer] Address [address] [place] [address] [address] [place] [address] Care Team Providers Care Faith Doctor Name Role Phone Shonda Greer MD Primary Care Provider [phone] Shonda Greer MD Primary Care Provider [phone] Reason for Referral * Imaging (Urgent) - Closed Specialty Diagnoses / Procedures Referred By Contac t Referred To Contact Interventional Radiology Diagnoses Left thyroid nodule Procedures IR Fine Needle Aspiration Thyroid Shonda Greer MD [address] [place] [address] Phone: tel: fax: [address] Phone: tel: fax: Referral ID Status Reason Start Date Expiration Date Visits Re quested Visits Authorized [id number] Closed 09/16/2023 09/15/2024 1 1 Encounter Details Date Type Department Care Team (Late st Contact Info) Description 09/16/2023 Orders Only [facility] [address] [place] [address] Shonda Greer MD [address] [place] [address] Left thyroid nodule (Primary Dx) Social History [...] documented as of this encounter Care Teams Faith Doctor Relationship Specialty Start Date End Date Shonda Greer MD [address] [place] [address] PCP - General Family Medicine 07/16/13 01/09/24 Shonda Greer MD [address] [place] [address] PCP - General Internal Medicine 01/10/24 Radha Garza [employer] 02/07/24 05/11/24 documented as of this encounter
--- OUTSIDE RECORDS SUMMARY | 2025-02-26 17:55 | XMS_ITS | Clinical Summary ---
Author Organization [facility] [place] [address] Care Team Providers Care Rn Labor And Delivery Name Role Phone Unavailable Primary Care [...] 01/08/2024 Social Influencers of Health Screening 01/08/2024 Depression Screening 06/17/2024 COVID-19 Vaccine ( - 2023-2 5 season) 2025 Influenza Vaccine (#1) 2025 HIB Vaccines Aged [...]
--- OUTSIDE RECORDS SUMMARY | 2025-02-26 17:55 | XMS_ITS | Encounter Summary ---
Author Organization [employer] Address [address] [place] [address] Care Team Providers Care Ware Cleaner Name Role Phone Shonda Greer MD Primary Care Provider [phone] Encounter Details Date Type Department Care Team ([facility] st Contact Info) Description 02/13/2025 Results Follow-Up [facility] [address] [place], [place] [phone] Shonda Greer MD [address] [place] [address] Bacterial Vaginosis Panel, Hepatitis C Antibody with Reflex to HCV, RNA, Quantitative, Real-Time PCR, HIV-1/2 Antigen and Antibodies, Fourth Generation, with Reflexes, Additional followed-up results: 4 Social History Tobacco Use Types Packs/Day Years [...] documented as of this encounter Care Teams Ware Cleaner Relationship Specialty Start Date End Date Shonda Greer MD [address] [place] [phone] PCP - General Internal Medicine 01/10/24 documented as of this encounter
--- OUTSIDE RECORDS SUMMARY | 2025-02-26 17:55 | XMS_ITS | Encounter Summary ---
Author Organization [employer] Address [address] [facility] 7 [place] [address] Care Team Providers Care Cnc Field Service Engineer Name Role Phone Shonda Greer MD Primary Care Provider [phone] Shonda Greer MD Primary Care Provider [phone] Reason for Visit * Reason Onset Date Comments Call Back Request 11/25/2023 Encounter Details Date Type Department Care Team ([facility] st Contact Info) Description 11/25/2023 Telephone [facility] MEDICINE [address] [place] [address] Shonda Greer MD [address] [place] [address] Call Back Request Social History Tobacco Use [...] XR confirmed fifth metatarsal fx. director call provider spoke with pt and informed and verified Ortho referral was placed during last visit. * Telephone Encounter - Jonel Gaspar - 11/25/2023 4:16 PM EDT Tc from Kenzie with [facility] Radiology requesting call back to discuss positive xray results. Kenzie also informed she faxed results over. Please contact Kenzie at [phone]. documented in this encounter Plan of Treatment Not on file documented as of this encounter Visit Diagnoses Not on filedocumented in this encounter Additional Health Concerns Assessment Noted Time PHQ-9 Depression Total Score: 20 023 2:07 PM EDT documented as of this encounter Care Teams Cnc Field Service Engineer Relationship Specialty Start Date End Date Shonda Greer MD [address] [place] [address] PCP - General Family Medicine 07/16/13 01/09/24 Shonda Greer MD [address] [place] [address] PCP - General Internal Medicine 01/10/24 Radha Garza Heel Coverer Machine Operator 02/07/24 05/11/24 documented as of this encounter
--- OUTSIDE RECORDS SUMMARY | 2025-02-26 17:55 | XMS_ITS | Encounter Summary ---
Author Organization [employer] Address 75 [facility] 7 [place] [address] Care Team Providers Care Senior Manager Name Role Phone Shonda Greer MD Primary Care Provider [phone] Shonda Greer MD Primary Care Provider [phone] Reason for Visit * Reason Onset Date Comments Appointment Request 12/20/2023 Encounter Details Date Type Department Care Team ([facility] st Contact Info) Description 12/20/2023 Telephone [facility] MEDICINE [address] [place] [address] Shonda Greer MD [address] [place], [place] [phone] Appointment Request Social History Tobacco Use Types [...] as of this encounter Care Teams Senior Manager Relationship Specialty Start Date End Date Shonda Greer MD [address] [place] [address] PCP - General Family Medicine 07/16/13 01/09/24 Shonda Greer MD [address] [place] [address] PCP - General Internal Medicine 01/10/24 Radha Garza Clinical Partner 02/07/24 05/11/24 documented as of this encounter
--- OUTSIDE RECORDS SUMMARY | 2025-02-26 17:55 | XMS_ITS | Encounter Summary ---
Author Organization [employer] Address [address] [facility] [address] 7t [place] [address] Care Team Providers Care Drill Press Tender Name Role Phone Shonda Greer MD Primary Care Provider [phone] Encounter Details Date Type Department Care Team (Late st Contact Info) Description 02/26/2025 Orders Only GENERIC EXTERNAL DATA [...] T4, FREE Routine 02/26/2025 4:31 PM EDT documented in this encounter Results * TSH (02/26/2025 4:31 PM EDT) Thyroid Stimulating Hormone 0.71 0.32 - 4.0 uIU/mL [facility] Comment:TSH 3rd Generation ( [facility]) 02/26/2025 4:31 PM EDT 02/26/2025 4:31 PM EDT us Generic External Data Provider LAB BLOOD ORDERAB LES Final Result Performing Organization Address [facility] Co de Phone Number [facility] [address] [place] [phone] * T4, Free (02/26/2025 4:31 PM EDT) Free T4 (Free Thyroxine) 1.22 0.71 - 1.85 ng/dL [facility] 02/26/2025 4:31 PM EDT 02/26/2025 4:31 PM EDT us Generic External Data Provider LAB BLOOD ORDERAB LES Final Result Performing Organization Address [facility]/ZIP Co de Phone Number [facility] [address] [place] [address] [place] [phone] documented in this encounter Visit Diagnoses Not on filedocumented in this encounter Additional Health Concerns Assessment Noted Time PHQ-9 Depression Total Score: 20 024 1:04 PM EDT documented as of this encounter Care Teams Drill Press Tender Relationship Specialty Start Date End Date Shonda Greer MD [address] [place] [address] PCP - General Internal Medicine 01/10/24 documented as of this encounter
--- OUTSIDE RECORDS SUMMARY | 2025-02-26 17:55 | XMS_ITS | Encounter Summary ---
Author Organization [employer] Address [address] [facility] [address] [address] 7t [place] [address] Care Team Providers Care Bulk System Operator Name Role Phone Shonda Greer MD Primary Care Provider [phone] Shonda Greer MD Primary Care Provider [phone] Reason for Visit * Reason Comments Med Change Request Encounter Details Date Type Department Care Team ([facility] st Contact Info) Description 10/23/2023 Refill [facility] AD[facility] DENTAL [address] [place] [address] Breann Art DDS Social History Tobacco Use [...] documented as of this encounter Care Teams Bulk System Operator Relationship Specialty Start Date End Date Shonda Greer MD [address] [place] [address] PCP - General Family Medicine 07/16/13 01/09/24 Shonda Greer MD [address] [place] [address] PCP - General Internal Medicine 01/10/24 Radha Garza Medical Billing Clerk 02/07/24 05/11/24 documented as of this encounter
--- OUTSIDE RECORDS SUMMARY | 2025-02-26 17:55 | XMS_ITS | Encounter Summary ---
Author Organization [employer] Address [address] [facility] 7 [place] [address] Care Team Providers Care Chemical Laboratory Tester Name Role Phone Shonda Greer MD Primary Care Provider Shonda Greer MD Primary Care Provider [phone] Reason for Visit * Reason Onset Date Comments Referral 10/28/2023 Encounter Details Date Type Department Care Team ([facility] st Contact Info) Description 10/28/2023 Telephone [facility] MEDICINE [address] [place] [address] Shonda Greer MD [address] [place], [place] [phone] Referral Social History Tobacco Use Types Packs/Day [...] 11/14/2023 3:14 PM EDT Placed call to [facility] Endo regarding message below. They stated they are referring pt to [facility] Endo to Dr Mendoza at [facility] but with pt insurance they needed a insurance referral. [facility] endo stated they faxed over needed paperwork. Informed them we did send today the completed for. [facility] Endo office looked and found [...] the surgery, this was advised by the [employer] office but mom is very confused on [...] in regards below message, please contact at [phone] * Telephone Encounter - Dolly Warren - 10/29/2023 12:28 PM EDT VM left for patient regarding request for endo at [facility]. Patient was referred to Dr. Too wood [facility] not accepting patient insurance. * Telephone Encounter - Jonel Hubert - 10/28/2023 1:58 PM EDT TC from pt requesting new referral: Address: [address] [place] [address] Facility Name: [facility] Type of Specialist: [employer]zzleman Pt is requesting to change location of original endocrinology referral, stated she gave a form witha sticky note with al necessary information of referral to [place] so they can hand it to the pcp in which [place] stated they will. Pt has not gotten any update since and states it's been 2 weeks since then. If any questions you can contact pt at [phone]. documented in this encounter Plan of Treatment Not on file documented as of this encounter Visit Diagnoses Not on filedocumented in this encounter Additional Health Concerns Assessment Noted Time PHQ-9 Depression Total Score: 20 023 2:07 PM EDT documented as of this encounter Care Teams Chemical Laboratory Tester Relationship Specialty Start Date End Date Shonda Greer MD [address] [place] [address] PCP - General Family Medicine 07/16/13 01/09/24 Shonda Greer MD [address] [place] [address] PCP - General Internal Medicine 01/10/24 Radha Garza Insurance Sales Associate 02/07/24 05/11/24 documented as of this encounter
--- OUTSIDE RECORDS SUMMARY | 2025-02-26 17:55 | XMS_ITS | Encounter Summary ---
Author Organization [employer] Address [address] [facility] [address] 7t [place] [address] Care Team Providers Care Electrician Manager Name Role Phone Shonda Greer MD Primary Care Provider [phone] Encounter Details Date Type Department Care Team (Late st Contact Info) Description 01/13/2024 Orders Only [facility] [address] [place], [place] [phone] Provider, Historical, Social History Tobacco Use Types [...] documented as of this encounter Care Teams Electrician Manager Relationship Specialty Start Date End Date Shonda Greer MD [address] [place] [address] PCP - General Internal Medicine 01/10/24 Radha Garza Fourth Mate 02/07/24 05/11/24 documented as of this encounter
== END 2025-02-26 16:23 | disposition home or self-care (01) ==
LOC: HO.LAB 16:22
PROVIDERS: PCP Pediatrics; Visit Provider Student in an Organized Health Care Education/Training Program
DX: C73 Malignant neoplasm of thyroid gland (principal); E89.0 Postprocedural hypothyroidism
CPT/HCPCS: 36415; 84439; 84443

== ENCOUNTER 2025-04-21 14:32 | Outpatient (REF) | payer MEDICAID, SELFPAY ==
--- OUTSIDE RECORDS SUMMARY | 2025-04-19 20:26 | XMS_ITS | Encounter Summary ---
Author Organization [facility] Address [address] [facility] [address] [place] [address] Phone Care Team Providers Care Staff Air Tactical Officer Name Role Phone Shonda Greer MD Primary Care Provider [phone] Reason for Referral * Consultation (Routine) - New Request Specialty Diagnoses / Procedures Referred By Ray green Referred To Contact Neurology Miguel Subramanian MD [address] [place] [address] Phone: tel: fax: [email or web address] Referral ID Status Reason Start Date Expiration Date V isits Requested Visits Authorized [id number] New Request 04/20/2025 04/20/2026 1 1 Reason for Visit * Reason Comments Eye Pain Migraine Photophobia Encounter Details Date Type Department Care Team ([facility] st Contact Info) Description 04/19/2025 8:26 PM EST - 04/20/2025 2:58 AM EST Emergency [facility] Emergency Department [address] [place] [address] Discharge Disposition: Home or Self Care Social History Tobacco Use Types Packs/Day Years [...] on file 08/28/2024 No 08/28/2024 No 08/28/2024 Food Answer Date Recorded Within the past 6 months we worried whether our food would run out before we got money to buy more. Never True 04/19/2025 Within the past 6 months the food we bought just didn't last and we didn't have enough money to get more. Never True Residential Stability Answer Date Recor ded What is your housing situation today? I have arya sing 04/19/2025 How many times have you move d in the past 12 months? Zero (I did not move) 04/19/2025 Paying for Meds Answer Date Recorded Do you have trouble paying for medicines? No 04/19/2025 Paying Utility Bills Answer Date Record ed Do you have trouble paying your heating or elect ricity bill? No 04/19/2025 Transportation Answer Date Recorded Has the lack of transportati on kept you from medical appointments or from getting medications? No 04/19/2025 Digital Access Answer Date Recorded No 04/19/2025 Yes 04/19/2025 Do you have reliable internet access at home? Ye s 04/19/2025 Do you have a device (e.g., phone, tablet, computer) with a working camera? Yes 04/19/2025 Intimate Partner Violence Answer Date R ecorded Are you denied basic needs s uch as food, clothing, or medical care? No 04/19/2025 In the past 12 months have y ou been in a relationship with a person who hurts, threatens, or tries to control you? No 04/19/2025 Are you denied basic needs s uch as food, clothing, or medical care? No 04/19/2025 In the past 12 months have y ou been in a relationship with a person who hurts, threatens, or tries to control you? No 04/19/2025 Comments No Sex and Gender Information Value Date Recorded Sex Assigned at Female 08/28/2024 7:39 PM EDT Legal Sex Female 3:08 PM EDT Gender Identity Female 08/28/2024 7:39 PM EDT Sexual Orientation Straight 08/28/2024 7: 39 PM EDT documented as of this encounter Last Filed Vital Signs Vital Sign Reading Time Taken Comments Blood Pressure 112/66 04/20/2025 12:30 AM EST Pulse 77 04/20/2025 12:30 AM EST Temperature 36.7 C (98 F) 04/19/2025 8:33 PM EST Respiratory Rate 20 04/20/2025 12:30 AM EST Oxygen Saturation 98% 04/19/2025 8:33 PM EST Inhaled Oxygen Concentration - - Weight 79.4 kg (175 lb) 04/19/2025 8:33 PM EST Height 160 cm (5' 3 ) 04/19/2025 8:33 PM EST Body Mass Index 31 04/19/2025 8:33 PM EST documented in this encounter Functional Status * Calculated C-SSRS Risk Score (Lifetime/Recent) Answer Date of Assessment Author No Risk Indicated 04/19/2025 8:32 PM EST Hardeep Vila RN * [place] Suicide Severity Rating Scale (Screener/Recent Self-Report) Question Answer Date of Assessment Author 1. Wish to be (Past 1 Month) No 025 8:32 PM EST Hardeep Vila RN 2. Non-Specific Active Suici christiano Thoughts (Past 1 Month) No 04/19/2025 8:32 PM EST Jose Luis Vila RN 6. Suicidal Behavior (Lifetime) No 8:32 PM EST Hardeep Vila RN documented as of this encounter Discharge Instructions * Discharge Instructions* Taras Jefferson MD, PhD - 04/20/2025 2:46 AM EST You were seen in the [facility] Emergency Department due to worsening headaches. Your eyes were examined, and your optic nerves were not found to be more swollen than previously. Instructions: - Increase your dose of topiramate to 50 mg twice daily - Follow up with Neurology as scheduled for further management of your headaches - Follow up with Neuro-Ophthalmology as scheduled. You can reach out via the patient portal to update them regarding your headaches and any side effects from the medication prior to your visit. - Please return to the ED immediately for worsening pain, redness, blurry vision, flashes or floaters, or any other concerning symptoms documented in this encounter Medications at Time of Discharge buPROPion (WELLBUTRIN XL) 150 MG ER 24 hr tablet Take 1 tablet by mouth every morning. 08/12/2024 cloNIDine HCL (CATAPRES) 0.2 MG tablet Take 0.2 mg by mouth nightly at bedtime as needed. 07/13/2024 levothyroxine (SYNTHROID, LEVOTHROID) 150 MCG tablet TAKE 1 TAB DAILY ON EMPTY STOMACH 1ST THING IN THE AM ATLEAST 30MIN-1H BEFORE EATING OR OTHER MEDS 08/20/2024 pantoprazole (PROTONIX) 40 MG tablet Take 40 mg by mouth. 08/12/2024 08/12/2025 sertraline (ZOLOFT) 50 MG tablet Take 50 mg by mouth daily. topiramate (TOPAMAX) 25 MG tablet Take 2 tablets (50 mg total) by mouth 2 (two) times a day. 120 tablet 04/20/2025 topiramate (TOPAMAX) 25 MG tablet Take 2 tablets (50 mg total) by mouth 2 (two) times a day. 04/20/2025 04/15/2026 traZODone (DESYREL) 100 MG tablet Take 100 mg by mouth nightly at bedtime as needed. 08/12/2024 documented as of this encounter ED Notes * Hardeep Vila RN - 04/19/2025 8:34 PM EST OU Pain moving eyes and behind both eyes, photosensitivity, and severe headaches. * Mauricio Carvalho MD - 04/19/2025 8:26 PM EST CHIEF COMPLAINT Chief Complaint Patient presents with Eye Pain Migraine Photophobia HISTORY OF PRESENT ILLNESS I have reviewed the ED nursing notes and prior records. I have reviewed the patient's past medical history/problem list, allergies, social history and medication list. Sales Engineering Manager Used: Lynne Capps Delfina Murillo is a 24 y.o. female, with a history of IIH, follows with neuro-ophthalmology at [facility], anxiety, MDD, who presents to the [facility] Department with pain behind bilateral eyes, headaches and now new blurry vision since yesterday. Patient reports she was diagnosed with IIH and was started on topiramate in August of this year, reports in the past month since improvement of her symptoms she has had a decrease in her dose and since then has noticed worsening headaches. Reports her headaches have progressed in the past few days and she has noticed blurry vision inbilateral eyes. Denies any neck pain, chest pain, shortness of breath, nausea, vomiting, fever, chills, right eye. Vital signs stable upon arrival to the ED PHYSICAL EXAM Vital Signs: BP 114/52 Pulse 72 Temp 36.7 ??C (98 ??F) (Temporal) Resp 18 Ht 160 cm (5' 3 ) Wt 79.4 kg (175 lb) SpO2 98% BMI 31.00 kg/m?? Gen: No acute distress. Vital signs unremarkable. Resting comfortably. HEENT: Normocephalic. Atraumatic. Sclera anicteric. Mucous membranes moist. Neck: Supple. Trachea midline. Chest: Lungs clear bilaterally. Normal respiratory pattern without conversational dyspnea or respiratory distress. Heart: Regular rate and rhythm. Normal S1 and S2. No murmurs, rubs, or gallops. Abdomen: Soft, nontender, nondistended. Skin: warm and dry, no appreciable rash MSK: No joint swelling or deformities. No peripheral edema, no signs of DVT. Neuro: Awake and alert, normal speech. Moves all extremities equally well. No focal deficits or lateralizing signs. Base Eye Exam Visual Acuity (Snellen - Linear) Right Left Dist ph sc 20/20 -2 20/20 -1 Correction: Glasses Colour testing 8/8 in both eyes ASSESSMENT & PLAN Patient is a 11-year-old ophthalmology patient here at [facility] with previous diagnosis of IIH presentingwith worsening headaches, eye pain and now blurry vision. Spoke with ophthalmology who will take over management and disposition given complicated nature. Optho requested I perform color testing via the Ishihara book. Color testing 8 out of 8 to bilateral eyes Final Disposition: Eval and dispo per ophthalmology I, Mauricio Carvalho MD, have seen this patient primarily. Mauricio Carvalho MD Emergency Department Attending Physician Mauricio Carvalho MD 04/20/25 0041 * Taras Jefferson MD, PhD - 04/19/2025 8:26 PM EST Images from the original note were not included. [facility] Ophthalmology ED Note History of Present Illness: HPI Patient of Dr. Redman for idiopathic intracranial hypertension. Increased topiramate dose from 25mg/25mg to 25mg/50mg in early March, which helped with headaches for a time. Now having headaches every day again, worse when waking up. Having TVOs, blurry vision (worst with headaches), constant whoos jeffrey/ringing in ears. These symptoms have increased along with the headaches. No diplopia. Has not previously tried diamox. No recent weight changes. No changes in health otherwise. No recent medication changes. Ocular history: Wears glasses for reading and distance No contacts No prior eye surgeries Eye medications: None Medications: Levothyroxine 125 mcg Sertraline Bupropion Trazodone Last edited by Taras Jefferson MD, PhD on 04/20/2025 2:05 AM. Examination: Base Eye Exam Visual Acuity (Snellen - Linear) Right Left Dist ph sc 20/20 -2 20/20 -1 Correction: Glasses Tonometry (iCare, 2:07 AM) Right Left Pressure 13 13 Pupils Pupils APD Right PERRL None Left PERRL None Extraocular Movement Right Left Full Full Neuro/Psych Oriented x3: Yes Mood/Affect: Normal Dilation Both eyes: Phenylephrine 2.5%-Tropicamide 1% Ophthalmic Solution @ 2:07 AM Additional Tests Color Right Left Ishihara 8/8 8/8 Slit Lamp and Fundus Exam External Exam Right Left External Normal Normal Slit Lamp Exam Right Left Lids/Lashes Normal Normal Conjunctiva/Sclera Normal Normal Cornea Normal Normal Anterior Chamber Normal Normal Iris Normal Normal Lens Normal Normal Vitreous Normal Normal Fundus Exam Right Left Disc Fullness in the superior pole similar to prior, otherwise sharp Normal, sharp Macula Normal Normal Vessels Normal Normal Periphery Normal Normal Assessment and Plan # Headaches # Idiopathic intracranial hypertension Patient of Dr. Redman's with known diagnosis of idiopathic intracranial hypertension made in spring 2024, presenting with worsening headaches despite increasing dose of topomax to 25 mg/50 mg approximately 1 month ago. On exam, VA 20/20 both eyes, IOP 13/13, no relative afferent pupillary defect, no dyschromatopsia. - Optic nerve head edema appearance stable to improved compared to most recent documented exam and compared to last optical coherence tomography retinal nerve fiber layer from October 2024 (although performed on a different machine due to limitations overnight) - Visual adams full in both eyes - Discussed with Neuro-Ophthalmology on-call, Dr. Cuba/Dr. Redman, who recommended increasing dose of topomax to 50 mg BID and following up with Neurology regarding headache management Plan: - Increase your dose of topiramate to 50 mg twice daily - Follow up with Neurology as scheduled for further management of your headaches - Follow up with Neuro-Ophthalmology as scheduled. You can reach out via the patient portal to update them regarding your headaches and any side effects from the medication prior to your visit. - Please return to the ED immediately for worsening pain, redness, blurry vision, flashes or floaters, or any other concerning symptoms Taras Jefferson MD, PhD PGY-2, Ophthalmology [facility] Taras Jefferson MD, PhD Resident 04/20/25 0958 Miguel Subramanian MD 04/20/25 1002 Cosigned by Miguel Subramanian MD at 04/20/2025 10:02 AM EST Associated attestation - Miguel Subramanian MD - 04/20/2025 10:02 AM EST I was not present for the history and physical exam of this patient, but I agree with the assessment and plan put forth by the trainee physician based on the trainee physician's history and physical exam. Miguel Subramanian MD documented in this encounter Plan of Treatment Upcoming Encounters Date Type Department Care Team (Late st Contact Info) Description 05/04/2025 9:00 AM EST Office Visit [facility] Neurology [address] [place] [address], [address] [place] [address] Jacky Bush MD [address] [place] [phone] [email or web address] 12/23/2025 1:30 PM EDT Office Visit [facility] Neuro [facility] [address] [facility] 9 [place] [address] Arslan Redman MD [address] [place] [phone] [email or web address] Pending Results Name Type Priority Associated Diagnoses Date /Time [place] Visual Field - OU - Both Eyes Ophthalmology STAT 04/20/2025 1:44 AM EST OCT, Optic Nerve - OU - Both Eyes- [facility] Op[facility]mology STAT 04/20/2025 1:44 AM EST Scheduled Orders Name Type Priority Associated Diagnoses Orde r Schedule [place] Visual Field - OU - Both Eyes Ophthalmology Routine Once for 1 Occur rences starting 04/20/2025 until 04/20/2025 OCT, Optic Nerve - OU - Both Eyes- [facility] Ophthalmology Routine Once for 1 Occur rences starting 04/20/2025 until 04/20/2025 Scheduled Referrals Name Type Priority Associated Diagnoses Order Schedule Ambulatory referral to [facility] Neurology - Employed Practices Outpatient Referral STAT Ordered: 04/20/2025 documented as of this encounter Visit Diagnoses Diagnosis IIH (idiopathic intracranial hypertension)- Primary Benign intracranial hypertension documented in this encounter Care Teams Staff Air Tactical Officer Relationship Specialty Start Date End Date Shonda Greer MD [address] [place] [address] PCP - General Internal Medicine 08/25/24 documented as of this encounter Additional Source Comments The information contained in this document represents components of the legal health record. It is not the complete legal health record.[facility]
--- OUTSIDE RECORDS SUMMARY | 2025-04-21 11:00 | XMS_ITS | Encounter Summary ---
Author Organization [employer] Address [address] [facility] [address] [place] [address] Care Team Providers Care Chronometer Assembler And Adjuster Name Role Phone Shonda Greer MD Primary Care Provider [phone] Reason for Visit * Reason Comments Routine Cleaning Encounter Details Date Type Department Care Team ([facility] Contact Info) Description 04/21/2025 11:00 AM EST Office Visit [facility] CHC ADULT DENTAL [address] [place], [place] [phone] Sveta Beck [address] [place] [address] [phone] Social History Tobacco Use Types Packs/Day Years [...] Sign Reading Time Taken Comments Blood Pressure 98/60 04/21/2025 11:27 AM EST Pulse - - Temperature - - Respiratory Rate - - Oxygen Saturation - - Inhaled Oxygen Concentration - - Weight - - Height - - Body Mass Index - - documented in this encounter Progress Notes * Sveta Beck - 04/21/2025 11:00 AM EST Patient ID: Arnulfo Murillo is a 24 y.o. female. Time Out: Date: 04/21/2025 Location: [facility] Tooth: all Procedure: Prophylaxis Verified the above with patient, assistant librarian, and provider. Confirmed via patient's chart, intraorally and by radiographs. Waiter/Waitress Counter: not applicable Treatment Provided Dental procedures in this visit D1110 - PROPHYLAXIS - ADULT (Completed) Service provider: Sveta Moore provider: Mone Rosenthal DDS [id number] - CASE PRESENTATION, DETAILED AND EXTENSIVE TREATMENT PLANNING (Completed) Service provider: Sveta Moore provider: Mone Rosenthal DDS Instruments Used: Ultrasonic Scalers, Hand Scalers, and Prophy angle Calculus: Light Plaque: Light Stain: None Bleeding: Heavy Gingiva: Perio Charting Completed, Bleeding on probing, and marginal inflammation and redness Maxillary ants nacho UR OH: Fair OCS: neg findings HNE: neg findings Oral hygiene instructions provided to patient including brushing technique and flossing. Recommendations: [place] two times daily, modified oates technique, Floss daily, waterpik warm salt water rinses, discussed importance of improving OH and progression of perio from gngivitis to perio disease. Pt denies diabetes history. Pt stated that inflammation began after thyroid cancer tx. Rec ptfollow up with PCP. After a couple of days of salt water rinses switch to [facility], Listerine etc Pt came 20 mins late for todays appointment not enough time for exam xrays today Recall Frequency: 6 mo NV: Exam Hygienist: Sveta Beck RDH documented in this encounter Plan of Treatment Scheduled Orders Name Type Priority Associated Diagnoses Orde r Schedule COMPREHENSIVE ORAL EVALUATION - NEW OR ESTABLISHED PATIENT Dental Routine 1 Occurrence s starting 04/21/2025 PROPHYLAXIS - ADULT Dental Routine 1 Occ urrences starting 04/21/2025 documented as of this encounter Procedures Procedure Name Priority Date/Time Associated Diagnosis Comments PROPHYLAXIS - ADULT Routine 04/21/2025 1 1:00 AM EST CASE PRESENTATION, DETAILED AND EXTENSIVE TREATMENT PLANNING Routine 04/21/2025 11:00 AM EST documented in this encounter Visit Diagnoses Not on filedocumented in this encounter Additional Health Concerns Assessment Noted Time PHQ-9 Depression Total Score: 20 024 1:04 PM EDT documented as of this encounter Care Teams Chronometer Assembler And Adjuster Relationship Specialty Start Date End Date Shonda Greer MD [address] [place] [address] PCP - General Internal Medicine 01/10/24 documented as of this encounter
[2025-04-21 16:16] LABS: Free T4 (Free Thyroxine) 1.46 ng/dL (0.71-1.85)
--- OUTSIDE RECORDS SUMMARY | 2025-04-21 17:41 | XMS_ITS | Encounter Summary ---
Author Organization [employer] Address [address] [facility] [address] [place] [address] Care Team Providers Care Agricultural Systems Specialist Name Role Phone Shonda Greer MD Primary Care Provider [phone] Shonda Greer MD Primary Care Provider [phone] Reason for Visit * Reason Comments Med Change Request Encounter Details Date Type Department Care Team ([facility] st Contact Info) Description 10/23/2023 Refill [facility] CHC ADULT DENTAL [address] [place] [phone] Breann Art DDS Social History Tobacco Use [...] documented as of this encounter Care Teams Agricultural Systems Specialist Relationship Specialty Start Date End Date Shonda Greer MD [address] [place] [address] PCP - General Family Medicine 07/16/13 01/09/24 Shonda Greer MD [address] [place] [address] PCP - General Internal Medicine 01/10/24 Radha Garza Consumer Insight Analyst 02/07/24 05/11/24 documented as of this encounter
--- OUTSIDE RECORDS SUMMARY | 2025-04-21 17:41 | XMS_ITS | Encounter Summary ---
Author Organization [employer] Address [address] [place] [address] [address] [place] [address] Care Team Providers Care Licensed Surveyor Name Role Phone Shonda Greer MD Primary Care Provider [phone] Shonda Greer MD Primary Care Provider [phone] Reason for Referral * Imaging (Urgent) - Closed Specialty Diagnoses / Procedures Referred By Contac t Referred To Contact Interventional Radiology Diagnoses Left thyroid nodule Procedures IR Fine Needle Aspiration Thyroid Shonda Greer MD [address] [place] [address] Phone: tel: fax: [address] Phone: tel: fax: Referral ID Status Reason Start Date Expiration Date Visits Re quested Visits Authorized [id number] Closed 09/16/2023 09/15/2024 1 1 Encounter Details Date Type Department Care Team (Late st Contact Info) Description 09/16/2023 Orders Only [facility] CHC MED & PEDS [address] [place] [address] Shonda Greer MD [address] [place] [address] Left thyroid nodule (Primary Dx) Social History [...] documented as of this encounter Care Teams Licensed Surveyor Relationship Specialty Start Date End Date Shonda Greer MD [address] [place] [address] PCP - General Family Medicine 07/16/13 01/09/24 Shonda Greer MD [address] [place] [address] PCP - General Internal Medicine 01/10/24 Radha Garza Gluer Machine Setup Operator 02/07/24 05/11/24 documented as of this encounter
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
--- OUTSIDE RECORDS SUMMARY | 2025-04-21 17:41 | XMS_ITS | Encounter Summary ---
Author Organization [facility] Address [address] [place] [address] Phone Care Team Providers Care High School Industrial Arts Teacher Name Role Phone Shonda Greer MD Primary Care Provider [phone] Encounter Details Date Type Department Care Team ([facility] st Contact Info) Description 08/28/2024 Ophth Exam [facility] Emergency Department [address] [place] [address] Sarah Ward MD [address] [place] [address] [email or web address] Social History Tobacco Use Types [...] 7:19 PM EDT Nakita Gay RN * [place] Suicide Severity Rating Scale (Screener/Recent Self-Report) Question [...] Description 05/04/2025 9:00 AM EST Office Visit [facility] General Neurology [address] [place] [address], [address] [place] [address] Jacky Bush MD [address] [place] [phone] [email or web address] 12/23/2025 1:30 PM EDT Office Visit [facility] [address] 9[address] [place] [address] Arslan Redman MD [address] [place] [phone] [email or web address] documented as of this encounter Visit Diagnoses Not on filedocumented in this encounter Care Teams [employer] Industrial Arts Teacher Relationship Specialty Start Date End Date Shonda Greer MD [address] [place] [phone] PCP - General Internal Medicine 08/25/24 documented as of this encounter Additional Source Comments The information contained in this document represents components of the legal health record. It is not the complete legal health record.[facility]
--- OUTSIDE RECORDS SUMMARY | 2025-04-21 17:41 | XMS_ITS | Clinical Summary ---
Author Organization [facility] Address [address] [place] [address] Phone Care Team Providers Care Forming Machine Tender Name Role Phone Shonda Greer MD Primary Care Provider [phone] Allergies No known active allergies Medications traZODone (DESYREL) 100 MG tablet Take 100 mg by mouth nightly at bedtime as needed. 5 Active pantoprazole (PROTONIX) 40 MG tablet Take 40 mg by mouth. 5 08/12/19 26 Active levothyroxine (SYNTHROID, LEVOTHROID) 150 MCG tablet TAKE 1 TAB DAILY ON EMPTY STOMACH 1ST THING IN THE AM ATLEAST 30MIN-1H BEFORE EATING OR OTHER MEDS 5 Active cloNIDine HCL (CATAPRES) 0.2 MG tablet Take 0.2 mg by mouth nightly at bedtime as needed. 5 Active buPROPion (WELLBUTRIN XL) 150 MG ER 24 hr tablet Take 1 tablet by mouth every morning. 5 Active sertraline (ZOLOFT) 50 MG tablet Take 50 mg by mouth daily. Active topiramate (TOPAMAX) 25 MG tablet Take 2 tablets (50 mg total) by mouth 2 (two) times a day. 120 tablet 5 Active topiramate (TOPAMAX) 25 MG tablet Take 2 tablets (50 mg total) by mouth 2 (two) times a day. 5 04/15/20 26 Active topiramate (TOPAMAX) 25 MG tablet Take 1 tablet (25 mg total) by mouth 2 (two) times a day. 180 tablet 3 5 04/20/20 25 Discontinued Active Problems No known active problems Encounters Date Type Department Care Team Description 04/19/2025 8:26 PM EST - 04/20/2025 2:58 AM EST Emergency [facility] [address] [place] [address] Discharge Disposition: Home or Self Care 04/19/2025 Oph Exam [facility] Emergency Department [address] [place] [address] Taras Jefferson MD, PhD 03/19/2025 Telephone [facility] Neuro [facility] [address] [address] Akiko Partida MD from Last 3 Months Social History Tobacco [...] Mass Index 31 04/19/2025 8:33 PM EST Plan of Treatment Upcoming Encounters Date Type Department Care Team (Late st Contact Info) Description 05/04/2025 9:00 AM EST Office Visit [facility] [address] [facility], [address] [place] [address] Jacky Bush MD [address] [place] [id number] [email or web address] 12/23/2025 1:30 PM EDT Office Visit [facility] [address] 9th [place] [address] Arslan Redman MD [address] [place] [address] [email or web address] Health Maintenance Due Date Last Done Comments TSH LEVEL 2002 DEPRESSION SCREENING 2014 HPV VACCINES (1 - 3-dose series) 2017 CHLAMYDIA SCREENING 2018 MENINGOCOCCAL VACCINES (B) ( 1 of 2 - Standard) 2018 HEPATITIS C SCREENING 2020 HIV ONE-TIME SCREENING (18-6 5 YEARS) 2020 PAP SMEAR 12/04/2023 Adult Td,Tdap Booster 07/23/2024 07/23/2014 INFLUENZA VACCINE (#1) 2025 COVID-19 VACCINE (1 - 2024-2 6 season) 2025 SMOKING Hx and SMOKELESS TOB ACCO SCREENING 04/19/2026 04/19/2025 HEPATITIS A VACCINES Aged Out No long [...] this topic Medical Devices Not on file Insurance [facility] C[employer] A[employer] [facility] [place] [id number] [facility] [employer] [place] [id number] Care Teams Forming Machine Tender Relationship Specialty Start Date End Date Shonda Greer MD [address] [place] [address] [place] Donis [address] PCP - General Internal Medicine 08/25/24 Additional Source Comments The information contained in this document represents components of the legal health record. It is not the complete legal health record.[facility]
--- OUTSIDE RECORDS SUMMARY | 2025-04-21 17:41 | XMS_ITS | Encounter Summary ---
Author Organization [employer] Address [address] [facility] 7 [place] [address] Care Team Providers Care Occupational Therapy Asst Name Role Phone Shonda Greer MD Primary Care Provider [phone] Shonda Greer MD Primary Care Provider [phone] Reason for Visit * Reason Onset Date Comments Referral 10/28/2023 Encounter Details Date Type Department Care Team ([facility] st Contact Info) Description 10/28/2023 Telephone [facility] MEDICINE [address] [place] [address] Shonda Greer MD [address] [place], [place] [id number] Referral Social History Tobacco Use Types Packs/Day [...] 11/14/2023 3:14 PM EDT Placed call to [facility] regarding message below. They stated they are referring pt to [facility] to Dr Mendoza at [facility] but with pt insurance they needed a insurance referral. [facility] endo stated they faxed over needed paperwork. Informed them we did send today the completed for. [facility] End[facility] office looked and [...] the surgery, this was advised by the Housetrailer Servicer office but mom is very confused on [...] in regards below message, please contact at [phone] * Telephone Encounter - Dolly Warren - 10/29/2023 12:28 PM EDT VM left for patient regarding request for endo at [facility]. Patient was referred to Dr. Too wood [facility] not accepting patient insurance. * Telephone Encounter - Jonel Hubert - 10/28/2023 1:58 PM EDT TC from pt requesting new referral: Address: [address] [place] [address] Facility Name: [facility] Type of Specialist: Housetrailer Servicer Pt is requesting to change location of original endocrinology referral, stated she gave a form witha sticky note with al necessary information of referral to [place] so they can hand it to the pcp in which [place] stated they will. Pt has not gotten any update since and states it's been 2 weeks since then. If any questions you can contact pt at [phone]. documented in this encounter Plan of Treatment Not on file documented as of this encounter Visit Diagnoses Not on filedocumented in this encounter Additional Health Concerns Assessment Noted Time PHQ-9 Depression Total Score: 20 023 2:07 PM EDT documented as of this encounter Care Teams Occupational Therapy Asst Relationship Specialty Start Date End Date Shonda Greer MD [address] [place] [address] PCP - General Family Medicine 07/16/13 01/09/24 Shonda Greer MD [address] [place] [address] PCP - General Internal Medicine 01/10/24 Radha Garza Engine House Helper 02/07/24 05/11/24 documented as of this encounter
--- OUTSIDE RECORDS SUMMARY | 2025-04-21 17:41 | XMS_ITS | Encounter Summary ---
Author Organization [facility] Address [address] [place] [address] Phone Care Team Providers Care Dental Appliance Repairer Name Role Phone Shonda Greer MD Primary Care Provider [phone] Encounter Details Date Type Department Care Team (Late st Contact Info) Description 08/28/2024 Procedure Pass [facility]ATHALY Imaging - MRI, [facility] [address] [place] [address] Social History Tobacco Use Types Packs/Day Years [...] 7:19 PM EDT Nakita Gay RN * Adams Suicide Severity Rating Scale (Screener/Recent Self-Report) Question [...] Description 05/04/2025 9:00 AM EST Office Visit [facility] General Neurology [address] [place] [address], [address] [place] [address] Jacky Bush MD [address] [place] [address] [email or web address] 12/23/2025 1:30 PM EDT Office Visit [facility] Neuro [facility] 243 [facility] 9th [place] [address] Arslan Redman MD [address] [place] [address] [email or web address] documented as of this encounter Visit Diagnoses Not on filedocumented in this encounter Care Teams Dental Appliance Repairer Relationship Specialty Start Date End Date Shonda Greer MD [address] [place] [address] PCP - General Internal Medicine 08/25/24 documented as of this encounter Additional Source Comments The information contained in this document represents components of the legal health record. It is not the complete legal health record.[facility]
--- OUTSIDE RECORDS SUMMARY | 2025-04-21 17:41 | XMS_ITS | Encounter Summary ---
Author Organization [facility] Address [address] [place] [address] Phone Care Team Providers Care Wellness Coach Name Role Phone Shonda Greer MD Primary Care Provider [phone] Encounter Details Date Type Department Care Team ([facility] st Contact Info) Description 04/19/2025 Ophth Exam [facility] Emergency Department [address] [place] [address] Taras Jefferson MD, PhD [address] [place] [address] [email or web address] Social History Tobacco Use Types Packs/Day Years [...] housing situation today? I have arya kilpatrick 04/19/2025 How many times have you move [...] Author No Risk Indicated 04/19/2025 8:32 PM Hardeep Ellsworth RN * Malone Suicide Severity Rating Scale (Screener/Recent Self-Report) Question Answer Date of Assessment Author 1. Wish to be (Past 1 Month) No 025 8:32 PM Hardeep Ellsworth, RN 2. Non-Specific Active Suici christiano Thoughts (Past 1 Month) No 04/19/2025 8:32 PM EST Julito, Jose Luis el, RN 6. Suicidal Behavior (Lifetime) No 8:32 PM EST Hardeep Vila RN documented as of this encounter Plan of Treatment Upcoming Encounters Date Type Department Care Team (Late st Contact Info) Description 05/04/2025 9:00 AM EST Office Visit [facility] Neurology [address] [facility], [address] [place] [address] Jacky Bush MD 55 [facility] 720 [place] [address] [email or web address] 12/23/2025 1:30 PM EDT Office Visit [facility] Neuro [facility] 243 [facility] 9th [place] [address] Arslan Redman MD [address] [place] [address] [email or web address] documented as of this encounter Visit Diagnoses Not on filedocumented in this encounter Care Teams Wellness Coach Relationship Specialty Start Date End Date Shonda Greer MD [address] [place] [address] PCP - General Internal Medicine 08/25/24 documented as of this encounter Additional Source Comments The information contained in this document represents components of the legal health record. It is not the complete legal health record.[facility]
--- OUTSIDE RECORDS SUMMARY | 2025-04-21 17:41 | XMS_ITS | Encounter Summary ---
Author Organization [employer] Address [address] [facility] [address] 7t [place] [address] Care Team Providers Care Roving Inspector Name Role Phone Shonda Greer MD Primary Care Provider [phone] Encounter Details Date Type Department Care Team (Late st Contact Info) Description 01/13/2024 Orders Only [facility] CH[facility] MED & PEDS [address] [place], [place] [phone] Provider, Historical, Social History Tobacco Use Types [...] documented as of this encounter Care Teams Roving Inspector Relationship Specialty Start Date End Date Shonda Greer MD [address] [place] [address] PCP - General Internal Medicine 01/10/24 Radha Garza Senior Telecommunications Engineer 02/07/24 05/11/24 documented as of this encounter
--- OUTSIDE RECORDS SUMMARY | 2025-04-21 17:41 | XMS_ITS | Encounter Summary ---
Author Organization [employer] Address [address] [facility] 7 [place] [address] Care Team Providers Care Mineral Engineer Name Role Phone Shonda Greer MD Primary Care Provider [phone] Shonda Greer MD Primary Care Provider [phone] Reason for Visit * Reason Onset Date Comments Appointment Request 12/20/2023 Encounter Details Date Type Department Care Team ([facility] st Contact Info) Description 12/20/2023 Telephone [facility] MEDICINE [address] [place] [address] Shonda Greer MD [address] [place], [place] [phone] Appointment Request Social History Tobacco Use Types [...] documented as of this encounter Care Teams Mineral Engineer Relationship Specialty Start Date End Date Shonda Greer MD 505 [place] [address] PCP - General Family Medicine 07/16/13 01/09/24 Shonda Greer MD [address] [place] [address] PCP - General Internal Medicine 01/10/24 Radha Garza Assessment Nurse Practitioner 02/07/24 05/11/24 documented as of this encounter
--- OUTSIDE RECORDS SUMMARY | 2025-04-21 17:41 | XMS_ITS | Encounter Summary ---
Author Organization [facility] Address [address] [place] [address] Phone Care Team Providers Care Underground Conduit Installer Name Role Phone Shonda Greer MD Primary Care Provider [phone] Encounter Details Date Type Department Care Team (Late st Contact Info) Description 08/28/2024 Procedure Pass NATHALY Imaging - MRI, [facility] 243 [place] [address] Social History Tobacco Use Types Packs/Day Years [...] 7:19 PM EDT Nakita Gay RN * Aragon Suicide Severity Rating Scale (Screener/Recent Self-Report) Question [...] Description 05/04/2025 9:00 AM EST Office Visit [facility] General Neurology [address] [place] [address], [address] [place] [address] Jacky Bush MD [address] [place] [address] [email or web address] 12/23/2025 1:30 PM EDT Office Visit [facility] Neuro [facility] 243 [facility] 9th [place] [address] Arslan Redman MD [address] [place] [address] [email or web address] documented as of this encounter Visit Diagnoses Not on filedocumented in this encounter Care Teams Underground Conduit Installer Relationship Specialty Start Date End Date Shonda Greer MD [address] [place] [address] PCP - General Internal Medicine 08/25/24 documented as of this encounter Additional Source Comments The information contained in this document represents components of the legal health record. It is not the complete legal health record.[facility]
--- OUTSIDE RECORDS SUMMARY | 2025-04-21 17:41 | XMS_ITS | Encounter Summary ---
Author Organization [employer] Address [address] [facility] 7 [place] [address] Care Team Providers Care Forging Press Setter Up Name Role Phone Shonda Greer MD Primary Care Provider [phone] Shonda Greer MD Primary Care Provider [phone] Reason for Visit * Reason Onset Date Comments Call Back Request 11/25/2023 Encounter Details Date Type Department Care Team ([facility] st Contact Info) Description 11/25/2023 Telephone [facility] MEDICINE [address] [place] [address] Shonda Greer MD [address] [place] [address] Call Back Request Social History Tobacco Use [...] EDT FYI, XR confirmed fifth metatarsal fx. weight caller provider spoke with pt and informed and verified Ortho referral was placed during last visit. * Telephone Encounter - Jonel Gaspar - 11/25/2023 4:16 PM EDT Tc from Kenzie with [facility] Radiology requesting call back to discuss positive xray results. Kenzie also informed she faxed results over. Please contact Kenzie at [phone]. documented in this encounter Plan of Treatment Not on file documented as of this encounter Visit Diagnoses Not on filedocumented in this encounter Additional Health Concerns Assessment Noted Time PHQ-9 Depression Total Score: 20 023 2:07 PM EDT documented as of this encounter Care Teams Forging Press Setter Up Relationship Specialty Start Date End Date Shonda Greer MD [address] [place] [address] PCP - General Family Medicine 07/16/13 01/09/24 Shonda Greer MD [address] [place] [address] PCP - General Internal Medicine 01/10/24 Radha Garza Home Theater Experience Expert 02/07/24 05/11/24 documented as of this encounter
--- OUTSIDE RECORDS SUMMARY | 2025-04-21 17:41 | XMS_ITS | Encounter Summary ---
Author Organization [employer] Address [address] 7t [place] [address] Care Team Providers Care Program Engagement Director Name Role Phone Shonda Greer MD Primary Care Provider [phone] Encounter Details Date Type Department Care Team (Late st Contact Info) Description 04/21/2025 Orders Only GENERIC EXTERNAL DATA DEPARTMENT [...] T4, FREE Routine 04/21/2025 2:45 PM EST documented in this encounter Results * (ABNORMAL) TSH with Reflex to Free T4 (04/21/2025 2:45 PM EST) TSH reflex Free T4 0.10(L) 0.32 - 4.0 uIU/mL [facility] 04/21/2025 2:45 PM EST 04/21/2025 2:45 PM EST us Generic External Data Provider LAB BLOOD ORDERAB LES Final Result Performing Organization Address [facility] Co de Phone Number [facility] [address] [place] [phone] * T4, Free (04/21/2025 2:45 PM EST) Free T4 (Free Thyroxine) 1.46 0.71 - 1.85 ng/dL [facility] 04/21/2025 2:45 PM EST 04/21/2025 2:45 PM EST us Generic External Data Provider LAB BLOOD ORDERAB LES Final Result Performing Organization Address [facility] Co de Phone Number [facility] [address] [place] [address] [phone] documented in this encounter Visit Diagnoses Not on filedocumented in this encounter Additional Health Concerns Assessment Noted Time PHQ-9 Depression Total Score: 20 024 1:04 PM EDT documented as of this encounter Care Teams Program Engagement Director Relationship Specialty Start Date End Date Shonda Greer MD [address] [place] [address] PCP - General Internal Medicine 01/10/24 documented as of this encounter
== END 2025-04-21 14:33 | disposition home or self-care (01) ==
LOC: HO.LAB 14:32
PROVIDERS: PCP Pediatrics; Visit Provider Student in an Organized Health Care Education/Training Program
DX: C73 Malignant neoplasm of thyroid gland (principal)
CPT/HCPCS: 36415; 84439; 84443

== ENCOUNTER 2025-05-29 10:43 | Outpatient (REF) | payer MEDICAID, SELFPAY ==
--- NOTE | ~2025-05-29 | US_ITS ---
EXAMINATION: US SOFT TISSUE HEAD AND NECK CLINICAL INFORMATION: Postprocedural hypothyroidism. COMPARISON: Previous head and neck soft tissue ultrasound June and September 2024 TECHNIQUE: Linear transducer casanova-scale and color Doppler examination of the soft tissues of the neck. FINDINGS: The thyroid gland has been removed. No residual thyroid tissue or nodule. There is diffuse bilateral cervical lymphadenopathy. Comparison with lymph nodes with prior exams is difficult. Abnormal lymph nodes described below. Right: Level 2 measuring 1.9 x 0.7 x 2.0 cm. This is enlarged with abnormal ultrasound morphology with slitlike hilum. Normal hilar flow. Level 5A measuring 0.9 x 0.3 x 1.1 cm. This has a slitlike hilum with hilar flow. Level 5B measuring 0.9 x 0.3 x 1 cm. This has a slitlike hilum with normal hilar flow. Left: Level 5A measuring 1.5 x 0.5 x 2.2 cm. This is enlarged with slitlike or absent hilum with central hilar flow. US/US soft tiss head and/or neck IMPRESSION: Bilateral diffuse cervical lymphadenopathy. Bilateral lymph nodes with abnormal ultrasound morphology, largest left level 5A measuring 1.5 x 0.5 x 2.2 cm and right level 2 measuring 1.9 x 0.7 x 2 cm. These are both newly appreciated compared to prior exam. Electronically signed by: Archana Read MD 05/31/2025 05:23 PM [facility]
--- OUTSIDE RECORDS SUMMARY | 2025-05-29 10:47 | XMS_ITS | Clinical Summary ---
Author Organization [facility] [place] [address] Care Team Providers Care Regional Environmental Manager Name Role Phone Unavailable Primary Care [...] Screening 01/08/2024 Depression Screening 06/17/2024 COVID-19 Vaccine (1 - 2024-2 6 season) 2025 Influenza Vaccine (#1) 2025 RSV Immunization Adult Patie nts (1 - 1-dose 75+ series) 2077 HIB Vaccines Aged Out No longer eligi [...]
--- OUTSIDE RECORDS SUMMARY | 2025-05-29 10:47 | XMS_ITS | Encounter Summary ---
Author Organization [employer] Address [address] [facility] 7 [place] [address] Care Team Providers Care Deck Mate Name Role Phone Shonda Greer MD Primary Care Provider [phone] Shonda Greer MD Primary Care Provider [phone] Reason for Visit * Reason Onset Date Comments Appointment Request 12/20/2023 Encounter Details Date Type Department Care Team ([facility] st Contact Info) Description 12/20/2023 Telephone [facility] MEDICINE [address] [place] [address] Shonda Greer MD [address] [place], [place] [phone] Appointment Request Social History Tobacco Use Types [...] Care Team (Late st Contact Info) Description 05/31/2025 10:15 AM EST Office Visit [facility] MED & PEDS [address] [place] [address] Karli Maradiaga, ARTIFICIAL FLOWER MAKER [address] [place] [address] 10/20/2025 10:15 AM EDT Office Visit [facility] ADULT DENTAL [address] [place] [address] Luciana Hercules documented as of this encounter Visit Diagnoses Not on filedocumented in this encounter Additional Health Concerns Assessment Noted Time PHQ-9 Depression Total Score: 20 023 2:07 PM EDT documented as of this encounter Care Teams Deck Mate Relationship Specialty Start Date End Date Shonda Greer MD [address] [place] [address] PCP - General Family Medicine 07/16/13 01/09/24 Shonda Greer MD [address] [place] [address] PCP - General Internal Medicine 01/10/24 Radha Garza School Vocational Educator 02/07/24 05/11/24 documented as of this encounter
--- OUTSIDE RECORDS SUMMARY | 2025-05-29 10:47 | XMS_ITS | Encounter Summary ---
Author Organization [employer] Address [address] [facility] [address] 7t [place] [address] Care Team Providers Care Director Of Content And Programming Name Role Phone Shonda Greer MD Primary Care Provider [phone] Encounter Details Date Type Department Care Team (Late Contact Info) Description 01/13/2024 Orders Only [facility] MED & PEDS [address] [place], [place] [phone] Provider, MD Luz Social History Tobacco Use Types Packs/Day Years [...] 10:15 AM EST Office Visit [facility] MED & PEDS [address] [place] [address] Karli Maradiaga FNP [address] [place] [address] 10/20/2025 10:15 AM EDT Office Visit [facility] ADULT DENTAL [address] [place] [address] Luciana Hercules documented as of this encounter Procedures Procedure [...] of this encounter Care Teams Director Of Content And Programming Relationship Specialty Start Date End Date Shonda Greer MD 505 [facility] [place] [address] PCP - General Internal Medicine 01/10/24 Radha Garza Driftman 02/07/24 05/11/24 documented as of this encounter
--- OUTSIDE RECORDS SUMMARY | 2025-05-29 10:47 | XMS_ITS | Encounter Summary ---
Author Organization [employer] Address [address] [facility] 7 [place] [address] Care Team Providers Care Community Development Manager Name Role Phone Shonda Greer MD Primary Care Provider [phone] Shonda Greer MD Primary Care Provider [phone] Reason for Referral * Imaging (Urgent) - Closed Specialty Diagnoses / Procedures Referred By Contac t Referred To Contact Interventional Radiology Diagnoses Left thyroid nodule Procedures IR Fine Needle Aspiration Thyroid Shonda Greer MD [address] [place] [address] Phone: tel: fax: [address] [address] Phone: tel: fax: Referral ID Status Reason Start Date Expiration Date Visits Re quested Visits Authorized [id number] Closed 09/16/2023 09/15/2024 1 1 Encounter Details Date Type Department Care Team (Late st Contact Info) Description 09/16/2023 Orders Only [facility] CH[facility] MED & PEDS [address] [place], [place] [phone] Shonda Greer MD [address] [place] [address] Left thyroid nodule (Primary Dx) Social History [...] [facility] [address] [place] [address] Karli Maradiaga FNP [address] [place] [address] 10/20/2025 10:15 AM EDT Office Visit [facility] ADULT DENTAL [address] [place] [address] Luciana Hercules Scheduled Orders Name Type Priority Associated Diagnoses Orde r Schedule IR Fine Needle Aspiration Thyroid Imaging Urgent Left thyroid nodule Expected: 09/16/2023, Expires: 09/15/2024 documented as of this encounter Visit Diagnoses Diagnosis Left thyroid nodule- Primary documented in this encounter Additional Health Concerns Assessment Noted Time PHQ-9 Depression Total Score: 20 023 2:07 PM EDT documented as of this encounter Care Teams Community Development Manager Relationship Specialty Start Date End Date Shonda Greer MD [address] [place] [address] PCP - General Family Medicine 07/16/13 01/09/24 Shonda Greer MD [address] [place] [address] PCP - General Internal Medicine 01/10/24 Radha Garza Materials Research Engineer 02/07/24 05/11/24 documented as of this encounter
--- OUTSIDE RECORDS SUMMARY | 2025-05-29 10:47 | XMS_ITS | Encounter Summary ---
Author Organization [facility] Address [address] [place] [address] Phone Care Team Providers Care Completion Engineer Name Role Phone Shonda Greer MD Primary Care Provider [phone] Encounter Details Date Type Department Care Team (Late st Contact Info) Description 08/28/2024 Procedure Pass [facility] Imaging - MRI, [facility] [address] [place] [address] Social History Tobacco Use Types Packs/Day Years [...] 7:19 PM EDT Nakita Gay RN * [place] Suicide Severity Rating Scale (Screener/Recent Self-Report) Question [...] Care Team (Late st Contact Info) Description 09/06/2025 3:00 PM EDT Office Visit [facility] General Neurology [address] [place] [address], [address] [place] [address] Jacky Bush MD [address] [place] [address] [email or web address] 12/23/2025 1:30 PM EDT Office Visit [facility] 243 [facility] 9th [place] [address] Arslan Redman MD [address] [place] [address] [email or web address] documented as of this encounter Visit Diagnoses Not on filedocumented in this encounter Care Teams Completion Engineer Relationship Specialty Start Date End Date Shonda Greer MD [address] [place] [address] PCP - General Internal Medicine 08/25/24 documented as of this encounter Additional Source Comments The information contained in this document represents components of the legal health record. It is not the complete legal health record.[facility]
--- OUTSIDE RECORDS SUMMARY | 2025-05-29 10:47 | XMS_ITS | Encounter Summary ---
Author Organization [facility] Address [address] [place] [address] Phone Care Team Providers Care Enrichment Director Name Role Phone Shonda Greer MD Primary Care Provider [phone] Encounter Details Date Type Department Care Team ([facility] st Contact Info) Description 04/19/2025 Ophth Exam [facility] Emergency Department [address] [place] [address] Taras Jefferson MD, PhD [address] [place] [address] [email or web address] Social History Tobacco Use Types Packs/Day Years [...] 04/19/2025 8:32 PM Hardeep Ellsworth RN * [place] Suicide Severity Rating Scale (Screener/Recent Self-Report) Question Answer Date of Assessment Author 1. Wish to be (Past 1 Month) No 025 8:32 PM Hardeep Ellsworth, RN 2. Non-Specific Active Suici christiano Thoughts (Past 1 Month) No 04/19/2025 8:32 PM EST Julito, Jose Luis el, RN 6. Suicidal Behavior (Lifetime) No 5 8:32 PM EST Hardeep Vila, CHRIS documented as of this encounter Plan of Treatment Upcoming Encounters Date Type Department Care Team (Late st Contact Info) Description 09/06/2025 3:00 PM EDT Office Visit [facility] Neurology [address] [facility], [address] [place] [address] Jacky Bush MD 55 [facility] [address] [place] [address] [email or web address] 12/23/2025 1:30 PM EDT Office Visit [facility] 243 [facility] 9th [place] [address] Arslan Redman MD [address] [place] [address] [email or web address] documented as of this encounter Visit Diagnoses Not on filedocumented in this encounter Care Teams Enrichment Director Relationship Specialty Start Date End Date Shonda Greer MD 505 [place] [address] PCP - General Internal Medicine 08/25/24 documented as of this encounter Additional Source Comments The information contained in this document represents components of the legal health record. It is not the complete legal health record.[facility]
--- OUTSIDE RECORDS SUMMARY | 2025-05-29 10:47 | XMS_ITS | Encounter Summary ---
Author Organization [employer] Address 75 [facility] 7 [place] [address] Care Team Providers Care Building Maintenance Custodian Name Role Phone Shonda Greer MD Primary Care Provider [phone] Shonda Greer MD Primary Care Provider [phone] Reason for Visit * Reason Onset Date Comments Call Back Request 11/25/2023 Encounter Details Date Type Department Care Team ([facility] st Contact Info) Description 11/25/2023 Telephone [facility] MEDICINE [address] [place] [address] Shonda Greer MD [address] [place] [address] Call Back Request Social History Tobacco Use [...] XR confirmed fifth metatarsal fx. call center associate provider spoke with pt and informed and verified Ortho referral was placed during last visit. * Telephone Encounter - Jonel Gaspar - 11/25/2023 4:16 PM EDT Tc from Kenzie with [facility] Radiology requesting call back to discuss positive xray results. Kenzie also informed she faxed results over. Please contact Kenzie at [phone]. documented in this encounter Plan of Treatment Upcoming Encounters Date Type Department Care Team (Late st Contact Info) Description 05/31/2025 10:15 AM EST Office Visit [facility] MED [facility] PEDS [address] [place] [address] Karli Maradiaga FNP 505 [place] [address] 10/20/2025 10:15 AM EDT Office Visit [facility] ADULT DENTAL [address] [place] [address] Luciana Hercules documented as of this encounter Visit Diagnoses Not on filedocumented in this encounter Additional Health Concerns Assessment Noted Time PHQ-9 Depression Total Score: 20 023 2:07 PM EDT documented as of this encounter Care Teams Building Maintenance Custodian Relationship Specialty Start Date End Date Shonda [place] MD [address] [place] [address] PCP - General Family Medicine 07/16/13 01/09/24 Shonda Greer MD [address] [place] [address] PCP - General Internal Medicine 01/10/24 Radha Garza Armhole Sewer 02/07/24 05/11/24 documented as of this encounter
--- OUTSIDE RECORDS SUMMARY | 2025-05-29 10:48 | XMS_ITS | Encounter Summary ---
Author Organization [facility] Address [address] [place] [address] Phone Care Team Providers Care Radiation Therapy Technologist Name Role Phone Shonda Greer MD Primary Care Provider [phone] Encounter Details Date Type Department Care Team ([facility] st Contact Info) Description 08/28/2024 Ophth Exam [facility] Emergency Department [address] [place] [address] Sarah Ward MD [address] [place] [address] [email or web address]. U Social History Tobacco Use Types Packs/Day [...] 7:19 PM EDT Nakita Gay RN * [place] Suicide Severity Rating Scale (Screener/Recent Self-Report) Question [...] Description 09/06/2025 3:00 PM EDT Office Visit [facility] General Neurology [address] [place] [address], [address] [place] [address] Jacky Bush MD [address] [place] [address] [email or web address] 12/23/2025 1:30 PM EDT Office Visit [facility] [address] 9 [place] [address] Arslan Redman MD [address] [place] [address] [email or web address] documented as of this encounter Visit Diagnoses Not on filedocumented in this encounter Care Teams Radiation Therapy Technologist Relationship Specialty Start Date End Date Shonda Greer MD [address] [place] [address] PCP - General Internal Medicine 08/25/24 documented as of this encounter Additional Source Comments The information contained in this document represents components of the legal health record. It is not the complete legal health record.[facility]
--- OUTSIDE RECORDS SUMMARY | 2025-05-29 10:48 | XMS_ITS | Encounter Summary ---
Author Organization [facility] Address [address] [place] [address] Phone Care Team Providers Care Government Auditor Name Role Phone Shonda Greer MD Primary Care Provider Encounter Details Date Type Department Care Team (Late st Contact Info) Description 08/28/2024 Procedure Pass [facility] Imaging - MRI, [facility] [address] [place] [address] Social History Tobacco Use Types Packs/Day Years [...] 7:19 PM EDT Nakita Gay RN * [place] Suicide Severity Rating Scale (Screener/Recent Self-Report) Question [...] Description 09/06/2025 3:00 PM EDT Office Visit [facility] General Neurology [address] [place] [address], [address] [place] [address] Jacky Bush MD [address] [place] [address] MARIAELENA@[email or web address] 12/23/2025 1:30 PM EDT Office Visit [facility] Neuro [facility] 243 [facility] 9th [place] [address] Arslan Redman MD [address] [place] [address] [email or web address] documented as of this encounter Visit Diagnoses Not on filedocumented in this encounter Care Teams Government Auditor Relationship Specialty Start Date End Date Shonda Greer MD [address] [place] [address] PCP - General Internal Medicine 08/25/24 documented as of this encounter Additional Source Comments The information contained in this document represents components of the legal health record. It is not the complete legal health record.[facility]
--- OUTSIDE RECORDS SUMMARY | 2025-05-29 10:48 | XMS_ITS | Encounter Summary ---
Author Organization [employer] Address 75 [facility] 7 [place] [address] Care Team Providers Care Software Support Technician Name Role Phone Shonda Greer MD Primary Care Provider [phone] Shonda Greer MD Primary Care Provider [phone] Reason for Visit * Reason Onset Date Comments Referral 10/28/2023 Encounter Details Date Type Department Care Team ([facility] st Contact Info) Description 10/28/2023 Telephone [facility] [address] [place] [address] Shonda Greer MD [address] [place], [place] [phone] Referral Social History Tobacco Use Types Packs/Day [...] 11/14/2023 3:14 PM EDT Placed call to [facility] Endo regarding message below. They stated they are referring pt to [facility] Endo to Dr Mendoza at [facility] but with pt insurance they needed a insurance referral. [facility] endo stated they faxed over needed paperwork. Informed them we did send today the completed for. [facility] Endo office looked and [...] the surgery, this was advised by the Personal Service Representative office but mom is very confused on [...] in regards below message, please contact at [phone] * Telephone Encounter - Dolly Warren - 10/29/2023 12:28 PM EDT VM left for patient regarding request for endo at [facility]. Patient was referred to Dr. Too wood [facility] not accepting patient insurance. * Telephone Encounter - Jonel Hubert - 10/28/2023 1:58 PM EDT TC from pt requesting new referral: Address: [facility] [address] Facility Name: [facility] Type of Specialist: Personal Service Representative Pt is requesting to change location of original endocrinology referral, stated she gave a form witha sticky note with al necessary information of referral to [place] so they can hand it to the pcp in which [place] stated they will. Pt has not gotten any update since and states it's been 2 weeks since then. If any questions you can contact pt at [phone]. documented in this encounter Plan of Treatment Upcoming Encounters Date Type Department Care Team (Late st Contact Info) Description 05/31/2025 10:15 AM EST Office Visit [facility] MED & PEDS 505 [place] [address] Karli Maradiaga, LABORATORY MILLER 505 [place] [address] 10/20/2025 10:15 AM EDT Office Visit [facility] ADULT DENTAL [address] [place] [address] Luciana Hercules documented as of this encounter Visit Diagnoses Not on filedocumented in this encounter Additional Health Concerns Assessment Noted Time PHQ-9 Depression Total Score: 20 023 2:07 PM EDT documented as of this encounter Care Teams Software Support Technician Relationship Specialty Start Date End Date Shonda Greer MD [address] [place] [address] PCP - General Family Medicine 07/16/13 01/09/24 Shonda Greer MD [address] [place] [address] PCP - General Internal Medicine 01/10/24 Radha Garza Cylinder Grinder 02/07/24 05/11/24 documented as of this encounter
--- OUTSIDE RECORDS SUMMARY | 2025-05-29 10:48 | XMS_ITS | Encounter Summary ---
Author Organization [employer] Address [address] [facility] [address] 7t [place] [address] Care Team Providers Care Operator Engineer Name Role Phone Shonda Greer MD Primary Care Provider [phone] Shonda Greer MD Primary Care Provider [phone] Reason for Visit * Reason Comments Med Change Request Encounter Details Date Type Department Care Team ([facility] st Contact Info) Description 10/23/2023 Refill [facility] ADULT DENTAL [address] [place] [address] Breann Art DDS Social History Tobacco Use [...] Description 05/31/2025 10:15 AM EST Office Visit [facility] MED [facility]ED[facility] 505 [place] [address] Karli Maradiaga FNP 505 [place] [address] 10/20/2025 10:15 AM EDT Office Visit [facility] ADULT DENTAL [address] [place] [address] Luciana Hercules documented as of this encounter Visit Diagnoses Not on filedocumented in this encounter Additional Health Concerns Assessment Noted Time PHQ-9 Depression Total Score: 20 023 2:07 PM EDT documented as of this encounter Care Teams Operator Engineer Relationship Specialty Start Date End Date Shonda Greer MD 505 [place] [address] PCP - General Family Medicine 07/16/13 01/09/24 Shonda Greer MD [address] [place] [address] PCP - General Internal Medicine 01/10/24 Radha Garza Adult Education Instructor 02/07/24 05/11/24 documented as of this encounter
--- OUTSIDE RECORDS SUMMARY | 2025-05-29 10:48 | XMS_ITS | Clinical Summary ---
Author Organization [employer] Address [address] [facility] [address] 7t [place] [address] Care Team Providers Care Title I Assistant Name Role Phone Shonda Greer MD Primary Care Provider [phone] Allergies No known active allergies Medications * [...] triggered underneath symptoms. Arnulfo reached out to [facility] in [place]. She was told that agency has internal wait list and her status was pending. clinician recommended pt to contact [facility] in [facility] for same-day appointment. Arnulfo said she [...] intervention , Patient to reach out to [facility] team as needed, Comply with medication , Patient to engage in OP therapy , and Patient to reach out to [facility] as needed Thyroid carcinoma (CMS/HCC) 01/10/2024 Overview [...] [facility]. Encounters Date Type Department Care Team Description 04/21/2025 11:00 AM EST Office Visit [facility] ADULT DENTAL [address] [place] [address] Sveta Beck 04/21/2025 Orders Only GENERIC EXTERNAL DATA DEPARTMENT Provider, Generic External Data from Last 3 Months Immunizations Immunization Administration [...] Description 05/31/2025 10:15 AM EST Office Visit [facility] MED [facility] PEDS [address] [place] [address] Karli Maradiaga, PUBLIC RECORDS OFFICER 505 [place] [address] 10/20/2025 10:15 AM EDT Office Visit [facility] ADULT DENTAL [address] [place] [address] Luciana Hercules Health Maintenance Due Date Last Done Comments Dental Oral Exam 2002 Dental X-Ray: Bitewings 2002 Lipid Panel 2002 Alcohol/Substance Use Screening 2014 Family Planning (PISQ) 2017 Meningococcal B Vaccine (1 of 2 - Standard) 2018 Pap Smear 12/04/2023 DTaP/Tdap/Td Vaccines (7 - Td or Tdap) 07/23/2024 07/23/2014, 01/29/2008, 03/08/2004, Additional history exists Depression Monitoring 09/16/2024 03/18/2024, 024 COVID-19 Vaccine (3 - season) 2025 12/12/2020, 11/07/2020 Influenza Vaccine (#1) [...] ADULT Routine 04/21/2025 1 1:00 AM EST HEPATITIS C AB W/REFL TO HCV RNA, [...] Free T4 0.10(L) 0.32 - 4.0 uIU/mL [facility] 04/21/2025 2:45 PM EST 04/21/2025 2:45 PM EST us Generic External Data Provider LAB BLOOD ORDERAB LES Final Result Performing Organization Address [facility] Co de Phone Number [facility] [address] [place] [phone] * T4, Free (04/21/2025 2:45 PM EST) Free T4 (Free Thyroxine) 1.46 0.71 - 1.85 ng/dL [facility] 04/21/2025 2:45 PM EST 04/21/2025 2:45 PM EST us Generic External Data Provider LAB BLOOD ORDERAB LES Final Result Performing Organization Address [facility]/ZIP Co de Phone Number [facility] [address] [place] [phone] * Hepatitis C Antibody with Reflex to HCV, RNA, Quantitative, Real-Time PCR (02/12/2025 12:42 PM EDT) Hepatitis C Antibody Nonreactive Nonreactive [facility] Comment:Antibodies to HCV no t detected; does not exclude early acuteHCV infection. Blood Venous blood specimen / Unknown 02/12/2025 12:42 PM EDT 02/12/2025 2:28 PM EDT Shonda Greer MD LAB BLOOD ORDERABLES Final Re sult Performing Organization Address [facility]/ZIP Co de Phone Number [facility] [address] [place] [phone] * HIV-1/2 Antigen and Antibodies, Fourth Generation, with Reflexes (02/12/2025 12:42 PM EDT) HIV AB/AG Nonreactive Nonreactive [facility] Comment:HIV-1 p24 Ag and/or HIV-1/HIV-2 Ab not detected.A test result that is nonreactive does not exclude thepossibility of exposure to or infection with HIV-1 and/orHIV-2. Nonreactive results in this assay for individualswith prior exposure to HIV-1 and/or HIV-2 may be due toantigen and antibody levels that are below the limit ofdetection of this assay.The UMicIt HIV Ag/Ab Combo assay result andsupplemental assay results should be interpreted inconjunction with the patient's clinical presentation,history and other laboratory results. If the results areinconsistent with clinical evidence, additional testing issuggested to confirm the result. Blood Venous blood specimen / Unknown 02/12/2025 12:42 PM EDT 02/12/2025 2:28 PM EDT us Shonda Greer MD LAB BLOOD ORDERABLES Final Re sult Performing Organization Address [facility]/ZIP Co de Phone Number [facility] [address] [place] [phone] * Chlamydia/Trichomonas/Neisseria gonorrhoeae, PCR, Urine (02/12/2025 12:00 AM EDT) CT PCR, Urine NOT DETECTED Not Detect. [facility] Comment:A not detected test result [...] NG PCR, Urine NOT DETECTED Not Detect. [facility] Comment:A not detected test result [...] MD LAB URINE ORDERABLES Final Re sult [facility] [address] [place] [address] [phone] from Last 3 Months or Most Recently Relevant to Health Maintenance Insurance [employer] MEDICA[employer] STAND ADULT Care Teams Title I Assistant Relationship Specialty Start Date End Date Shonda Greer MD [address] [place] [phone] PCP - General Internal Medicine 01/10/24
--- OUTSIDE RECORDS SUMMARY | 2025-05-29 10:48 | XMS_ITS | Clinical Summary ---
Author Organization [facility] Address [address] [place] [address] Phone Care Team Providers Care Physician Scribe Name Role Phone Shonda Greer MD Primary Care Provider [phone] Allergies No known active allergies Medications traZODone [...] mouth 2 (two) times a day. 5 10/30/20 26 Active SUMAtriptan (IMITREX) 50 MG tablet Take 1 tablet (50 mg total) by mouth once as needed for migraine. Can repeat dose in 2 hours if needed. Do not exceed 2 doses in a 24 hour period. Max dose 200mg/ day 9 tablet 5 Active erenumab-aooe (AIMOVIG AUTOINJECTOR) 140 mg/mL subcutaneous injectionIndicati ons:Intractable chronic migraine without aura and without status migrainosus Inject 1 mL (140 mg total) under the skin every 28 days. 1 mL Active Active Problems No known active problems Encounters Date Type Department Care Team Description 05/14/2025 Telephone [facility] Department of Neurology [address] [place] [address], [address] [place] [address], [address] [place] [address] Jacky Bush MD Medication Prior Authorization (AIMOVIG) 05/07/2025 Orders Only [facility] Department of Neurology [address] [place] [address], [address] [place] [address], [address] [place] [address] Jacky Bush MD Intractable chronic migraine without aura and without status migrainosus (Primary Dx) 05/04/2025 9:00 AM EST Office Visit [facility] [address] [place] [address], [address] [address] Jacky Bush MD Intractable chronic migraine without aura and without status migrainosus (Primary Dx); Idiopathic intracranial hypertension 04/19/2025 8:26 PM EST - 04/20/2025 2:58 AM EST Emergency [facility] Emergency Department [address] [place] [address] Discharge Disposition: Home or Self Care 04/19/2025 [facility] Exam [facility] Emergency Department [address] [place] [address] Taras Jefferson MD, PhD 03/19/2025 Telephone [facility] Neuro [facility] [address] [address] Akiko Partida MD from Last 3 Months [...] Description 09/06/2025 3:00 PM EDT Office Visit [facility] General Neurology [address] [facility], [address] [place] [address] Jacky Bush MD [address] [address] MARIAELENA@[email or web address] 12/23/2025 1:30 PM EDT Office Visit [facility] Neuro [facility] 243 [facility] 9th [place] [address] Arslan Redman MD [address] [place] [address] [email or web address] Health Maintenance Due Date Last Done Comments TSH LEVEL 2002 DEPRESSION SCREENING 2014 HPV VACCINES (1 - 3-dose series) 2017 CHLAMYDIA SCREENING 2018 MENINGOCOCCAL VACCINES (B) ( 1 of 2 - Standard) 2018 HEPATITIS C SCREENING 2020 HIV ONE-TIME SCREENING (18-6 5 YEARS) 2020 PAP SMEAR 12/04/2023 Adult Td,Tdap Booster 07/23/2024 07/23/2014 INFLUENZA VACCINE (#1) 2025 COVID-19 VACCINE ( - 2024-2 6 season) 2025 SMOKING Hx and SMOKELESS TOB ACCO SCREENING 05/07/2026 05/07/2025 HEPATITIS A VACCINES Aged Out No long [...] topic Medical Devices Not on file Insurance [facility] [employer] [facility] [employer]3 [employer] [facility] [employer]3 ACO Care Teams Physician Scribe Relationship Specialty Start Date End Date Shonda Greer MD 505 [facility] [place] [address] PCP - General Internal Medicine 08/25/24 Additional Source Comments The information contained in this document represents components of the legal health record. It is not the complete legal health record.[facility]
--- OUTSIDE RECORDS SUMMARY | 2025-05-29 10:48 | XMS_ITS | Encounter Summary ---
Author Organization [facility] Address [address] [place] [address] Phone Care Team Providers Care Gas Meter Mechanic Name Role Phone Shonda Greer MD Primary Care Provider [phone] Encounter Details Date Type Department Care Team (Late st Contact Info) Description 08/28/2024 Procedure Pass [facility] - [facility] [address] [place] [address] Social History Tobacco Use Types Packs/Day Years [...] 7:19 PM EDT Nakita Gay RN * [place] Suicide Severity Rating Scale (Screener/Recent Self-Report) Question [...] Description 09/06/2025 3:00 PM EDT Office Visit [facility] Neurology [address] [place] [address], [address] [place] [address] Jacky Bush MD [address] [place] [id number] [email or web address] 12/23/2025 1:30 PM EDT Office Visit [facility] Neuro [facility] [address] [facility] 9th [place] [address] Arslan Redman MD [address] [place] [phone] [email or web address] documented as of this encounter Visit Diagnoses Not on filedocumented in this encounter Care Teams Gas Meter Mechanic Relationship Specialty Start Date End Date Shonda Greer MD [address] [place] [id number] PCP - General Internal Medicine 08/25/24 documented as of this encounter Additional Source Comments The information contained in this document represents components of the legal health record. It is not the complete legal health record.[facility]
== END 2025-05-29 10:44 | disposition home or self-care (01) ==
LOC: HO.US 10:43
PROVIDERS: PCP Pediatrics; Visit Provider Student in an Organized Health Care Education/Training Program
DX: C73 Malignant neoplasm of thyroid gland (principal); E89.0 Postprocedural hypothyroidism
CPT/HCPCS: 76536

== ENCOUNTER → 2025-05-29 10:45 | Outpatient (BNV) | payer MEDICAID, SELFPAY | PROVIDERS: PCP Pediatrics; Visit Provider Radiology Diagnostic Radiology | DX: E89.0 Postprocedural hypothyroidism (principal); R59.0 Localized enlarged lymph nodes | CPT/HCPCS: 76536 ==

== ENCOUNTER 2025-05-31 11:39 | Outpatient (REF) | payer MEDICAID, SELFPAY ==
[2025-05-31 15:15] LABS: Appearance Urine Turbid; Glucose Urine UA Negative (Negative); PH 5.5 (5.0-9.0); Specific Gravity - Urine 1.025 (1.005-1.025)
[2025-05-31 15:44] LABS: Bacterial Vaginosis PCR NEGATIVE (Negative); Candida Group PCR NOT DETECTED (Not Detect); Candida glab krusei PCR NOT DETECTED (Not Detect); Trichomonas vaginalis PCR NOT DETECTED (Not Detect)
[2025-05-31 16:14] LABS: CT PCR NOT DETECTED (Not Detect.); NG PCR NOT DETECTED (Not Detect.)
[2025-06-01 05:05] LABS: HIV Num 1 0.08 S/CO (0.00-0.99); ~HepC Num1 0.08 S/CO (0.00-0.79); ~Hepatitis C Antibody Nonreactive (Nonreactive)
== END 2025-05-31 11:40 | disposition home or self-care (01) ==
LOC: HO.CHCLDS 11:39
PROVIDERS: Pediatrics; Visit Provider Registered Nurse
DX: Z30.011 Encounter for initial prescription of contraceptive pills (principal); T74.21XA Adult sexual abuse, confirmed, initial encounter; Z20.2 Contact with and (suspected) exposure to infections with a predominantly sexual mode of transmission; Z11.4 Encounter for screening for human immunodeficiency virus [HIV]; Z11.59 Encounter for screening for other viral diseases
CPT/HCPCS: 36415; 81001; 81515; 86592; 86803; 87389; 87491; 87591

== ENCOUNTER 2025-06-08 15:51 | Outpatient (AMB) | payer MEDICAID, SELFPAY ==
--- NOTE | 2025-06-08 15:52 | MHC.OFFVIS ---
Vital Signs 06/08/25 15:55 Height 5 ft 3 in Weight 149 lb 14.629 oz BMI 26.6 BP 116/76 Blood Pressure Location Rt brachial Position Sitting Pulse 106 H Pulse Source Pulse Oximeter Pulse Oximetry (%) 100 Oxygen Delivery Method Room Air Intake Visit Reasons: Hypothyroidism, Hx of thyroid cancer Intake Note: Patient presents here today for Hypothyroidism Hx of Thyroid Cancer follow-up after completion of workup. Last seen by Dr Rhiannon MD Thyroid Workup Labs: Completed on 04/21/2025 Ultrasound Scheduled on 05/29/2025 Bicycle Taxi Driver Required: No Accompanied by: Self / Same As Patient Allergies No Known Allergies Allergy (Verified 06/08/25 15:53) HPI Comments Details: 23 YO F with PMHx of anxiety and depression who is status post left lobectomy and prelaryngeal lymph node excision 12/17/23 with diagnosis of papillary thyroid cancer with follicular features , AJCC stage 1 ([id number]), with pathology showing high-grade features with high Ki67 index of 20 % and angioinvasion, concerning for KETTY high-risk for recurrence PTC,Underwent completion thyroidectomy 03/31/24, with benign right thyroid lobe pathology , status post radioactive iodine treatment on 06/03/2024 with 101 mCi I 131 who is here for follow up HPI Initially diagnosed with thyroid nodule in August of 2023 a thyroid ultrasound revealing Estimated total number of nodules greater than or equal to 1 cm: 1. 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 Location: Left mid. Size: 3.2 x 2.3 x 2.7 cm, volume 10.4 mL. Nodule characteristics: Composition: Solid (2). Echogenicity: Hypoechoic (2). Shape: Not taller than wide (0). Margins: Smooth (0). Echogenic Foci: None (0). ACR TI-RADS total points: 4. ACR TI-RADS category: 4. NODES: 1.0 x 0.2 x 0.7 cm right cervical node with echogenic hilum. 1.6 x 0.3 x 0.6 cm left cervical node with echogenic hilum and mild prominence of the cortex. FNA of the nodule 09/25/2023 which showed AUS. Affirma was suspicious Subsequently underwent left thyroid lobectomy in prelaryngeal lymph node excision on 12/17/[address] Javid Mendoza Pathology : Showed a unifocal left lobe 3 cm high-grade differentiated thyroid carcinoma with a 20% Ki-67 index, angioinvasion with greater than 4 vessels, no lymphatic invasion or perineural invasion. No extrathyroidal extension. 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 AJCC stage I (pT2 N0 a) Underwent completion thyroidectomy 03/31/24, with benign right thyroid lobe pathology on levothyroxine 150 mcg daily started postoperatively , 04/22/2024: Labs showed TSH of 0.24, free T4 of 1.52, TG 0.3, TG antibody less than 1 04/28/24: levotyorxine increased to 175 mcg daily 06/03/2024: Underwent radioactive iodine treatment with 101 mCi of I 131. 06/03/2024: Labs showed TSH of 61.24, free T4 1.46, TG 0.2, TG antibody less than 1 06/12/2024: Whole-body scan shows expected uptake in the thyroid bed with no metastatic uptake. visit in June she was complaining about a submandibular lump, tenderness , resolved with ibuprofena and dexamethasone. 07/16/2024: Ultrasound of the head and neck, I reviewed the images myself showed normal evaluating bilateral lymph nodes, some of these were prominent, we decided to keep an eye on these. 08/13/24: TSH < 0.01, free t4 1.65 08/22/24: Levothyroxine reduced to 150 mcg daily 09/30/2024: Repeat ultrasound of the head and neck again shows bilateral normal-appearing lymph nodes, none of these lymph nodes look concerning.' 10/01/2024: TSH 0.02, free T4 1.24, TG less than 0.1, TG antibody less than 1 Continues on levothyroxine 150 mcg daily. She has lost around 40 lb of weight with weight management plan with diet, topiramate which was started for idiopathic intracranial hypertension, this is being managed with neurologist at [facility]. Overall she feels her energy is better, says she only has palpitations and some tremors after strenuous activity. She does not look very hyperthyroid. 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 Maternal aunts both had thyroid surgery with benign results Maternal uncle had thyroid cancer Paternal aunts x2 have throid disease 2 maternal grandmothers (grandmothers isters) have breats Ca 3 paternal aunts have breast Cancer Physical exam: General: Well appearing. NAD. Neck/Thyroid: Thyroid not palpable, no nodules. CV: RRR, no murmur. No edema. Resp:Lungs clear to auscultation bilaterally Abdomen: Soft, nontender. nondistended Extremities/Neuro: No weakness or tremor of outstretched hands Labs Laboratory Tests 11/06/23 03/23/24 04/22/24 10:27 14:11 13:06 TSH 2.70 1.10 0.24 L Free T4 0.99 1.21 1.52 Thyroglobulin 68.9 H 0.3 H Thyroglobulin Antibody <1 <1 Laboratory Tests 04/22/24 05/19/24 06/02/24 13:06 13:52 09:39 TSH 0.24 L 0.01 L Free T4 1.52 1.83 Thyroglobulin 0.3 H <0.1 Beta HCG, Quant < 2 < 2 Thyroglobulin Antibody <1 06/03/24 06/05/24 09:50 10:03 TSH 61.24 H 8.61 H Free T4 1.46 1.74 Thyroglobulin 0.2 H 0.6 H Beta HCG, Quant Thyroglobulin Antibody <1 <1 Laboratory Tests 08/13/24 10/01/24 11:41 14:53 TSH < 0.01 L 0.02 L Free T4 1.65 1.24 Thyroglobulin <0.1 Thyroglobulin Antibody <1 <1 Thyroid US 05/29/25 Findings The thyroid gland has been removed. No residual thyroid tissue or nodule. There is diffuse bilateral cervical lymphadenopathy. Comparison with lymph nodes with prior exams is difficult. Abnormal lymph nodes described below. Right: Level 2 measuring 1.9 x 0.7 x 2.0 cm. This is enlarged with abnormal ultrasound morphology with slitlike hilum. Normal hilar flow. Level 5A measuring 0.9 x 0.3 x 1.1 cm. This has a slitlike hilum with hilar flow. Level 5B measuring 0.9 x 0.3 x 1 cm. This has a slitlike hilum with normal hilar flow. Left: Level 5A measuring 1.5 x 0.5 x 2.2 cm. This is enlarged with slitlike or absent hilum with central hilar flow. US head and neck, non thyroid 09/30/24 Comparison: None Findings: Status post thyroidectomy. There are multiple bilateral nonenlarged and morphologically normal lymph nodes. Impression: 1. Status post thyroidectomy without residual thyroid parenchyma in the thyroid bed. Bilateral nonenlarged morphologically normal lymph nodes. [employer] TI-RADS Categories TR1 and TR2 nodules do not have follow-up recommendations TR3 (FNA >= 2.5cm, F/U >= 1.5cm at 1, 3, and 5 yrs) TR4 (FNA >= 1.5cm, F/U >= 1cm at 1, 2, 3, and 5 yrs) TR5 (FNA >= 1cm, F/U >= 0.5cm annually for up to 5 yrs) This document has been electronically signed by: Sarah Wu MD on 09/30/2024 09:12:27 EXAMINATION: US HEAD NECK SOFT TISSUE 07/16/24 HISTORY: E89.0 - Postprocedural hypothyroidism COMPARISON: Correlation is made with a thyroid ultrasound dated 09/11/2023. FINDINGS: Sonographic examination of the thyroid bed was performed. The patient is status post thyroidectomy. No residual thyroid tissue is noted. Multiple lymph nodes are seen in the neck bilaterally. On the right, there is a single abnormal appearing level II node measuring 2.0 x 0.6 x 1.9 cm which demonstrates a slitlike hilum and cortical thickening. On the left, there are multiple level II and III lymph nodes which demonstrate absent cb, measuring up to 2.5 x 0.5 x 2.2 cm. US/US soft tiss head and/or neck IMPRESSION: No residual thyroid tissue is identified. There are multiple abnormal appearing lymph nodes in the neck bilaterally as described. These are amenable to ultrasound-guided fine-needle aspiration if desired. Electronically signed by: Ebenezer Venegas MD 07/17/2024 09:40 AM EST [facility] Medical History (Updated 02/09/25 @ 06:53 by Margi Gregorio) Thyroid cancer Hypothyroidism Thyroid cancer Thyroid nodule Surgical History History of lobectomy of thyroid Hx of total thyroidectomy H/O bilateral breast reduction surgery Family History Paternal Aunt Breast cancer Mother No problems noted. Father No problems noted. Social History (System 02/09/25 @ 06:53 by Margi Gregorio) Alcohol intake: current Alcohol intake frequency: holidays/special occasions only Female Reproductive History Menstrual Age of Menarche: 13 Physical Exam Vital Signs: Last Vital Signs Pulse 106 H 06/08/25 15:55 BP 116/76 06/08/25 15:55 Pulse Ox 100 06/08/25 15:55 Oxygen Delivery Method Room Air 06/08/25 15:55 BMI result Body Mass Index 26.6 Assessment & Plan Assessment & Plan (1) Thyroid cancer: Code(s): C73 - Malignant neoplasm of thyroid gland Category: Medical Plan: 23 YO F who was recently diagnosed with left sided thyroid nodule on thyroid ultrasound in August 2023, but subsequent FNA in 10/05/2023 showing AUS with suspicious Afirma, status post left lobectomy and prelaryngeal lymph node excision 12/17/23 with diagnosis of papillary thyroid cancer with follicular features , AJCC stage 1 ([id number]), with pathology showing high-grade features with high Ki67 index of 20 % and angioinvasion (>4 vessels), concerning for KETTY high-risk for recurrence with recurrence risk of around 15-30%. s/p completion thyroidectomy 03/31/[address] Mendoza with benign right lobe pathology. status post radioactive iodine treatment on 06/03/2024 with 101 mCi I 131 who is here for follow up Three weeks postoperative labs from 04/22/24 show TSH of 0.24, TG 0.3, TG antibody undetectable. usually takes about 4-6 weeks for thyroglobulin reach its alexis level will have her repeat labs in 2 weeks. Given low levels of TG postoperatively, this is a favorable factor in her prognosis. Status post 101 mCi of I 131 on 06/03/2024 with a whole-body scan on showing in no metastatic disease, only expected uptake in the thyroid bed. Her stimulated TG levels TG 0.2, TG antibody less than 1 from 06/03/2024 also reassuring. Most recent ultrasound from September 2024, showed normal-appearing lymph nodes, no signs of recurrence. 10/01/2024: TSH 0.02, free T4 1.24, TG less than 0.1, TG antibody less than 1 Given KETTY initial high-risk of recurrence, her TSH goal is less than 0.1 for the 1st year post surgery. She history of high-grade differentiated thyroid carcinoma and incomplete anatomic response with multiple abnormal cervical lymph nodes in the last US, with kojo size and abnormal morphology, we discussed options including monitoring or referral to specialized center 2nd opinion and possible ultrasound-guided FNA of the most suspicious lymph node with thyroglobulin washout to confirm metastatic disease prior to definitive management. We have decided to repeat Tg and TG Ab before make a decision as the last labs were done in December 2024. Will obtain Tg and Tg AB (normal in December 2024), but given incomplete anatomic response, will keep TSH goal < 0.1 for now. Plan: - continue levothyroxine 125 mcg daily since February 2025 -repeat labs ordered for TG and TG antibody levels -Follow un up in 2 weeks to review the results of tumor markers and to make a final recommendation in regards to the newly, abnormal appearing lymph nodes (2) Hypothyroidism: Code(s): E03.9 - Hypothyroidism, unspecified Category: Medical Qualifiers: Hypothyroidism type: postoperative Qualified Code(s): E89.0 - Postprocedural hypothyroidism Plan: She is on levothyroxine 150mcg daily . 10/01/2024: TSH 0.02, free T4 1.24, TG less than 0.1, TG antibody less than 1 Which is right about now. At this point we will repeat labs. And determine what her TSH goal should be. Plan: - continue levothyroxine 150 mcg daily, = -repeat labs ordered for TSH and free T4 TG and TG antibody levels Plan see above Orders: Orders Thyroglobulin Today C73 - Malignant neoplasm of thyroid gland Thyroglobulin Tumor Marker Today C73 - Malignant neoplasm of thyroid gland Thyroglobulin Antibodies Today C73 - Malignant neoplasm of thyroid gland Coding Level of Care Code Tele Est Pt Level 4 (33761) Add On Problem Visit Only Diagnoses Thyroid cancer C73 Postoperative hypothyroidism E89.0 Hypothyroidism type: postoperative
[2025-06-08 15:55] VITALS: BP 116/76; PULSE 106; O2SAT 100; BMI 26.6
--- OUTSIDE RECORDS SUMMARY | 2025-06-08 16:51 | XMS_ITS | Clinical Summary ---
Author Organization [facility] Address [address] [place] [address] Phone Care Team Providers Care Lumber Straightener Name Role Phone Shonda Greer MD Primary Care Provider [phone] Allergies No known active allergies Medications traZODone [...] Type Department Care Team Description 05/14/2025 Telephone [facility] [address] [place] [address], [address] [place] [address], [address] [place] [address] Jacky Bush MD Medication Prior Authorization (AIMOVIG) 05/07/2025 Orders Only [facility] [address] [place] [address], [address] [place] [address], [address] [place] [address] Jacky Bush MD Intractable chronic migraine without aura and without status migrainosus (Primary Dx) 05/04/2025 9:00 AM EST Office Visit [address], [address] [place] [address] Jacky Bush MD Intractable chronic migraine without aura and without status migrainosus (Primary Dx); Idiopathic intracranial hypertension 04/19/2025 8:26 PM EST - 04/20/2025 2:58 AM EST Emergency [facility] [address] [place] [address] Discharge Disposition: Home or Self Care 04/19/2025 Ophth Exam [facility] [address] [place] [address] Taras Jefferson MD, PhD 03/19/2025 Telephone [facility]hthalmology Service [address] [address] Akiko Partida MD from Last 3 Months [...] Description 09/06/2025 3:00 PM EDT Office Visit [facility] [address] [facility], [address] [place] [address] Jacky Bush MD [address] [address] [email or web address] 12/23/2025 1:30 PM EDT Office Visit [facility] Ophthal[facility] Service [address] [facility] [address] [place] [address] Arslan Redman MD [address] [place] [address] [email or web address] Health Maintenance Due Date Last Done [...] topic Medical Devices Not on file Insurance [facility] A[employer] [facility] A[facility] ACO [facility] ACO [facility] ACO Care Teams Lumber Straightener Relationship Specialty Start Date End Date Shonda Greer MD [address] [facility] [place] [address] PCP - General Internal Medicine 08/25/24 Additional Source Comments The information contained in this document represents components of the legal health record. It is not the complete legal health record.[facility]
--- OUTSIDE RECORDS SUMMARY | 2025-06-08 16:51 | XMS_ITS | Clinical Summary ---
Author Organization [facility] [place] [address] Care Team Providers Care Tip Banding Machine Operator Name Role Phone Unavailable Primary Care [...]
--- OUTSIDE RECORDS SUMMARY | 2025-06-08 16:51 | XMS_ITS | Encounter Summary ---
Author Organization [facility] Address [address] [place] [address] Phone Care Team Providers Care Jacquard Loom Carpet Weaver Name Role Phone Shonda Greer MD Primary Care Provider [phone] Encounter Details Date Type Department Care Team ([facility] st Contact Info) Description 04/19/2025 Ophth Exam [facility] [address] [place] [address] Taras Jefferson MD, PhD [address] [place] [address] [email or web address] Social History Tobacco Use Types Packs/Day Years [...] PM EDT documented as of this encounter Plan of Treatment Upcoming Encounters Date Type Department Care Team (Late st Contact Info) Description 09/06/2025 3:00 PM EDT Office Visit [facility] Neurology [address] [place] [address], [address] [place] [phone] Jacky Bush MD [address] [place] [id number] [email or web address] 12/23/2025 1:30 PM EDT Office Visit [facility] Neuro Ophthalmology Service [address] [facility] 9th [place] [address] Arslan Redman MD [address] [place] [address] [email or web address] documented as of this encounter Visit Diagnoses Not on filedocumented in this encounter Care Teams Jacquard Loom Carpet Weaver Relationship Specialty Start Date End Date Shonda Greer MD [address] [place] [address] PCP - General Internal Medicine 08/25/24 documented as of this encounter Additional Source Comments The information contained in this document represents components of the legal health record. It is not the complete legal health record.[facility]
--- OUTSIDE RECORDS SUMMARY | 2025-06-08 16:51 | XMS_ITS | Encounter Summary ---
Author Organization [employer] Address [address] [facility] 7 [place] [address] Care Team Providers Care Power Plant Operator Name Role Phone Shonda Greer MD Primary Care Provider [phone] Shonda Greer MD Primary Care Provider [phone] Reason for Visit * Reason Onset Date Comments Call Back Request 11/25/2023 Encounter Details Date Type Department Care Team ([facility] st Contact Info) Description 11/25/2023 Telephone [facility] MED[facility] [address] [place] [address] Shonda Greer MD [address] [place] [address] Call Back Request Social History Tobacco Use [...] 4:16 PM EDT Tc from Kenzie with [facility] Radiology requesting call back to discuss positive xray results. Kenzie also informed she faxed results over. Please contact Kenzie at [phone]. documented in this encounter Plan of Treatment Upcoming Encounters Date Type Department Care Team ([facility] st Contact Info) Description 10/20/2025 10:15 AM EDT Office Visit [facility] ADULT DENTAL [address] [place] [address] Luciana Hercules documented as of this encounter Visit Diagnoses Not on filedocumented in this encounter Additional Health Concerns Assessment Noted Time PHQ-9 Depression Total Score: 20 023 2:07 PM EDT documented as of this encounter Care Teams Power Plant Operator Relationship Specialty Start Date End Date Shonda Greer MD [address] [place] [address] PCP - General Family Medicine 07/16/13 01/09/24 Shonda Greer MD [address] [place] [address] PCP - General Internal Medicine 01/10/24 Radha Garza Physician Ophthalmologist 02/07/24 05/11/24 documented as of this encounter
--- OUTSIDE RECORDS SUMMARY | 2025-06-08 16:51 | XMS_ITS | Encounter Summary ---
Author Organization [employer] [facility] Address [address] [facility] [address] 7[address] [place] [address] Care Team Providers Care Commissary Officer Name Role Phone Shonda Greer MD Primary Care Provider [phone] Encounter Details Date Type Department Care Team (Late Contact Info) Description 01/13/2024 Orders Only [facility] [address] [place], [place] [phone] Provider, MD Luz Social History Tobacco Use [...] Care Team (Late st Contact Info) Description 10/20/2025 10:15 AM EDT Office Visit [facility] ADULT DENTAL [address] [place], [place] [phone] Luciana Hercules documented as of this encounter [...] documented as of this encounter Care Teams Commissary Officer Relationship Specialty Start Date End Date Shonda Greer MD [address] [place] [address] PCP - General Internal Medicine 01/10/24 Radha Garza Process Improvement Consultant 02/07/24 05/11/24 documented as of this encounter
--- OUTSIDE RECORDS SUMMARY | 2025-06-08 16:51 | XMS_ITS | Encounter Summary ---
Author Organization [employer] Address [address] 7 [place] [address] Care Team Providers Care Flight Engineer Helicopter Name Role Phone Shonda Greer MD Primary Care Provider [phone] Shonda Greer MD Primary Care Provider [phone] Reason for Visit * Reason Onset Date Comments Appointment Request 12/20/2023 Encounter Details Date Type Department Care Team ([facility] st Contact Info) Description 12/20/[address] [facility] [address] [place] [address] Shonda Greer MD [address] [place], [place] [phone] Appointment Request Social History Tobacco Use Types [...] Description 10/20/2025 10:15 AM EDT Office Visit [facility] ADULT D[facility] [address] [place] [address] Luciana Hercules documented as of this encounter Visit Diagnoses Not on filedocumented in this encounter Additional Health Concerns Assessment Noted Time PHQ-9 Depression Total Score: 20 023 2:07 PM EDT documented as of this encounter Care Teams Flight Engineer Helicopter Relationship Specialty Start Date End Date Shonda Greer MD [address] [place] [address] PCP - General Family Medicine 07/16/13 01/09/24 Shonda Greer MD [address] [place] [address] PCP - General Internal Medicine 01/10/24 Radha Garza Sas Programmer Analyst 02/07/24 05/11/24 documented as of this encounter
--- OUTSIDE RECORDS SUMMARY | 2025-06-08 16:51 | XMS_ITS | Encounter Summary ---
Author Organization [employer] Address [address] [facility] 7 [place] [address] Care Team Providers Care Otr Company Truck Driver Name Role Phone Shonda Greer MD Primary Care Provider [phone] Shonda Greer MD Primary Care Provider [phone] Reason for Referral * Imaging (Urgent) - Closed Specialty Diagnoses / Procedures Referred By Contac t Referred To Contact Interventional Radiology Diagnoses Left thyroid nodule Procedures IR Fine Needle Aspiration Thyroid Shonda Greer MD [address] [place] [address] Phone: tel: fax: [address] [address] Phone: tel: fax: Referral ID Status Reason Start Date Expiration Date Visits Re quested Visits Authorized [id number] Closed 09/16/2023 09/15/2024 1 1 Encounter Details Date Type Department Care Team (Late st Contact Info) Description 09/16/2023 Orders Only [facility]EDS [address] [place], [place] [phone] Shonda Greer MD [address] [place] [address] Left thyroid nodule (Primary Dx) Social History [...] Description 10/20/2025 10:15 AM EDT Office Visit [facility] ADULT DENTAL [address] [place] [address] Luciana Hercules Scheduled Orders Name Type Priority [...] documented as of this encounter Care Teams Otr Company Truck Driver Relationship Specialty Start Date End Date Shonda Greer MD [address] [place] [address] PCP - General Family Medicine 07/16/13 01/09/24 Shonda Greer MD [address] [place] [address] PCP - General Internal Medicine 01/10/[address] Worker 02/07/24 05/11/24 documented as of this encounter
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
--- OUTSIDE RECORDS SUMMARY | 2025-06-08 16:51 | XMS_ITS | Encounter Summary ---
Author Organization [employer] Address [address] 7[address] [place] [address] Care Team Providers Care Nuclear Medical Technologist Name Role Phone Shonda Greer MD Primary Care Provider [phone] Encounter Details Date Type Department Care Team ([facility] Contact Info) Description 06/02/2025 Results Follow-Up [facility] MED & PEDS [address] [place], [place] [id number] Karli Maradiaga, ANGELIQUE [address] [place] [address] POCT Urinalysis, POCT Urine , Bacterial Vaginosis, Additional followed-up results: 4 Social History Tobacco [...] Q2 Not on file 07/29/2024 Comments No Sex and Gender Information Value Date Recorded Sex Assigned at Female 04/16/2022 10:17 AM EDT Legal Sex Female 10:17 AM EDT Gender Identity Female 04/16/2022 10:17 AM EDT Sexual Orientation Straight 04/16/2022 10 :17 AM EDT documented as of this encounter Plan of Treatment Upcoming Encounters Date Type Department Care Team ([facility] st Contact Info) Description 10/20/2025 10:15 AM EDT Office Visit [facility] ADULT DENTAL [address] [place] [address] Luciana Hercules documented as of this encounter Visit Diagnoses Not on filedocumented in this encounter Additional Health Concerns Assessment Noted Time PHQ-9 Depression Total Score: 15 025 10:46 AM EST documented as of this encounter Care Teams Nuclear Medical Technologist Relationship Specialty Start Date End Date Shonda Greer MD [address] [place] [address] PCP - General Internal Medicine 01/10/24 documented as of this encounter
--- OUTSIDE RECORDS SUMMARY | 2025-06-08 16:51 | XMS_ITS | Encounter Summary ---
Author Organization [facility] Address [address] [place] [address] Phone Care Team Providers Care Guardian Ad Litem Name Role Phone Shonda Greer MD Primary Care Provider [phone] Encounter Details Date Type Department Care Team (Late st Contact Info) Description 08/28/2024 Procedure Pass NATHALY Imaging - MRI, [facility] [address] [place] [address] Social History Tobacco Use Types Packs/Day Years [...] Description 09/06/2025 3:00 PM EDT Office Visit [facility] Neurology [address] [facility], [address] [place] [address] Jacky Bush MD 55 [facility] [address] [place] [address] [email or web address] 12/23/2025 1:30 PM EDT Office Visit [facility] Eye and Ear Neuro Ophthalmology Service [address] [facility] 9 [place] [address] Arslan Redman MD [address] [place] [address] [email or web address] documented as of this encounter Visit Diagnoses Not on filedocumented in this encounter Care Teams Guardian Ad Litem Relationship Specialty Start Date End Date Shonda Greer MD [address] [place] [address] PCP - General Internal Medicine 08/25/24 documented as of this encounter Additional Source Comments The information contained in this document represents components of the legal health record. It is not the complete legal health record.[facility]
--- OUTSIDE RECORDS SUMMARY | 2025-06-08 16:52 | XMS_ITS | Encounter Summary ---
Author Organization [employer] Address [address] [facility] 7 [place] [address] Care Team Providers Care Printing Sales Representative Name Role Phone Shonda Greer MD Primary Care Provider [phone] Shonda Greer MD Primary Care Provider [phone] Reason for Visit * Reason Onset Date Comments Referral 10/28/2023 Encounter Details Date Type Department Care Team ([facility] st Contact Info) Description 10/28/2023 Telephone [facility] MEDICINE [address] [place] [address] Shonda Greer MD [address] [place], [place] [id number] Referral Social History Tobacco Use Types Packs/Day [...] 11/14/2023 3:14 PM EDT Placed call to [facility] Endo regarding message below. They stated they are referring pt to [facility] Endo to Dr Mendoza at [facility] but with pt insurance they needed a insurance referral. [facility] endo stated they faxed over needed paperwork. Informed them we did send today the completed for. [facility] Endo office looked and found fax for [...] the surgery, this was advised by the [facility] office but mom is very confused on [...] in regards below message, please contact at [phone] * Telephone Encounter - Dolly Warren - 10/29/2023 12:28 PM EDT VM left for patient regarding request for endo at [facility]. Patient was referred to Dr. Too wood [facility] not accepting patient insurance. * Telephone Encounter - Jonel Gaspar - 10/28/2023 1:58 PM EDT TC from pt requesting new referral: Address: [address] [address] Facility Name: [facility] Type of Specialist: [employer] Pt is requesting to change location of original endocrinology referral, stated she gave a form witha sticky note with al necessary information of referral to [place] so they can hand it to the pcp in which [place] stated they will. Pt has not gotten any update since and states it's been 2 weeks since then. If any questions you can contact pt at [phone]. documented in this encounter Plan of Treatment Upcoming Encounters Date Type Department Care Team (Late st Contact Info) Description 10/20/2025 10:15 AM EDT Office Visit [facility] ADULT DENTAL [address] [place] [address] Luciana Hercules documented as of this encounter Visit Diagnoses Not on filedocumented in this encounter Additional Health Concerns Assessment Noted Time PHQ-9 Depression Total Score: 20 023 2:07 PM EDT documented as of this encounter Care Teams Printing Sales Representative Relationship Specialty Start Date End Date Shonda Greer MD [address] [place] [address] PCP - General Family Medicine 07/16/13 01/09/24 Shonda Greer MD [address] [place] [address] PCP - General Internal Medicine 01/10/24 Radha Garza Machine Printer Hose 02/07/24 05/11/24 documented as of this encounter
--- OUTSIDE RECORDS SUMMARY | 2025-06-08 16:52 | XMS_ITS | Encounter Summary ---
Author Organization [facility] Address [address] [place] [address] Phone Care Team Providers Care Auto Air Conditioning Mechanic Name Role Phone Shonda Greer MD Primary Care Provider [phone] Encounter Details Date Type Department Care Team (Late st Contact Info) Description 08/28/2024 Procedure Pass NATHALY Imaging - MRI, [facility] [address] [place] [address] Social History Tobacco Use Types Packs/Day Years [...] Description 09/06/2025 3:00 PM EDT Office Visit [facility] Neurology [address] [facility], [address] [place] [address] Jacky Bush MD 55 [facility] [address] [place] [address] [email or web address] 12/23/2025 1:30 PM EDT Office Visit [facility] Eye and Ear Neuro Ophthalmology Service [address] [facility] 9 [place] [address] Arslan Redman MD [address] [place] [address] [email or web address] documented as of this encounter Visit Diagnoses Not on filedocumented in this encounter Care Teams Auto Air Conditioning Mechanic Relationship Specialty Start Date End Date Shonda Greer MD [address] [place] [address] PCP - General Internal Medicine 08/25/24 documented as of this encounter Additional Source Comments The information contained in this document represents components of the legal health record. It is not the complete legal health record.[facility]
--- OUTSIDE RECORDS SUMMARY | 2025-06-08 16:52 | XMS_ITS | Encounter Summary ---
Author Organization [facility] Address [address] [place] [address] Phone Care Team Providers Care Floral Designer Name Role Phone Shonda Greer MD Primary Care Provider [phone] Encounter Details Date Type Department Care Team (Late st Contact Info) Description 08/28/2024 Procedure Pass NATHALY Imaging - MRI, [facility] [address] [place] [address] Social History Tobacco Use Types Packs/Day Years [...] Description 09/06/2025 3:00 PM EDT Office Visit [facility] Neurology [address] [facility], [address] [place] [address] Jacky Bush MD 55 [facility] [address] [place] [address] [email or web address] 12/23/2025 1:30 PM EDT Office Visit [facility] Eye and Ear Neuro Ophthalmology Service [address] [facility] 9 [place] [address] Arslan Redman MD [address] [place] [address] [email or web address] documented as of this encounter Visit Diagnoses Not on filedocumented in this encounter Care Teams Floral Designer Relationship Specialty Start Date End Date Shonda Greer MD [address] [place] [address] PCP - General Internal Medicine 08/25/24 documented as of this encounter Additional Source Comments The information contained in this document represents components of the legal health record. It is not the complete legal health record.[facility]
--- OUTSIDE RECORDS SUMMARY | 2025-06-08 16:52 | XMS_ITS | Encounter Summary ---
Author Organization [employer] Address [address] [place] [address] Care Team Providers Care Pc Network Technician Name Role Phone Shonda Greer MD Primary Care Provider [phone] Shonda Greer MD Primary Care Provider [phone] Reason for Visit * Reason Comments Med Change Request Encounter Details Date Type Department Care Team ([facility] st Contact Info) Description 10/23/[address] [facility] ADULT DENTAL [address] [place] [address] Breann Art DDS Social History Tobacco Use [...] Description 10/20/2025 10:15 AM EDT Office Visit [facility] ADULT DENTAL [address] [place] [address] Luciana Hercules documented as of this encounter Visit Diagnoses Not on filedocumented in this encounter Additional Health Concerns Assessment Noted Time PHQ-9 Depression Total Score: 20 023 2:07 PM EDT documented as of this encounter Care Teams Pc Network Technician Relationship Specialty Start Date End Date Shonda Greer MD [address] [place] [address] PCP - General Family Medicine 07/16/13 01/09/24 Shonda Greer MD [address] [place] [address] PCP - General Internal Medicine 01/10/24 Radha Garza Professional Wrestler 02/07/24 05/11/24 documented as of this encounter
--- OUTSIDE RECORDS SUMMARY | 2025-06-08 16:52 | XMS_ITS | Encounter Summary ---
Author Organization [facility] Address [address] [place] [address] Phone Care Team Providers Care Glove Examiner Name Role Phone Shonda Greer MD Primary Care Provider [phone] Encounter Details Date Type Department Care Team ([facility] st Contact Info) Description 08/28/2024 Ophth Exam [facility] Emergency Department [address] [place] [address] Sarah Ward MD [address] [place] [address] [email or web address] Social History Tobacco Use Types Packs/Day [...] Description 09/06/2025 3:00 PM EDT Office Visit [facility] Neurology [address] [place] [address], [address] [place] [address] Jacky Bush MD [address] [address] [email or web address] 12/23/2025 1:30 PM EDT Office Visit [facility] Eye and Ear Neuro Ophthalmology Service [address] [facility] [address], [place] [address] Arslan Redman MD [address] [place] [address] [email or web address] documented as of this encounter Visit Diagnoses Not on filedocumented in this encounter Care Teams Glove Examiner Relationship Specialty Start Date End Date Shonda Greer MD [address] [place] [address] PCP - General Internal Medicine 08/25/24 documented as of this encounter Additional Source Comments The information contained in this document represents components of the legal health record. It is not the complete legal health record.[facility]
== END 2025-06-08 16:33 | disposition home or self-care (01) ==
LOC: HO.ENCR 15:51
PROVIDERS: PCP Pediatrics; Visit Provider Student in an Organized Health Care Education/Training Program
DX: C73 Malignant neoplasm of thyroid gland (principal); E89.0 Postprocedural hypothyroidism
CPT/HCPCS: 99214

== ENCOUNTER 2025-06-08 15:51 | Outpatient (REF) | payer MEDICAID, SELFPAY ==
[2025-06-09 20:03] LABS: Thyroglobulin 0.2 ng/mL; Thyroglobulin Antibodies <1 IU/mL (< or = 1)
== END 2025-06-08 15:52 | disposition home or self-care (01) ==
LOC: HO.LAB 15:51
PROVIDERS: PCP Pediatrics; Visit Provider Student in an Organized Health Care Education/Training Program
DX: C73 Malignant neoplasm of thyroid gland (principal); E89.0 Postprocedural hypothyroidism; Z01.84 Encounter for antibody response examination; Z79.899 Other long term (current) drug therapy
CPT/HCPCS: 36415; 84432; 86800